=== PATIENT | female | born 1930 | race Caucasian/White ===

== ENCOUNTER → 2016-11-24 | Outpatient (CLI) | payer BC ==
[~2016-11-24] MED LIST: B-COCAP2 PO; CHOL1000 PO; FERR1TAB13 PO; GLC500 PO; GLUC1500 PO; LEVE500T13 PO; LISI-461 PO; LPR25 PO; LPT20 PO; PRT40 PO; RIVA6CAP4 PO
[2016-11-24 17:34] LABS: ALKALINE PHOSPHATASE 30 U/L (45-117); ALT/SGPT 33 U/L (12-78); AST/SGOT 23 U/L (15-37)
== END | disposition home or self-care (01) ==
LOC: C.LABPVFM 13:46
PROVIDERS: ATTEND Internal Medicine Cardiovascular Disease
DX: E78.5 Hyperlipidemia, unspecified (principal)

== ENCOUNTER → 2017-03-19 | Outpatient (CLI) | payer BC | END | disposition home or self-care (01) | LOC: C.LABPVFM 07:39 | PROVIDERS: ATTEND Nurse Practitioner | DX: R10.9 Unspecified abdominal pain (principal) ==

== ENCOUNTER → 2017-06-04 | Outpatient (CLI) | payer BC ==
[2017-06-04 17:47] LABS: BASO % 0.5 %; BASO ABS # 0.05 K/uL (0-0.2); COMPLETE YES; EOS % 0.9 %; IG% 0.3 %; LYMPH % 21.4 %; LYMPH ABS # 1.97 K/uL (1.2-3.4); MEAN CELL VOLUME 97.1 fL (80-100); MEAN CORPUSCULAR HEMOGLOBIN 30.9 pg (25-34); MEAN CORPUSCULAR HGB CONC 31.8 g/dl (32-36); MEAN PLATELET VOLUME 10.3 fL (7.4-10.4); MONO % 7.7 %; NEUT % 69.2 %; PLATELET COUNT 312 K/uL (130-400)
[2017-06-04 17:53] LABS: BLOOD UREA NITROGEN 18 mg/dl (7-18); BUN/CREATININE RATIO 20.5 (10-20); CALCIUM 9.2 mg/dl (8.5-10.1); CARBON DIOXIDE 26 mmol/L (21-32); CHLORIDE 106 mmol/L (98-107); CREATININE 0.87 mg/dl (0.60-1.20); GLUCOSE 78 mg/dl (70-99); POTASSIUM 4.8 mmol/L (3.5-5.1); SODIUM 137 mmol/L (136-145)
[2017-06-05 06:47] LABS: ESTIMATED AVERAGE GLUCOSE 126 mg/dl; HA1C FLAG Normal (Normal)
== END | disposition home or self-care (01) ==
LOC: C.LABPVFM 11:15
PROVIDERS: ATTEND Nurse Practitioner
DX: E11.9 Type 2 diabetes mellitus without complications (principal); D50.9 Iron deficiency anemia, unspecified; M81.0 Age-related osteoporosis without current pathological fracture

== ENCOUNTER → 2017-07-26 | Outpatient (CLI) | payer BC ==
[2017-07-26 18:23] LABS: BLOOD UREA NITROGEN 25 mg/dl (7-18); BUN/CREATININE RATIO 22.7 (10-20); CALCIUM 9.6 mg/dl (8.5-10.1); CARBON DIOXIDE 25 mmol/L (21-32); CHLORIDE 106 mmol/L (98-107); GLUCOSE 105 mg/dl (70-99); POTASSIUM 4.6 mmol/L (3.5-5.1); SODIUM 138 mmol/L (136-145)
[2017-07-26 18:32] LABS: BASO % 0.3 %; BASO ABS # 0.03 K/uL (0-0.2); COMPLETE YES; EOS % 1.5 %; HEMATOCRIT 33.4 % (37-47); IG% 0.3 %; LYMPH % 23.1 %; LYMPH ABS # 2.17 K/uL (1.2-3.4); MEAN CELL VOLUME 97.1 fL (80-100); MEAN CORPUSCULAR HEMOGLOBIN 30.8 pg (25-34); MEAN CORPUSCULAR HGB CONC 31.7 g/dl (32-36); MEAN PLATELET VOLUME 10.5 fL (7.4-10.4); MONO % 7.9 %; NEUT % 66.9 %; PLATELET COUNT 339 K/uL (130-400); RED BLOOD COUNT 3.44 M/uL (4.2-5.4); WHITE BLOOD COUNT 9.39 K/uL (4.8-10.8)
== END | disposition home or self-care (01) ==
LOC: C.LABPVFM 16:04
PROVIDERS: ATTEND Nurse Practitioner
DX: R73.09 Other abnormal glucose (principal); R53.83 Other fatigue; I47.1 Supraventricular tachycardia; R11.0 Nausea

== ENCOUNTER → 2017-07-29 | Outpatient (CLI) | payer BC | END | disposition home or self-care (01) | LOC: C.LABPVFM 12:50 | PROVIDERS: ATTEND Nurse Practitioner | DX: N39.0 Urinary tract infection, site not specified (principal); R11.0 Nausea ==

== ENCOUNTER 2017-10-11 07:30 | Inpatient (IN) | payer BC, OTHER ==
[2017-10-11] VITALS (8 sets, daily range): BP systolic 160–205; BP diastolic 65–74; PULSE 56–75; TEMP 36.3–36.7; O2SAT 94–97; Ht 157.5 cm; Wt 55.4 kg
[~2017-10-11] VITALS: Ht 157.5 cm; Wt 55.4 kg
[2017-10-11] MEDS ORDERED: TRAMADOL HCL 50 MG TAB PO STA (07:43)
--- NOTE | 2017-10-11 07:56 | EMERGENCY ROOM VISIT NOTE ---
History Report prepared by Mame: Lindy Walker Under the Supervision of: Dr. Huber Thakkar M.D. First contact with patient: 07:40 Chief Complaint: FALL Stated Complaint: FALL, RIGHT SIDE BACK AND SHOULDER HURTS History of Present Illness The patient is a 87 year old female who presents to the Emergency Room with complaints of an episode of a fall occurring about two hours ago. The patient states that she stood up to go to the bathroom when she lost her balance and fell to the ground. She reports right upper back pain and rates her pain as a 6/ 10. Her pain worsens with taking a deep breath. She is unsure if she hit her head or lost consciousness. The patient took Tylenol with minimal relief. She reports feeling normal over the past couple days and denies any urinary symptoms or headache. The patient is not on any blood thinners. She reports taking her daily medications this morning. Source of History: patient Onset: 2 hours ago Position: other (generalized) Quality: other (fall) Timing: other (episode) Associated Symptoms: + back pain, No headache, No urinary symptoms Review of Systems See HPI for pertinent positives & negatives. A total of 10 systems reviewed and were otherwise negative. Past Medical & Surgical Medical Problems: (1) Heart murmur Social History Smoking Status: Never Smoker Alcohol Use: none Drug Use: none Marital Status: Housing Status: lives alone Occupation Status: retired Current/Historical Medications Scheduled Atorvastatin (Lipitor), 20 MG PO DAILY Cholecalciferol (Vitamin D3), 1,000 UNITS PO DAILY Ferrous Sulfate (Ferrous Sulfate), 325 MG PO BID Gjymkzywome-Jdrydqdhqea-Imd C- (Glucosamine Chondroitin 1), 1 CAP PO BID Levetiracetam (Keppra), 500 MG PO BID Lisinopril (Zestril), 10 MG PO DAILY Metformin HCl (Metformin HCl), 500 MG PO DAILY Metoprolol Tartrate (Lopressor) (Lopressor), 25 MG PO BID Pantoprazole (Protonix), 40 MG PO DAILY Rivastigmine Tartrate (Rivastigmine Tartrate), 6 MG PO BID Sennosides (Senokot), 8.6 MG PO DAILY Vitamin B Cmplx/Vitc/Folic Ac (Nephrocaps), 1 CAP PO DAILY Allergies Coded Allergies: No Known Allergies (Unverified , 10/11/17) Physical Exam Vital Signs Date Time Temp Pulse Resp B/P (MAP) Pulse Ox O2 Delivery O2 Flow Rate FiO2 10/11/17 09:12 64 20 173/80 95 10/11/17 08:31 71 20 209/90 97 10/11/17 07:33 36.7 62 20 185/89 99 Room Air Physical Exam GENERAL: Patient is in no acute distress. HEENT: No acute trauma, normocephalic atraumatic, mucous membranes moist, no nasal congestion, no scleral icterus. NECK: No stridor, no adenopathy, no meningismus, trachea is midline. Posterior cervical spine mildly diffusely tender, no step off. CHEST: Tender to right lateral and posterior mid ribs, no contusion. LUNGS: Clear to auscultation bilaterally, no wheeze, no rhonchi, breath sounds equal. HEART: Without murmurs gallops or rubs, regular rate and rhythm. ABDOMEN: Soft, nontender, bowel sounds positive, no hernias, no peritonitis. EXTREMITIES: No cyanosis or edema, full range of motion of all the joints without pain or difficulty, no signs for acute trauma. NEUROLOGIC: Oriented x 3, no acute motor or sensory deficits, no focal weakness. SKIN: No rash, no jaundice, no diaphoresis. Medical Decision & Procedures ER Provider Diagnostic Interpretation: Radiology results as stated below per my review and radiologist interpretation: CERVICAL SPINE W/O FINDINGS: Division Order Technician topogram: Unremarkable. Straightening of normal cervical lordosis likely positional and secondary to degenerative change. Mild vertebral body height loss of C4-C6. Intervertebral disc height loss at C4-5 through C6-7, where there are disc osteophyte complexes. Mild osseous neural foraminal narrowing results at these levels to varying degrees. Posterior bone spur at C5-6 mildly effaces the right paramedian anterior spinal canal. Otherwise no significant spinal canal stenosis. No acute fracture or subluxation. Degenerative changes at the atlantodental interval. Paraspinal soft tissues remarkable for atherosclerosis. Lung apices clear. IMPRESSION: 1. No acute osseous injury of the cervical spine. 2. Multilevel degenerative changes. Electronically signed by: Eyad Macias M.D. HEAD WITHOUT CONTRAST (CT) FINDINGS: Division Order Technician topogram: Unremarkable. Proportional ventricular and sulcal prominence, likely age-related parenchymal volume loss. Periventricular and subcortical white matter hypoattenuation, nonspecific but likely indicative of chronic small vessel ischemic change. No mass effect or midline shift. No hemorrhage or acute territorial infarct. No extra-axial fluid collection. Paranasal sinuses and mastoid air cells clear. Calvarium intact. IMPRESSION: 1. Chronic small vessel ischemic change. No acute intracranial abnormality. Electronically signed by: Eyad Macias M.D. R RIBS UNILATERAL WITH PA CHEST FINDINGS: Atherosclerosis of aortic arch. Cardiac silhouette normal in size. Minimal opacity at the right lung base. Lungs otherwise clear. No large effusion or pneumothorax. Contour deformity of the cortex of one of the right lateral ribs, likely the sixth or seventh rib. No displaced right rib fracture. Degenerative changes of the right shoulder with complete effacement of the acromiohumeral interval likely indicating complete rotator cuff tear. Cholecystectomy clips noted. IMPRESSION: 1. Contour deformity of one of the right lateral ribs, likely the sixth or seventh rib, concerning for nondisplaced fracture. This is age indeterminate. Correlate with point tenderness for assessment of acuity. No displaced rib fracture. 2. No other evidence of acute cardiopulmonary disease. Electronically signed by: Eyad Macias M.D. Laboratory Results 10/11/17 07:55 10/11/17 07:55 Test 10/11/17 07:55 10/11/17 09:10 Red Blood Count 3.54 M/uL (4.2-5.4) Mean Corpuscular Volume 96.0 fL (80-100) Mean Corpuscular Hemoglobin 31.1 pg (25-34) Mean Corpuscular Hemoglobin Concent 32.4 g/dl (32-36) RDW Standard Deviation 46.9 fL (36.4-46.3) RDW Coefficient of Variation 13.5 % (11.5-14.5) Mean Platelet Volume 9.9 fL (7.4-10.4) Anion Gap 11.0 mmol/L (3-11) Est Creatinine Clear Calc Drug Dose 33.2 ml/min Estimated GFR () 64.8 Estimated GFR (Non- 55.9 BUN/Creatinine Ratio 24.4 (10-20) Calcium Level 9.5 mg/dl (8.5-10.1) Total Bilirubin 0.3 mg/dl (0.2-1) Aspartate Amino Transf (AST/SGOT) 17 U/L (15-37) Alanine Aminotransferase (ALT/SGPT) 17 U/L (12-78) Alkaline Phosphatase 33 U/L (45-117) Troponin I 0.016 ng/ml (0-0.045) Total Protein 7.5 gm/dl (6.4-8.2) Albumin 3.7 gm/dl (3.4-5.0) Globulin 3.8 gm/dl (2.5-4.0) Albumin/Globulin Ratio 1.0 (0.9-2) Urine Color YELLOW Urine Appearance CLEAR (CLEAR) Urine pH 5.0 (4.5-7.5) Urine Specific [place] 1.018 (1.000-1.030) Urine Protein 1+ (NEG) Urine Glucose (UA) NEG (NEG) Urine Ketones NEG (NEG) Urine Occult Blood TRACE (NEG) Urine Nitrite NEG (NEG) Urine Bilirubin NEG (NEG) Urine Urobilinogen NEG (NEG) Urine Leukocyte Esterase MODERATE (NEG) Urine WBC (Auto) >30 /hpf (0-5) Urine RBC (Auto) 0-4 /hpf (0-4) Urine Hyaline Casts (Auto) 1-5 /lpf (0-5) Urine Epithelial Cells (Auto) 0-5 /lpf (0-5) Urine Bacteria (Auto) 4+ (NEG) Laboratory results reviewed by me. Medications Administered Medications (Trade) Dose Ordered Sig/Giorgi Route Start Time Stop Time Status Last Admin Dose Admin Tramadol HCl (Ultram Tab) 100 mg NOW STAT PO 10/11/17 07:43 10/11/17 07:47 DC 10/11/17 07:55 100 MG Morphine Sulfate (MoRPHine SULFATE INJ) 2 mg NOW STAT IV 10/11/17 08:44 10/11/17 08:46 DC 10/11/17 08:55 2 MG Ketorolac Tromethamine (Toradol Inj) 15 mg NOW STAT IV 10/11/17 08:44 10/11/17 08:46 DC 10/11/17 08:56 15 MG Ondansetron HCl (Zofran Inj) 4 mg NOW STAT IV 10/11/17 09:32 10/11/17 09:33 DC 10/11/17 09:37 4 MG Ceftriaxone Sodium (Rocephin Inj) 1 gm NOW STAT IV 10/11/17 09:41 10/11/17 09:43 DC 10/11/17 10:02 1 GM Sodium Chloride 500 ml @ 999 mls/hr Q31M STAT IV 10/11/17 09:46 10/11/17 10:16 10/11/17 10:02 999 MLS/HR ECG Indication: other (fall) Rate (beats per minute): 67 Rhythm: sinus rhythm Findings: PVC, no acute ischemic change, other (poor R wave progression, LVH present) ED Course 0740: The patient was evaluated in room B2. A complete history and physical exam was performed. 0743: Ordered Tramadol HCl 100 mg PO. 0841: I updated the patient on her test results. She is still having pain. 0844: Ordered Toradol Inj 15 mg IV, Morphine Sulfate 2 mg IV. 0932: Ordered Zofran Inj 4 mg IV. 0946: Ordered Sodium Chloride 500 ml @ 999 mls/hr IV. 0958: Discussed the patient's case with Dr. Talley-[facility] [place]. The patient will be evaluated for further management. Medical Decision Differential Diagnoses include: rib fracture, pneumothorax, rib contusion, intracranial bleed, cervical spine fracture, anemia, dysrhythmia, electrolyte imbalance, UTI. There is no leukocytosis or concerning anemia. No significant electrolyte abnormality, kidney failure or hepatitis. EKG shows a sinus rhythm with PVCs, no acute ischemia. Cardiac testing 1 is not consistent with acute cardiac injury. Brain CT shows no acute bleed or mass effect. C-spine CT shows no acute fracture. Right rib series shows a deformity to one of the right ribs consistent with a nondisplaced fracture. There is no pneumothorax or pulmonary contusion. Urinalysis does show evidence for infection. The patient received oral tramadol with no relief of her pain. She then received IV morphine and IV Toradol. She received IV saline and eventually IV Zofran for nausea. She received IV ceftriaxone for the diagnosis of UTI. The patient presents with a fall. I had a difficult time controlling her pain. She became nauseated from the morphine although the morphine did help control her discomfort. She appears to have a UTI and this may have led to the fall. She has suffered a rib fracture from the fall. Given the circumstances, I do not think the patient is stable for discharge. She is not able to return to her current living situation. I spoke to the family, I talked to case management. The on-call hospitalist was consulted. Medication Reconcilliation Current Medication List: was personally reviewed by me Blood Pressure Screening Patient's blood pressure: Elevated blood pressure Blood pressure disposition: Referred to PCP (evaluated by hospitlist ) Consults Time Called: [phone] Consulting Physician: Dr. Talley-[facility] [place] Returned Call: [phone] Discussed the patient's case. The patient will be evaluated for further management. Impression Primary Impression: Right rib fracture Additional Impressions: Fall UTI (urinary tract infection) Scribe Attestation The scribe's documentation has been prepared under my direction and personally reviewed by me in its entirety. I confirm that the note above accurately reflects all work, treatment, procedures, and medical decision making performed by me. Departure Information Dispostion Being Evaluated By Hospitalist Referrals Brittanie Moran C.R.N.P (PCP) Patient Instructions My [facility] Problem Qualifiers Primary Impression: Right rib fracture Fracture type: closed
[2017-10-11 08:08] LABS: MEAN CORPUSCULAR HEMOGLOBIN 31.1 pg (25-34); MEAN CORPUSCULAR HGB CONC 32.4 g/dl (32-36); MEAN PLATELET VOLUME 9.9 fL (7.4-10.4); PLATELET COUNT 316 K/uL (130-400); RED BLOOD COUNT 3.54 M/uL (4.2-5.4); WHITE BLOOD COUNT 9.58 K/uL (4.8-10.8)
--- NOTE | 2017-10-11 08:19 | DIAGNOSTIC IMAGING REPORT ---
HEAD WITHOUT CONTRAST (CT) CLINICAL HISTORY: 87 years-old Female presenting with fall, hit head. TECHNIQUE: Multidetector CT imaging of the head was performed without the use of intravenous contrast. IV contrast: None. A dose lowering technique was used consistent with the principles of ALARA (as low as reasonably achievable). COMPARISON: 02/21/2008. CT DOSE (mGy.cm): The estimated cumulative dose is 1009.47 mGy.cm. FINDINGS: People Greeter topogram: Unremarkable. Proportional ventricular and sulcal prominence, likely age-related parenchymal volume loss. Periventricular and subcortical white matter hypoattenuation, nonspecific but likely indicative of chronic small vessel ischemic change. No mass effect or midline shift. No hemorrhage or acute territorial infarct. No extra-axial fluid collection. Paranasal sinuses and mastoid air cells clear. Calvarium intact. IMPRESSION: 1. Chronic small vessel ischemic change. No acute intracranial abnormality. Electronically signed by: Eyad Macias M.D. 10/11/2017 8:18 AM Dictated Date/Time: 10/11/2017 8:16 AM
[2017-10-11 08:24] LABS: BUN/CREATININE RATIO 24.4 (10-20); CALCIUM 9.5 mg/dl (8.5-10.1); CREATININE 0.91 mg/dl (0.60-1.20); POTASSIUM 4.5 mmol/L (3.5-5.1)
--- NOTE | 2017-10-11 08:24 | DIAGNOSTIC IMAGING REPORT ---
CERVICAL SPINE W/O CLINICAL HISTORY: 87 years-old Female presenting with fall, neck pain. TECHNIQUE: Multidetector CT of the cervical spine was performed without the use of intravenous contrast. IV contrast: None. A dose lowering technique was used consistent with the principles of ALARA (as low as reasonably achievable). COMPARISON: None. CT DOSE (mGy.cm): The estimated cumulative dose is 1009.47. FINDINGS: Superintendent Operating topogram: Unremarkable. Straightening of normal cervical lordosis likely positional and secondary to degenerative change. Mild vertebral body height loss of C4-C6. Intervertebral disc height loss at C4-5 through C6-7, where there are disc osteophyte complexes. Mild osseous neural foraminal narrowing results at these levels to varying degrees. Posterior bone spur at C5-6 mildly effaces the right paramedian anterior spinal canal. Otherwise no significant spinal canal stenosis. No acute fracture or subluxation. Degenerative changes at the atlantodental interval. Paraspinal soft tissues remarkable for atherosclerosis. Lung apices clear. IMPRESSION: 1. No acute osseous injury of the cervical spine. 2. Multilevel degenerative changes. Electronically signed by: Eyad Macias M.D. 10/11/2017 8:22 AM Dictated Date/Time: 10/11/2017 8:18 AM
--- NOTE | 2017-10-11 08:28 | DIAGNOSTIC IMAGING REPORT ---
R RIBS UNILATERAL WITH PA CHEST CLINICAL HISTORY: 87 years-old Female presenting with fall, pain, right. TECHNIQUE: Frontal and oblique views of the right ribs and PA view of the chest were obtained. COMPARISON: 02/21/2008. FINDINGS: Atherosclerosis of aortic arch. Cardiac silhouette normal in size. Minimal opacity at the right lung base. Lungs otherwise clear. No large effusion or pneumothorax. Contour deformity of the cortex of one of the right lateral ribs, likely the sixth or seventh rib. No displaced right rib fracture. Degenerative changes of the right shoulder with complete effacement of the acromiohumeral interval likely indicating complete rotator cuff tear. Cholecystectomy clips noted. IMPRESSION: 1. Contour deformity of one of the right lateral ribs, likely the sixth or seventh rib, concerning for nondisplaced fracture. This is age indeterminate. Correlate with point tenderness for assessment of acuity. No displaced rib fracture. 2. No other evidence of acute cardiopulmonary disease. Electronically signed by: Eyad Macias M.D. 10/11/2017 8:27 AM Dictated Date/Time: 10/11/2017 8:22 AM
[2017-10-11] MEDS ORDERED: FERR325T5 PO (08:42)
[2017-10-11] MEDS ORDERED: GLC500 PO (08:42)
[2017-10-11] MEDS ORDERED: B-CO1CAP17 PO (08:42)
[2017-10-11] MEDS ORDERED: ATOR-22 PO (08:42)
[2017-10-11] MEDS ORDERED: SENN1TAB77 PO (08:42)
[2017-10-11] MEDS ORDERED: PANT1TAB3 PO (08:42)
[2017-10-11] MEDS ORDERED: METO25TA56 PO (08:42)
[2017-10-11] MEDS ORDERED: MoRPHine SULFATE 4 MG/ML 1 ML CARP\\VIAL IV STA (08:44)
[2017-10-11] MEDS ORDERED: KETOROLAC TROMETHAMINE 30 MG/ML VIAL IV STA (08:44)
[2017-10-11 09:26] LABS: URINE APPEARANCE CLEAR (CLEAR); URINE BILIRUBIN NEG (NEG); URINE COLOR YELLOW; URINE EPITHELIAL CELL AUTO 0-5 /lpf (0-5); URINE NITRITE NEG (NEG); URINE SPECIFIC GRAVITY 1.018 (1.000-1.030); UROBILINOGEN NEG (NEG)
[2017-10-11] MEDS ORDERED: ONDANSETRON INJ 2 MG/ML 2 ML VIAL IV STA (09:32)
[2017-10-11 09:38] LABS: MANUAL MICROSCOPIC REQUIRED? NO; REVIEW REQ? NO
[2017-10-11] MEDS ORDERED: CEFTRIAXONE SOD INJ 1 GM ADDVIAL IV STA (09:41)
[2017-10-11] MEDS ORDERED: SODIUM CHLORIDE 0.9% 500ML 500 ML IV STA (09:46)
[2017-10-11] MEDS ORDERED: GLUCOSE 10 TABS/TUBE PO PRN (11:00)
[2017-10-11] MEDS ORDERED: GLUCAGON FOR INJ 1 MG VIAL SQ PRN (11:00)
[2017-10-11] MEDS ORDERED: GLUCOSE 40% GEL 15 GM TUBE PO PRN (11:00)
[2017-10-11] MEDS ORDERED: MAGNESIUM HYDROXIDE SUSP 30 ML UDC PO PRN (11:00)
[2017-10-11] MEDS ORDERED: ALUMINUM/MAGNESIUM/SIMETH (MAALOX MAX) 30 ML UDC PO PRN (11:00)
[2017-10-11] MEDS ORDERED: DEXTROSE 50% 50 ML SYR IV PRN (11:00)
[2017-10-11] MEDS ORDERED: ONDANSETRON INJ 2 MG/ML 2 ML VIAL IV PRN (11:00)
--- NOTE | 2017-10-11 11:23 | History and Physical ---
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 Patient was in her regular state of health until a few days ago when she started having more frequency of urination. Her daughter yesterday picked her up for a family gathering and noticed that she is much more weaker and wobbly. Today a she woke up feeling fatigue and tired more than usual She tried to go to the bathroom and as per patient she had a mechanical fall. She did not hit her head. She did not lose consciousness. She had pain in her back on the right side 6-7 out of 10. Pain gets worse when she takes deep breath. Tylenol did not help with the pain. Patient was brought to the hospital for further evaluation. Chest x-ray revealed 6 and 7 ribs fracture nondisplaced. She was giving pain medications and threw up and felt sleepy She will be admitted for treatment of her urinary tract infection and pain control Denies any smoking or drinking she lives by herself No family history of heart disease Past Medical/Surgical History Medical Problems: (1) Heart murmur Status: Chronic Social History Smoking Status: Never Smoker Drug Use: none Marital Status: Occupational Status: retired Multi-Drug Resistant Organisms History of MDRO: No Allergies Coded Allergies: No Known Allergies (Unverified , 10/11/17) Home Medications Scheduled Atorvastatin (Lipitor), 20 MG PO DAILY Cholecalciferol (Vitamin D3), 1,000 UNITS PO DAILY Ferrous Sulfate (Ferrous Sulfate), 325 MG PO BID Kfhuldfvwvu-Mtqjtjhnbvh-Nxq C- (Glucosamine Chondroitin 1), 1 CAP PO BID Levetiracetam (Keppra), 500 MG PO BID Lisinopril (Zestril), 10 MG PO DAILY Metformin HCl (Metformin HCl), 500 MG PO DAILY Metoprolol Tartrate (Lopressor) (Lopressor), 25 MG PO BID Pantoprazole (Protonix), 40 MG PO DAILY Rivastigmine Tartrate (Rivastigmine Tartrate), 6 MG PO BID Sennosides (Senokot), 8.6 MG PO DAILY Vitamin B Cmplx/Vitc/Folic Ac (Nephrocaps), 1 CAP PO DAILY Review of Systems Constitutional: + weakness, + fatigue, No fever, No chills, No sweats, No weight loss, No problem reported Eyes: No worsening of vision, No eye pain, No redness, No discharge, No diplopia, No problem reported ENT: No hearing loss, No unusual epistaxis, No nasal symptoms, No sore throat, No tinnitus, No dental problems, No trouble swallowing, No problem reported Respiratory: No cough, No sputum, No wheezing, No shortness of breath, No dyspnea on exertion, No dyspnea at rest, No hemoptysis, No problem reported Cardiovascular: No chest pain, No orthopnea, No PND, No edema, No claudication , No palpitations, No problem reported Abdomen: No pain, No nausea, No vomiting, No diarrhea, No constipation, No GI bleeding, No problem reported Musculoskeletal: No joint pain, No muscle pain, No swelling, No calf pain, No problem reported Genitourinary - Female: + urinary frequency, + urinary urgency, No dysuria, No urinary incontinence, No urinary retention, No hematuria, No dysmenorrhea, No menorrhagia, No metrorrhagia, No rash, No vaginal bleeding, No vaginal discharge , No vaginal itching, No vulvodynia, No , No problem reported Neurologic: + weakness (left side weakness seconday to polio), No memory loss, No paralysis, No numbness/tingling, No vertigo, No balance problems, No problem reported Psychiatric: No depression symptoms, No anhedonism, No anxiety, No insomnia, No substance abuse, No problem reported Endocrine: + fatigue, + excessive urination, No excessive thirst, No problem reported Hematologic / Lymphatic: No abnormal bleeding/bruising, No clotting problems, No swollen lymph nodes, No night sweats, No problem reported Integumentary: No rash, No itch, No new/changing skin lesions, No color change , No bleeding, No problem reported Physical Exam Vital Signs Date Time Temp Pulse Resp B/P (MAP) Pulse Ox O2 Delivery O2 Flow Rate FiO2 10/11/17 09:12 64 20 173/80 95 10/11/17 08:31 71 20 209/90 97 10/11/17 07:33 36.7 62 20 185/89 99 Room Air General Appearance: WD/WN, no apparent distress Head: normocephalic, atraumatic Eyes: normal inspection, EOMI ENT: normal ENT inspection, hearing grossly normal Neck: supple, thyroid normal Respiratory/Chest: chest non-tender, lungs clear, normal breath sounds, no respiratory distress, no accessory muscle use, + pertinent finding (chest wall tenderness) Cardiovascular: regular rate, rhythm, no edema, no gallop, no JVD, no murmur, normal peripheral pulses Abdomen/GI: normal bowel sounds, non tender, soft, no organomegaly, no pulsatile mass Back: normal inspection Extremities/Musculoskelatal: normal inspection, no calf tenderness, normal capillary refill, no pedal edema, normal range of motion, + pertinent finding ( slight muscle atrophy in left lower extremity) 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 as tested, no motor/sensory deficits, alert, normal mood/affect, normal reflexes, oriented x 3 Skin: normal color, warm/dry, no rash Diagnostics Laboratory Results Results Past 24 Hours Test 10/11/17 07:55 10/11/17 09:10 Range/Units White Blood Count 9.58 4.8-10.8 K/uL Red Blood Count 3.54 4.2-5.4 M/uL Hemoglobin 11.0 12.0-16.0 g/dL Hematocrit 34.0 37-47 % Mean Corpuscular Volume 96.0 80-100 fL Mean Corpuscular Hemoglobin 31.1 25-34 pg Mean Corpuscular Hemoglobin Concent 32.4 32-36 g/dl RDW Standard Deviation 46.9 36.4-46.3 fL RDW Coefficient of Variation 13.5 11.5-14.5 % Platelet Count 316 130-400 K/uL Mean Platelet Volume 9.9 7.4-10.4 fL Sodium Level 139 136-145 mmol/L Potassium Level 4.5 3.5-5.1 mmol/L Chloride Level 105 98-107 mmol/L Carbon Dioxide Level 23 21-32 mmol/L Anion Gap 11.0 3-11 mmol/L Blood Urea Nitrogen 22 7-18 mg/dl Creatinine 0.91 0.60-1.20 mg/dl Est Creatinine Clear Calc Drug Dose 33.2 ml/min Estimated GFR () 64.8 Estimated GFR (Non- 55.9 BUN/Creatinine Ratio 24.4 10-20 Random Glucose 126 70-99 mg/dl Calcium Level 9.5 8.5-10.1 mg/dl Total Bilirubin 0.3 0.2-1 mg/dl Aspartate Amino Transf (AST/SGOT) 17 15-37 U/L Alanine Aminotransferase (ALT/SGPT) 17 12-78 U/L Alkaline Phosphatase 33 45-117 U/L Troponin I 0.016 0-0.045 ng/ml Total Protein 7.5 6.4-8.2 gm/dl Albumin 3.7 3.4-5.0 gm/dl Globulin 3.8 2.5-4.0 gm/dl Albumin/Globulin Ratio 1.0 0.9-2 Urine Color YELLOW Urine Appearance CLEAR CLEAR Urine pH 5.0 4.5-7.5 Urine Specific [place] 1.018 1.000-1.030 Urine Protein 1+ NEG Urine Glucose (UA) NEG NEG Urine Ketones NEG NEG Urine Occult Blood TRACE NEG Urine Nitrite NEG NEG Urine Bilirubin NEG NEG Urine Urobilinogen NEG NEG Urine Leukocyte Esterase MODERATE NEG Urine WBC (Auto) >30 0-5 /hpf Urine RBC (Auto) 0-4 0-4 /hpf Urine Hyaline Casts (Auto) 1-5 0-5 /lpf Urine Epithelial Cells (Auto) 0-5 0-5 /lpf Urine Bacteria (Auto) 4+ NEG Microbiology Results 10/11/17 Urine Culture, Received Pending Impression Assessment and Plan 87 years old female with diabetes mellitus type 2, hypertension, dyslipidemia, history of seizure disorder, childhood polio with left-sided weakness and history of previous UTI. Presented to the hospital with increased frequency of urination, weakness, fatigue and fall with nondisplaced fracture of 6/7 ribs Urine analysis revealed UTI Assessment UTI present on admission Ordered urine culture and sensitivity, start patient on ceftriaxone Start patient on Lactinex for C. difficile prophylaxis Start the patient on vitamin C supplement, also can be started and cranberry tablets as an outpatient for UTI prophylaxis Status post mechanical fall, right 6/seventh rib fracture Lidoderm patch Ultram when necessary severe pain and Tylenol when necessary mild pain Incentive spirometer PT/OT Hypertension Slightly elevated may be from the pain Continue home blood pressure medication including metoprolol/lisinopril Diabetes mellitus type 2 Obtain hemoglobin A1c Continue metformin Obtain sliding scale insulin Seizure disorder Continue antiseizure medication Dyslipidemia Continue Lipitor, we'll not check lipids panel as it was checked before and was within normal limits DVT prophylaxis Heparin subcutaneous twice a day Fall precaution Patient would like to be no cardiac CPR but does not maintain midline to be intubated if intubation is required and will be temporary VTE Prophylaxis VTE Risk Assessment Done? Y/N: Yes Risk Level: Moderate
[2017-10-11 14:52] LABS: PARTIAL THROMBOPLASTIN RATIO 0.9; PROTHROMBIN TIME (PATIENT) 10.5 SECONDS (9.0-12.0)
[2017-10-11] MEDS: INSULIN ASPART 100 UNITS/ML 3 ML PEN SC SCH ×3 (15:17→20:22)
[2017-10-11] MEDS: LACTOBACILLUS ACIDOPHILUS 1 GM PACK PO SCH ×2 (15:17→17:33)
[2017-10-11] MEDS: SODIUM CHLORIDE 0.9% 1000ML 1,000 ML IV SCH ×2 (15:42→15:45)
[2017-10-11] MEDS: TRAMADOL HCL 50 MG TAB PO PRN ×2 (15:43→20:10)
[2017-10-11] MEDS: LIDODERM (LIDOCAINE) PATCH 5% TD SCH (15:44)
[2017-10-11] MEDS: FERROUS SULFATE 325 MG TAB PO SCH (20:11)
[2017-10-11] MEDS: METOPROLOL TARTRATE 25 MG TAB PO SCH (20:12)
[2017-10-11] MEDS: LEVETIRACETAM 500 MG TAB PO SCH (20:12)
[2017-10-11] MEDS: HEPARIN SOD 5000 UNIT/0.5 ML CARP SQ SCH (20:16)
[2017-10-11] MEDS: RIVASTIGMINE TARTRATE (EXELON) 1.5 MG CAP PO SCH (20:26)
[2017-10-11] MEDS ORDERED: GLUCOSAMINE CHONDROITIN VIT C PO SCH (21:00)
[2017-10-12] MEDS: TRAMADOL HCL 50 MG TAB PO PRN ×2 (03:27→23:59)
[2017-10-12 04:01] VITALS: BP 194/68; PULSE 68; TEMP 36.3; O2SAT 96
[2017-10-12 05:42] LABS: BASO % 0.1 %; BASO ABS # 0.01 K/uL (0-0.2); COMPLETE YES; EOS % 0.4 %; HEMATOCRIT 31.2 % (37-47); IG% 0.5 %; LYMPH % 13.8 %; LYMPH ABS # 1.12 K/uL (1.2-3.4); MEAN CELL VOLUME 97.5 fL (80-100); MEAN CORPUSCULAR HEMOGLOBIN 30.9 pg (25-34); MEAN CORPUSCULAR HGB CONC 31.7 g/dl (32-36); MEAN PLATELET VOLUME 9.7 fL (7.4-10.4); MONO % 6.4 %; NEUT % 78.8 %; PLATELET COUNT 254 K/uL (130-400); WHITE BLOOD COUNT 8.11 K/uL (4.8-10.8)
[2017-10-12] MEDS: SODIUM CHLORIDE 0.9% 1000ML 1,000 ML IV SCH (06:06)
[2017-10-12 06:13] LABS: BUN/CREATININE RATIO 20.9 (10-20); CALCIUM 8.6 mg/dl (8.5-10.1); CREATININE 0.75 mg/dl (0.60-1.20); POTASSIUM 4.5 mmol/L (3.5-5.1)
[2017-10-12 06:16] LABS: ALB/GLOB RATIO 0.9 (0.9-2)
[2017-10-12 07:13] VITALS: BP_SYST 180; BP_SYST 184; BP_DIAS 65; BP_DIAS 72; PULSE 59; TEMP 36.4; O2SAT 95
[2017-10-12 07:13] LABS: ESTIMATED AVERAGE GLUCOSE 114 mg/dl; HA1C FLAG Normal (Normal)
[2017-10-12] MEDS: ATORVASTATIN 20 MG TAB PO SCH (07:29)
[2017-10-12] MEDS: CHOLECALCIFEROL 1000 INTER.UNIT TAB PO SCH (07:30)
[2017-10-12] MEDS: PANTOprazole SOD 40 MG TAB PO SCH (07:30)
[2017-10-12] MEDS: RIVASTIGMINE TARTRATE (EXELON) 1.5 MG CAP PO SCH ×2 (07:31→21:18)
[2017-10-12] MEDS: LACTOBACILLUS ACIDOPHILUS 1 GM PACK PO SCH ×3 (07:32→16:03)
[2017-10-12] MEDS: ASCORBIC ACID 500 MG TAB PO SCH (07:32)
[2017-10-12] MEDS: METOPROLOL TARTRATE 25 MG TAB PO SCH ×2 (07:32→21:19)
[2017-10-12] MEDS: SENNA 8.6 MG TAB PO SCH (07:33)
[2017-10-12] MEDS: LEVETIRACETAM 500 MG TAB PO SCH ×2 (07:33→21:16)
[2017-10-12] MEDS: LISINOPRIL 10 MG TAB PO SCH (07:34)
[2017-10-12] MEDS: NEPHROCAPS PO SCH (07:34)
[2017-10-12] MEDS: METFORMIN HCL 500 MG TAB PO SCH (07:34)
[2017-10-12] MEDS: FERROUS SULFATE 325 MG TAB PO SCH ×2 (07:35→21:17)
[2017-10-12] MEDS: INSULIN ASPART 100 UNITS/ML 3 ML PEN SC SCH ×4 (08:37→20:52)
[2017-10-12] MEDS: HEPARIN SOD 5000 UNIT/0.5 ML CARP SQ SCH ×2 (08:43→21:23)
[2017-10-12] MEDS: LIDODERM (LIDOCAINE) PATCH 5% TD SCH (08:51)
[2017-10-12] MEDS: CEFTRIAXONE SOD INJ 1 GM in DEXTROSE 5% ADD-VANTAGE 50ML 50 ML IV SCH (10:06)
[2017-10-12 11:22] VITALS: BP 188/64; PULSE 51; TEMP 36.3; O2SAT 97
--- NOTE | 2017-10-12 12:24 | Progress Note ---
Subjective Date of Service: Oct 12, 2017. Subjective Pt evaluation today including: conversation w/ patient Pt is feeling improved, but still with increased urinary frequency. She is having pain in her back on the R that is in the same area as related to her fall and rib fractures. She has been nauseated this AM but no emesis. She was able to eat her breakfast. Still a bit unsteady on her feet and sitting up in the chair is helping her nausea. Pt denies fever, SOB, chest pain, abd pain, c/d, LE pain or swelling. Problem List Medical Problems: (1) Anemia Status: Acute (2) Fall Status: Acute (3) Gastrointestinal bleeding Status: Acute (4) Right rib fracture Status: Acute (5) Tachy-lilian syndrome Status: Acute (6) UTI (urinary tract infection) Status: Acute Review of Systems All Other Systems: Reviewed and Negative Objective Vital Signs Date Time Temp Pulse Resp B/P (MAP) Pulse Ox O2 Delivery O2 Flow Rate FiO2 10/12/17 11:22 36.3 51 22 188/64 (105) 97 Room Air 10/12/17 08:00 Room Air 10/12/17 07:13 36.4 59 20 184/72 (109) 95 Room Air 180/65 (103) 10/12/17 04:01 36.3 68 20 194/68 (110) 96 Room Air 10/12/17 04:01 Room Air 10/12/17 00:00 Room Air 10/11/17 23:47 63 190/74 (112) 10/11/17 23:43 36.4 75 18 205/73 (117) 96 Room Air 10/11/17 20:03 36.4 75 16 166/69 (101) 94 Room Air 10/11/17 20:00 96 Room Air 10/11/17 16:00 96 Room Air 10/11/17 15:56 36.7 64 18 165/65 (98) 96 Room Air 10/11/17 12:41 36.3 56 18 160/65 (96) 95 Room Air 10/11/17 12:22 52 20 145/61 95 Physical Exam General Appearance: WD/WN, no apparent distress Eyes: normal inspection, EOMI, sclerae normal Respiratory/Chest: normal breath sounds, no respiratory distress Cardiovascular: regular rate, rhythm, no edema Abdomen: non tender, soft Extremities: non-tender, no pedal edema Neurologic/Psychiatric: alert, normal mood/affect, oriented x 3 Skin: normal color, warm/dry Laboratory Results Last 24 Hours Test 10/11/17 12:54 10/11/17 14:31 10/11/17 16:34 10/11/17 20:21 Bedside Glucose 145 mg/dl 150 mg/dl 133 mg/dl Prothrombin Time 10.5 SECONDS Prothromb Time International Ratio 1.0 Activated Partial Thromboplast Time 23.8 SECONDS Partial Thromboplastin Ratio 0.9 Test 10/12/17 05:28 10/12/17 07:24 10/12/17 11:34 White Blood Count 8.11 K/uL Red Blood Count 3.20 M/uL Hemoglobin 9.9 g/dL Hematocrit 31.2 % Mean Corpuscular Volume 97.5 fL Mean Corpuscular Hemoglobin 30.9 pg Mean Corpuscular Hemoglobin Concent 31.7 g/dl Platelet Count 254 K/uL Mean Platelet Volume 9.7 fL Neutrophils (%) (Auto) 78.8 % Lymphocytes (%) (Auto) 13.8 % Monocytes (%) (Auto) 6.4 % Eosinophils (%) (Auto) 0.4 % Basophils (%) (Auto) 0.1 % Neutrophils # (Auto) 6.39 K/uL Lymphocytes # (Auto) 1.12 K/uL Monocytes # (Auto) 0.52 K/uL Eosinophils # (Auto) 0.03 K/uL Basophils # (Auto) 0.01 K/uL RDW Standard Deviation 48.4 fL RDW Coefficient of Variation 13.7 % Immature Granulocyte % (Auto) 0.5 % Immature Granulocyte # (Auto) 0.04 K/uL Sodium Level 136 mmol/L Potassium Level 4.5 mmol/L Chloride Level 106 mmol/L Carbon Dioxide Level 24 mmol/L Anion Gap 6.0 mmol/L Blood Urea Nitrogen 16 mg/dl Creatinine 0.75 mg/dl Est Creatinine Clear Calc Drug Dose 40.2 ml/min Estimated GFR () 81.9 Estimated GFR (Non- 70.7 BUN/Creatinine Ratio 20.9 Random Glucose 125 mg/dl Estimated Average Glucose 114 mg/dl Hemoglobin A1c 5.6 % Calcium Level 8.6 mg/dl Total Bilirubin 0.3 mg/dl Aspartate Amino Transf (AST/SGOT) 18 U/L Alanine Aminotransferase (ALT/SGPT) 17 U/L Alkaline Phosphatase 30 U/L Total Protein 6.6 gm/dl Albumin 3.2 gm/dl Globulin 3.4 gm/dl Albumin/Globulin Ratio 0.9 Bedside Glucose 148 mg/dl 128 mg/dl Assessment and Plan 87 y/o F with diabetes mellitus type 2, hypertension, dyslipidemia, history of seizure disorder, childhood polio with left-sided weakness and history of previous UTI. Presented to the hospital with increased frequency of urination, weakness, fatigue and fall with nondisplaced fracture of 6/7 ribs Urine analysis revealed UTI Assessment UTI present on admission Urine cx is + for gram neg bacilli with sensitivity pending Started on ceftriaxone on 10/11, will continue Lactinex for C. difficile prophylaxis Continue vitamin C supplement, cranberry tablets as an outpatient for UTI prophylaxis Status post mechanical fall, right 6/seventh rib fracture CT head and c-spine WNL Lidoderm patch Ultram PRN severe pain Incentive spirometer PT/OT pending Pt lives alone but has daughter nearby and cleaning help established HTN: labile, possibly related to pain continue home meds Add hydralazine PRN Reviewed outpt notes and pt is on correct home meds, BPs in the office her last few visits are consistently 160s-180s systolic and no changes noted to medications Follow with hydralazine and may need t/c changing home meds HR is low/low normal consistently, will not increase metoprolol given this but could increase lisinopril Pt is asx with this, follows with cardiology and may need to see them after d /c if ongoing concerns DM: A1c 5.6 Continue metformin SSI PRN Seizure disorder Continue antiseizure medication Dyslipidemia Continue Lipitor, we'll not check lipids panel as it was checked before and was within normal limits DVT prophylaxis Heparin subcutaneous twice a day Fall precaution Patient would like to be no cardiac CPR but does not maintain midline to be intubated if intubation is required and will be temporary
[2017-10-12 15:07] VITALS: BP 189/69; PULSE 70; TEMP 36.4; O2SAT 98
[2017-10-12 16:29] VITALS: BP 186/67
[2017-10-12] MEDS: HydrALAZINE HCL 20 MG/ML VIAL IV. PRN (16:29)
[2017-10-12 19:36] VITALS: BP 153/68; PULSE 82; TEMP 37; O2SAT 95
[2017-10-12] MEDS: ACETAMINOPHEN 325 MG TAB PO PRN (21:15)
[2017-10-13] VITALS (10 sets, daily range): BP systolic 154–188; BP diastolic 52–93; PULSE 61–107; TEMP 36.2–36.7; O2SAT 91–97
[2017-10-13] MEDS: SODIUM CHLORIDE 0.9% 1000ML 1,000 ML IV SCH (03:34)
[2017-10-13] MEDS: TRAMADOL HCL 50 MG TAB PO PRN (05:21)
[2017-10-13] MEDS: HydrALAZINE HCL 20 MG/ML VIAL IV. PRN ×2 (05:23→23:28)
[2017-10-13] MEDS: LIDODERM (LIDOCAINE) PATCH 5% TD SCH (07:39)
[2017-10-13] MEDS: LEVETIRACETAM 500 MG TAB PO SCH ×2 (07:40→22:09)
[2017-10-13] MEDS: RIVASTIGMINE TARTRATE (EXELON) 1.5 MG CAP PO SCH ×2 (07:40→22:10)
[2017-10-13] MEDS: FERROUS SULFATE 325 MG TAB PO SCH ×2 (07:40→22:09)
[2017-10-13] MEDS: PANTOprazole SOD 40 MG TAB PO SCH (07:41)
[2017-10-13] MEDS: NEPHROCAPS PO SCH (07:41)
[2017-10-13] MEDS: METOPROLOL TARTRATE 25 MG TAB PO SCH ×2 (07:41→22:08)
[2017-10-13] MEDS: CHOLECALCIFEROL 1000 INTER.UNIT TAB PO SCH (07:41)
[2017-10-13] MEDS: SENNA 8.6 MG TAB PO SCH (07:41)
[2017-10-13] MEDS: ATORVASTATIN 20 MG TAB PO SCH (07:41)
[2017-10-13] MEDS: LACTOBACILLUS ACIDOPHILUS 1 GM PACK PO SCH ×3 (07:42→17:48)
[2017-10-13] MEDS: LISINOPRIL 10 MG TAB PO SCH (07:42)
[2017-10-13] MEDS: ASCORBIC ACID 500 MG TAB PO SCH (07:43)
[2017-10-13] MEDS: METFORMIN HCL 500 MG TAB PO SCH (07:44)
[2017-10-13] MEDS: INSULIN ASPART 100 UNITS/ML 3 ML PEN SC SCH ×4 (07:47→21:00)
[2017-10-13] MEDS: CEFTRIAXONE SOD INJ 1 GM in DEXTROSE 5% ADD-VANTAGE 50ML 50 ML IV SCH (09:22)
[2017-10-13] MEDS: HEPARIN SOD 5000 UNIT/0.5 ML CARP SQ SCH ×2 (09:24→22:13)
[2017-10-13] MEDS: ACETAMINOPHEN 325 MG TAB PO PRN (14:07)
--- NOTE | 2017-10-13 16:10 | Progress Note ---
Subjective Date of Service: Oct 13, 2017. Subjective Pt evaluation today including: conversation w/ patient, conversation w/ family (daughter), physical exam, lab review, review of inpatient medication list Pain: right rib pain PO Intake: adequate Voiding: no voiding problems patient still with pain, trouble taking a deep breath and coughing able to get up to 1500 on incentive spirometer reviewed labs, stable urine culture with Klebsiella updated daughter, try for d/c home tomorrow Problem List Medical Problems: (1) Anemia Status: Acute (2) Fall Status: Acute (3) Gastrointestinal bleeding Status: Acute (4) Right rib fracture Status: Acute (5) Tachy-lilian syndrome Status: Acute (6) UTI (urinary tract infection) Status: Acute Review of Systems Constitutional: + weakness, + fatigue Respiratory: + cough, + dyspnea on exertion Cardiac: + chest pain Neurologic: + weakness All Other Systems: Reviewed and Negative Medications Current Inpatient Medications Medications (Trade) Dose Ordered Sig/Giorgi Route Start Time Stop Time Status Last Admin Dose Admin Atorvastatin Calcium (Lipitor Tab) 20 mg DAILY PO 10/12/17 09:00 11/11/17 08:59 10/13/17 07:41 20 MG Cholecalciferol (Vitamin D Tab) 1,000 inter.unit DAILY PO 10/12/17 09:00 11/11/17 08:59 10/13/17 07:41 1,000 INTER.UNIT Ferrous Sulfate (Feosol Tab) 325 mg BID PO 10/11/17 21:00 11/10/17 20:59 10/13/17 07:40 325 MG Levetiracetam (Keppra Tab) 500 mg BID PO 10/11/17 21:00 11/10/17 20:59 10/13/17 07:40 500 MG Lisinopril (Zestril Tab) 10 mg DAILY PO 10/12/17 09:00 11/11/17 08:59 10/13/17 07:42 10 MG Metoprolol Tartrate (Lopressor Tab) 25 mg BID PO 10/11/17 21:00 11/10/17 20:59 10/13/17 07:41 25 MG Pantoprazole Sodium (Protonix Tab) 40 mg DAILY PO 10/12/17 09:00 11/11/17 08:59 10/13/17 07:41 40 MG Senna (Senokot Tab) 8.6 mg DAILY PO 10/12/17 09:00 11/11/17 08:59 10/13/17 07:41 8.6 MG Vitamin B Complex/ Vit C/Folic Acid (Nephrocaps) 1 cap DAILY PO 10/12/17 09:00 11/11/17 08:59 10/13/17 07:41 1 CAP Rivastigmine Tartrate (Exelon Cap) 6 mg BID PO 10/11/17 21:00 11/10/17 20:59 10/13/17 07:40 6 MG Lactobacillus Acidophilus (Lactinex Granules Pack) 1 gm TIDM PO 10/11/17 12:00 11/10/17 11:59 10/13/17 11:57 1 GM Ascorbic Acid (Vitamin C Tab) 500 mg QAM PO 10/12/17 09:00 11/11/17 08:59 10/13/17 07:43 500 MG Lidocaine (Lidoderm Patch 5%) 1 patch QAM TD 10/12/17 09:00 11/11/17 08:59 10/13/17 07:39 1 PATCH Miscellaneous (Remove Lidoderm Patch) 1 ea DAILY@21 N/A 10/11/17 21:00 11/10/17 20:59 10/12/17 21:15 1 EA Heparin Sodium (Porcine) (Heparin Sq 5000 Unit/0.5ml) 5,000 unit Q12 SQ 10/11/17 21:00 11/10/17 20:59 10/13/17 09:24 5,000 UNIT Acetaminophen (Tylenol Tab) 650 mg Q4H PRN PO 10/11/17 11:00 11/10/17 10:59 10/13/17 14:07 650 MG Al Hydrox/Mg Hydrox/Simethicone (Maalox Max Susp) 15 ml Q4H PRN PO 10/11/17 11:00 11/10/17 10:59 Magnesium Hydroxide (Milk Of Magnesia Susp) 30 ml Q12H PRN PO 10/11/17 11:00 11/10/17 10:59 Ondansetron HCl (Zofran Inj) 4 mg Q6H PRN IV 10/11/17 11:00 11/10/17 10:59 10/12/17 10:05 4 MG Insulin Aspart (novoLOG ASPART) SLIDING SCALE If C... ACHS SC 10/11/17 11:00 11/10/17 10:59 10/12/17 17:53 2 UNITS Glucose (Glucose 40% Gel) 15-30 GRAMS 15 GRAMS... UD PRN PO 10/11/17 11:00 11/10/17 10:59 Glucose (Glucose Chew Tab) 4-8 Tablets 4 Tabl... UD PRN PO 10/11/17 11:00 11/10/17 10:59 Dextrose (Dextrose 50% 50ML Syringe) 25-50ML OF 50% DW IV FOR... UD PRN IV 10/11/17 11:00 11/10/17 10:59 Glucagon (Glucagon Inj) 1 mg UD PRN SQ 10/11/17 11:00 11/10/17 10:59 Miscellaneous Information (Order Awaiting Action) 1 ea QS N/A 10/11/17 16:00 11/10/17 15:59 Hydralazine HCl (HydrALAZINE INJ) 5 mg Q4H PRN IV. 10/12/17 16:00 11/11/17 15:59 10/13/17 05:23 5 MG Cephalexin Monohydrate (Keflex Cap) 500 mg BID PO 10/13/17 21:00 10/18/17 20:59 Oxycodone/ Acetaminophen (Percocet 5-325mg Tab) 1 tab Q4H PRN PO 10/13/17 11:30 10/27/17 11:29 Objective Vital Signs Date Time Temp Pulse Resp B/P (MAP) Pulse Ox O2 Delivery O2 Flow Rate FiO2 10/13/17 14:46 36.7 68 18 159/65 (96) 94 Room Air 10/13/17 12:02 36.5 107 18 95 10/13/17 11:33 36.5 107 18 154/93 (113) 95 Room Air 10/13/17 10:36 61 165/69 (101) 10/13/17 08:00 Room Air 10/13/17 07:52 36.4 71 18 174/72 (106) 96 Room Air 10/13/17 04:28 36.2 65 18 186/84 (118) 97 Room Air 10/13/17 04:00 Room Air 10/13/17 00:31 36.4 71 18 168/61 (96) 96 Room Air 10/13/17 00:00 Room Air 10/12/17 20:00 Room Air 10/12/17 19:36 37.0 82 16 153/68 (96) 95 Room Air 10/12/17 16:29 186/67 (106) Physical Exam General Appearance: WD/WN, no apparent distress Neck: supple, no adenopathy, no JVD, trachea midline Respiratory/Chest: lungs clear, normal breath sounds, no respiratory distress, no accessory muscle use, + pertinent finding (right chest tender) Cardiovascular: regular rate, rhythm, no edema, no gallop, no JVD, no murmur Abdomen: normal bowel sounds, non tender, soft, no organomegaly Extremities: normal range of motion, non-tender, normal inspection, no pedal edema, no calf tenderness, pelvis stable Neurologic/Psychiatric: 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 difficile prophylaxis Continue vitamin C supplement, cranberry tablets as an outpatient for UTI prophylaxis Status post mechanical fall, right seventh rib fracture CT head and c-spine WNL Lidoderm patch Ultram PRN severe pain, not working adequately enough, still splinting and not coughing due to pain will change to Percocet, she is going to start today for pain relief Incentive spirometer PT/OT pending Pt lives alone but has daughter nearby and cleaning help established can go home with home health according to evaluations HTN: labile, likely related to pain continue home meds of metoprolol and lisinopril Add hydralazine PRN DM: A1c 5.6 stop Metformin, stop all treatment, really should no longer check sugars at her age, this A1c is too low Seizure disorder Continue antiseizure medication Dyslipidemia Continue Lipitor, we'll not check lipids panel as it was checked before and was within normal limits DVT prophylaxis Heparin subcutaneous twice a day Fall precaution
[2017-10-13] MEDS: OXYCODONE/ACETAMINOPHEN 5-325 TAB PO PRN (17:36)
[2017-10-13] MEDS: CEPHALEXIN MONOHYDRATE 500 MG CAP PO SCH (22:08)
[2017-10-14 00:08] VITALS: BP 170/68; PULSE 64; TEMP 36.4; O2SAT 99
[2017-10-14 00:36] VITALS: BP 146/66
[2017-10-14] MEDS: OXYCODONE/ACETAMINOPHEN 5-325 TAB PO PRN ×2 (05:30→11:47)
[2017-10-14 05:44] LABS: BASO % 0.3 %; BASO ABS # 0.03 K/uL (0-0.2); COMPLETE YES; HEMATOCRIT 32.1 % (37-47); IG% 0.4 %; LYMPH % 16.4 %; LYMPH ABS # 1.51 K/uL (1.2-3.4); MEAN CELL VOLUME 95.5 fL (80-100); MEAN CORPUSCULAR HEMOGLOBIN 30.4 pg (25-34); MEAN CORPUSCULAR HGB CONC 31.8 g/dl (32-36); MEAN PLATELET VOLUME 10.3 fL (7.4-10.4); MONO % 6.7 %; NEUT % 75.2 %; PLATELET COUNT 280 K/uL (130-400); RED BLOOD COUNT 3.36 M/uL (4.2-5.4); WHITE BLOOD COUNT 9.23 K/uL (4.8-10.8)
[2017-10-14 06:20] LABS: BUN/CREATININE RATIO 20.8 (10-20); CALCIUM 9.2 mg/dl (8.5-10.1); CREATININE 0.82 mg/dl (0.60-1.20); POTASSIUM 3.9 mmol/L (3.5-5.1)
[2017-10-14 07:49] VITALS: BP 151/66; PULSE 70; TEMP 36.4; O2SAT 97
[2017-10-14] MEDS: LACTOBACILLUS ACIDOPHILUS 1 GM PACK PO SCH (08:42)
[2017-10-14] MEDS: LIDODERM (LIDOCAINE) PATCH 5% TD SCH (08:44)
[2017-10-14] MEDS: ASCORBIC ACID 500 MG TAB PO SCH (08:45)
[2017-10-14] MEDS: CHOLECALCIFEROL 1000 INTER.UNIT TAB PO SCH (08:46)
[2017-10-14] MEDS: PANTOprazole SOD 40 MG TAB PO SCH (08:47)
[2017-10-14] MEDS: SENNA 8.6 MG TAB PO SCH (08:47)
[2017-10-14] MEDS: ATORVASTATIN 20 MG TAB PO SCH (08:48)
[2017-10-14] MEDS: LISINOPRIL 10 MG TAB PO SCH (08:48)
[2017-10-14] MEDS: FERROUS SULFATE 325 MG TAB PO SCH (08:48)
[2017-10-14] MEDS: METOPROLOL TARTRATE 25 MG TAB PO SCH (08:49)
[2017-10-14] MEDS: CEPHALEXIN MONOHYDRATE 500 MG CAP PO SCH (08:49)
[2017-10-14] MEDS: NEPHROCAPS PO SCH (08:49)
[2017-10-14] MEDS: LEVETIRACETAM 500 MG TAB PO SCH (08:49)
[2017-10-14] MEDS: RIVASTIGMINE TARTRATE (EXELON) 1.5 MG CAP PO SCH (08:50)
[2017-10-14] MEDS: HEPARIN SOD 5000 UNIT/0.5 ML CARP SQ SCH (08:57)
[2017-10-14] MEDS: INSULIN ASPART 100 UNITS/ML 3 ML PEN SC SCH ×2 (08:58→11:00)
[2017-10-14] MEDS ORDERED: OXYC-57 PO (10:10)
[2017-10-14] MEDS ORDERED: KFL500 PO (10:10)
--- NOTE | 2017-10-14 10:18 | Discharge Instructions ---
Discharge Instructions Date of Service Oct 14, 2017. Admission Reason for Admission: UTI Discharge Discharge Diagnosis / Problem: UTI, Klebsiella. Right rib fracture Discharge Goals Goal(s): Decrease discomfort, Improve function, Increase independence Activity Recommendations Activity Limitations: resume your previous activity Driving or Machine Use: no driving while on Percocet . Instructions / Follow-Up Instructions / Follow-Up Medications: - Keflex: antibiotic for Klebsiella UTI, take twice a day for 14 more doses - Percocet: take every 4 hours as needed for rib pain - Metformin: this medication is stopped since your HbA1c is 5 UTI: culture grew out Klebsiella, graff sensitive, treated initially with Rocephin IV, will complete a 10 day course with Keflex (7 more days) Right rib fracture: as we discussed, important to control pain so that you can take deep breaths and cough stay upright in a chair as much as possible use the incentive spirometer to take deep breaths Diabetes: as we discussed, your HbA1c is excellent at 5.6 in your age group, this is actually too low, want to avoid hypoglycemia stop the Metformin, no need to check your blood sugar unless you have symptoms such as sweating, weakness follow a diabetic diet FOLLOW UP - call for appointment with Brittanie Moran in one week for hospital follow up Current Hospital Diet Patient's current hospital diet: Diabetes Type 2 Diet Discharge Diet Recommended Diet: Diabetes Type 2 Diet Pending Studies Studies pending at discharge: no Laboratory Results Hemoglobin A1c Test 10/12/17 05:28 Range/Units Estimated Average Glucose 114 mg/dl Hemoglobin A1c 5.6 4.5-5.6 % Medical Emergencies . Who to Call and When: Medical Emergencies: If at any time you feel your situation is an emergency, please call 911 immediately. . Non-Emergent Contact Non-Emergency issues call your: Primary Care Provider Call Non-Emergent contact if: your pain is not controlled, you have any medication questions . . "Provider Documentation" section prepared by Aram Wolff. . VTE Core Measure Inpt VTE Proph given/why not?: Unfractionated heparin SQ [place] Drug Monitoring Program Search Results: no issues identified
[2017-10-14 10:43] VITALS: BP 151/66; PULSE 70; TEMP 36.4; O2SAT 97
--- NOTE | 2017-10-14 14:53 | Discharge Summary ---
Discharge Summary Date of Service Oct 14, 2017. Discharge Summary Admission Date: Oct 11, 2017 at 11:10 Discharge Date: Oct 14, 2017 Discharge Disposition: Home with services Principal Diagnosis: UTI, Klebsiella Problems/Secondary Diagnoses: Right 6th rib fracture from fall Procedures: none Consultations: none Medication Reconciliation New Medications: Cephalexin Monohydrate (Cephalexin) 500 Mg Cap 500 MG PO BID, #14 CAP 0 Refills Oxycodone/Acetaminophen 5MG/325MG (Percocet 5MG/325MG) Tab 1 TAB PO Q4H PRN for Pain, #30 TAB 0 Refills PAIN Continued Medications: Atorvastatin (Lipitor) 20 Mg Tab 20 MG PO DAILY Cholecalciferol (Vitamin D3) 1,000 Unit Tab 1000 UNITS PO DAILY, TAB 3 Refills Ferrous Sulfate (Ferrous Sulfate) 325 Mg Tab 325 MG PO BID Renamkqcszj-Snpxzjfelmj-Pbq C- (Glucosamine Chondroitin 1) 1 Cap Cap 1 CAP PO BID Levetiracetam (Keppra) 500 Mg Tab 500 MG PO BID, TAB Lisinopril (Zestril) 10 Mg Tab 10 MG PO DAILY Metoprolol Tartrate (Lopressor) (Lopressor) 25 Mg Tab 25 MG PO BID Pantoprazole (Protonix) 40 Mg Tab 40 MG PO DAILY Rivastigmine Tartrate (Rivastigmine Tartrate) 6 Mg Cap 6 MG PO BID Sennosides (Senokot) 8.6 Mg Tab 8.6 MG PO DAILY Vitamin B Cmplx/Vitc/Folic Ac (Nephrocaps) Cap 1 CAP PO DAILY Discontinued Medications: Metformin HCl (Metformin HCl) 500 Mg Tab 500 MG PO DAILY Discharge Exam Patient feeling well, no new issues. Rib pain better controlled with Percocet. Able to take deeper breaths today. Tolerating Keflex Long talk with the patient and her daughter about discharge plans, all questions answered Review of Systems: Constitutional: No fever, No chills, No sweats, No weight loss, No weakness , No fatigue, No problem reported Eyes: No worsening of vision, No eye pain, No redness, No discharge, No diplopia, No problem reported ENT: No hearing loss, No unusual epistaxis, No nasal symptoms, No sore throat, No tinnitus, No dental problems, No trouble swallowing, No problem reported Respiratory: No cough, No sputum, No wheezing, No shortness of breath, No dyspnea on exertion, No dyspnea at rest, No hemoptysis, No problem reported Cardiovascular: + chest pain (right 6th rib, laterally), No orthopnea, No PND, No edema, No claudication, No palpitations, No problem reported Abdomen: No pain, No nausea, No vomiting, No diarrhea, No constipation, No GI bleeding, No problem reported Musculoskeletal: No joint pain, No muscle pain, No swelling, No calf pain, No problem reported Genitourinary - Female: No dysuria, No urinary frequency, No urinary urgency , No urinary incontinence, No urinary retention, No hematuria Neurologic: No memory loss, No paralysis, No weakness, No numbness/tingling , No vertigo, No balance problems, No problem reported Psychiatric: No depression symptoms, No anhedonism, No anxiety, No insomnia , No substance abuse, No problem reported Endocrine: No fatigue, No excessive thirst, No excessive urination, No problem reported Hematologic / Lymphatic: No abnormal bleeding/bruising, No clotting problems , No swollen lymph nodes, No night sweats, No problem reported Integumentary: No rash, No itch, No new/changing skin lesions, No color change, No bleeding, No problem reported Physical Exam: General Appearance: WD/WN, no apparent distress Eyes: normal inspection, EOMI, sclerae normal ENT: normal ENT inspection, hearing grossly normal, pharynx normal Neck: supple, no adenopathy, no JVD, trachea midline Respiratory/Chest: lungs clear, normal breath sounds, no respiratory distress, no accessory muscle use, + pertinent finding (right rib tender to palpation) Cardiovascular: regular rate, rhythm, no edema, no gallop, no JVD, no murmur , normal peripheral pulses Abdomen / GI: normal bowel sounds, non tender, soft, no organomegaly Extremities: normal inspection, no calf tenderness, normal capillary refill , no pedal edema, normal range of motion, pelvis stable Neurologic/Psychiatric: air operations manager II-XII nml as tested, no motor/sensory deficits , alert, normal mood/affect, normal reflexes, oriented x 3 Skin: normal color, warm/dry, no rash Hospital Course UTI present on admission growing Klebsiella, graff sensitive, change to Keflex 500mg BID on 10/13 complete a ten day course, 7 more days prescribed Lactinex for C. difficile prophylaxis while inpatient Continue vitamin C supplement, cranberry tablets as an outpatient for UTI prophylaxis Status post mechanical fall, right sixth rib fracture pain controlled better with Percocet discussed importance of staying upright, sitting up, taking deep breaths, using incentive spirometer CT head and c-spine WNL PT/OT cleared for d/c to home with home therapy and home health visits daughters live close by and visit often HTN: labile, likely related to pain continue home meds of metoprolol and lisinopril Add hydralazine PRN DM: A1c 5.6 stop Metformin, stop all treatment, really should no longer check sugars at her age, this A1c is too low told patient to continue to follow a diabetic diet and follow up with PCP Seizure disorder Continue Keppra Dyslipidemia Continue Lipitor DVT prophylaxis Heparin subcutaneous twice a day Total Time Spent: Greater than 30 minutes This includes examination of the patient, discharge planning, medication reconciliation, and communication with other providers. Discharge Instructions Please refer to the electronic Patient Visit Report (Discharge Instructions) for additional information. Follow-Up Brittanie Moran in one week Additional Copies To Brittanie Moran C.R.N.P
== END 2017-10-14 12:49 | disposition home health service (06) | DRG 206 ==
LOC: C.EDB 07:31 → C.MED 11:10 → ENRESERV 11:42 → C.MS2W 10-13 14:17
PROVIDERS: ADMIT Internal Medicine; ATTEND Internal Medicine
DX: S22.31XA Fracture of one rib, right side, initial encounter for closed fracture (principal); N39.0 Urinary tract infection, site not specified; G81.94 Hemiplegia, unspecified affecting left nondominant side; E11.9 Type 2 diabetes mellitus without complications; Z79.84 Long term (current) use of oral hypoglycemic drugs; I10 Essential (primary) hypertension; G40.909 Epilepsy, unspecified, not intractable, without status epilepticus; Z86.61 Personal history of infections of the central nervous system; B94.8 Sequelae of other specified infectious and parasitic diseases; B96.1 Klebsiella pneumoniae [K. pneumoniae] as the cause of diseases classified elsewhere; D64.9 Anemia, unspecified; Y92.012 Bathroom of single-family (private) house as the place of occurrence of the external cause; W18.39XA Other fall on same level, initial encounter

== ENCOUNTER → 2017-10-29 | Outpatient (CLI) | payer BC ==
[~2017-10-29] MED LIST changes: +ATOR-22 PO; +B-CO1CAP17 PO; -B-COCAP2 PO; -FERR1TAB13 PO; +FERR325T5 PO; -GLC500 PO; +KFL500 PO; -LPR25 PO; -LPT20 PO; +METO25TA56 PO; +OXYC-57 PO; +PANT1TAB3 PO; -PRT40 PO; +SENN1TAB77 PO
== END | disposition home or self-care (01) ==
LOC: C.LABPVFM 16:15
PROVIDERS: ATTEND Nurse Practitioner
DX: R53.83 Other fatigue (principal); L89.309 Pressure ulcer of unspecified buttock, unspecified stage; I50.21 Acute systolic (congestive) heart failure

== ENCOUNTER 2018-01-19 16:20 | Inpatient (IN) | payer BC, OTHER ==
[~2018-01-19] VITALS: Ht 157.5 cm; Wt 56.0 kg
[2018-01-19] MEDS ORDERED: SODIUM CHLORIDE 0.9% 1000ML 1,000 ML IV STA (16:52)
[2018-01-19] MEDS ORDERED: OPTIRAY 320 IV PRN (17:00)
[2018-01-19 17:14] LABS: BASO % 0.5 %; BASO ABS # 0.04 K/uL (0-0.2); EOS ABS # 0.08 K/uL (0-0.5); HEMATOCRIT 32.2 % (37-47); HEMOGLOBIN 10.3 g/dL (12.0-16.0); IG# 0.03 K/uL (0.00-0.02); LYMPH % 18.6 %; LYMPH ABS # 1.52 K/uL (1.2-3.4); MEAN CELL VOLUME 94.2 fL (80-100); MEAN CORPUSCULAR HEMOGLOBIN 30.1 pg (25-34); MEAN PLATELET VOLUME 9.9 fL (7.4-10.4); MONO % 8.8 %; MONO ABS # 0.72 K/uL (0.11-0.59); NEUT % 70.7 %; PLATELET COUNT 329 K/uL (130-400); RED CELL DISTRIBUTION WIDTH CV 13.8 % (11.5-14.5); RED CELL DISTRIBUTION WIDTH SD 47.1 fL (36.4-46.3); WHITE BLOOD COUNT 8.19 K/uL (4.8-10.8)
[2018-01-19] MEDS ORDERED: CHOL1TAB76 PO (17:32)
[2018-01-19 17:36] LABS: ALBUMIN 3.4 gm/dl (3.4-5.0); ALT/SGPT 22 U/L (12-78); BLOOD UREA NITROGEN 18 mg/dl (7-18); CALCIUM 9.2 mg/dl (8.5-10.1); CARBON DIOXIDE 25 mmol/L (21-32); CREATININE 1.03 mg/dl (0.60-1.20); GLUCOSE 119 mg/dl (70-99); LIPASE 354 U/L (73-393); POTASSIUM 3.9 mmol/L (3.5-5.1); SODIUM 139 mmol/L (136-145)
[2018-01-19] MEDS ORDERED: ACET-1693 PO (17:37)
[2018-01-19 17:39] LABS: ALKALINE PHOSPHATASE 36 U/L (45-117); AST/SGOT 21 U/L (15-37); TOTAL PROTEIN 7.1 gm/dl (6.4-8.2)
[2018-01-19] MEDS ORDERED: SILV1CRE73 TOP (17:39)
[2018-01-19] MEDS ORDERED: BCTCR/30 EXT (17:45)
[2018-01-19] MEDS ORDERED: METR-163 PO (17:47)
[2018-01-19] MEDS ORDERED: CIPR-255 PO (17:49)
--- NOTE | 2018-01-19 18:50 | DIAGNOSTIC IMAGING REPORT ---
CT SCAN OF THE ABDOMEN AND PELVIS WITH IV CONTRAST CLINICAL HISTORY: Left lower quadrant abdominal pain. COMPARISON STUDY: Abdominal CT dated 09/16/2016. TECHNIQUE: Following the IV administration of 94 cc of Optiray 320, CT scan of the abdomen and pelvis is performed from the lung bases to the proximal femora. Images are reviewed in the axial, sagittal, and coronal planes. IV contrast was administered without complication. A dose lowering technique was utilized adhering to the principles of ALARA. The examination is degraded by motion artifact. CT DOSE: 361.70 mGy.cm FINDINGS: Lung bases: The heart is enlarged and without pericardial effusion. The coronary arteries are densely calcified, as are the aortic valve leaflets and mitral annulus. There is dependent consolidative change seen at both lung bases. No pleural effusion is identified. Liver: The contrast-enhanced liver is normal in size, contour, and attenuation. There is minimal central intrahepatic biliary ductal dilatation. The hepatic veins and portal veins are patent. Gallbladder: Surgically absent noting clips in the gallbladder fossa. Spleen: Normal in size and attenuation. Pancreas: Unremarkable. Adrenal glands: Unremarkable. Kidneys: The contrast enhanced kidneys are atrophic. There is mild right hydronephrosis. The right ureter is normal in caliber, and no obstructing stone or lesion is identified. 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 No hydronephrosis is seen on the left. The kidneys enhance symmetrically. Foci of cortical scarring are noted in the right kidney. There are 2 nonobstructing right renal calculi identified measuring up to 10 mm. A 4 mm nonobstructing calculus is seen in the left upper pole. Scattered subcentimeter cortical hypodensities likely represent cysts but are too small for definitive characterization. Abdominal vasculature: The abdominal aorta is normal in course and caliber noting advanced atherosclerotic calcification. Bowel: There is moderate colonic diverticulosis without CT evidence of acute diverticulitis. No bowel obstruction is seen. The appendix is not identified and reported surgically absent. Peritoneum: There is no intraperitoneal free air or abdominal ascites. Lymphadenopathy: None. Pelvic viscera: The bladder, uterus, and adnexa are normal as visualized. Skeletal structures: The skeletal structures are osteopenic. There are mild chronic superior endplate compression deformities of T9, T10, and T11. Mild lumbosacral spondylosis is observed. No lytic or blastic lesions are seen. IMPRESSION: 1. Moderate colonic diverticulosis without CT evidence of acute diverticulitis. 2. There is mild right hydronephrosis of indeterminant etiology and significance, possibly representing a UPJ type obstruction or the sequelae of a recent passed kidney stone. 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 The right ureters are normal in caliber and the right kidney enhances homogeneously. Hydronephrosis is new from the August 2016 examination. Consider nonemergent follow-up with urology. 3. Bilateral nonobstructing renal calculi are identified as above. 4. Cardiomegaly. 5. Dependent consolidation is seen at both lung bases. This could represent atelectasis versus an infectious/inflammatory pneumonitis. Clinical correlation will be required. 6. Additional findings as above. Electronically signed by: Huber Kerr M.D. 01/19/2018 6:48 PM Dictated Date/Time: 01/19/2018 6:38 PM
--- NOTE | 2018-01-19 20:34 | EMERGENCY ROOM VISIT NOTE ---
History Report prepared by Mame: Leonardo Hennessy Under the Supervision of: Dr. Rinku Blackburn D.O. First contact with patient: 16:47 Chief Complaint: GI ASSESSMENT Stated Complaint: DIVERTICULITIS History of Present Illness The patient is a 87 year old female who presents to the Emergency Room with complaints of intermittent LLQ abdominal pain beginning a week ago. She was told by Dr. Gamino that she likely has diverticulitis. The patient also complains of diarrhea. She has a history of one prior episode of diverticulitis as well as C-Diff. She was started on Cipro/Flagyl a few days ago for her pain. The patient describes her pain as "dull". She denies modifying factors. She has a history of appendectomy and cholecystectomy. Pt denies headache, change in vision, fevers, chest pain, shortness of breath, nausea, vomiting, pain with urination, and melena. She notes that she has had night sweats recently. Source of History: patient Onset: One week ago Position: abdomen (LLQ) Quality: dull Timing: intermittent Modifying Factors (Worsening): other (none) Modifying Factors (Relieving): other (none) Associated Symptoms: + diarrhea, No fevers, No headache, No chest pain, No SOB, No nausea, No vomiting, No melena, No urinary symptoms Review of Systems See HPI for pertinent positives & negatives. A total of 10 systems reviewed and were otherwise negative. Past Medical & Surgical Medical Problems: (1) Heart murmur Family History No pertinent family history stated. Social History Smoking Status: Never Smoker Alcohol Use: none Drug Use: none Marital Status: Housing Status: lives alone Occupation Status: retired Current/Historical Medications Scheduled Atorvastatin (Lipitor), 20 MG PO DAILY Cholecalciferol (D 1999), 2,000 PO DAILY Ciprofloxacin Hcl (Cipro), 500 MG PO Q12 Ferrous Sulfate (Ferrous Sulfate), 325 MG PO QPM Iyfskdreses-Mwapnybmaiw-Eyb C- (Glucosamine Chondroitin 1), 1 CAP PO BID Levetiracetam (Keppra), 500 MG PO BID Lisinopril (Zestril), 10 MG PO DAILY Metoprolol Tartrate (Lopressor) (Lopressor), 25 MG PO BID Metronidazole (Flagyl), 500 MG PO TID Pantoprazole (Protonix), 40 MG PO DAILY Rivastigmine Tartrate (Rivastigmine Tartrate), 6 MG PO BID Silver Sulfadiazine (Silvadene), 1 APPLN TOP BID Vitamin B Cmplx/Vitc/Folic Ac (Nephrocaps), 1 CAP PO DAILY Scheduled PRN Acetaminophen Tab (Tylenol), 325 MG PO DAILY PRN for Pain or Fever Mupirocin 2% (Bactroban 2%), 1 APPLN EXT UD PRN for sores Sennosides (Senokot), 8.6 MG PO BID PRN for Constipation Allergies Coded Allergies: Acetaminophen (Unverified Allergy, Intermediate, possibly a rash, 01/19/18) Hydrocodone (Unverified Allergy, Intermediate, possibly a rash, 01/19/18) Physical Exam Vital Signs Date Time Temp Pulse Resp B/P (MAP) Pulse Ox O2 Delivery O2 Flow Rate FiO2 01/19/18 19:35 167 01/19/18 18:51 92 21 138/66 95 Room Air 01/19/18 17:40 68 21 151/57 97 Room Air 01/19/18 16:53 79 01/19/18 16:34 37.1 84 16 146/69 97 Room Air Physical Exam GENERAL: Sitting up in bed, chronically ill appearing, no acute distress, non- toxic. EYE EXAM: normal conjunctiva. OROPHARYNX: no exudate, no erythema, lips, buccal mucosa, and tongue normal and mucous membranes are moist NECK: supple, no nuchal rigidity, no adenopathy, non-tender LUNGS: Clear to auscultation. Normal chest wall mechanics HEART: Systolic ejection murmur noted. ABDOMEN: abdomen soft, normo-active bowel sounds, no masses, no rebound or guarding. Tender to palpation in LLQ. BACK: Back is symmetrical on inspection and there is no deformity, no midline tenderness, no CVA tenderness. SKIN: no rashes and no bruising UPPER EXTREMITIES: upper extremities are grossly normal. LOWER EXTREMITIES: No pitting edema. NEURO EXAM: Normal sensorium, cranial nerves II-XII grossly intact, normal speech, no gross weakness of arms, no gross weakness of legs. Medical Decision & Procedures ER Provider Diagnostic Interpretation: Radiology results as stated below per my review and the radiologist's interpretation: CT SCAN OF THE ABDOMEN AND PELVIS WITH IV CONTRAST FINDINGS: Lung bases: The heart is enlarged and without pericardial effusion. The coronary arteries are densely calcified, as are the aortic valve leaflets and mitral annulus. There is dependent consolidative change seen at both lung bases. No pleural effusion is identified. Liver: The contrast-enhanced liver is normal in size, contour, and attenuation. There is minimal central intrahepatic biliary ductal dilatation. The hepatic veins and portal veins are patent. Gallbladder: Surgically absent noting clips in the gallbladder fossa. Spleen: Normal in size and attenuation. Pancreas: Unremarkable. Adrenal glands: Unremarkable. Kidneys: The contrast enhanced kidneys are atrophic. There is mild right hydronephrosis. The right ureter is normal in caliber, and no obstructing stone or lesion is identified. 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 No hydronephrosis is seen on the left. The kidneys enhance symmetrically. Foci of cortical scarring are noted in the right kidney. There are 2 nonobstructing right renal calculi identified measuring up to 10 mm. A 4 mm nonobstructing calculus is seen in the left upper pole. Scattered subcentimeter cortical hypodensities likely represent cysts but are too small for definitive characterization. Abdominal vasculature: The abdominal aorta is normal in course and caliber noting advanced atherosclerotic calcification. Bowel: There is moderate colonic diverticulosis without CT evidence of acute diverticulitis. No bowel obstruction is seen. The appendix is not identified and reported surgically absent. Peritoneum: There is no intraperitoneal free air or abdominal ascites. Lymphadenopathy: None. Pelvic viscera: The bladder, uterus, and adnexa are normal as visualized. Skeletal structures: The skeletal structures are osteopenic. There are mild chronic superior endplate compression deformities of T9, T10, and T11. Mild lumbosacral spondylosis is observed. No lytic or blastic lesions are seen. IMPRESSION: 1. Moderate colonic diverticulosis without CT evidence of acute diverticulitis. 2. There is mild right hydronephrosis of indeterminant etiology and significance, possibly representing a UPJ type obstruction or the sequelae of a recent passed kidney stone. 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 The right ureters are normal in caliber and the right kidney enhances homogeneously. Hydronephrosis is new from the August 2016 examination. Consider nonemergent follow-up with urology. 3. Bilateral nonobstructing renal calculi are identified as above. 4. Cardiomegaly. 5. Dependent consolidation is seen at both lung bases. This could represent atelectasis versus an infectious/inflammatory pneumonitis. Clinical correlation will be required. 6. Additional findings as above. Electronically signed by: Huber Kerr M.D. 01/19/2018 6:48 PM Laboratory Results 01/19/18 16:55 Red Blood Count 3.42, Mean Corpuscular Volume 94.2, Mean Corpuscular Hemoglobin 30.1, Mean Corpuscular Hemoglobin Concent 32.0, Mean Platelet Volume 9.9, Neutrophils (%) (Auto) 70.7, Lymphocytes (%) (Auto) 18.6, Monocytes (%) (Auto) 8.8, Eosinophils (%) (Auto) 1.0, Basophils (%) (Auto) 0.5, Neutrophils # (Auto) 5.80, Lymphocytes # (Auto) 1.52, Monocytes # (Auto) 0.72, Eosinophils # (Auto) 0.08, Basophils # (Auto) 0.04 01/19/18 16:55 Test 01/19/18 16:55 01/19/18 18:50 01/19/18 19:46 White Blood Count 8.19 K/uL (4.8-10.8) Red Blood Count 3.42 M/uL (4.2-5.4) Hemoglobin 10.3 g/dL (12.0-16.0) Hematocrit 32.2 % (37-47) Mean Corpuscular Volume 94.2 fL (80-100) Mean Corpuscular Hemoglobin 30.1 pg (25-34) Mean Corpuscular Hemoglobin Concent 32.0 g/dl (32-36) Platelet Count 329 K/uL (130-400) Mean Platelet Volume 9.9 fL (7.4-10.4) Neutrophils (%) (Auto) 70.7 % Lymphocytes (%) (Auto) 18.6 % Monocytes (%) (Auto) 8.8 % Eosinophils (%) (Auto) 1.0 % Basophils (%) (Auto) 0.5 % Neutrophils # (Auto) 5.80 K/uL (1.4-6.5) Lymphocytes # (Auto) 1.52 K/uL (1.2-3.4) Monocytes # (Auto) 0.72 K/uL (0.11-0.59) Eosinophils # (Auto) 0.08 K/uL (0-0.5) Basophils # (Auto) 0.04 K/uL (0-0.2) RDW Standard Deviation 47.1 fL (36.4-46.3) RDW Coefficient of Variation 13.8 % (11.5-14.5) Immature Granulocyte % (Auto) 0.4 % Immature Granulocyte # (Auto) 0.03 K/uL (0.00-0.02) Anion Gap 6.0 mmol/L (3-11) Estimated GFR () 55.8 Estimated GFR (Non- 48.2 BUN/Creatinine Ratio 17.3 (10-20) Calcium Level 9.2 mg/dl (8.5-10.1) Total Bilirubin 0.2 mg/dl (0.2-1) Direct Bilirubin < 0.1 mg/dl (0-0.2) Aspartate Amino Transf (AST/SGOT) 21 U/L (15-37) Alanine Aminotransferase (ALT/SGPT) 22 U/L (12-78) Alkaline Phosphatase 36 U/L (45-117) Total Protein 7.1 gm/dl (6.4-8.2) Albumin 3.4 gm/dl (3.4-5.0) Lipase 354 U/L (73-393) Urine Color YELLOW Urine Appearance CLEAR (CLEAR) Urine pH 5.5 (4.5-7.5) Urine Specific [place] 1.020 (1.000-1.030) Urine Protein NEG (NEG) Urine Glucose (UA) NEG (NEG) Urine Ketones NEG (NEG) Urine Occult Blood NEG (NEG) Urine Nitrite NEG (NEG) Urine Bilirubin NEG (NEG) Urine Urobilinogen NEG (NEG) Urine Leukocyte Esterase NEG (NEG) Urine WBC (Auto) 0 /hpf (0-5) Urine RBC (Auto) 0-4 /hpf (0-4) Urine Hyaline Casts (Auto) 0 /lpf (0-5) Urine Epithelial Cells (Auto) 0-5 /lpf (0-5) Urine Bacteria (Auto) NEG (NEG) Bedside Troponin I < 0.030 ng/ml (0-0.045) Laboratory results per my review. Medications Administered Medications (Trade) Dose Ordered Sig/Giorgi Route Start Time Stop Time Status Last Admin Dose Admin Sodium Chloride 1,000 ml @ 999 mls/hr Q1H1M STAT IV 01/19/18 16:52 01/19/18 17:52 DC 01/19/18 17:40 999 MLS/HR ECG Per My Interpretation Indication: tachycardia Rate (beats per minute): 79 Rhythm: sinus rhythm Findings: PVC, left axis deviation, other (Non-specific ST wave changes lateral and inferior leads) Comparison ECG Date: Oct 11, 2017 Change: Lateral ST wave changes are new. ED Course ED COURSE: Vital signs were reviewed and showed hypertension The patients medical record was reviewed The above diagnostic studies were performed and reviewed. ED treatments and interventions as stated above. 1646: The patient was evaluated in room C6. A complete history and physical examination was performed. 1651: Ordered Sodium Chloride 1000 ml @ 999 mls/hr IV. 1934: The patient went into SVT on the monitor with a rate of 167 bpm. Her SVT broke independently. ECG was obtained. 2001: Upon reevaluation, the patient is resting comfortably. I discussed my findings with the patient and she understands and agrees with the treatment plan. Based on the patients age, coexisting illnesses, exam and lab findings the decision to treat as an inpatient was made. The patient remained stable while under my care. The patient will be evaluated for further management. Medical Decision Differential diagnoses includes but is not limited to gastritis, peptic ulcer disease, GERD, gallbladder disease, pancreatitis, small bowel obstruction, acute coronary syndrome, pericarditis, ischemic bowel, irritable bowel disease, irritable bowel syndrome, appendicitis, diverticulitis, malignancy, hernia, urinary tract infection, torsion, perforation, trauma, infectious. Patient is an 87-year-old female who presents the ER for lower abdominal pain mostly in the left lower quadrant. She does admit to diarrhea as well. She was seen by her PCP and placed on Cipro and Flagyl which she has been taking for the past several days. CBC shows a mild anemia. BMP along with LFTs, bilirubin and lipase was normal. CT shows dilated right ureter and collecting system. There is no stone. Question UPJ obstruction. She has no urinary complaints. Discussed with urology and they believe this can be followed up as an outpatient. History and presentation does appear to be consistent with diverticulitis. She is currently on antibiotics. Just shortly after this she went into a tachycardia with a heart rate in the 160s-170s. 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 It was called on the monitor but unable to obtain an EKG during the episode. She notes that she did not feel good and she gets this feeling intermittently. Repeat EKG did show ST wave changes in the lateral leads which were new from all. POC troponin was negative. 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 With the new EKG changes I did discuss with internal medicine and updated patient at bedside. She will likely benefit from being monitored overnight. Medicine is evaluating her for further disposition. Medication Reconcilliation Current Medication List: was personally reviewed by me Blood Pressure Screening Patient's blood pressure: Elevated blood pressure Blood pressure disposition: Elevated BP felt to be situational Consults Time Called: 1944 Consulting Physician: Dr. Bee - Urology Returned Call: 1950 I reviewed the patient's case with Dr. Bee. He feels that the patient is safe for outpatient follow up from a urologic standpoint. Additional Consults: Time Called: 1999 Consulted Physician: Dr. Pak - [facility] Returned Call: 2004 Additional Comments: I reviewed the patient's case with Dr. Pak. [facility]. Impression Primary Impression: Atrial tachycardia Additional Impressions: Acute electrocardiogram changes Abdominal pain Anemia Scribe Attestation The scribe's documentation has been prepared under my direction and personally reviewed by me in its entirety. I confirm that the note above accurately reflects all work, treatment, procedures, and medical decision making performed by me. Departure Information Dispostion Being Evaluated By Hospitalist Referrals Bee Bledsoe M.D. (PCP) Patient Instructions My [facility] Problem Qualifiers Additional Impressions: Abdominal pain Abdominal location: unspecified location Qualified Codes: R10.9 - Unspecified abdominal pain Anemia Anemia type: unspecified type Qualified Codes: D64.9 - Anemia, unspecified
[2018-01-19] MEDS ORDERED: ASPIRIN 81 MG ECTAB PO STA (21:19)
[2018-01-19] MEDS ORDERED: SENNA 8.6 MG TAB PO PRN (21:30)
[2018-01-19] MEDS ORDERED: ACETAMINOPHEN 325 MG TAB PO PRN (21:30)
[2018-01-19] MEDS ORDERED: NITROGLYCERIN 0.4 MG SL PER TAB CHARGE SL PRN (21:30)
[2018-01-19] MEDS ORDERED: ONDANSETRON INJ 2 MG/ML 2 ML VIAL IV PRN (21:30)
[2018-01-19] MEDS ORDERED: METRONIDAZOLE 250 MG TAB PO STA (22:03)
[2018-01-19] MEDS ORDERED: METOPROLOL TARTRATE 50 MG TAB PO STA (22:03)
[2018-01-19] MEDS ORDERED: CIPROFLOXACIN 500 MG TAB PO STA (22:03)
--- NOTE | 2018-01-19 22:08 | History and Physical ---
History & Physical Date & Time of Service: Jan 19, 2018 at 21:34 Chief Complaint: Diverticulitis Primary Care Physician: Brittanie Moran C.R.N.P History of Present Illness Source: patient, clinic records, hospital records 87 year old female who presents to the ER from her primary care physician for intermittent LLQ dull abdominal pain for 1 week. It is associated with diarrhea (not watery, black from iron tablet but no different from her usual color). She was seen by her PCP Dr Bledsoe 5 days prior and started on ciprofloxacin and metronidazole for presumed diverticulitis. Since then the pain and diarrhea have improved and she is tolerating food and liquids. However on returning to her PCP today it was felt she needed to by seen in the ER due to ongoing fatigue with diverticulitis symptoms given her co-morbidities of CAD, diastolic CHF, Hx c. diff, age and lives alone. She notes having one previous episode of c. diff for which she took antibiotics for 1 year. She denies any fevers, chills, chest pain, shortness of breath, nausea or vomiting. 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 These findings were discussed by the ER with Dr Bee and recommended outpatient follow up only. WBC 8.19. Apyrexial. In the ER she was noted to have some lateral EKG changes and a run of SVT therefore was referred to medicine for possible need for admission. Her daughters by the bedside denied she was having symptoms during the SVT episode however she does report having chest heaviness at some point radiating to her back lasting seconds while in the ER. This heaviness feeling is not unusual to her and she has it approximately once/week, comes on randomly , alleviated with belching or flatulence. They have not been occurring more frequently recently. It is not exertional. She denies exertional chest pain or shortness of breath. Her exercise tolerance is limited by weakness/fatigue/ balance with her legs. She has known aortic stenosis but denies any dizziness on exertion. 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 Past Medical/Surgical History Medical Problems: (1) Anemia (2) Diverticulitis (3) Fall (4) Gastrointestinal bleeding (5) Heart murmur (6) Right rib fracture (7) Tachy-lilian syndrome (8) UTI (urinary tract infection) Family History Noncontributory Social History Smoking Status: Never Smoker Smokeless Tobacco Use: No Alcohol Use: none Drug Use: none Marital Status: Occupational Status: retired Immunizations History of Influenza Vaccine: Unknown History of Tetanus Vaccine?: Unknown History of Pneumococcal: Unknown History of Hepatitis B Vaccine: Unknown Allergies Coded Allergies: Hydrocodone (Unverified Allergy, Intermediate, possibly a rash, 01/19/18) Home Medications Scheduled Atorvastatin (Lipitor), 20 MG PO DAILY Cholecalciferol (D 2000), 2,000 PO DAILY Ciprofloxacin Hcl (Cipro), 500 MG PO Q12 Ferrous Sulfate (Ferrous Sulfate), 325 MG PO QPM Hjeopdtpnmf-Ujatcxrhoqm-Cyg C- (Glucosamine Chondroitin 1), 1 CAP PO BID Levetiracetam (Keppra), 500 MG PO BID Lisinopril (Zestril), 10 MG PO DAILY Metoprolol Tartrate (Lopressor) (Lopressor), 25 MG PO BID Metronidazole (Flagyl), 500 MG PO TID Pantoprazole (Protonix), 40 MG PO DAILY Rivastigmine Tartrate (Rivastigmine Tartrate), 6 MG PO BID Silver Sulfadiazine (Silvadene), 1 APPLN TOP BID Vitamin B Cmplx/Vitc/Folic Ac (Nephrocaps), 1 CAP PO DAILY Scheduled PRN Acetaminophen Tab (Tylenol), 325 MG PO DAILY PRN for Pain or Fever Mupirocin 2% (Bactroban 2%), 1 APPLN EXT UD PRN for sores Sennosides (Senokot), 8.6 MG PO BID PRN for Constipation Review of Systems All systems reviewed and otherwise acutely negative Physical Exam Vital Signs Date Time Temp Pulse Resp B/P (MAP) Pulse Ox O2 Delivery O2 Flow Rate FiO2 01/19/18 21:12 79 22 155/73 96 Room Air 01/19/18 19:35 167 01/19/18 18:51 92 21 138/66 95 Room Air 01/19/18 17:40 68 21 151/57 97 Room Air 01/19/18 16:53 79 01/19/18 16:34 37.1 84 16 146/69 97 Room Air General Appearance: no apparent distress, + thin Head: normocephalic, atraumatic Eyes: normal inspection, PERRL, EOMI ENT: pharynx normal (dry mucus membranes) Neck: no JVD, trachea midline Respiratory/Chest: lungs clear, normal breath sounds, no respiratory distress, no accessory muscle use Cardiovascular: regular rate, rhythm, no murmur, normal peripheral pulses, + systolic murmur (RUSB 3/6 and apex 2/6 systeolic ) Abdomen/GI: normal bowel sounds, soft, + tenderness (LLQ, no guarding or rebound) Back: no CVA tenderness Extremities/Musculoskelatal: no calf tenderness, normal capillary refill, + pertinent finding (significant muscle atrophy on left lower extremity, patient reports chronic from polio as a child) Neurologic/Psych: poultry offal icer II-XII nml as tested (no facial droop), alert, oriented x 3 Skin: normal color, warm/dry, no rash Diagnostics Laboratory Results Results Past 24 Hours Test 01/19/18 16:55 01/19/18 18:50 01/19/18 19:46 01/19/18 21:21 Range/Units White Blood Count 8.19 4.8-10.8 K/uL Red Blood Count 3.42 4.2-5.4 M/uL Hemoglobin 10.3 12.0-16.0 g/dL Hematocrit 32.2 37-47 % Mean Corpuscular Volume 94.2 80-100 fL Mean Corpuscular Hemoglobin 30.1 25-34 pg Mean Corpuscular Hemoglobin Concent 32.0 32-36 g/dl Platelet Count 329 130-400 K/uL Mean Platelet Volume 9.9 7.4-10.4 fL Neutrophils (%) (Auto) 70.7 % Lymphocytes (%) (Auto) 18.6 % Monocytes (%) (Auto) 8.8 % Eosinophils (%) (Auto) 1.0 % Basophils (%) (Auto) 0.5 % Neutrophils # (Auto) 5.80 1.4-6.5 K/uL Lymphocytes # (Auto) 1.52 1.2-3.4 K/uL Monocytes # (Auto) 0.72 0.11-0.59 K/uL Eosinophils # (Auto) 0.08 0-0.5 K/uL Basophils # (Auto) 0.04 0-0.2 K/uL RDW Standard Deviation 47.1 36.4-46.3 fL RDW Coefficient of Variation 13.8 11.5-14.5 % Immature Granulocyte % (Auto) 0.4 % Immature Granulocyte # (Auto) 0.03 0.00-0.02 K/uL Sodium Level 139 136-145 mmol/L Potassium Level 3.9 3.5-5.1 mmol/L Chloride Level 108 98-107 mmol/L Carbon Dioxide Level 25 21-32 mmol/L Anion Gap 6.0 3-11 mmol/L Blood Urea Nitrogen 18 7-18 mg/dl Creatinine 1.03 0.60-1.20 mg/dl Estimated GFR () 55.8 Estimated GFR (Non- 48.2 BUN/Creatinine Ratio 17.3 10-20 Random Glucose 119 70-99 mg/dl Calcium Level 9.2 8.5-10.1 mg/dl Total Bilirubin 0.2 0.2-1 mg/dl Direct Bilirubin < 0.1 0-0.2 mg/dl Aspartate Amino Transf (AST/SGOT) 21 15-37 U/L Alanine Aminotransferase (ALT/SGPT) 22 12-78 U/L Alkaline Phosphatase 36 45-117 U/L Total Protein 7.1 6.4-8.2 gm/dl Albumin 3.4 3.4-5.0 gm/dl Lipase 354 73-393 U/L Urine Color YELLOW Urine Appearance CLEAR CLEAR Urine pH 5.5 4.5-7.5 Urine Specific [place] 1.020 1.000-1.030 Urine Protein NEG NEG Urine Glucose (UA) NEG NEG Urine Ketones NEG NEG Urine Occult Blood NEG NEG Urine Nitrite NEG NEG Urine Bilirubin NEG NEG Urine Urobilinogen NEG NEG Urine Leukocyte Esterase NEG NEG Urine WBC (Auto) 0 0-5 /hpf Urine RBC (Auto) 0-4 0-4 /hpf Urine Hyaline Casts (Auto) 0 0-5 /lpf Urine Epithelial Cells (Auto) 0-5 0-5 /lpf Urine Bacteria (Auto) NEG NEG Bedside Troponin I < 0.030 0-0.045 ng/ml Diagnostic Radiology CT SCAN OF THE ABDOMEN AND PELVIS WITH IV CONTRAST CLINICAL HISTORY: Left lower quadrant abdominal pain. COMPARISON STUDY: Abdominal CT dated 09/16/2016. TECHNIQUE: Following the IV administration of 94 cc of Optiray 320, CT scan of the abdomen and pelvis is performed from the lung bases to the proximal femora. Images are reviewed in the axial, sagittal, and coronal planes. IV contrast was administered without complication. A dose lowering technique was utilized adhering to the principles of ALARA. The examination is degraded by motion artifact. CT DOSE: 361.70 mGy.cm FINDINGS: Lung bases: The heart is enlarged and without pericardial effusion. The coronary arteries are densely calcified, as are the aortic valve leaflets and mitral annulus. There is dependent consolidative change seen at both lung bases. No pleural effusion is identified. Liver: The contrast-enhanced liver is normal in size, contour, and attenuation. There is minimal central intrahepatic biliary ductal dilatation. The hepatic veins and portal veins are patent. Gallbladder: Surgically absent noting clips in the gallbladder fossa. Spleen: Normal in size and attenuation. Pancreas: Unremarkable. Adrenal glands: Unremarkable. Kidneys: The contrast enhanced kidneys are atrophic. There is mild right hydronephrosis. The right ureter is normal in caliber, and no obstructing stone or lesion is identified. 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 No hydronephrosis is seen on the left. The kidneys enhance symmetrically. Foci of cortical scarring are noted in the right kidney. There are 2 nonobstructing right renal calculi identified measuring up to 10 mm. A 4 mm nonobstructing calculus is seen in the left upper pole. Scattered subcentimeter cortical hypodensities likely represent cysts but are too small for definitive characterization. Abdominal vasculature: The abdominal aorta is normal in course and caliber noting advanced atherosclerotic calcification. Bowel: There is moderate colonic diverticulosis without CT evidence of acute diverticulitis. No bowel obstruction is seen. The appendix is not identified and reported surgically absent. Peritoneum: There is no intraperitoneal free air or abdominal ascites. Lymphadenopathy: None. Pelvic viscera: The bladder, uterus, and adnexa are normal as visualized. Skeletal structures: The skeletal structures are osteopenic. There are mild chronic superior endplate compression deformities of T9, T10, and T11. Mild lumbosacral spondylosis is observed. No lytic or blastic lesions are seen. IMPRESSION: 1. Moderate colonic diverticulosis without CT evidence of acute diverticulitis. 2. There is mild right hydronephrosis of indeterminant etiology and significance , possibly representing a UPJ type obstruction or the sequelae of a recent passed kidney stone. 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 The right ureters are normal in caliber and the right kidney enhances homogeneously. Hydronephrosis is new from the August 2016 examination. Consider nonemergent follow-up with urology. 3. Bilateral nonobstructing renal calculi are identified as above. 4. Cardiomegaly. 5. Dependent consolidation is seen at both lung bases. This could represent atelectasis versus an infectious/inflammatory pneumonitis. Clinical correlation will be required. 6. Additional findings as above. Electronically signed by: Huber Kerr M.D. 01/19/2018 6:48 PM Dictated Date/Time: 01/19/2018 6:38 PM EKG 19:37 Rate 79bpm NSR with PVCs TWI more evident in lateral leads 21:10 Rate 74 bpm NSR TWI less evident in lateral leads Impression Assessment and Plan 87 year old female sent from her PCP office due to continuing diarrhea and abdominal pain Dynamic EKG changes - lateral ST depression and T wave flattening, appears dynamic between the two EKGs in ER. She had some chest heaviness relieved with belching/flatulence. Densely calcified coronary arteries on CT - POC troponin negative, repeat lab troponin now - start aspirin 81mg (previous minor GI bleed in 2016 noted) - continue metoprolol, lisinopril, atorvastatin - NPO after midnight - consult cardiology Suspected diverticulitis - not shown on CT scan but already treated (5days) and history and examination consistent with this - stool sample for c. diff due to history of this and ongoing diarrhea - continue outpatient oral ciprofloxacin and metronidazole - full liquid diet - Zofran PRN for nausea SVT self limiting episode - likely asymptomatic but patient history is unclear as had some chest heaviness but believe it was outside the SVT episode - episode in the ER. Known other episode in Sep [address]. Under Dr Vickers. No plans for ablation as per patient. 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 Assessment and Plan: Dynamic EKG changes/hypertension/SVT/aortic stenosis/mitral regurgitation-- The patient will be admitted to telemetry for serial cardiac enzymes, serial EKG's, cardiac rhythm monitoring and a 2-D echocardiogram with Dopplers. Start aspirin 81 mg daily. Continue metoprolol tartrate and lisinopril with hold parameters. Consult cardiology. SDAT/seizure disorder-- Continue Rivastigmine and Keppra. Diarrhea-- Continue empiric treatment for diverticulitis with Cipro and Flagyl as outpatient. Check stool for C. difficile. Mild right hydronephrosis-- Noted on CT No signs of obstruction or UTI. Follow-up with urology as noted. Advanced Directives Existing Advance Directive: No Existing Living Will: No Existing Power of Health Teacher: No Resuscitation Status Do Not Resuscitate - as discussed with the patient VTE Prophylaxis Will order VTE Prophylaxis: No Reason for no VTE drug order: Treatment not indicated Reason no Mechanical VTE Order: Treatment not indicated, Contraindicated Additional Copies To Bee Bledsoe M.D.; Brittanie Moran, C.R.N.P Resident Tracking Resident Involvement: Resident Care Provided Care Provided: Adult Hospital Medicine
[2018-01-19] MEDS ORDERED: IV FLUIDS COMPLETED PRN (23:15)
[2018-01-19 23:37] VITALS: BP 139/72; PULSE 76; TEMP 36.5; O2SAT 97; Ht 157.5 cm; Wt 56.0 kg
[2018-01-20] VITALS (12 sets, daily range): BP systolic 96–168; BP diastolic 50–66; PULSE 63–86; TEMP 36.4–36.9; O2SAT 95–98
[2018-01-20] MEDS: LACTATED RINGER'S 1000ML 1,000 ML IV SCH ×2 (00:02→10:14)
[2018-01-20 05:54] LABS: BASO % 0.6 %; BASO ABS # 0.04 K/uL (0-0.2); EOS % 1.1 %; EOS ABS # 0.07 K/uL (0-0.5); HEMATOCRIT 29.3 % (37-47); HEMOGLOBIN 9.2 g/dL (12.0-16.0); IG# 0.01 K/uL (0.00-0.02); LYMPH % 18.5 %; LYMPH ABS # 1.15 K/uL (1.2-3.4); MEAN CELL VOLUME 94.5 fL (80-100); MEAN CORPUSCULAR HEMOGLOBIN 29.7 pg (25-34); MEAN CORPUSCULAR HGB CONC 31.4 g/dl (32-36); MEAN PLATELET VOLUME 9.6 fL (7.4-10.4); MONO % 9.5 %; MONO ABS # 0.59 K/uL (0.11-0.59); NEUT % 70.1 %; NEUT ABS # 4.36 K/uL (1.4-6.5); PLATELET COUNT 269 K/uL (130-400); RED CELL DISTRIBUTION WIDTH CV 13.8 % (11.5-14.5); RED CELL DISTRIBUTION WIDTH SD 47.2 fL (36.4-46.3); WHITE BLOOD COUNT 6.22 K/uL (4.8-10.8)
[2018-01-20 06:29] LABS: CALCIUM 8.5 mg/dl (8.5-10.1); CREATININE 0.76 mg/dl (0.60-1.20); POTASSIUM 3.7 mmol/L (3.5-5.1)
[2018-01-20] MEDS: LEVETIRACETAM 500 MG TAB PO SCH ×2 (07:57→20:50)
[2018-01-20] MEDS: CIPROFLOXACIN 500 MG TAB PO SCH ×2 (07:57→20:50)
[2018-01-20] MEDS: METRONIDAZOLE 500 MG TAB PO SCH ×3 (07:57→20:49)
[2018-01-20] MEDS: ATORVASTATIN 20 MG TAB PO SCH (07:57)
[2018-01-20] MEDS: CHOLECALCIFEROL 1000 INTER.UNIT TAB PO SCH (07:58)
[2018-01-20] MEDS: METOPROLOL TARTRATE 25 MG TAB PO SCH ×2 (07:58→21:21)
[2018-01-20] MEDS: NEPHROCAPS PO SCH (07:59)
[2018-01-20] MEDS: RIVASTIGMINE TARTRATE (EXELON) 1.5 MG CAP PO SCH ×2 (07:59→20:49)
[2018-01-20] MEDS: SILVER SULFADIAZINE 1% CR 50 GM JAR EXT SCH ×2 (08:00→20:48)
[2018-01-20] MEDS: ASPIRIN 81 MG ECTAB PO SCH (08:00)
[2018-01-20] MEDS ORDERED: LISINOPRIL 10 MG TAB PO SCH (09:00)
[2018-01-20] MEDS: PANTOprazole SOD 40 MG TAB PO SCH (10:14)
[2018-01-20] MEDS ORDERED: DILTIAZEM BOLUS / DRIP IV STA (12:55)
[2018-01-20] MEDS ORDERED: DILTIAZEM HCL 5 MG/ML 5 ML VIAL BOLUS/OMNI IV ONE (13:15)
[2018-01-20] MEDS ORDERED: DILTIAZEM HCL INJ 125 MG in DEXTROSE 5% 100ML IV PRN (13:15)
[2018-01-20] MEDS: MAGNESIUM SULFATE 1GM / D5W 1 GM in PREMIXED IN D5W 100 ML IV SCH ×2 (14:31→15:33)
--- NOTE | 2018-01-20 14:36 | Cardiology Consultation ---
Cardiology Consultation Date of Consultation: Jan 20, 2018. Requesting Physician: Dr. Sprague Reason for Consultation: SVT, ECG changes Pt evaluation today including: conversation w/ patient, physical exam, lab review, review of studies, review of inpatient medication list, conversation w/ attending History of Present Illness This is a very pleasant 87-year-old woman who may have a history of coronary artery disease (as evidenced by a non-ST segment elevation myocardial infarction at the end of August 2016 in association with rapid heart rate) as well as valvular heart disease including moderate aortic stenosis and mild to moderate mitral regurgitation. 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 She was identified as having anemia at the time and had a small enzyme rise. She was treated medically for the arrhythmia. She recalls historically having occasional episodes of palpitations but is not very aware of the arrhythmia. She did present with chest discomfort which has not recurred. She is maintained on metoprolol tartrate for the arrhythmia. Echocardiography showed normal left ventricular function but she has moderate to severe aortic stenosis. Her presentation this admission was with diarrhea and abdominal discomfort, however she was observed to have periods of SVT at a rapid heart rate as well as some electrocardiographic abnormalities. Her symptoms are little bit vague, she does admit to having intermittent palpitations but is not very precise about it. She has had frequent episodes here in the hospital and I cannot tell if she actually has much in the way of symptoms related to them. She does not have chest discomfort, she does not have shortness of breath. She evidently does not have lightheadedness or dizziness and denies syncope or presyncope. Past Medical/Surgical History Coronary artery disease Aortic stenosis SVT Social History Smoking Status: Never Smoker History of Alcohol Use: No Review of Systems Constitutional: No fever, No weight loss, No weakness Respiratory: + cough, + dyspnea on exertion Cardiac: + palpitations, No chest pain Abdomen: + see HPI, + pain, + diarrhea, No nausea, No vomiting, No GI bleeding Female : No problem reported Neurologic: No paralysis, No weakness, No numbness/tingling, No balance problems Heme: No abnormal bleeding/bruising, No clotting problems Endo: No fatigue Skin: No problem reported All Other Systems: Reviewed and Negative Allergies Coded Allergies: Hydrocodone (Unverified Allergy, Intermediate, possibly a rash, 01/19/18) Medications Current Inpatient Medications Medications (Trade) Dose Ordered Sig/Giorgi Route Start Time Stop Time Status Last Admin Dose Admin Ioversol (Optiray 320) 125 ml UD PRN IV 01/19/18 17:00 01/23/18 16:59 Acetaminophen (Tylenol Tab) 650 mg Q4H PRN PO 01/19/18 21:30 02/18/18 21:29 Ondansetron HCl (Zofran Inj) 4 mg Q6H PRN IV 01/19/18 21:30 02/18/18 21:29 Nitroglycerin (Nitrostat Tab) 0.4 mg UD PRN SL 01/19/18 21:30 02/18/18 21:29 Aspirin (Ecotrin Tab) 81 mg QAM PO 01/20/18 09:00 02/19/18 08:59 01/20/18 08:00 81 MG Atorvastatin Calcium (Lipitor Tab) 20 mg DAILY PO 01/20/18 09:00 02/19/18 08:59 01/20/18 07:57 20 MG Ciprofloxacin (Cipro Tab) 500 mg Q12 PO 01/20/18 09:00 01/30/18 08:59 01/20/18 07:57 500 MG Ferrous Sulfate (Feosol Tab) 325 mg QPM PO 01/20/18 21:00 02/19/18 20:59 Levetiracetam (Keppra Tab) 500 mg BID PO 01/20/18 09:00 02/19/18 08:59 01/20/18 07:57 500 MG Lisinopril (Zestril Tab) 10 mg DAILY PO 01/20/18 09:00 02/19/18 08:59 01/20/18 07:59 10 MG Metoprolol Tartrate (Lopressor Tab) 25 mg BID PO 01/20/18 09:00 02/19/18 08:59 01/20/18 07:58 25 MG Metronidazole (Flagyl Tab) 500 mg TID PO 01/20/18 09:00 01/30/18 08:59 01/20/18 07:57 500 MG Pantoprazole Sodium (Protonix Tab) 40 mg DAILY PO 01/20/18 09:00 02/19/18 08:59 01/20/18 10:14 40 MG Senna (Senokot Tab) 8.6 mg BID PRN PO 01/19/18 21:30 02/18/18 21:29 Silver Sulfadiazine (Silvadene 1% Crm 50GM Jar) 1 appln BID EXT 01/20/18 09:00 02/19/18 08:59 01/20/18 08:00 1 APPLN Vitamin B Complex/ Vit C/Folic Acid (Nephrocaps) 1 cap DAILY PO 01/20/18 09:00 02/19/18 08:59 01/20/18 07:59 1 CAP Cholecalciferol (Vitamin D Tab) 2,000 inter.unit QAM PO 01/20/18 09:00 02/19/18 08:59 01/20/18 07:58 2,000 INTER.UNIT Lactated Ringer's 1,000 ml @ 100 mls/hr Q10H IV 01/19/18 23:59 02/18/18 23:58 01/20/18 10:14 100 MLS/HR Rivastigmine Tartrate (Exelon Cap) 6 mg BID PO 01/20/18 09:00 02/19/18 08:59 01/20/18 07:59 6 MG Miscellaneous (Iv Fluids Completed) 1 ea PRN PRN N/A 01/19/18 23:15 01/19/19 23:14 Physical Exam Vital Signs Past 12 Hours Date Time Temp Pulse Resp B/P (MAP) Pulse Ox O2 Delivery O2 Flow Rate FiO2 01/20/18 08:00 Room Air 01/20/18 07:26 36.8 86 18 157/66 (96) 95 Room Air 01/20/18 04:26 36.4 73 18 168/66 (100) 96 Room Air 01/20/18 04:00 Room Air 01/19/18 23:37 36.5 76 18 139/72 97 Room Air Constitutional: General Apperance: heathly-appearing Level of Distress: NAD Psychiatric: Mental Status: active & alert Head: normocephalic Eyes: EOM: EOMI ENMT: normal ENT inspection, hearing grossly normal Neck: supple, no masses Lungs: Respiratory effort: no dyspnea, good air movement Auscultation: breath sounds normal, no wheezing Cardiovascular: Heart Auscultation: RRR, no rubs, no gallops, II/ BARBARA Peripheral Pulses: Bruits: none appreciated Abdomen: Bowel Sounds: normal Inspection & Palpation: soft, no tenderness, guarding & rebound, no masses Extremities: no edema Neurologic: Cranial Nerves: grossly intact Sensation: grossly intact Data Laboratory Results: Last 24 Hours Test 01/19/18 16:55 01/19/18 18:50 01/19/18 19:46 01/19/18 21:21 White Blood Count 8.19 K/uL Red Blood Count 3.42 M/uL Hemoglobin 10.3 g/dL Hematocrit 32.2 % Mean Corpuscular Volume 94.2 fL Mean Corpuscular Hemoglobin 30.1 pg Mean Corpuscular Hemoglobin Concent 32.0 g/dl Platelet Count 329 K/uL Mean Platelet Volume 9.9 fL Neutrophils (%) (Auto) 70.7 % Lymphocytes (%) (Auto) 18.6 % Monocytes (%) (Auto) 8.8 % Eosinophils (%) (Auto) 1.0 % Basophils (%) (Auto) 0.5 % Neutrophils # (Auto) 5.80 K/uL Lymphocytes # (Auto) 1.52 K/uL Monocytes # (Auto) 0.72 K/uL Eosinophils # (Auto) 0.08 K/uL Basophils # (Auto) 0.04 K/uL RDW Standard Deviation 47.1 fL RDW Coefficient of Variation 13.8 % Immature Granulocyte % (Auto) 0.4 % Immature Granulocyte # (Auto) 0.03 K/uL Sodium Level 139 mmol/L Potassium Level 3.9 mmol/L Chloride Level 108 mmol/L Carbon Dioxide Level 25 mmol/L Anion Gap 6.0 mmol/L Blood Urea Nitrogen 18 mg/dl Creatinine 1.03 mg/dl Estimated GFR () 55.8 Estimated GFR (Non- 48.2 BUN/Creatinine Ratio 17.3 Random Glucose 119 mg/dl Calcium Level 9.2 mg/dl Total Bilirubin 0.2 mg/dl Direct Bilirubin < 0.1 mg/dl Aspartate Amino Transf (AST/SGOT) 21 U/L Alanine Aminotransferase (ALT/SGPT) 22 U/L Alkaline Phosphatase 36 U/L Total Protein 7.1 gm/dl Albumin 3.4 gm/dl Lipase 354 U/L Urine Color YELLOW Urine Appearance CLEAR Urine pH 5.5 Urine Specific [place] 1.020 Urine Protein NEG Urine Glucose (UA) NEG Urine Ketones NEG Urine Occult Blood NEG Urine Nitrite NEG Urine Bilirubin NEG Urine Urobilinogen NEG Urine Leukocyte Esterase NEG Urine WBC (Auto) 0 /hpf Urine RBC (Auto) 0-4 /hpf Urine Hyaline Casts (Auto) 0 /lpf Urine Epithelial Cells (Auto) 0-5 /lpf Urine Bacteria (Auto) NEG Bedside Troponin I < 0.030 ng/ml Troponin I 0.077 ng/ml Test 01/20/18 05:31 White Blood Count 6.22 K/uL Red Blood Count 3.10 M/uL Hemoglobin 9.2 g/dL Hematocrit 29.3 % Mean Corpuscular Volume 94.5 fL Mean Corpuscular Hemoglobin 29.7 pg Mean Corpuscular Hemoglobin Concent 31.4 g/dl Platelet Count 269 K/uL Mean Platelet Volume 9.6 fL Neutrophils (%) (Auto) 70.1 % Lymphocytes (%) (Auto) 18.5 % Monocytes (%) (Auto) 9.5 % Eosinophils (%) (Auto) 1.1 % Basophils (%) (Auto) 0.6 % Neutrophils # (Auto) 4.36 K/uL Lymphocytes # (Auto) 1.15 K/uL Monocytes # (Auto) 0.59 K/uL Eosinophils # (Auto) 0.07 K/uL Basophils # (Auto) 0.04 K/uL RDW Standard Deviation 47.2 fL RDW Coefficient of Variation 13.8 % Immature Granulocyte % (Auto) 0.2 % Immature Granulocyte # (Auto) 0.01 K/uL Sodium Level 140 mmol/L Potassium Level 3.7 mmol/L Chloride Level 109 mmol/L Carbon Dioxide Level 24 mmol/L Anion Gap 7.0 mmol/L Blood Urea Nitrogen 11 mg/dl Creatinine 0.76 mg/dl Est Creatinine Clear Calc Drug Dose 39.7 ml/min Estimated GFR () 80.6 Estimated GFR (Non- 69.5 BUN/Creatinine Ratio 14.8 Random Glucose 110 mg/dl Calcium Level 8.5 mg/dl Troponin I 0.232 ng/ml EK electrocardiograms are available, both from January 19, 2018. At 1937 she was in sinus rhythm with premature ventricular beats, she does have a somewhat wide QRS which may be left ventricular hypertrophy with ST-T abnormalities. The second electrocardiogram is from 2109, this is similar but without premature ventricular beats. Telemetry reviewed: Predominantly sinus rhythm, periods of supraventricular tachycardia. Some of the episodes of SVT appeared to be very irregular and suggests a reentrant rhythm, others are more irregular suggesting premature atrial beats, PAT or atrial fibrillation/flutter. The episodes however are brief and self-limiting. Assessment & Plan 1. SVT: She has a history of SVT which is never been invasively evaluated but was thought to likely be a reentrant rhythm, she now has episodes which appeared to be that as well but in addition she has other arrhythmias which may be atrial fibrillation or flutter or premature atrial beats or PAT. Of note however the 2 rhythms do not coexist, the regular rapid SVT seems to start and terminate for the most part and does not coexist with the variable heart rates. A reentrant SVT is initiated by premature beats therefore they may be independent rhythms and she may have both. I would like to control her rhythm with rate control to start, if this eliminates her arrhythmia then I think we can be confident that it is probably reentrant or due to premature beats, if it just slows the rate in the rhythms continue that it is probably atrial flutter or atrial fibrillation. I am therefore going to start intravenous diltiazem so that we can try to make the diagnosis and achieve rate control today. 2. Abnormal cardiac enzymes: She does have an abnormal troponin and the level is slightly rising. She does have suspected coronary artery disease and yet this does not seem to be behaving like an acute coronary event. The level is still quite low, I certainly would not consider invasive evaluation at this time and she does not have symptoms to suggest myocardial injury or ischemia. I would continue to watch. 3. Aortic stenosis: She has a history of aortic stenosis, in September 2016 she was felt to have moderate aortic stenosis. It may be worth repeating the echocardiogram now to see whether that has progressed. I will order that. 4. Abnormal electrocardiogram: Her electrocardiogram has a slightly wide QRS complex, it is possibly due to left ventricular hypertrophy or a borderline IVCD. She has ST-T abnormalities which are probably secondary to that. No acute changes. Thank you for allowing me to participate in her care.
--- NOTE | 2018-01-20 19:30 | ECHOCARDIOGRAM REPORT ---
*NOTICE TO RECEIVING REPUBLICAN AGENCY This information is strictly Confidential and protected under [place] law. [place] law prohibits you from making any further disclosure of this information unless further disclosure is expressly permitted by the written consent of the person to whom it pertains or is authorized by law. A general authorization for the release of medical or other information is not sufficient for this purpose. Hospital accepts no responsibility if the information is made available to any other person, INCLUDING THE PATIENT. Interpretation Summary * Name: SARAH CONCEPCION Study Date: 01/20/2018 03:21 PM BP: 108/58 mmHg * Patient Location: C.2T\S\S240\S\2 HR: 66 * : 1930 (M/d/yy) Gender: Female Height: 62 in * Age: 87 yrs Ethnicity: CA Weight: 123 lb * Ordering Physician: Aubrey Vickers * Referring Physician: Bee Bledsoe * Performed By: France Spears RCS * * Reason For Study: SVT / * BSA: 1.6 m2 * -- Conclusions -- * 1. Normal left ventricular size and systolic function. EF 60-65%. No definite regional wall motion abnormalities. Mild concentric left ventricular hypertrophy. Type 1 diastolic dysfunction. * 2. The left atrium is moderately dilated. * 3. Moderate aortic stenosis. * 4. There is mild mitral regurgitation. * 5. Technically difficult study. * 6. Compared to prior study on 09/17/2016, aortic transvalvular velocity and gradient have increased. Procedure Details * A complete two-dimensional transthoracic echocardiogram was performed (2D, M-mode, Doppler and color flow Doppler). Left Ventricle * Normal left ventricular size and systolic function. EF 60-65%. No definite regional wall motion abnormalities. Mild concentric left ventricular hypertrophy. Type 1 diastolic dysfunction. Right Ventricle * The right ventricle is normal size. * The right ventricular systolic function is normal as assessed by tricuspid annular plane systolic excursion (TAPSE) (normal >1.5 cm). Atria * The left atrium is moderately dilated. * Right atrial size is normal. * There is no visualized ASD but inter atrial septum was not well visualized. Mitral Valve * There is mild to moderate mitral annular calcification. * There is no mitral valve stenosis. * There is mild mitral regurgitation. Tricuspid Valve * The tricuspid valve is not well visualized, but is grossly normal. * There is no tricuspid stenosis. * There is trace tricuspid regurgitation. Aortic Valve * Moderate aortic stenosis. * There is no significant aortic regurgitation. * Dimensionless index 0.28. Pulmonic Valve * The pulmonary valve is inadequately visualized, but the Doppler data is adequate for interpretation. * There is no pulmonic valvular stenosis. * There is no significant pulmonary regurgitation. Great Vessels * The aortic root is normal size. * Aortic arch of normal dimension. Pericardium/Pleural * There is no pericardial effusion. Great Vessels * Normal inferior vena cava size and collapsability with sniff indicates a normal right atrial pressure of 3 mmHg MMode 2D Measurements and Calculations IVSd 1.3 cm IVSs 1.4 cm LVIDd 3.7 cm LVIDs 2.3 cm LVPWd 1.3 cm LVPWs 1.4 cm IVS/LVPW 0.96 FS 36.7 % EDV(Teich) 57.0 ml ESV(Teich) 18.6 ml EF(Teich) 67.4 % EDV(cubed) 49.4 ml ESV(cubed) 12.6 ml EF(cubed) 74.6 % % IVS thick 11.4 % % LVPW thick 6.2 % LV mass(C)d 168.2 grams LV mass(C)dI 108.2 grams/m\S\2 LV mass(C)s 106.6 grams LV mass(C)sI 68.6 grams/m\S\2 SV(Teich) 38.4 ml SI(Teich) 24.7 ml/m\S\2 SV(cubed) 36.8 ml SI(cubed) 23.7 ml/m\S\2 Ao root diam 2.6 cm Ao root area 5.5 cm\S\2 LA dimension 4.3 cm LA/Ao 1.6 LVOT diam 2.1 cm LVOT area 3.6 cm\S\2 Doppler Measurements and Calculations MV E max hamilton 111.6 cm/sec MV A max hamilton 125.1 cm/sec MV E/A 0.89 MV V2 max 128.6 cm/sec MV max PG 6.6 mmHg MV V2 mean 74.3 cm/sec MV mean PG 2.5 mmHg MV V2 VTI 43.3 cm MVA(VTI) 2.0 cm\S\2 MV P1/2t max hamilton 105.3 cm/sec MV P1/2t 108.0 msec MVA(P1/2t) 2.0 cm\S\2 MV dec slope 285.4 cm/sec\S\2 MV dec time 0.23 sec Ao V2 max 310.4 cm/sec Ao max PG 38.6 mmHg Ao max PG (full) 35.6 mmHg Ao V2 mean 222.6 cm/sec Ao mean PG 21.7 mmHg Ao mean PG (full) 20.1 mmHg Ao V2 VTI 77.8 cm KATIE(I,A) 1.1 cm\S\2 KATIE(I,D) 1.1 cm\S\2 KATIE(V,A) 0.99 cm\S\2 KATIE(V,D) 0.99 cm\S\2 LV V1 max PG 2.9 mmHg LV V1 mean PG 1.6 mmHg LV V1 max 85.8 cm/sec LV V1 mean 60.9 cm/sec LV V1 VTI 23.7 cm MR max hamilton 488.4 cm/sec MR max PG 95.4 mmHg SV(Ao) 424.1 ml SI(Ao) 272.8 ml/m\S\2 SV(LVOT) 85.1 ml SI(LVOT) 54.8 ml/m\S\2 PA V2 max 89.7 cm/sec PA max PG 3.2 mmHg RAP systole 3.0 mmHg
--- NOTE | 2018-01-20 19:44 | Progress Note ---
Subjective Date of Service: Jan 20, 2018. Subjective Pt evaluation today including: conversation w/ patient, conversation w/ family (daughter by phone), physical exam, chart review, lab review, review of studies (CT abd/pelvis), conversation w/ customer sales consultant (cardiology), review of inpatient medication list Pain: none; no chest pain PO Intake: ate lunch w/o difficulty Voiding: no voiding problems tele with multiple runs of SVT -- some of which were irregular she has NO symptoms from such denies any abdominal pain today although diarrhea has continued no chest pain or dyspnea Problem List Medical Problems: (1) Abdominal pain Status: Acute (2) Acute electrocardiogram changes Status: Acute (3) Anemia Status: Acute (4) Anemia Status: Acute (5) Atrial tachycardia Status: Acute (6) Fall Status: Acute (7) Gastrointestinal bleeding Status: Acute (8) Right rib fracture Status: Acute (9) Tachy-lilian syndrome Status: Acute (10) UTI (urinary tract infection) Status: Acute Review of Systems Constitutional: No fever Respiratory: No cough Cardiac: No chest pain, No orthopnea, No PND, No edema Abdomen: + diarrhea, No pain, No nausea, No vomiting, No GI bleeding Objective Vital Signs Date Time Temp Pulse Resp B/P (MAP) Pulse Ox O2 Delivery O2 Flow Rate FiO2 01/20/18 18:00 76 112/50 (70) 01/20/18 16:00 Room Air 01/20/18 16:00 36.9 64 16 116/56 (76) 96 Room Air 01/20/18 15:05 65 108/58 (75) 01/20/18 14:50 67 111/56 (74) 01/20/18 14:35 71 109/57 (74) 01/20/18 14:20 66 104/56 (72) 01/20/18 14:05 74 96/56 (69) 01/20/18 13:49 36.7 80 18 123/59 (80) 98 Room Air 01/20/18 12:00 Room Air 01/20/18 11:07 36.9 63 18 148/59 (88) 97 Room Air 01/20/18 08:00 Room Air 01/20/18 07:26 36.8 86 18 157/66 (96) 95 Room Air 01/20/18 04:26 36.4 73 18 168/66 (100) 96 Room Air 01/20/18 04:00 Room Air 01/19/18 23:37 36.5 76 18 139/72 97 Room Air 01/19/18 22:33 77 20 154/77 96 Room Air 01/19/18 21:12 79 22 155/73 96 Room Air 01/19/18 19:35 167 Physical Exam General Appearance: no apparent distress ENT: pharynx normal Neck: no JVD Respiratory/Chest: lungs clear, no respiratory distress, no accessory muscle use Cardiovascular: regular rate, rhythm, no gallop, + systolic murmur (2/6 holosystolic murmur RUSB) Abdomen: normal bowel sounds, non tender, soft, no organomegaly Extremities: no pedal edema Neurologic/Psychiatric: alert, oriented x 3 Laboratory Results Last 24 Hours Test 01/19/18 19:46 01/19/18 21:21 01/20/18 05:31 01/20/18 13:01 Bedside Troponin I < 0.030 ng/ml Troponin I 0.077 ng/ml 0.232 ng/ml 0.251 ng/ml White Blood Count 6.22 K/uL Red Blood Count 3.10 M/uL Hemoglobin 9.2 g/dL Hematocrit 29.3 % Mean Corpuscular Volume 94.5 fL Mean Corpuscular Hemoglobin 29.7 pg Mean Corpuscular Hemoglobin Concent 31.4 g/dl Platelet Count 269 K/uL Mean Platelet Volume 9.6 fL Neutrophils (%) (Auto) 70.1 % Lymphocytes (%) (Auto) 18.5 % Monocytes (%) (Auto) 9.5 % Eosinophils (%) (Auto) 1.1 % Basophils (%) (Auto) 0.6 % Neutrophils # (Auto) 4.36 K/uL Lymphocytes # (Auto) 1.15 K/uL Monocytes # (Auto) 0.59 K/uL Eosinophils # (Auto) 0.07 K/uL Basophils # (Auto) 0.04 K/uL RDW Standard Deviation 47.2 fL RDW Coefficient of Variation 13.8 % Immature Granulocyte % (Auto) 0.2 % Immature Granulocyte # (Auto) 0.01 K/uL Sodium Level 140 mmol/L Potassium Level 3.7 mmol/L Chloride Level 109 mmol/L Carbon Dioxide Level 24 mmol/L Anion Gap 7.0 mmol/L Blood Urea Nitrogen 11 mg/dl Creatinine 0.76 mg/dl Est Creatinine Clear Calc Drug Dose 39.7 ml/min Estimated GFR () 80.6 Estimated GFR (Non- 69.5 BUN/Creatinine Ratio 14.8 Random Glucose 110 mg/dl Calcium Level 8.5 mg/dl Magnesium Level 1.4 mg/dl Thyroid Stimulating Hormone (TSH) 2.110 uIu/ml Assessment and Plan 87yo female with: 1. recent concern of diverticulitis - ruled out with negative CT abd/pelvis. No LLQ abd pain on exam today. 2. diarrhea - c. diff negative; continues despite Rx with cipro/flagyl. viral etiology? Send stool cx. While awaiting cx will cont cipro/flagyl. 3. SVT - appreciate Dr. Vickers's consultation. To be started on diltiazem for rate control. Also remains on BB. 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 Continue telemetry. 4. aortic stenosis - moderate - avoid afterload reducers. 5. positive troponin with abnormal EKG - no ischemic symptoms by history; could have underlying CAD given her age, but no evidence of type 1 VT / NSTEMI. Likely myocardial demand ischemia in setting of #3, #2. 6. CKD stage 3 - creatinine stable. 7. hypomagnesemia - replace 2 grams mag sulfate; repeat level AM. 8. h/o prior c. diff colitis - ruled out w/ negative c. diff toxin. 9. anemia - check iron studies in AM. 10. DVT proph - heparin 5000 BID. updated daughter by phone PT consult to ensure she will be strong enough to return home Continued [facility] stay due to: other (SVT, diarrhea) Discharge planning: home
[2018-01-20] MEDS: FERROUS SULFATE 325 MG TAB PO SCH (20:50)
[2018-01-20] MEDS: HEPARIN SOD 5000 UNIT/0.5 ML CARP SQ SCH (21:24)
[2018-01-21] VITALS (7 sets, daily range): BP systolic 105–148; BP diastolic 55–67; PULSE 56–73; TEMP 36.3–37.1; O2SAT 95–98
[2018-01-21 07:54] LABS: CALCIUM 8.2 mg/dl (8.5-10.1); CREATININE 0.92 mg/dl (0.60-1.20); POTASSIUM 3.8 mmol/L (3.5-5.1)
[2018-01-21] MEDS: METRONIDAZOLE 500 MG TAB PO SCH ×3 (07:59→20:38)
[2018-01-21] MEDS: LEVETIRACETAM 500 MG TAB PO SCH ×2 (08:00→20:38)
[2018-01-21] MEDS: CIPROFLOXACIN 500 MG TAB PO SCH ×2 (08:00→20:38)
[2018-01-21] MEDS: ASPIRIN 81 MG ECTAB PO SCH (08:00)
[2018-01-21] MEDS: PANTOprazole SOD 40 MG TAB PO SCH (08:01)
[2018-01-21] MEDS: METOPROLOL TARTRATE 25 MG TAB PO SCH (08:01)
[2018-01-21] MEDS: RIVASTIGMINE TARTRATE (EXELON) 1.5 MG CAP PO SCH ×2 (08:01→20:38)
[2018-01-21] MEDS: CHOLECALCIFEROL 1000 INTER.UNIT TAB PO SCH (08:02)
[2018-01-21] MEDS: ATORVASTATIN 20 MG TAB PO SCH (08:02)
[2018-01-21] MEDS: NEPHROCAPS PO SCH (08:02)
[2018-01-21] MEDS: HEPARIN SOD 5000 UNIT/0.5 ML CARP SQ SCH ×2 (08:05→20:39)
[2018-01-21] MEDS: SILVER SULFADIAZINE 1% CR 50 GM JAR EXT SCH ×2 (08:06→20:35)
--- NOTE | 2018-01-21 08:54 | Cardiology Follow-Up ---
Subjective Date of Service: Jan 21, 2018. Pt evaluation today including: conversation w/ patient, physical exam, lab review, review of studies, review of inpatient medication list History of Present Illness This is a very pleasant 87-year-old woman who may have a history of coronary artery disease (as evidenced by a non-ST segment elevation myocardial infarction at the end of August 2016 in association with rapid heart rate) as well as valvular heart disease including moderate aortic stenosis and mild to moderate mitral regurgitation. 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 She was identified as having anemia at the time and had a small enzyme rise. She was treated medically for the arrhythmia. She recalls historically having occasional episodes of palpitations but is not very aware of the arrhythmia. She did present with chest discomfort which has not recurred. She is maintained on metoprolol tartrate for the arrhythmia. Echocardiography showed normal left ventricular function but she has moderate to severe aortic stenosis. Her presentation this admission was with diarrhea and abdominal discomfort, however she was observed to have periods of SVT at a rapid heart rate as well as some electrocardiographic abnormalities. Her symptoms are little bit vague, she does admit to having intermittent palpitations but is not very precise about it. She has had frequent episodes here in the hospital and I cannot tell if she actually has much in the way of symptoms related to them. She does not have chest discomfort, she does not have shortness of breath. She evidently does not have lightheadedness or dizziness and denies syncope or presyncope. To test our ability to control the arrhythmia medically I started her on diltiazem yesterday, she did not need titration above 5 mg/h. Today she feels well, she has no complaints, no palpitations. She is anxious to go home. Social History Smoking Status: Never Smoker History of Alcohol Use: No Review of Systems Respiratory: No cough Cardiac: No chest pain, No orthopnea, No PND, No edema Medications Cardiovascular: Item Value Date Time Diltiazem HCl 125 125 ml @ 0 mls/hr 01/20/18 1315 mg/Dextrose .Q0M PRN/IV 01/20/18 1402 Heparin Sodium 5,000 unit 01/20/18 2130 (Porcine) Q12/SQ 01/21/18 0805 (Heparin Sq 5000 Unit/0.5ml) Aspirin 81 mg 01/20/18 0900 (Ecotrin Tab) QAM/PO 01/21/18 0800 Atorvastatin 20 mg 01/20/18 0900 Calcium DAILY/PO 01/21/18 0802 (Lipitor Tab) Metoprolol 25 mg 01/20/18 0900 Tartrate BID/PO 01/21/18 0801 (Lopressor Tab) Objective Vital Signs Past 12 Hours Date Time Temp Pulse Resp B/P (MAP) Pulse Ox O2 Delivery O2 Flow Rate FiO2 01/21/18 08:00 Room Air 01/21/18 07:29 37.1 63 20 136/63 (87) 98 01/21/18 04:04 36.3 61 16 134/67 (89) 98 01/21/18 04:00 Room Air 01/21/18 00:06 37.1 58 16 114/55 (74) 97 01/20/18 23:59 Room Air Last Recorded Weight-Kilograms: 56.600 Physical Exam Constitutional: General Apperance: heathly-appearing Level of Distress: NAD Lungs: Respiratory effort: no dyspnea, good air movement Auscultation: breath sounds normal, no wheezing Cardiovascular: Heart Auscultation: RRR, no rubs, no gallops, II/ BARBARA Peripheral Pulses: Bruits: none appreciated Extremities: no edema Data Laboratory Results: Last 24 Hours Test 01/20/18 13:01 01/20/18 20:00 01/21/18 06:49 Troponin I 0.251 ng/ml 0.122 ng/ml Thyroid Stimulating Hormone (TSH) 2.110 uIu/ml Prothrombin Time 11.0 SECONDS Prothromb Time International Ratio 1.0 Sodium Level 139 mmol/L Potassium Level 3.8 mmol/L Chloride Level 110 mmol/L Carbon Dioxide Level 24 mmol/L Anion Gap 5.0 mmol/L Blood Urea Nitrogen 14 mg/dl Creatinine 0.92 mg/dl Est Creatinine Clear Calc Drug Dose 32.8 ml/min Estimated GFR () 64.0 Estimated GFR (Non- 55.2 BUN/Creatinine Ratio 15.1 Random Glucose 124 mg/dl Calcium Level 8.2 mg/dl Magnesium Level 1.7 mg/dl Iron Level 121 mcg/dl Total Iron Binding Capacity 259 mcg/dl Transferrin 216 mg/dl Transferrin % Saturation 40 % Ferritin 14.0 ng/ml Imaging: Echocardiography shows normal left ventricular function, moderate aortic stenosis Telemetry reviewed: Sinus rhythm, sinus tachycardia and premature beats. No significant atrial arrhythmia since starting diltiazem. Assessment and Plan 1. 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 Of note however the 2 rhythms do not coexist, the regular rapid SVT seems to start and terminate for the most part and does not coexist with the variable heart rates. A reentrant SVT is initiated by premature beats therefore they may be independent rhythms and she may have both. Her rhythm has been very well controlled now on low-dose intravenous diltiazem. This argues against atrial fibrillation or flutter. I would recommend switching to oral diltiazem and seeing how she does on that, I have done that and will discontinue the intravenous diltiazem and her metoprolol. 2. Abnormal cardiac enzymes: She does have an abnormal troponin and the level did peak yesterday but at a low level. She does have suspected coronary artery disease and yet this does not seem to be behaving like an acute coronary event. The level is quite low, I certainly would not consider invasive or noninvasive evaluation at this time and she does not have symptoms to suggest myocardial injury or ischemia. 3. Aortic stenosis: She has a history of aortic stenosis, in September 2016 she was felt to have moderate aortic stenosis. That does not seem to have changed. 4. Abnormal electrocardiogram: Her electrocardiograms yesterday had a slightly wide QRS complex, it is possibly due to left ventricular hypertrophy or a borderline IVCD. She has ST-T abnormalities which are probably secondary to that. No acute changes. Thank you for allowing me to participate in her care.
[2018-01-21] MEDS: DILTIAZEM HCL 180 MG CAPCR PO SCH (09:30)
[2018-01-21] MEDS ORDERED: MAGNESIUM SULFATE 1GM / D5W 1 GM in PREMIXED IN D5W 100 ML IV ONE (09:30)
[2018-01-21] MEDS: FERROUS SULFATE 325 MG TAB PO SCH (20:38)
--- NOTE | 2018-01-22 01:46 | Progress Note ---
Subjective Date of Service: late entry for visit Jan 21, 2018. Subjective Pt evaluation today including: conversation w/ patient, conversation w/ family (daughters at bedside), physical exam, chart review, lab review, review of inpatient medication list Pain: no abdominal pain PO Intake: eating fine w/o difficulty Voiding: no voiding problems tele stable overnight with less frequent runs of SVT she feels well and is anxious to go home cleared by PT/OT for home denies any dyspnea, cough, chest pain still with mild diarrhea Problem List Medical Problems: (1) Abdominal pain Status: Acute (2) Acute electrocardiogram changes Status: Acute (3) Anemia Status: Acute (4) Anemia Status: Acute (5) Atrial tachycardia Status: Acute (6) Fall Status: Acute (7) Gastrointestinal bleeding Status: Acute (8) Right rib fracture Status: Acute (9) Tachy-lilian syndrome Status: Acute (10) UTI (urinary tract infection) Status: Acute Review of Systems Constitutional: No fever Respiratory: No cough Cardiac: No chest pain, No orthopnea Abdomen: + diarrhea, No pain, No nausea, No vomiting, No GI bleeding Objective Vital Signs Date Time Temp Pulse Resp B/P (MAP) Pulse Ox O2 Delivery O2 Flow Rate FiO2 01/21/18 23:59 Room Air 01/21/18 23:18 36.6 73 18 120/61 (80) 95 Room Air 01/21/18 20:00 Room Air 01/21/18 19:27 36.8 65 18 148/66 (93) 95 Room Air 01/21/18 16:00 Room Air 01/21/18 15:12 36.6 63 16 114/55 (74) 96 Room Air 01/21/18 12:00 Room Air 01/21/18 11:33 36.4 56 18 105/57 (73) 97 01/21/18 08:00 Room Air 01/21/18 07:29 37.1 63 20 136/63 (87) 98 01/21/18 04:04 36.3 61 16 134/67 (89) 98 01/21/18 04:00 Room Air Physical Exam General Appearance: WD/WN, no apparent distress ENT: pharynx normal Neck: no JVD Respiratory/Chest: lungs clear, no respiratory distress, no accessory muscle use Cardiovascular: regular rate, rhythm, no gallop, + systolic murmur (1-2/6 RUSB) Abdomen: normal bowel sounds, non tender, soft, no organomegaly Extremities: no pedal edema Neurologic/Psychiatric: alert, oriented x 3 Laboratory Results Last 24 Hours Test 01/21/18 06:49 Sodium Level 139 mmol/L Potassium Level 3.8 mmol/L Chloride Level 110 mmol/L Carbon Dioxide Level 24 mmol/L Anion Gap 5.0 mmol/L Blood Urea Nitrogen 14 mg/dl Creatinine 0.92 mg/dl Est Creatinine Clear Calc Drug Dose 32.8 ml/min Estimated GFR () 64.0 Estimated GFR (Non- 55.2 BUN/Creatinine Ratio 15.1 Random Glucose 124 mg/dl Calcium Level 8.2 mg/dl Magnesium Level 1.7 mg/dl Iron Level 121 mcg/dl Total Iron Binding Capacity 259 mcg/dl Transferrin 216 mg/dl Transferrin % Saturation 40 % Ferritin 14.0 ng/ml Troponin I 0.122 ng/ml Assessment and Plan 87yo female with: 1. recent concern of diverticulitis - ruled out with negative CT abd/pelvis. I would recommend stopping antibiotics at time of discharge. 2. diarrhea - c. diff negative; stool cx negative. This is despite use of cipro/flagyl. If stool cx is negative this would argue for viral etiology. 3. SVT - appreciate Dr. Vickers's consultation. 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 fib/flutter. She was on diltiazem drip overnight with improvement. Transitioned to oral diltiazem today. Beta barak stopped. At discharge send home with diltiazem. Continue telemetry overnight. Of note - she is largely asymptomatic from the SVT. 4. aortic stenosis - moderate - avoid afterload reducers. 5. positive troponin with abnormal EKG - no ischemic symptoms by history; could have underlying CAD given her age, but no evidence of type 1 [place] / NSTEMI at this time. ECHO w/o wall motion abnormalities. Likely myocardial demand ischemia in setting of #3, #2. 6. CKD stage 3 - creatinine stable. 7. hypomagnesemia - improved but still low; give another 1 gm mag sulfate; mag level am. 8. h/o prior c. diff colitis - ruled out w/ negative c. diff toxin. 9. anemia - ferritin is <20. Would increase her ferrous sulfate to 325mg BID at d/c for 1-2 months. 10. DVT proph - heparin 5000 BID. updated daughters at bedside cleared by PT, OT for home hopefully d/c tomorrow AM Continued [facility] stay due to: other (SVT, diarrhea) Discharge planning: home
[2018-01-22 03:56] VITALS: BP 138/72; PULSE 89; TEMP 36.8; O2SAT 96
[2018-01-22 06:17] LABS: HEMATOCRIT 28.8 % (37-47); HEMOGLOBIN 9.3 g/dL (12.0-16.0); MEAN CELL VOLUME 93.8 fL (80-100); MEAN CORPUSCULAR HEMOGLOBIN 30.3 pg (25-34); MEAN CORPUSCULAR HGB CONC 32.3 g/dl (32-36); MEAN PLATELET VOLUME 9.2 fL (7.4-10.4); PLATELET COUNT 267 K/uL (130-400); RED CELL DISTRIBUTION WIDTH CV 14.1 % (11.5-14.5); WHITE BLOOD COUNT 7.72 K/uL (4.8-10.8)
[2018-01-22 06:50] LABS: CALCIUM 8.5 mg/dl (8.5-10.1); CREATININE 1.05 mg/dl (0.60-1.20); POTASSIUM 4.2 mmol/L (3.5-5.1)
[2018-01-22 07:15] VITALS: BP 145/67; PULSE 82; TEMP 37.1; O2SAT 95
[2018-01-22] MEDS ORDERED: MAGNESIUM SULFATE 1GM / D5W 1 GM in PREMIXED IN D5W 100 ML IV STA (08:08)
[2018-01-22] MEDS: RIVASTIGMINE TARTRATE (EXELON) 1.5 MG CAP PO SCH (08:17)
[2018-01-22] MEDS: ATORVASTATIN 20 MG TAB PO SCH (08:17)
[2018-01-22] MEDS: CIPROFLOXACIN 500 MG TAB PO SCH (08:17)
[2018-01-22] MEDS: CHOLECALCIFEROL 1000 INTER.UNIT TAB PO SCH (08:17)
[2018-01-22] MEDS: METRONIDAZOLE 500 MG TAB PO SCH ×2 (08:17→13:41)
[2018-01-22] MEDS: LEVETIRACETAM 500 MG TAB PO SCH (08:17)
[2018-01-22] MEDS: PANTOprazole SOD 40 MG TAB PO SCH (08:17)
[2018-01-22] MEDS: DILTIAZEM HCL 180 MG CAPCR PO SCH (08:17)
[2018-01-22] MEDS: ASPIRIN 81 MG ECTAB PO SCH (08:17)
[2018-01-22] MEDS: NEPHROCAPS PO SCH (08:18)
[2018-01-22] MEDS: HEPARIN SOD 5000 UNIT/0.5 ML CARP SQ SCH (08:19)
[2018-01-22] MEDS: SILVER SULFADIAZINE 1% CR 50 GM JAR EXT SCH (08:20)
[2018-01-22 11:43] VITALS: BP 104/59; PULSE 74; TEMP 36.6; O2SAT 96
[2018-01-22 12:34] LABS: HEMATOCRIT 28.3 % (37-47); MEAN CELL VOLUME 95.6 fL (80-100); MEAN CORPUSCULAR HEMOGLOBIN 30.4 pg (25-34); MEAN CORPUSCULAR HGB CONC 31.8 g/dl (32-36); MEAN PLATELET VOLUME 9.6 fL (7.4-10.4); PLATELET COUNT 288 K/uL (130-400); RED CELL DISTRIBUTION WIDTH CV 14.2 % (11.5-14.5); RED CELL DISTRIBUTION WIDTH SD 49.3 fL (36.4-46.3); WHITE BLOOD COUNT 6.85 K/uL (4.8-10.8)
[2018-01-22] MEDS ORDERED: ASPEC81 PO (15:41)
[2018-01-22] MEDS ORDERED: LISI-461 PO (15:41)
[2018-01-22] MEDS ORDERED: FERR325T5 PO (15:41)
[2018-01-22] MEDS ORDERED: CRDCD180 PO (15:41)
--- NOTE | 2018-01-22 15:48 | Discharge Instructions ---
Discharge Instructions Date of Service Jan 22, 2018. Admission Reason for Admission: Atrial Tachycardia Discharge Discharge Diagnosis / Problem: Supraventricular tachycardia, diarrhea, hypomagnesemia Discharge Goals Goal(s): Improve disease control, Diagnostic testing, Therapeutic intervention Activity Recommendations Activity Limitations: resume your previous activity Shower/Bathe: no limitations . Instructions / Follow-Up Instructions / Follow-Up You were admitted with diarrhea, low magnesium level, and had a rapid heartbeat called SVT. All of these improved with replacing your magnesium and adjusting you rmedications. You were started on a new medication called diltiazem to help with your rapid heartbeat. Please STOP your metoprolol. Because your blood pressure was a little on the low side of normal, your lisinopril dose was lowered to 5mg daily. Your diarrhea resolved. Your stool tested NEGATIVE for C. diff and for other bacterial infection. Due to your iron deficiency anemia, it is recommended you go up on your iron tablet to twice daily. You were also found to have something called HYDRONEPHROSIS of the right ureter/ kidney. Please have your PCP follow up on this with a repeat kidney ultrasound at your follow up visit to see if it has resolved. Please follow up sooner if you develop sudden onset of back pain or blood in your urine. Please keep your scheduled follow up appointments with your PCP and with Cardiology. Current Hospital Diet Patient's current hospital diet: AHA Diet (Heart Healthy), Low Sodium Diet (2gm Na) Discharge Diet Recommended Diet: AHA Diet (Heart Healthy), Low Sodium Diet (2gm Na) Pending Studies Studies pending at discharge: no Laboratory Results Last 24 Hours Test 01/22/18 06:07 01/22/18 09:00 01/22/18 12:19 White Blood Count 7.72 K/uL 6.85 K/uL Red Blood Count 3.07 M/uL 2.96 M/uL Hemoglobin 9.3 g/dL 9.0 g/dL Hematocrit 28.8 % 28.3 % Mean Corpuscular Volume 93.8 fL 95.6 fL Mean Corpuscular Hemoglobin 30.3 pg 30.4 pg Mean Corpuscular Hemoglobin Concent 32.3 g/dl 31.8 g/dl RDW Standard Deviation 48.0 fL 49.3 fL RDW Coefficient of Variation 14.1 % 14.2 % Platelet Count 267 K/uL 288 K/uL Mean Platelet Volume 9.2 fL 9.6 fL Sodium Level 141 mmol/L Potassium Level 4.2 mmol/L Chloride Level 110 mmol/L Carbon Dioxide Level 22 mmol/L Anion Gap 9.0 mmol/L Blood Urea Nitrogen 13 mg/dl Creatinine 1.05 mg/dl Est Creatinine Clear Calc Drug Dose 28.7 ml/min Estimated GFR () 54.5 Estimated GFR (Non- 47.0 BUN/Creatinine Ratio 12.3 Random Glucose 118 mg/dl Calcium Level 8.5 mg/dl Magnesium Level 1.8 mg/dl Stool Occult Blood POSITIVE Medical Emergencies . Who to Call and When: Medical Emergencies: If at any time you feel your situation is an emergency, please call 911 immediately. . Non-Emergent Contact Non-Emergency issues call your: Primary Care Provider, [employer] Call Non-Emergent contact if: you have a fever, temperature is above 100.5, you have any medication questions you develop blood in your urine, back pain, abdominal pain, or return of your diarrhea. . . "Provider Documentation" section prepared by Terri Max. .
--- NOTE | 2018-01-22 15:49 | Discharge Summary ---
Discharge Summary Date of Service Jan 22, 2018. Discharge Summary Admission Date: Jan 20, 2018 at 14:06 Discharge Date: Jan 22, 2018 Discharge Disposition: Home with services Immunizations: Have You Had Influenza Vaccine: Unknown History of Tetanus Vaccine?: Unknown History of Pneumococcal: Unknown History of Hepatitis B Vaccine: Unknown Medication Reconciliation New Medications: Aspirin (Aspirin EC Low Dose) 81 Mg Ectab 81 MG PO QAM for 30 Days Diltiazem HCl (Diltiazem HCl ER) 180 Mg Capcr 180 MG PO QAM for 30 Days, #30 CAP Changed Medications: Ferrous Sulfate (Ferrous Sulfate) 325 Mg Tab 325 MG PO BID for 30 Days (Changed from: QPM) Lisinopril (Zestril) 10 Mg Tab 5 MG PO DAILY for 30 Days (Changed from: 10 MG) NOTE THE LOWER DOSE OF 5 mg Continued Medications: Acetaminophen Tab (Tylenol) 325 Mg Tab 325 MG PO DAILY PRN for Pain or Fever, TAB Atorvastatin (Lipitor) 20 Mg Tab 20 MG PO DAILY Cholecalciferol (D 2000) 2,000 Unit Tab 2000 PO DAILY Sqapwubdkur-Vjbsvgafeir-Nfd C- (Glucosamine Chondroitin 1) 1 Cap Cap 1 CAP PO BID Levetiracetam (Keppra) 500 Mg Tab 500 MG PO BID, TAB Mupirocin 2% (Bactroban 2%) 30 Gm Cr 1 APPLN EXT UD PRN for sores, TUBE apply generous amoun of ointment 2-3 times per day as directed Pantoprazole (Protonix) 40 Mg Tab 40 MG PO DAILY Rivastigmine Tartrate (Rivastigmine Tartrate) 6 Mg Cap 6 MG PO BID Sennosides (Senokot) 8.6 Mg Tab 8.6 MG PO BID PRN for Constipation Silver Sulfadiazine (Silvadene) 1 % Cre 1 APPLN TOP BID for 7 Days, #50 GM Vitamin B Cmplx/Vitc/Folic Ac (Nephrocaps) Cap 1 CAP PO DAILY Discontinued Medications: Ciprofloxacin Hcl (Cipro) 500 Mg Tab 500 MG PO Q12, TAB Metoprolol Tartrate (Lopressor) (Lopressor) 25 Mg Tab 25 MG PO BID Metronidazole (Flagyl) 500 Mg Tab 500 MG PO TID, TAB take 500mg three times daily until gone Hospital Course Total Time Spent: Greater than 30 minutes This includes examination of the patient, discharge planning, medication reconciliation, and communication with other providers. Discharge Instructions Please refer to the electronic Patient Visit Report (Discharge Instructions) for additional information.
[2018-01-22 16:17] VITALS: BP 104/59; PULSE 74; TEMP 36.6; O2SAT 96
[2018-01-22 16:42] VITALS: BP 118/62; PULSE 75; TEMP 36.7; O2SAT 95
== END 2018-01-22 17:10 | disposition home health service (06) | DRG 309 ==
LOC: C.EDB 16:21 → C.MED 21:33 → ENRESERV 23:07 → C.2T 01-20 13:44 → OBSVTOIN 01-20 14:06
PROVIDERS: ADMIT Hospitalist; ATTEND Internal Medicine
DX: I47.1 Supraventricular tachycardia (principal); I24.8 Other forms of acute ischemic heart disease; D50.9 Iron deficiency anemia, unspecified; Q63.0 Accessory kidney; G40.909 Epilepsy, unspecified, not intractable, without status epilepticus; I08.0 Rheumatic disorders of both mitral and aortic valves; Z88.5 Allergy status to narcotic agent; F02.80 Dementia in other diseases classified elsewhere, unspecified severity, without behavioral disturbance, psychotic disturbance, mood disturbance, and anxiety; Z88.6 Allergy status to analgesic agent; E83.42 Hypomagnesemia; I25.2 Old myocardial infarction; I25.10 Atherosclerotic heart disease of native coronary artery without angina pectoris; R79.89 Other specified abnormal findings of blood chemistry; R19.7 Diarrhea, unspecified; N18.3 Chronic kidney disease, stage 3 (moderate)

== ENCOUNTER 2018-01-26 09:57 | Inpatient (IN) | payer BC, OTHER ==
[~2018-01-26] VITALS: Ht 160 cm; Wt 56.9 kg
[~2018-01-26 09:57] MED LIST changes: +ACET-1693 PO; +ASPI-320 PO; +BCTCR/30 EXT; -CHOL1000 PO; +CHOL1TAB76 PO; +CRDCD180 PO; -KFL500 PO; -METO25TA56 PO; -OXYC-57 PO; +SILV1CRE73 TOP
[2018-01-26 10:45] LABS: HEMATOCRIT 29.5 % (37-47); HEMOGLOBIN 9.4 g/dL (12.0-16.0); MEAN CELL VOLUME 96.7 fL (80-100); MEAN CORPUSCULAR HEMOGLOBIN 30.8 pg (25-34); MEAN CORPUSCULAR HGB CONC 31.9 g/dl (32-36); MEAN PLATELET VOLUME 10.3 fL (7.4-10.4); PLATELET COUNT 349 K/uL (130-400); RED CELL DISTRIBUTION WIDTH SD 51.6 fL (36.4-46.3); WHITE BLOOD COUNT 9.89 K/uL (4.8-10.8)
[2018-01-26] MEDS ORDERED: ASPI81TA28 PO (10:47)
[2018-01-26] MEDS ORDERED: LISI-729 PO (10:47)
[2018-01-26] MEDS ORDERED: FERR1TAB62 PO (10:47)
[2018-01-26] MEDS ORDERED: DILT-113 PO (10:47)
[2018-01-26 10:53] LABS: CALCIUM 9.1 mg/dl (8.5-10.1); CREATININE 0.94 mg/dl (0.60-1.20); POTASSIUM 4.2 mmol/L (3.5-5.1)
[2018-01-26 10:58] LABS: TOTAL PROTEIN 6.7 gm/dl (6.4-8.2)
[2018-01-26] MEDS ORDERED: SODIUM CHLORIDE 0.9% 1000ML 1,000 ML IV STA (10:59)
--- NOTE | 2018-01-26 10:59 | DIAGNOSTIC IMAGING REPORT ---
CHEST ONE VIEW PORTABLE HISTORY: Atypical Chest pain COMPARISON: Chest 09/16/2016. FINDINGS: Possible 11 mm nodule within the left midlung zone. No focal lung consolidations to suggest pneumonia. No evidence for pulmonary edema. The heart is normal in size. No pleural effusions. No pneumothorax. Stable blunting of the right lateral costophrenic sulcus. IMPRESSION: 1. Possible 11 mm nodule within the left midlung zone. Follow-up nonemergent chest CT is recommended for further evaluation. 2. Otherwise, no acute process within the chest. Electronically signed by: Salvador Mcfarlane M.D. 01/26/2018 10:57 AM Dictated Date/Time: 01/26/2018 10:56 AM
[2018-01-26 11:05] LABS: PTT PATIENT 23.3 SECONDS (21.0-31.0)
[2018-01-26 12:01] VITALS: O2SAT 98; Ht 160 cm; Wt 56.9 kg
[2018-01-26] MEDS ORDERED: SODIUM CHLORIDE 0.9% 1000ML 1,000 ML IV SCH (12:24)
[2018-01-26] MEDS ORDERED: ACETAMINOPHEN 325 MG TAB PO PRN (12:30)
[2018-01-26] MEDS ORDERED: IV FLUIDS COMPLETED PRN (13:00)
[2018-01-26] MEDS ORDERED: HEPARIN 25000 UNIT/500 ML D5W ONE (13:07)
[2018-01-26] MEDS ORDERED: HEPARIN SOD 5000 UNIT/0.5 ML CARP ONE (13:08)
[2018-01-26] MEDS: HEPARIN 25,000 UNIT/500ML D5W 500 ML IV SCH (14:00)
[2018-01-26 15:58] VITALS: BP 113/65; PULSE 79; TEMP 36.7
--- NOTE | 2018-01-26 16:57 | Cardiology Follow-Up ---
Subjective Date of Service: Jan 26, 2018. Pt evaluation today including: conversation w/ patient, physical exam, lab review History of Present Illness This is a very pleasant 87-year-old woman who may have a history of coronary artery disease (as evidenced by a non-ST segment elevation myocardial infarction at the end of August 2016 in association with rapid heart rate) as well as valvular heart disease including moderate aortic stenosis and mild to moderate mitral regurgitation. 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 She was identified as having anemia at the time and had a small enzyme rise. She was treated medically for the arrhythmia. She recalls historically having occasional episodes of palpitations but is not very aware of the arrhythmia. She did present with chest discomfort which has not recurred. She is maintained on metoprolol tartrate for the arrhythmia. Echocardiography showed normal left ventricular function but she has moderate to severe aortic stenosis. Her presentation last admission was with diarrhea and abdominal discomfort, however she was observed to have periods of SVT at a rapid heart rate as well as some electrocardiographic abnormalities. Her symptoms are little bit vague, she did admit to having intermittent palpitations but was not very precise about it. She had frequent episodes during that hospital stay and I cannot tell if she actually has much in the way of symptoms related to them. She did not have chest discomfort or shortness of breath. She evidently does not have lightheadedness or dizziness and denies syncope or presyncope. Her rhythm appeared to be very well controlled on intravenous diltiazem therefore she was discharged January 22, 2018 on diltiazem CD 180 mg daily. She returns now having continued diarrhea as well as some chest discomfort and was noted to be in atrial fibrillation at her primary care physician's office. She was therefore sent to the emergency room where she was also identified as having atrial fibrillation, but that converted to sinus rhythm shortly thereafter. She seems unaware of the rhythm specifically but has had intermittent chest discomfort lasting several minutes. She is now resting comfortably in bed, in sinus rhythm and has no cardiovascular complaints. Social History Smoking Status: Never Smoker History of Alcohol Use: No Review of Systems Respiratory: No shortness of breath Cardiac: + see HPI, + chest pain, No palpitations Medications Cardiovascular: Item Value Date Time Aspirin 81 mg 01/27/18 0900 (Ecotrin Tab) DAILY/PO Atorvastatin 20 mg 01/27/18 0900 Calcium DAILY/PO (Lipitor Tab) Diltiazem HCl 180 mg 01/27/18 0900 (TIAzac CAP) QAM/PO Lisinopril 5 mg 01/27/18 0900 (Zestril Tab) DAILY/PO Objective Vital Signs Past 12 Hours Date Time Temp Pulse Resp B/P (MAP) Pulse Ox O2 Delivery O2 Flow Rate FiO2 01/26/18 15:58 36.7 79 18 113/65 01/26/18 15:15 84 22 117/62 98 01/26/18 13:00 83 24 120/56 99 Room Air 01/26/18 12:40 104 01/26/18 12:01 98 Room Air 01/26/18 10:52 85 16 120/57 98 Room Air 01/26/18 10:07 89 01/26/18 10:06 36.9 82 18 119/65 97 Room Air 01/26/18 10:06 97 Room Air 01/26/18 10:06 97 Room Air Last Recorded Weight-Kilograms: 57.200 Physical Exam Constitutional: Level of Distress: NAD Lungs: Auscultation: breath sounds normal Cardiovascular: Heart Auscultation: RRR, II/ BARBARA Extremities: no edema Data Laboratory Results: Last 24 Hours Test 01/26/18 10:02 01/26/18 10:33 White Blood Count 9.89 K/uL Red Blood Count 3.05 M/uL Hemoglobin 9.4 g/dL Hematocrit 29.5 % Mean Corpuscular Volume 96.7 fL Mean Corpuscular Hemoglobin 30.8 pg Mean Corpuscular Hemoglobin Concent 31.9 g/dl RDW Standard Deviation 51.6 fL RDW Coefficient of Variation 15.0 % Platelet Count 349 K/uL Mean Platelet Volume 10.3 fL Prothrombin Time 10.4 SECONDS Prothromb Time International Ratio 1.0 Activated Partial Thromboplast Time 23.3 SECONDS Partial Thromboplastin Ratio 0.9 Sodium Level 139 mmol/L Potassium Level 4.2 mmol/L Chloride Level 107 mmol/L Carbon Dioxide Level 23 mmol/L Anion Gap 9.0 mmol/L Blood Urea Nitrogen 17 mg/dl Creatinine 0.94 mg/dl Est Creatinine Clear Calc Drug Dose 33.6 ml/min Estimated GFR () 62.3 Estimated GFR (Non- 53.8 BUN/Creatinine Ratio 18.1 Random Glucose 120 mg/dl Calcium Level 9.1 mg/dl Phosphorus Level 3.0 mg/dl Magnesium Level 1.5 mg/dl Total Bilirubin 0.2 mg/dl Aspartate Amino Transf (AST/SGOT) 19 U/L Alanine Aminotransferase (ALT/SGPT) 26 U/L Alkaline Phosphatase 31 U/L Total Creatine Kinase 44 U/L Creatine Kinase MB 2.0 ng/ml Creatine Kinase MB Ratio 4.5 Troponin I 0.070 ng/ml Total Protein 6.7 gm/dl Albumin 3.0 gm/dl Globulin 3.7 gm/dl Albumin/Globulin Ratio 0.8 Thyroid Stimulating Hormone (TSH) 2.400 uIu/ml Thyroxine (T4) 8.8 mcg/dl Bedside Troponin I 0.040 ng/ml Imaging: Chest x-ray today shows no significant abnormality and no congestive heart failure EKG: In the emergency room she was in atrial fibrillation with a rate of 86 bpm , with frequent premature ventricular beats. Telemetry reviewed: Her telemetry record in the emergency room was deleted, by 3 :30 PM when she was reestablished on telemetry she was in sinus rhythm and has remained there. Assessment and Plan 1. 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 Of note however the 2 rhythms do not coexist, the regular rapid SVT seems to start and terminate for the most part and does not coexist with the variable heart rates. A reentrant SVT is initiated by premature beats therefore they may be independent rhythms and she may have both. Clearly she had atrial fibrillation on presentation here, whether was initiated by SVT or not I cannot tell. Her SVT had been very well controlled on low-dose diltiazem. Her atrial fibrillation appears to have been well rate controlled on the same medical regimen. 2. Atrial fibrillation: I am not sure how much atrial fibrillation she has her whether she should be on chronic anticoagulation. Currently she is on heparin but her episode was evidently somewhat brief, or at least terminated quickly after arrival in the emergency room. I would recommend keeping her on the monitor, on heparin, for the time being and we can see what the pattern is. 3. Chest discomfort: She describes chest discomfort which could be anginal, perhaps it is related to the arrhythmia. At her last visit she did have low- grade cardiac enzymes. We have been reluctant to perform invasive evaluation but we may be forced to. I would trend her enzymes and see whether symptoms continue. 4. Aortic stenosis: She has a history of aortic stenosis, in September 2016 she was felt to have moderate aortic stenosis. That does not seem to have changed as of her recent visit. Thank you for allowing me to participate in her care.
--- NOTE | 2018-01-26 17:10 | EMERGENCY ROOM VISIT NOTE ---
History Report prepared by Mame: Adalid Castillo Under the Supervision of: Dr. Stephane Figueroa M.D. First contact with patient: 10:53 Chief Complaint: CARDIAC ASSESSMENT Stated Complaint: AFIB Nursing Triage Summary: Patient arrives via ems from [facility]. Patient was seeing her PCP for weakness, dizzy, diarrhea, and chest pressure this am (resolved). Patient denies chest pain at this time. Staff at completed an EKG and pt was in A-fib, family is unsure if she has known history of A-fib. Was recently here this past Wednesday. EMS admin 324mg Aspirin. History of Present Illness The patient is an 87 year old female who presents to the Emergency Room after referral from her PCP with complaints of an irregular heart beat. The patient's daughter at bedside notes that she was visiting with Dr. Bustamante this morning when an EKG showed atrial fibrillation. The daughter does not believe the patient has ever been diagnosed with a-fib. The patient herself notes that she did have a "heavy feeling" on her chest this morning moderate in nature in the morning, has now resolved. The patient is followed by Dr. Busch of Cardiology. She adds that she does feel weak currently. The patient was recently discharged from an inpatient stay on the , 4 days ago. She felt well after this discharge. Source of History: patient Onset: Earlier today Position: chest Quality: other (Heavy feeling, A-fib ) Review of Systems See HPI for pertinent positives and negatives. A total of ten systems were reviewed and were otherwise negative. Past Medical & Surgical Medical Problems: (1) Atrial fibrillation (2) Diverticulitis (3) Heart murmur Family History Omitted Secondary to age. Social History Smoking Status: Never Smoker Alcohol Use: none Drug Use: none Marital Status: Housing Status: lives alone Occupation Status: retired Current/Historical Medications Scheduled Aspirin (Aspirin Ec), 81 MG PO DAILY Atorvastatin (Lipitor), 20 MG PO DAILY Cholecalciferol (D 1999), 2,000 PO DAILY Diltiazem Hcl Ext Rel (Tiazac), 180 MG PO QAM Ferrous Sulfate (Ferrous Sulfate), 325 MG PO BID Zlermuegofl-Hxrldpalcgy-Bbl C- (Glucosamine Chondroitin 1), 1 CAP PO BID Levetiracetam (Keppra), 500 MG PO BID Lisinopril (Zestril), 5 MG PO DAILY Pantoprazole (Protonix), 40 MG PO DAILY Rivastigmine Tartrate (Rivastigmine Tartrate), 6 MG PO BID Silver Sulfadiazine (Silvadene), 1 APPLN TOP BID Vitamin B Cmplx/Vitc/Folic Ac (Nephrocaps), 1 CAP PO DAILY Scheduled PRN Acetaminophen Tab (Tylenol), 325 MG PO DAILY PRN for Pain or Fever Mupirocin 2% (Bactroban 2%), 1 APPLN EXT UD PRN for sores Sennosides (Senokot), 8.6 MG PO BID PRN for Constipation Allergies Coded Allergies: Hydrocodone (Unverified Allergy, Intermediate, possibly a rash, 01/19/18) Physical Exam Vital Signs Date Time Temp Pulse Resp B/P (MAP) Pulse Ox O2 Delivery O2 Flow Rate FiO2 01/26/18 12:01 98 Room Air 01/26/18 10:52 85 16 120/57 98 Room Air 01/26/18 10:07 89 01/26/18 10:06 36.9 82 18 119/65 97 Room Air 01/26/18 10:06 97 Room Air 01/26/18 10:06 97 Room Air Physical Exam Physical Exam GENERAL: She is oriented to person, place, and time. She appears well- developed and well-nourished. She does not appear distressed. ____ HENT: Exam performed. Head: Normocephalic and atraumatic. Right Ear: External ear normal. No mastoid tenderness. Left Ear: External ear normal. No mastoid tenderness. Mouth/Throat: The oropharynx is clear and moist. No trismus in the jaw. No dental abscesses or uvula swelling. No oropharyngeal exudate or tonsillar abscesses. ____ EYES: Conjunctivae and EOM are normal. Pupils are equal, round, and reactive to light. Right eye exhibits no discharge. Left eye exhibits no discharge. No scleral icterus. ____ NECK: Normal range of motion. Neck supple. No JVD present. No spinous process tenderness present. No carotid bruit present. No rigidity. No tracheal deviation and normal range of motion present. No Brudzinski's sign and no Kernig 's sign noted. ____ CV: Normal rate, irregular rhythm, intact distal pulses. There is a systolic murmur. There is no peripheral edema. Palpable radial pulses bue. ____ PULM/CHEST: Effort normal and breath sounds normal. No respiratory distress. No stridor. She has no wheezes. She has no rales. Chest Wall: She exhibits no tenderness. ____ ABD: The abdomen is soft. Bowel sounds are normal. She has no distension. No mass is present. There is no tenderness. There is no rebound, no guarding, no Mccall's sign and no tenderness at McBurney's point. Rovsig negative MUSC/SKEL: Normal range of motion. There is no peripheral edema, tenderness or deformity. LYMPH: No cervical adenopathy. ____ NEURO: She is alert and oriented to person, place, and time. She has normal strength. No cranial nerve deficit or sensory deficit. Coordination and gait normal. GCS eye subscore is 4. GCS verbal subscore is 5. GCS motor subscore is 6. Cerebellar tests wnl. ____ SKIN: Skin is warm and dry. Shw is not diaphoretic. ____ PSYCH: She has a normal mood and affect. Her behavior is normal. Judgment and thought content normal. ____ Medical Decision & Procedures ER Provider Diagnostic Interpretation: Radiology results as stated below per my review and radiologist interpretation: CHEST ONE VIEW PORTABLE HISTORY: Atypical Chest pain COMPARISON: Chest 09/16/2016. FINDINGS: Possible 11 mm nodule within the left midlung zone. No focal lung consolidations to suggest pneumonia. No evidence for pulmonary edema. The heart is normal in size. No pleural effusions. No pneumothorax. Stable blunting of the right lateral costophrenic sulcus. IMPRESSION: 1. Possible 11 mm nodule within the left midlung zone. Follow-up nonemergent chest CT is recommended for further evaluation. 2. Otherwise, no acute process within the chest. Electronically signed by: Salvador Mcfarlane M.D. 01/26/2018 10:57 AM Dictated Date/Time: 01/26/2018 10:56 AM Laboratory Results 01/26/18 10:02 01/26/18 10:02 Test 01/26/18 10:02 01/26/18 10:33 Red Blood Count 3.05 M/uL (4.2-5.4) Mean Corpuscular Volume 96.7 fL (80-100) Mean Corpuscular Hemoglobin 30.8 pg (25-34) Mean Corpuscular Hemoglobin Concent 31.9 g/dl (32-36) RDW Standard Deviation 51.6 fL (36.4-46.3) RDW Coefficient of Variation 15.0 % (11.5-14.5) Mean Platelet Volume 10.3 fL (7.4-10.4) Prothrombin Time 10.4 SECONDS (9.0-12.0) Prothromb Time International Ratio 1.0 (0.9-1.1) Activated Partial Thromboplast Time 23.3 SECONDS (21.0-31.0) Partial Thromboplastin Ratio 0.9 Anion Gap 9.0 mmol/L (3-11) Est Creatinine Clear Calc Drug Dose 33.6 ml/min Estimated GFR () 62.3 Estimated GFR (Non- 53.8 BUN/Creatinine Ratio 18.1 (10-20) Calcium Level 9.1 mg/dl (8.5-10.1) Phosphorus Level 3.0 mg/dl (2.5-4.9) Magnesium Level 1.5 mg/dl (1.8-2.4) Total Bilirubin 0.2 mg/dl (0.2-1) Aspartate Amino Transf (AST/SGOT) 19 U/L (15-37) Alanine Aminotransferase (ALT/SGPT) 26 U/L (12-78) Alkaline Phosphatase 31 U/L (45-117) Total Creatine Kinase 44 U/L (26-192) Creatine Kinase MB 2.0 ng/ml (0.5-3.6) Creatine Kinase MB Ratio 4.5 (0-3.0) Troponin I 0.070 ng/ml (0-0.045) Total Protein 6.7 gm/dl (6.4-8.2) Albumin 3.0 gm/dl (3.4-5.0) Globulin 3.7 gm/dl (2.5-4.0) Albumin/Globulin Ratio 0.8 (0.9-2) Thyroid Stimulating Hormone (TSH) 2.400 uIu/ml (0.300-4.500) Thyroxine (T4) 8.8 mcg/dl (4.5-10.9) Bedside Troponin I 0.040 ng/ml (0-0.045) Laboratory results reviewed by me Medications Administered Medications (Trade) Dose Ordered Sig/Giorgi Route Start Time Stop Time Status Last Admin Dose Admin Sodium Chloride 1,000 ml @ 125 mls/hr Q8H STAT IV 01/26/18 10:59 01/26/18 15:42 DC 01/26/18 11:06 125 MLS/HR ECG Per My Interpretation Indication: abdominal pain Rate (beats per minute): 89 Rhythm: atrial fibrillation Findings: PVC, other (QRS and QTC WNL. No JAYMIE/STD. ) Change: COMPARED TO EKG AT 0851 @ PCP OFFICE: Only change is the new PVCs are present. A -fib is unchanged. ED Course 1054: The patient was evaluated in room C3. A complete history and physical exam was performed. 1059: Ordered Sodium Chloride 1000 mL @ 125 mL/hr IV. 1123: I reviewed the patient's EMR which shows that the patient has a history of SVT with a reentrant rhythm. She has a chronic elevated troponin. Her last troponin was on January 21, which was 0.122. There was a troponin of .251 on January 20. 1149: Labs show hemoglobin 9.4, at baseline. Troponin elevated at 0.07, improved from previous troponins on January 21 and January 20. I discussed the case with Dr. Narayan Goldsmith Cardiology. He states that given her new atrial fibrillation and her troponin being elevated, as well as the history of coronary artery disease the patient should be admitted and started on Heparin. I discussed the case with Juliana Goldsmith [facility] Hospitalist. She will evaluate the patient for further treatment. 1208: Ordered Heparin Sodium Medical Decision I reviewed the patient's EMR which shows that the patient has a history of SVT with a reentrant rhythm. She has a chronic elevated troponin. Her last troponin was on January 21, which was 0.122. There was a troponin of .251 on January 20. Labs show hemoglobin 9.4, at baseline. Troponin elevated at 0.07, improved from previous troponins on January 21 and January 20. I discussed the case with Dr. Narayan Goldsmith Cardiology. He states that given her new atrial fibrillation and her troponin being elevated, as well as the history of coronary artery disease the patient should be admitted and started on Heparin. I discussed the case with Juliana GONZALEZ Hospitalist. She will evaluate the patient for further treatment. Medication Reconcilliation Current Medication List: was personally reviewed by me Blood Pressure Screening Patient's blood pressure: Normal blood pressure Consults Time Called: 1143 Consulting Physician: Dr. Narayan Goldsmith Cardiology Returned Call: 1145 I discussed the case with Dr. Narayan Gardiner. He states that given her new atrial fibrillation and her troponin being elevated, as well as the history of coronary artery disease the patient should be admitted and started on Heparin. Additional Consults: Time Called: 1150 Consulted Physician: Juliana GONZALEZ Hospitalist Returned Call: 1159 Additional Comments: I discussed the case with Juliana GONZALEZ Hospitalist. She will evaluate the patient for further treatment. Impression Primary Impression: New onset a-fib Additional Impression: Elevated troponin Critical Care I have personally spent greater than 50 minutes of critical care time in the direct management of this patient. This includes bedside care, interpretation of diagnostic studies, and testing, discussion with consultants, patient, and family members, and other required patient management activities. This 50 minutes is in excess of all separately billable procedures. Scribe Attestation The scribe's documentation has been prepared under my direction and personally reviewed by me in its entirety. I confirm that the note above accurately reflects all work, treatment, procedures, and medical decision making performed by me. The chart was completed utilizing [email or web address] Speech voice recognition software. Grammatical errors, random word insertions, pronoun errors, and incomplete sentences are an occasional consequence of this system due to software limitations, ambient noise, and hardware issues. Any formal questions or concerns about the content, text, or information contained within the body of this dictation should be directly addressed to the physician for clarification. Departure Information Dispostion Being Evaluated By Hospitalist Referrals Brittanie Moran, Beatriz.R.N.P (PCP) Patient Instructions My [facility] Problem Qualifiers
[2018-01-26 17:58] VITALS: BP 121/60; PULSE 76; O2SAT 96
--- NOTE | 2018-01-26 18:40 | History and Physical ---
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 She reports being in her usual state of health yesterday. Today she felt diffusely weak with heaviness in her chest. The heaviness occurs intermittently and is located substernal with radiation to the right arm. It is associated with diaphoresis and mild nausea. She denies SOB, syncope, orthopnea. Patient also reports a 2 week history of diarrhea. In the ER the patient was found to be in atrial fibrillation. She was started on a heparin gtt. She was given 324mg of ASA in EMS. ER course: heparin gtt Past Medical/Surgical History Medical Problems: 1. Atrial fibrillation 2. CAD 3. NSTEMI August 2016 4. Moderate per echo 01/20/2018 5. Diabetes - diet controlled 6. Anemia 7. DIverticulitis 8. Type I diastolic dysfunction per echo 01/20/2018 Past Surgical History: 1. Cholecystectomy Family History Heart disease and diabetes in mother Social History Smoking Status: Never Smoker Smokeless Tobacco Use: No Alcohol Use: none Drug Use: none Marital Status: Housing status: lives alone (ambulates with walker and a cane. ) Occupational Status: retired Immunizations History of Influenza Vaccine: Unknown History of Tetanus Vaccine?: Unknown History of Pneumococcal: Unknown History of Hepatitis B Vaccine: Unknown Allergies Coded Allergies: Hydrocodone (Unverified Allergy, Intermediate, possibly a rash, 01/19/18) Home Medications Scheduled Aspirin (Aspirin Ec), 81 MG PO DAILY Atorvastatin (Lipitor), 20 MG PO DAILY Cholecalciferol (D 1999), 2,000 PO DAILY Diltiazem Hcl Ext Rel (Tiazac), 180 MG PO QAM Ferrous Sulfate (Ferrous Sulfate), 325 MG PO BID Eeftdueqhhl-Pjzkdobkbbd-Kgx C- (Glucosamine Chondroitin 1), 1 CAP PO BID Levetiracetam (Keppra), 500 MG PO BID Lisinopril (Zestril), 5 MG PO DAILY Pantoprazole (Protonix), 40 MG PO DAILY Rivastigmine Tartrate (Rivastigmine Tartrate), 6 MG PO BID Silver Sulfadiazine (Silvadene), 1 APPLN TOP BID Vitamin B Cmplx/Vitc/Folic Ac (Nephrocaps), 1 CAP PO DAILY Scheduled PRN Acetaminophen Tab (Tylenol), 325 MG PO DAILY PRN for Pain or Fever Mupirocin 2% (Bactroban 2%), 1 APPLN EXT UD PRN for sores Sennosides (Senokot), 8.6 MG PO BID PRN for Constipation Review of Systems Constitutional: + weakness, + fatigue, No fever, No chills, No weight loss Eyes: No worsening of vision, No diplopia ENT: No hearing loss, No sore throat, No trouble swallowing Respiratory: + shortness of breath, + dyspnea on exertion, No cough, No sputum , No wheezing Cardiovascular: + chest pain, No orthopnea, No edema, No palpitations Abdomen: No pain, No nausea, No vomiting, No diarrhea, No constipation Musculoskeletal: No joint pain Genitourinary - Female: No dysuria, No urinary frequency, No urinary urgency Physical Exam Vital Signs Date Time Temp Pulse Resp B/P (MAP) Pulse Ox O2 Delivery O2 Flow Rate FiO2 01/26/18 17:58 76 18 121/60 (80) 96 Room Air 01/26/18 15:58 36.7 79 18 113/65 01/26/18 15:15 84 22 117/62 98 01/26/18 13:00 83 24 120/56 99 Room Air 01/26/18 12:40 104 01/26/18 12:01 98 Room Air 01/26/18 10:52 85 16 120/57 98 Room Air 01/26/18 10:07 89 01/26/18 10:06 36.9 82 18 119/65 97 Room Air 01/26/18 10:06 97 Room Air 01/26/18 10:06 97 Room Air General Appearance: WD/WN, no apparent distress Head: normocephalic, atraumatic Eyes: normal inspection, PERRL, sclerae normal ENT: normal ENT inspection, pharynx normal Neck: supple, thyroid normal, no JVD Respiratory/Chest: chest non-tender, lungs clear, normal breath sounds, no respiratory distress, no accessory muscle use Cardiovascular: regular rate, rhythm (+S1/S2, regular, 2/6 BARBARA at 2nd right ICS with radiation across the precordium and to bilateral carotids), no edema, no gallop, no JVD Abdomen/GI: normal bowel sounds, non tender (abdomen diffusely tender with deep palpation, voluntary guarding, no rebound) Extremities/Musculoskelatal: normal inspection, no calf tenderness, no pedal edema Neurologic/Psych: normal mood/affect, oriented x 3 Skin: normal color, warm/dry, no rash Diagnostics Laboratory Results Results Past 24 Hours Test 01/26/18 10:02 01/26/18 10:33 01/26/18 18:07 Range/Units White Blood Count 9.89 4.8-10.8 K/uL Red Blood Count 3.05 4.2-5.4 M/uL Hemoglobin 9.4 12.0-16.0 g/dL Hematocrit 29.5 37-47 % Mean Corpuscular Volume 96.7 80-100 fL Mean Corpuscular Hemoglobin 30.8 25-34 pg Mean Corpuscular Hemoglobin Concent 31.9 32-36 g/dl RDW Standard Deviation 51.6 36.4-46.3 fL RDW Coefficient of Variation 15.0 11.5-14.5 % Platelet Count 349 130-400 K/uL Mean Platelet Volume 10.3 7.4-10.4 fL Prothrombin Time 10.4 9.0-12.0 SECONDS Prothromb Time International Ratio 1.0 0.9-1.1 Activated Partial Thromboplast Time 23.3 21.0-31.0 SECONDS Partial Thromboplastin Ratio 0.9 Sodium Level 139 136-145 mmol/L Potassium Level 4.2 3.5-5.1 mmol/L Chloride Level 107 98-107 mmol/L Carbon Dioxide Level 23 21-32 mmol/L Anion Gap 9.0 3-11 mmol/L Blood Urea Nitrogen 17 7-18 mg/dl Creatinine 0.94 0.60-1.20 mg/dl Est Creatinine Clear Calc Drug Dose 33.6 ml/min Estimated GFR () 62.3 Estimated GFR (Non- 53.8 BUN/Creatinine Ratio 18.1 10-20 Random Glucose 120 70-99 mg/dl Calcium Level 9.1 8.5-10.1 mg/dl Phosphorus Level 3.0 2.5-4.9 mg/dl Magnesium Level 1.5 1.8-2.4 mg/dl Total Bilirubin 0.2 0.2-1 mg/dl Aspartate Amino Transf (AST/SGOT) 19 15-37 U/L Alanine Aminotransferase (ALT/SGPT) 26 12-78 U/L Alkaline Phosphatase 31 45-117 U/L Total Creatine Kinase 44 26-192 U/L Creatine Kinase MB 2.0 0.5-3.6 ng/ml Creatine Kinase MB Ratio 4.5 0-3.0 Troponin I 0.070 0-0.045 ng/ml Total Protein 6.7 6.4-8.2 gm/dl Albumin 3.0 3.4-5.0 gm/dl Globulin 3.7 2.5-4.0 gm/dl Albumin/Globulin Ratio 0.8 0.9-2 Thyroid Stimulating Hormone (TSH) 2.400 0.300-4.500 uIu/ml Thyroxine (T4) 8.8 4.5-10.9 mcg/dl Bedside Troponin I 0.040 0-0.045 ng/ml Patient has had elevated troponin in the past in January 2018 - 0.122, 0.251, 0.232 and 0.077 Diagnostic Radiology CHEST ONE VIEW PORTABLE HISTORY: Atypical Chest pain COMPARISON: Chest 09/16/2016. FINDINGS: Possible 11 mm nodule within the left midlung zone. No focal lung consolidations to suggest pneumonia. No evidence for pulmonary edema. The heart is normal in size. No pleural effusions. No pneumothorax. Stable blunting of the right lateral costophrenic sulcus. IMPRESSION: 1. Possible 11 mm nodule within the left midlung zone. Follow-up nonemergent chest CT is recommended for further evaluation. 2. Otherwise, no acute process within the chest. Electronically signed by: Salvador Mcfarlane M.D. 01/26/2018 10:57 AM EKG The study demonstrates atrial fibrillation with PVC, no ischemia Impression Assessment and Plan 87yo female presenting with weakness, vague chest discomfort, found to be in atrial fibrillation 1. Atrial fibrillation - presently rate controlled, anticoagulated with heparin gtt -Continue Diltiazem 180mg po daily -Continue heparin gtt -Uncertain if patient will require lifelong anticoagulation 3. Elevated troponin - patient with history of the same. I suspect possible demand ischemia in setting of elevated heart rate -Continue ASA and Atorvastatin -Nitropaste PRN -Trend cardiac markers 4. Diarrhea - difficult to quantify amount per history -Check c. diff -Repletion of electrolytes and fluid as needed 5. CAD - patient with history of the same, NSTEMI in August 2016 in setting of tachyarrhythmia and anemia -Continue ASA -Continue Statin -Continue to monitor -Appreciate Cardiology recommendations 6. Diabetes - diet controlled -Continue to monitor blood sugars with daily labs -Will start insulin if patient has elevated levels 7. History of Seizures -Continue Keppra 500mg po BID 8. Hypertension - patient presently normotensive -Continue Lisinopril 5mg po daily 9. GERD - stable -Continue Protonix daily 10. F/E/N - NSS at 50mL/hr, monitor electrolytes and replete as needed, AHA diet as tolerated. Continue Vitamin D, FeSO4 and Nephrocap supplements 11. Ppx - patient is on a heparin drip and Protonix 12. Code - DNR per discussion with patient 13. Dispo - Observation to telemetry. Anticipate discharge tomorrow Advanced Directives Existing Living Will: Yes Existing Power of Rn Intake: Yes Resuscitation Status DNR VTE Prophylaxis Will order VTE Prophylaxis: Yes
[2018-01-26 19:03] LABS: PTT PATIENT 51.4 SECONDS (21.0-31.0)
[2018-01-26] MEDS: NITROGLYCERIN 2% OINTMENT 30GM TUBE EXT SCH ×2 (19:16→21:58)
[2018-01-26] MEDS: ACETAMINOPHEN 325 MG TAB PO PRN ×2 (19:16→23:23)
[2018-01-26] MEDS: SILVER SULFADIAZINE 1% CR 50 GM JAR EXT SCH (19:18)
[2018-01-26 19:40] VITALS: BP 118/57; PULSE 76; TEMP 36.8; O2SAT 96
[2018-01-26] MEDS: RIVASTIGMINE TARTRATE (EXELON) 1.5 MG CAP PO SCH (21:48)
[2018-01-26] MEDS: LEVETIRACETAM 500 MG TAB PO SCH (21:49)
[2018-01-26] MEDS: FERROUS SULFATE 325 MG TAB PO SCH (21:49)
[2018-01-27] VITALS (17 sets, daily range): BP systolic 112–134; BP diastolic 46–73; PULSE 61–94; TEMP 36.3–36.9; O2SAT 94–99
[2018-01-27] MEDS: NITROGLYCERIN 2% OINTMENT 30GM TUBE EXT SCH ×4 (04:35→20:27)
[2018-01-27 06:53] LABS: BASO % 0.6 %; BASO ABS # 0.04 K/uL (0-0.2); EOS % 1.9 %; EOS ABS # 0.12 K/uL (0-0.5); HEMATOCRIT 24.3 % (37-47); HEMOGLOBIN 7.7 g/dL (12.0-16.0); IG# 0.01 K/uL (0.00-0.02); LYMPH % 23.6 %; LYMPH ABS # 1.46 K/uL (1.2-3.4); MEAN CORPUSCULAR HEMOGLOBIN 30.4 pg (25-34); MEAN CORPUSCULAR HGB CONC 31.7 g/dl (32-36); MEAN PLATELET VOLUME 10.4 fL (7.4-10.4); MONO % 10.2 %; MONO ABS # 0.63 K/uL (0.11-0.59); NEUT % 63.5 %; NEUT ABS # 3.92 K/uL (1.4-6.5); PLATELET COUNT 280 K/uL (130-400); WHITE BLOOD COUNT 6.18 K/uL (4.8-10.8)
[2018-01-27 07:22] LABS: CALCIUM 8.5 mg/dl (8.5-10.1); CREATININE 0.78 mg/dl (0.60-1.20); POTASSIUM 4.3 mmol/L (3.5-5.1)
[2018-01-27] MEDS: ATORVASTATIN 40 MG TAB PO SCH (08:51)
[2018-01-27] MEDS: CHOLECALCIFEROL 1000 INTER.UNIT TAB PO SCH (08:51)
[2018-01-27] MEDS: PANTOprazole SOD 40 MG TAB PO SCH (08:51)
[2018-01-27] MEDS: NEPHROCAPS PO SCH (08:51)
[2018-01-27] MEDS: FERROUS SULFATE 325 MG TAB PO SCH ×2 (08:52→20:27)
[2018-01-27] MEDS: DILTIAZEM HCL (TIAzac) 180 MG CAPCR PO SCH (08:52)
[2018-01-27] MEDS: ASPIRIN 81 MG ECTAB PO SCH (08:52)
[2018-01-27] MEDS: RIVASTIGMINE TARTRATE (EXELON) 1.5 MG CAP PO SCH ×2 (08:52→20:27)
[2018-01-27] MEDS: LEVETIRACETAM 500 MG TAB PO SCH ×2 (08:52→20:27)
[2018-01-27] MEDS: SILVER SULFADIAZINE 1% CR 50 GM JAR EXT SCH ×2 (08:53→19:17)
[2018-01-27] MEDS: LISINOPRIL 5 MG TAB PO SCH (08:55)
[2018-01-27] MEDS ORDERED: ATORVASTATIN 20 MG TAB PO SCH (09:00)
[2018-01-27] MEDS: MAGNESIUM SULFATE 1GM / D5W 1 GM in PREMIXED IN D5W 100 ML IV SCH ×2 (09:27→10:28)
[2018-01-27 10:09] LABS: HEMATOCRIT 24.3 % (37-47); HEMOGLOBIN 7.7 g/dL (12.0-16.0)
[2018-01-27] MEDS: MAGNESIUM OXIDE 400 MG TAB PO SCH (10:27)
--- NOTE | 2018-01-27 11:28 | Hospitalist Progress Note ---
Hospitalist Progress Note Date of Service Jan 27, 2018. (Darcie Johns PA-C) Subjective Pt evaluation today including: conversation w/ patient, physical exam, chart review, lab review, review of studies, review of inpatient medication list Pain: None PO Intake: Adequate Voiding: no voiding problems Patient seen and evaluated. No acute events overnight. Has remained in NSR since converted from A Fib upon admission. Patient feels a lot better saying she is not as weak. Reports diarrhea has already lessened but did have a loose BM today already. Hemoglobin did drop to 7.7 with repeat the same. However completely asymptomatic from an anemic standpoint. Stool was dark in color and did come back c. diff positive even though testing just on 01/20 was negative. Generalized weakness but this is improving, no SOB, no CP, no pallor, BP adequate, not orthostatic and will continue to monitor. Troponins are elevated but trending down and will monitor but again no chest pain. Discussed with Dr. Baird at bedside and discussed with daughter. Reviewed previous notes as daughter states Ms. Alcala was treated for C. diff a while back requiring year long treatment but could not find records in our system and must have been before 2011. Also review of admission in 2016 she presented similarly with CP and weakness and was thought to be anemia related but does not appear to have confirmatory scopes and was also with NSTEMI Constitutional: No fever, No chills, No fatigue ENT: No unusual epistaxis, No nasal symptoms Respiratory: No cough, No shortness of breath Cardiovascular: No chest pain Abdomen: + diarrhea, No pain, No vomiting, No constipation Musculoskeletal: No swelling, No calf pain Female : No dysuria Heme: No abnormal bleeding/bruising Skin: No rash (Darcie Johns PA-C) Medications Current Inpatient Medications Medications (Trade) Dose Ordered Sig/Giorgi Route Start Time Stop Time Status Last Admin Dose Admin Acetaminophen (Tylenol Tab) 650 mg Q4H PRN PO 01/26/18 12:30 02/25/18 12:29 01/26/18 23:23 650 MG Nitroglycerin (Nitroglycerin 2% Oint) 1 inch Q6H EXT 01/26/18 16:00 02/25/18 15:59 01/27/18 10:29 1 INCH Aspirin (Ecotrin Tab) 81 mg DAILY PO 01/27/18 09:00 02/26/18 08:59 01/27/18 08:52 81 MG Diltiazem HCl (TIAzac CAP) 180 mg QAM PO 01/27/18 09:00 02/26/18 08:59 01/27/18 08:52 180 MG Levetiracetam (Keppra Tab) 500 mg BID PO 01/26/18 21:00 02/25/18 20:59 01/27/18 08:52 500 MG Lisinopril (Zestril Tab) 5 mg DAILY PO 01/27/18 09:00 02/26/18 08:59 01/27/18 08:55 5 MG Pantoprazole Sodium (Protonix Tab) 40 mg DAILY PO 01/27/18 09:00 02/26/18 08:59 01/27/18 08:51 40 MG Silver Sulfadiazine (Silvadene 1% Crm 50GM Jar) 1 appln BID EXT 01/26/18 21:00 02/25/18 20:59 Vitamin B Complex/ Vit C/Folic Acid (Nephrocaps) 1 cap DAILY PO 01/27/18 09:00 02/26/18 08:59 01/27/18 08:51 1 CAP Cholecalciferol (Vitamin D Tab) 2,000 inter.unit DAILY PO 01/27/18 09:00 02/26/18 08:59 01/27/18 08:51 2,000 INTER.UNIT Ferrous Sulfate (Feosol Tab) 325 mg BID PO 01/26/18 21:00 02/25/18 20:59 01/27/18 08:52 325 MG Rivastigmine Tartrate (Exelon Cap) 6 mg BID PO 01/26/18 21:00 02/25/18 20:59 01/27/18 08:52 6 MG Miscellaneous (Iv Fluids Completed) 1 ea PRN PRN N/A 01/26/18 13:00 01/26/19 12:59 Heparin Sodium/ Dextrose 500 ml @ 19 mls/hr Q24H IV 01/26/18 14:00 02/25/18 13:59 Atorvastatin Calcium (Lipitor Tab) 80 mg DAILY PO 01/27/18 09:00 02/26/18 08:59 4/12/18 08:51 80 MG Magnesium Oxide (Mag-Ox Tab) 400 mg QAM PO 01/27/18 09:00 02/26/18 08:59 01/27/18 10:27 400 MG (Darcie Johns PA-C) Objective Vital Signs Date Time Temp Pulse Resp B/P (MAP) Pulse Ox O2 Delivery O2 Flow Rate FiO2 01/27/18 08:28 97 Room Air 01/27/18 08:16 94 131/71 (91) 01/27/18 08:16 86 117/73 (88) 01/27/18 08:15 79 115/63 (80) 01/27/18 07:41 36.8 70 18 134/65 (88) 98 2.0 01/27/18 04:17 36.3 69 20 127/59 (81) 98 Nasal Cannula 2.0 01/27/18 04:00 Nasal Cannula 2.0 01/27/18 00:16 36.5 73 20 131/60 (83) 99 Nasal Cannula 2.0 01/26/18 23:59 Nasal Cannula 2.0 01/26/18 20:52 Nasal Cannula 2.0 01/26/18 19:40 36.8 76 18 118/57 (77) 96 Room Air 01/26/18 17:58 76 18 121/60 (80) 96 Room Air 01/26/18 16:00 Room Air 01/26/18 15:58 36.7 79 18 113/65 01/26/18 15:15 84 22 117/62 98 01/26/18 13:00 83 24 120/56 99 Room Air 01/26/18 12:40 104 01/26/18 12:01 98 Room Air (Darcie Johns PA-C) Physical Exam General Appearance: WD/WN, no apparent distress Eyes: sclerae normal ENT: hearing grossly normal Neck: supple, no JVD, trachea midline Respiratory/Chest: lungs clear, normal breath sounds, no respiratory distress, no accessory muscle use Cardiovascular: regular rate, rhythm, + systolic murmur Abdomen: normal bowel sounds, non tender, soft Extremities: no pedal edema, + pertinent finding (LLE with 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) Neurologic/Psychiatric: alert, oriented x 3 Skin: normal color, warm/dry (Darcie Johns PA-C) Laboratory Results Last 24 Hours Test 01/26/18 18:07 01/27/18 00:26 01/27/18 05:58 01/27/18 09:10 Activated Partial Thromboplast Time 51.4 SECONDS 64.0 SECONDS Partial Thromboplastin Ratio 2.0 2.5 Troponin I 0.280 ng/ml 0.236 ng/ml 0.217 ng/ml White Blood Count 6.18 K/uL Red Blood Count 2.53 M/uL Hemoglobin 7.7 g/dL Hematocrit 24.3 % Mean Corpuscular Volume 96.0 fL Mean Corpuscular Hemoglobin 30.4 pg Mean Corpuscular Hemoglobin Concent 31.7 g/dl Platelet Count 280 K/uL Mean Platelet Volume 10.4 fL Neutrophils (%) (Auto) 63.5 % Lymphocytes (%) (Auto) 23.6 % Monocytes (%) (Auto) 10.2 % Eosinophils (%) (Auto) 1.9 % Basophils (%) (Auto) 0.6 % Neutrophils # (Auto) 3.92 K/uL Lymphocytes # (Auto) 1.46 K/uL Monocytes # (Auto) 0.63 K/uL Eosinophils # (Auto) 0.12 K/uL Basophils # (Auto) 0.04 K/uL RDW Standard Deviation 50.0 fL RDW Coefficient of Variation 15.0 % Immature Granulocyte % (Auto) 0.2 % Immature Granulocyte # (Auto) 0.01 K/uL Large Platelets 1+ Sodium Level 140 mmol/L Potassium Level 4.3 mmol/L Chloride Level 110 mmol/L Carbon Dioxide Level 24 mmol/L Anion Gap 6.0 mmol/L Blood Urea Nitrogen 15 mg/dl Creatinine 0.78 mg/dl Est Creatinine Clear Calc Drug Dose 40.4 ml/min Estimated GFR () 78.1 Estimated GFR (Non- 67.4 BUN/Creatinine Ratio 19.5 Random Glucose 98 mg/dl Calcium Level 8.5 mg/dl Magnesium Level 1.5 mg/dl Test 01/27/18 09:59 Hemoglobin 7.7 g/dL Hematocrit 24.3 % (Darcie Johns PA-C) Assessment and Plan 87yo female presenting with weakness, vague chest discomfort, found to be in atrial fibrillation Paroxysmal Atrial Fibrillation - Possibly New Onset: - Patient has long history of SVT and AVNRT but there has been question of intermittent A Fib; also given H/O arrhythmia she would be more predisposed to this - Diltiazem 180 mg daily and initiated heparin gtt Elevated Troponin - Demand Ischemia vs ACS: - This was also associated with chest pain that is resolved at this point; review of 2016 admission with similar complaints but did question symptoms related to anemia and suspected GI bleed but does not appear this was confirmed with any scopes - NTG ointment is applied and this may explain improvement in CP? Hypomagnesemia: - Mag 1 g IV x 2 bags; Mag Ox 400 mg daily and recheck in AM CAD with NSTEMI (2016) - Related to Anemia and Tachyarrhythmias and HTN: - Will continue ASA 81 mg daily at this point as there is a possibility of a cardiac event - Atorvastatin 80 mg daily - Lisinopril 5 mg daily - Cardiology following - discussed with Dr. Baird - possible heart catheterization Acute on Chronic Anemia: - Hemoglobin dropped to 7.7 and will transfuse 1 unit PRBC on 01/27 and reassess - Ferrous sulfate 325 mg BID - per daughter this was recently increased to BID dosing - Will continue heparin gtt and ASA at this time given risk for coronary event as there has not been overt bleeding however given C. 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 Beatty; searched outpatient records and could not find notes of this and this may have occurred before 2011 and patient cannot recall when this was - Ironically C. diff was just checked on 01/20 and was negative; all negative checks up to 2011 in system - Vancomycin 125 mg QID T2DM: Diet Controlled: A1c 5.6 - Continue to monitor sugars with daily labs; states she was previously treated with oral anti-diabetics Seizure Disorder: - Keppra 500 mg BID GERD: STABLE - Protonix 40 mg daily Code Status: DO NOT RESUSCITATE Disposition: - Maintain on telemetry at this point pending possible catheterization Continued [facility] stay due to: multiple IV medications needed Discharge planning: home (Darcie Johns, [facility]) Attending Attestation - Pt seen/examined, chart reviewed, care plan d/w LUCAS Johns. I agree w/ the davidson components of her documentation. Pt w/ 2 episodes of loose stool today but no abd pain. No chest "heaviness" or pain. No dyspnea. Tele stable overnight. VSS no fever gen - nad neck - no JVD heart - RRR, s1, s2, 2/6 systolic murmur RUSB lungs - CTA b/l abd - soft, NT ext - no edema A/P: 1. chest heaviness w/ positive troponin - to slab tripper tomorrow by Dr. Lopez , r /o CAD 2. acute/chronic anemia - ferritin earlier this month was <20. Stool was heme + during prior stay. Acute drop concerning for occult GI bleeding. Heparin may need to be d/c. Tx 1 unit pRBCs in light of #1. CBC am. Cont Fe supplementation. 3. a. fib - resolved, back in NSR; appreciate Dr Vickers's expertise; cont AV cristobal agents 4. c. diff colitis - odd that c. diff toxin earlier this month was negative, and now it is positive. did she acquire this during prior hospital stay? regardless - vanco 125mg po qid x 14 days bile acid sequestrant daily-BID daughters updated repeat labs ngozi BENSON MD (Ruben Benson MD)
[2018-01-27] MEDS: HEPARIN 25,000 UNIT/500ML D5W 500 ML IV SCH (13:41)
--- NOTE | 2018-01-27 15:07 | Cardiology Follow-Up ---
Subjective Date of Service: Jan 27, 2018. Pt evaluation today including: conversation w/ patient, physical exam, lab review, review of inpatient medication list, conversation w/ attending History of Present Illness This is a very pleasant 87-year-old woman who may have a history of coronary artery disease (as evidenced by a non-ST segment elevation myocardial infarction at the end of August 2016 in association with rapid heart rate) as well as valvular heart disease including moderate aortic stenosis and mild to moderate mitral regurgitation. 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 She was identified as having anemia at the time and had a small enzyme rise. She was treated medically for the arrhythmia. She recalls historically having occasional episodes of palpitations but is not very aware of the arrhythmia. She did present with chest discomfort which has not recurred. She is maintained on metoprolol tartrate for the arrhythmia. Echocardiography showed normal left ventricular function but she has moderate to severe aortic stenosis. Her presentation last admission was with diarrhea and abdominal discomfort, however she was observed to have periods of SVT at a rapid heart rate as well as some electrocardiographic abnormalities. Her symptoms are little bit vague, she did admit to having intermittent palpitations but was not very precise about it. She had frequent episodes during that hospital stay and I cannot tell if she actually has much in the way of symptoms related to them. She did not have chest discomfort or shortness of breath. She evidently does not have lightheadedness or dizziness and denies syncope or presyncope. Her rhythm appeared to be very well controlled on intravenous diltiazem therefore she was discharged January 22, 2018 on diltiazem CD 180 mg daily. She returns now having continued diarrhea as well as some chest discomfort and was noted to be in atrial fibrillation at her primary care physician's office. She was therefore sent to the emergency room where she was also identified as having atrial fibrillation, but that converted to sinus rhythm shortly thereafter. She seems unaware of the rhythm specifically but has had intermittent chest discomfort lasting several minutes. She was pain-free and remained in sinus rhythm following conversion in the emergency room, however with ambulation yesterday evening she had anginal type chest discomfort with no rhythm disturbance and also some electrocardiographic changes which appear to be a little bit different than before. The episode was relieved with rest and nitroglycerin. She has had anemia for some time with no clear source of bleeding. Her GI complaints have also improved. She is now resting comfortably in bed, in sinus rhythm and has no cardiovascular complaints. Her GI discomfort appears to be substantially improved today and her diarrhea has improved. Her hemoglobin is significant lower today than it was yesterday. Social History Smoking Status: Never Smoker History of Alcohol Use: No Review of Systems Respiratory: No cough, No shortness of breath Cardiac: No chest pain Medications Cardiovascular: Item Value Date Time Aspirin 81 mg 01/27/18 0900 (Ecotrin Tab) DAILY/PO 01/27/18 0852 Diltiazem HCl 180 mg 01/27/18 09 (TIAzac CAP) QAM/PO 01/27/18 0852 Lisinopril 5 mg 01/27/18 0900 (Zestril Tab) DAILY/PO 01/27/18 0855 Atorvastatin 80 mg 01/27/18 0900 Calcium DAILY/PO 01/27/18 0851 (Lipitor Tab) Heparin Sodium/ 500 ml @ 19 mls/hr 01/26/18 1400 Dextrose .Q24H/IV 01/27/18 1341 Nitroglycerin 1 inch 01/26/18 1600 (Nitroglycerin Q6H/EXT 01/27/18 1029 2% Oint) Objective Vital Signs Past 12 Hours Date Time Temp Pulse Resp B/P (MAP) Pulse Ox O2 Delivery O2 Flow Rate FiO2 01/27/18 12:00 Room Air 01/27/18 11:36 36.5 78 18 112/57 (75) 97 Room Air 01/27/18 08:28 97 Room Air 01/27/18 08:16 94 131/71 (91) 01/27/18 08:16 86 117/73 (88) 01/27/18 08:15 79 115/63 (80) 01/27/18 08:00 Room Air 01/27/18 07:41 36.8 70 18 134/65 (88) 98 2.0 01/27/18 04:17 36.3 69 20 127/59 (81) 98 Nasal Cannula 2.0 01/27/18 04:00 Nasal Cannula 2.0 Last Recorded Weight-Kilograms: 57.200 Intake & Output 8-Hour Column 01/27/18 01/28/18 01/28/18 16:00 00:00 08:00 Intake Total 1306 ml Output Total 550 ml Balance 756 ml 24-Hour Column 01/28/18 08:00 Intake Total 1306 ml Output Total 550 ml Balance 756 ml Physical Exam Constitutional: Level of Distress: NAD Lungs: Auscultation: breath sounds normal Cardiovascular: Heart Auscultation: RRR, II/ BARBARA Extremities: no edema Data Laboratory Results: Last 24 Hours Test 01/26/18 18:07 01/27/18 00:26 01/27/18 05:58 01/27/18 09:10 Activated Partial Thromboplast Time 51.4 SECONDS 64.0 SECONDS Partial Thromboplastin Ratio 2.0 2.5 Troponin I 0.280 ng/ml 0.236 ng/ml 0.217 ng/ml White Blood Count 6.18 K/uL Red Blood Count 2.53 M/uL Hemoglobin 7.7 g/dL Hematocrit 24.3 % Mean Corpuscular Volume 96.0 fL Mean Corpuscular Hemoglobin 30.4 pg Mean Corpuscular Hemoglobin Concent 31.7 g/dl Platelet Count 280 K/uL Mean Platelet Volume 10.4 fL Neutrophils (%) (Auto) 63.5 % Lymphocytes (%) (Auto) 23.6 % Monocytes (%) (Auto) 10.2 % Eosinophils (%) (Auto) 1.9 % Basophils (%) (Auto) 0.6 % Neutrophils # (Auto) 3.92 K/uL Lymphocytes # (Auto) 1.46 K/uL Monocytes # (Auto) 0.63 K/uL Eosinophils # (Auto) 0.12 K/uL Basophils # (Auto) 0.04 K/uL RDW Standard Deviation 50.0 fL RDW Coefficient of Variation 15.0 % Immature Granulocyte % (Auto) 0.2 % Immature Granulocyte # (Auto) 0.01 K/uL Large Platelets 1+ Sodium Level 140 mmol/L Potassium Level 4.3 mmol/L Chloride Level 110 mmol/L Carbon Dioxide Level 24 mmol/L Anion Gap 6.0 mmol/L Blood Urea Nitrogen 15 mg/dl Creatinine 0.78 mg/dl Est Creatinine Clear Calc Drug Dose 40.4 ml/min Estimated GFR () 78.1 Estimated GFR (Non- 67.4 BUN/Creatinine Ratio 19.5 Random Glucose 98 mg/dl Calcium Level 8.5 mg/dl Magnesium Level 1.5 mg/dl Test 01/27/18 09:59 Hemoglobin 7.7 g/dL Hematocrit 24.3 % EKG: Yesterday after having chest discomfort she is in sinus rhythm with inferolateral ST-T abnormalities which appear more pronounced than prior electrocardiograms. Telemetry reviewed: Sinus rhythm, no atrial fibrillation or SVT identified Assessment and Plan 1. Chest discomfort: She describes chest discomfort which could be anginal, her description has been a little bit vague in the past and we have not been sure but last evening she seemed to have exertional angina. We were also not sure whether the chest discomfort was prompted by her arrhythmia but last evening she definitely did not have an arrhythmia. She did however have a somewhat low hemoglobin which certainly could have exacerbated. At her last visit she did have low-grade cardiac enzymes, which have occurred again here after being normal on admission. At this point it seems to be looking more like she has significant coronary artery disease. her symptoms may be exacerbated by the arrhythmia and anemia, but nevertheless I suspect she has significant disease. We have been reluctant to perform invasive evaluation but at this point I think we need to consider it. I discussed it with her and she is agreeable. I have also reviewed it with Dr. Lopez. We have her tentatively scheduled for tomorrow afternoon. 2. 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 Of note however the 2 rhythms do not coexist, the regular rapid SVT seems to start and terminate for the most part and does not coexist with the variable heart rates. A reentrant SVT is initiated by premature beats therefore they may be independent rhythms and she likely has both both. Clearly she had atrial fibrillation on presentation here, whether it was initiated by SVT or not I cannot tell. Her SVT had been very well controlled on low-dose diltiazem. Her atrial fibrillation appears to have been well rate controlled on the same medical regimen. 3. Atrial fibrillation: I am not sure how much atrial fibrillation she has or whether she should be on chronic anticoagulation. Currently she is on heparin but her episode was evidently somewhat brief, or at least terminated quickly after arrival in the emergency room. I would recommend keeping her on the monitor, on heparin, for the time being and we can see what the pattern is. 4. Aortic stenosis: She has a history of aortic stenosis, in September 2016 she was felt to have moderate aortic stenosis. That does not seem to have changed as of her recent visit. Thank you for allowing me to participate in her care.
[2018-01-27] MEDS: RASPBERRY SYRUP 5 ML UDP PO SCH ×2 (16:12→20:28)
[2018-01-27] MEDS: VANCOMYCIN HCL 125 MG/2.5ML SOLN PO SCH ×2 (16:12→20:28)
[2018-01-27] MEDS: CHOLESTYRAMINE LIGHT 4 GM PKT PO SCH (20:18)
[2018-01-27] MEDS: ACETAMINOPHEN 325 MG TAB PO PRN (20:27)
[2018-01-28] VITALS (15 sets, daily range): BP systolic 118–165; BP diastolic 52–68; PULSE 63–85; TEMP 36.3–36.8; O2SAT 92–99
[2018-01-28] MEDS: NITROGLYCERIN 2% OINTMENT 30GM TUBE EXT SCH ×4 (04:37→20:30)
[2018-01-28] MEDS: RASPBERRY SYRUP 5 ML UDP PO SCH ×4 (04:37→20:24)
[2018-01-28] MEDS: VANCOMYCIN HCL 125 MG/2.5ML SOLN PO SCH ×4 (04:37→20:25)
[2018-01-28 04:43] LABS: BASO % 0.5 %; BASO ABS # 0.03 K/uL (0-0.2); EOS % 2.7 %; EOS ABS # 0.17 K/uL (0-0.5); HEMATOCRIT 28.9 % (37-47); HEMOGLOBIN 9.4 g/dL (12.0-16.0); IG# 0.01 K/uL (0.00-0.02); LYMPH % 22.8 %; LYMPH ABS # 1.45 K/uL (1.2-3.4); MEAN CELL VOLUME 92.6 fL (80-100); MEAN CORPUSCULAR HEMOGLOBIN 30.1 pg (25-34); MEAN CORPUSCULAR HGB CONC 32.5 g/dl (32-36); MEAN PLATELET VOLUME 10.1 fL (7.4-10.4); NEUT % 62.8 %; PLATELET COUNT 283 K/uL (130-400); RED CELL DISTRIBUTION WIDTH SD 55.2 fL (36.4-46.3); WHITE BLOOD COUNT 6.36 K/uL (4.8-10.8)
[2018-01-28 05:00] LABS: CALCIUM 8.5 mg/dl (8.5-10.1); CREATININE 0.84 mg/dl (0.60-1.20); POTASSIUM 4.3 mmol/L (3.5-5.1)
[2018-01-28 05:09] LABS: PTT PATIENT 67.2 SECONDS (21.0-31.0)
[2018-01-28] MEDS: FERROUS SULFATE 325 MG TAB PO SCH ×2 (08:38→20:24)
[2018-01-28] MEDS: NEPHROCAPS PO SCH (08:38)
[2018-01-28] MEDS: ASPIRIN 81 MG ECTAB PO SCH (08:38)
[2018-01-28] MEDS: ATORVASTATIN 40 MG TAB PO SCH (08:38)
[2018-01-28] MEDS: PANTOprazole SOD 40 MG TAB PO SCH ×2 (08:38→20:26)
[2018-01-28] MEDS: CHOLECALCIFEROL 1000 INTER.UNIT TAB PO SCH (08:39)
[2018-01-28] MEDS: RIVASTIGMINE TARTRATE (EXELON) 1.5 MG CAP PO SCH ×2 (08:39→20:24)
[2018-01-28] MEDS: MAGNESIUM OXIDE 400 MG TAB PO SCH (08:39)
[2018-01-28] MEDS: LISINOPRIL 5 MG TAB PO SCH (08:39)
[2018-01-28] MEDS: CHOLESTYRAMINE LIGHT 4 GM PKT PO SCH (08:39)
[2018-01-28] MEDS: DILTIAZEM HCL (TIAzac) 180 MG CAPCR PO SCH (08:39)
[2018-01-28] MEDS: LEVETIRACETAM 500 MG TAB PO SCH ×2 (08:39→20:24)
[2018-01-28] MEDS: SILVER SULFADIAZINE 1% CR 50 GM JAR EXT SCH ×2 (08:40→20:24)
--- NOTE | 2018-01-28 10:30 | Cardiology Follow-Up ---
Subjective Date of Service: Jan 28, 2018. Pt evaluation today including: conversation w/ patient, physical exam, lab review, review of studies, review of inpatient medication list, conversation w/ attending History of Present Illness This is a very pleasant 87-year-old woman who may have a history of coronary artery disease (as evidenced by a non-ST segment elevation myocardial infarction at the end of August 2016 in association with rapid heart rate) as well as valvular heart disease including moderate aortic stenosis and mild to moderate mitral regurgitation. 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 She was identified as having anemia at the time and had a small enzyme rise. She was treated medically for the arrhythmia. She recalls historically having occasional episodes of palpitations but is not very aware of the arrhythmia. She did present with chest discomfort which has not recurred. She is maintained on metoprolol tartrate for the arrhythmia. Echocardiography showed normal left ventricular function but she has moderate to severe aortic stenosis. Her presentation last admission was with diarrhea and abdominal discomfort, however she was observed to have periods of SVT at a rapid heart rate as well as some electrocardiographic abnormalities. Her symptoms are little bit vague, she did admit to having intermittent palpitations but was not very precise about it. She had frequent episodes during that hospital stay and I cannot tell if she actually has much in the way of symptoms related to them. She did not have chest discomfort or shortness of breath. She evidently does not have lightheadedness or dizziness and denies syncope or presyncope. Her rhythm appeared to be very well controlled on intravenous diltiazem therefore she was discharged January 22, 2018 on diltiazem CD 180 mg daily. She returns now having continued diarrhea as well as some chest discomfort and was noted to be in atrial fibrillation at her primary care physician's office. She was therefore sent to the emergency room where she was also identified as having atrial fibrillation, but that converted to sinus rhythm shortly thereafter. She seems unaware of the rhythm specifically but has had intermittent chest discomfort lasting several minutes. She was pain-free and remained in sinus rhythm following conversion in the emergency room, however with ambulation that evening she had anginal type chest discomfort with no rhythm disturbance and also some electrocardiographic changes which appear to be a little bit different than before. The episode was relieved with rest and nitroglycerin. She has had anemia for some time with no clear source of bleedin , although overnight she did have heme positive stools. Her GI complaints have improved. She is now resting comfortably in bed, in sinus rhythm and has no cardiovascular complaints. Her hemoglobin has increased appropriately with transfusion. She has had no further chest discomfort but has not been very active. She has had no palpitations. Social History Smoking Status: Never Smoker History of Alcohol Use: No Review of Systems Respiratory: No cough, No shortness of breath Cardiac: No chest pain Medications Cardiovascular: Item Value Date Time Diltiazem HCl 180 mg 01/27/18 0900 (TIAzac CAP) QAM/PO 01/28/18 0839 Lisinopril 5 mg 01/27/18 0900 (Zestril Tab) DAILY/PO 01/28/18 0839 Atorvastatin 80 mg 01/27/18 0900 Calcium DAILY/PO 01/28/18 0838 (Lipitor Tab) Objective Vital Signs Past 12 Hours Date Time Temp Pulse Resp B/P (MAP) Pulse Ox O2 Delivery O2 Flow Rate FiO2 01/28/18 07:46 36.8 80 18 165/52 (89) 95 Room Air 01/28/18 04:13 36.3 79 19 151/68 (95) 97 Room Air 01/28/18 04:00 Room Air 01/28/18 00:00 94 Room Air 01/27/18 23:21 36.5 61 18 132/58 (82) 94 Room Air Last Recorded Weight-Kilograms: 56.700 Physical Exam Constitutional: Level of Distress: NAD Lungs: Auscultation: breath sounds normal Cardiovascular: Heart Auscultation: RRR, II/ BARBARA Extremities: no edema Data Laboratory Results: Last 24 Hours Test 01/28/18 04:20 01/28/18 04:50 White Blood Count 6.36 K/uL Red Blood Count 3.12 M/uL Hemoglobin 9.4 g/dL Hematocrit 28.9 % Mean Corpuscular Volume 92.6 fL Mean Corpuscular Hemoglobin 30.1 pg Mean Corpuscular Hemoglobin Concent 32.5 g/dl Platelet Count 283 K/uL Mean Platelet Volume 10.1 fL Neutrophils (%) (Auto) 62.8 % Lymphocytes (%) (Auto) 22.8 % Monocytes (%) (Auto) 11.0 % Eosinophils (%) (Auto) 2.7 % Basophils (%) (Auto) 0.5 % Neutrophils # (Auto) 4.00 K/uL Lymphocytes # (Auto) 1.45 K/uL Monocytes # (Auto) 0.70 K/uL Eosinophils # (Auto) 0.17 K/uL Basophils # (Auto) 0.03 K/uL RDW Standard Deviation 55.2 fL RDW Coefficient of Variation 17.0 % Immature Granulocyte % (Auto) 0.2 % Immature Granulocyte # (Auto) 0.01 K/uL Activated Partial Thromboplast Time 67.2 SECONDS Partial Thromboplastin Ratio 2.6 Sodium Level 140 mmol/L Potassium Level 4.3 mmol/L Chloride Level 111 mmol/L Carbon Dioxide Level 24 mmol/L Anion Gap 5.0 mmol/L Blood Urea Nitrogen 14 mg/dl Creatinine 0.84 mg/dl Est Creatinine Clear Calc Drug Dose 37.5 ml/min Estimated GFR () 71.4 Estimated GFR (Non- 61.6 BUN/Creatinine Ratio 16.4 Random Glucose 109 mg/dl Calcium Level 8.5 mg/dl Magnesium Level 1.8 mg/dl Stool Occult Blood POSITIVE Telemetry reviewed: Sinus rhythm, no atrial fibrillation overnight Assessment and Plan 1. Chest discomfort: She describes chest discomfort which could be anginal, her description has been a little bit vague in the past and we have not been sure but this admission she seemed to have exertional angina. We were also not sure whether the chest discomfort was prompted by her arrhythmia in the past but following admission this time she had chest discomfort but she definitely did not have an arrhythmia at the time. She did however have a somewhat low hemoglobin which certainly could have exacerbated ischemia. At her last visit she did have low-grade cardiac enzymes, which have occurred again here after being normal on admission. At this point it seems to be looking more like she has significant coronary artery disease. her symptoms may be exacerbated by the arrhythmia and anemia, but nevertheless I suspect she has significant disease. We have been reluctant to perform invasive evaluation but at this point I think we need to consider it. I discussed it with her and she is agreeable. I have also reviewed it with Dr. Lopez but we will need to review again in light of possible GI bleeding. We have her tentatively scheduled for this afternoon. 2. 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 Of note however the 2 rhythms do not coexist, the regular rapid SVT seems to start and terminate for the most part and does not coexist with the variable heart rates. A reentrant SVT is initiated by premature beats therefore they may be independent rhythms and she likely has both both. Clearly she had atrial fibrillation on presentation here, whether it was initiated by SVT or not I cannot tell. Her SVT had been very well controlled on low-dose diltiazem. Her atrial fibrillation appears to have been well rate controlled on the same medical regimen. 3. Atrial fibrillation: I am not sure how much atrial fibrillation she has or whether she should be on chronic anticoagulation. Currently her episode was evidently somewhat brief, or at least terminated quickly after arrival in the emergency room. I would recommend keeping her on the monitor for the time being and we can see what the pattern is. So far she is not having much of it. 4. Aortic stenosis: She has a history of aortic stenosis, in September 2016 she was felt to have moderate aortic stenosis. That does not seem to have changed as of her recent visit. Thank you for allowing me to participate in her care.
--- NOTE | 2018-01-28 11:25 | Hospitalist Progress Note ---
Hospitalist Progress Note Date of Service Jan 28, 2018. (Darcie Johns PA-C) Subjective Pt evaluation today including: conversation w/ patient, physical exam, chart review, lab review, conversation w/ provider contracting consultant (Dr. Baird), review of inpatient medication list Pain: None PO Intake: NPO Voiding: garza catheter in place Patient seen and evaluated. Transfused 1 unit PRBC on 01/27 with improvement in Hgb to 9.4 Diarrhea seems to have subsided but had soft melanotic stool this AM and Heme+. Is on iron supplementation and yesterday C. diff + however testing from just a week ago was negative even though diarrhea was present then? She does report at home she fluctuates between brown and black stool and related this to her iron supplementation. She also reports intermittent BRBPR with wiping as she does occ. have more constipating stool. She is not sure when she last had a colonoscopy or if she has had an EGD. Patient reports feeling a little weak today due to being NPO for possible catheterization today to further evaluate elevated troponins and presenting CP Heparin gtt and ASA held. Protonix increased to BID Remains in NSR on monitor. Constitutional: + weakness (generalized), + fatigue, No fever, No chills Respiratory: No cough, No shortness of breath Cardiovascular: No chest pain Abdomen: + GI bleeding, No pain, No nausea, No vomiting, No diarrhea Musculoskeletal: No swelling, No calf pain Female : + urinary frequency Neurologic: No numbness/tingling Skin: No rash, No bleeding (Darcie Johns PA-C) Medications Current Inpatient Medications Medications (Trade) Dose Ordered Sig/Giorgi Route Start Time Stop Time Status Last Admin Dose Admin Acetaminophen (Tylenol Tab) 650 mg Q4H PRN PO 01/26/18 12:30 02/25/18 12:29 01/27/18 20:27 650 MG Nitroglycerin (Nitroglycerin 2% Oint) 1 inch Q6H EXT 01/26/18 16:00 02/25/18 15:59 01/28/18 10:24 1 INCH Diltiazem HCl (TIAzac CAP) 180 mg QAM PO 01/27/18 09:00 02/26/18 08:59 01/28/18 08:39 180 MG Levetiracetam (Keppra Tab) 500 mg BID PO 01/26/18 21:00 02/25/18 20:59 01/28/18 08:39 500 MG Lisinopril (Zestril Tab) 5 mg DAILY PO 01/27/18 09:00 02/26/18 08:59 01/28/18 08:39 5 MG Silver Sulfadiazine (Silvadene 1% Crm 50GM Jar) 1 appln BID EXT 01/26/18 21:00 02/25/18 20:59 Vitamin B Complex/ Vit C/Folic Acid (Nephrocaps) 1 cap DAILY PO 01/27/18 09:00 02/26/18 08:59 01/28/18 08:38 1 CAP Cholecalciferol (Vitamin D Tab) 2,000 inter.unit DAILY PO 01/27/18 09:00 02/26/18 08:59 01/28/18 08:39 2,000 INTER.UNIT Ferrous Sulfate (Feosol Tab) 325 mg BID PO 01/26/18 21:00 02/25/18 20:59 01/28/18 08:38 325 MG Rivastigmine Tartrate (Exelon Cap) 6 mg BID PO 01/26/18 21:00 02/25/18 20:59 01/28/18 08:39 6 MG Miscellaneous (Iv Fluids Completed) 1 ea PRN PRN N/A 01/26/18 13:00 01/26/19 12:59 Atorvastatin Calcium (Lipitor Tab) 80 mg DAILY PO 01/27/18 09:00 02/26/18 08:59 01/28/18 08:38 80 MG Magnesium Oxide (Mag-Ox Tab) 400 mg QAM PO 01/27/18 09:00 02/26/18 08:59 01/28/18 08:39 400 MG Vancomycin HCl (Vancomycin Oral Soln) 125 mg Q6H PO 01/27/18 16:00 02/10/18 15:59 01/28/18 09:55 125 MG Raspberry (Raspberry Syrup 5ml Cup) 5 ml Q6H PO 01/27/18 16:00 02/10/18 15:59 01/28/18 09:55 5 ML Cholestyramine Resin (Questran Powder Light) 4 gm BID@ PO 4/12/18 22:00 02/26/18 21:59 Pantoprazole Sodium (Protonix Tab) 40 mg BID PO 01/28/18 21:00 02/26/18 08:59 (Darcie Johns PA-C) Objective Vital Signs Date Time Temp Pulse Resp B/P (MAP) Pulse Ox O2 Delivery O2 Flow Rate FiO2 01/28/18 08:00 Room Air 01/28/18 07:46 36.8 80 18 165/52 (89) 95 Room Air 01/28/18 04:13 36.3 79 19 151/68 (95) 97 Room Air 01/28/18 04:00 Room Air 01/28/18 00:00 94 Room Air 01/27/18 23:21 36.5 61 18 132/58 (82) 94 Room Air 01/27/18 20:15 36.9 69 18 131/69 96 01/27/18 20:00 Room Air 01/27/18 19:26 36.7 66 20 130/62 (84) 95 Room Air 01/27/18 19:15 36.5 70 20 121/60 97 01/27/18 18:45 36.7 65 20 132/62 95 01/27/18 18:15 36.9 68 20 131/56 96 01/27/18 17:45 36.8 75 20 119/46 96 01/27/18 17:24 36.8 65 20 121/56 96 01/27/18 17:05 36.8 63 20 125/64 96 01/27/18 16:00 Room Air 01/27/18 15:43 36.3 64 19 121/56 (77) 95 Room Air 01/27/18 12:00 Room Air 01/27/18 11:36 36.5 78 18 112/57 (75) 97 Room Air (Darcie Johns PA-C) Physical Exam General Appearance: WD/WN, no apparent distress Eyes: sclerae normal ENT: hearing grossly normal Neck: supple, no JVD, trachea midline Respiratory/Chest: lungs clear, normal breath sounds, no respiratory distress, no accessory muscle use Cardiovascular: regular rate, rhythm, + systolic murmur Abdomen: normal bowel sounds, non tender, soft Extremities: no pedal edema Neurologic/Psychiatric: alert Skin: normal color, warm/dry (Darcie Johns PA-C) Laboratory Results Last 24 Hours Test 01/28/18 04:20 01/28/18 04:50 White Blood Count 6.36 K/uL Red Blood Count 3.12 M/uL Hemoglobin 9.4 g/dL Hematocrit 28.9 % Mean Corpuscular Volume 92.6 fL Mean Corpuscular Hemoglobin 30.1 pg Mean Corpuscular Hemoglobin Concent 32.5 g/dl Platelet Count 283 K/uL Mean Platelet Volume 10.1 fL Neutrophils (%) (Auto) 62.8 % Lymphocytes (%) (Auto) 22.8 % Monocytes (%) (Auto) 11.0 % Eosinophils (%) (Auto) 2.7 % Basophils (%) (Auto) 0.5 % Neutrophils # (Auto) 4.00 K/uL Lymphocytes # (Auto) 1.45 K/uL Monocytes # (Auto) 0.70 K/uL Eosinophils # (Auto) 0.17 K/uL Basophils # (Auto) 0.03 K/uL RDW Standard Deviation 55.2 fL RDW Coefficient of Variation 17.0 % Immature Granulocyte % (Auto) 0.2 % Immature Granulocyte # (Auto) 0.01 K/uL Activated Partial Thromboplast Time 67.2 SECONDS Partial Thromboplastin Ratio 2.6 Sodium Level 140 mmol/L Potassium Level 4.3 mmol/L Chloride Level 111 mmol/L Carbon Dioxide Level 24 mmol/L Anion Gap 5.0 mmol/L Blood Urea Nitrogen 14 mg/dl Creatinine 0.84 mg/dl Est Creatinine Clear Calc Drug Dose 37.5 ml/min Estimated GFR () 71.4 Estimated GFR (Non- 61.6 BUN/Creatinine Ratio 16.4 Random Glucose 109 mg/dl Calcium Level 8.5 mg/dl Magnesium Level 1.8 mg/dl Stool Occult Blood POSITIVE (Darcie Johsn PA-C) Assessment and Plan 87yo female presenting with weakness, vague chest discomfort, found to be in atrial fibrillation Paroxysmal Atrial Fibrillation - Possibly New Onset: REMAINS NSR - Patient has long history of SVT and AVNRT but there has been question of intermittent A Fib; also given H/O arrhythmia she would be more predisposed to this - Diltiazem 180 mg daily - Will hold heparin gtt given anemia, heme + stool, melena Elevated Troponin - Demand Ischemia vs ACS: - This was also associated with chest pain that is resolved at this point; review of 2016 admission with similar complaints but did question symptoms related to anemia and suspected GI bleed but does not appear this was confirmed with any scopes - NTG ointment is applied and this may explain improvement in CP? - Possible heart catheterization today - discussed with Dr. Baird as only concern is if intervention is warranted would not be able to place ASA/Plavix given possible GI bleed Hypomagnesemia: RESOLVED - Continue Mag Ox 400 mg daily and continue to monitor CAD with NSTEMI (2016) - Related to Anemia and Tachyarrhythmias and HTN: - Holding ASA - Atorvastatin 80 mg daily - Lisinopril 5 mg daily - Cardiology following - possible heart catheterization this afternoon Acute on Chronic Anemia with Melena: - Hemoglobin dropped to 7.7 on 01/27 and transfused 1 unit PRBC on 01/27 with improvement to 9.4 and will recheck later this afternoon - Ferrous sulfate 325 mg BID - per daughter this was recently increased to BID dosing - Had similar issues in the past but could not find any identified etiology - possible slow losses which was exacerbated by diarrhea/C. 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 Beatty; searched outpatient records and could not find notes of this and this may have occurred before 2011 and patient cannot recall when this was - Ironically C. diff was just checked on 01/20 and was negative; all negative checks up to 2011 in system - Vancomycin 125 mg QID at this time; not currently having diarrhea - Can continue Questran PRN for diarrhea T2DM: Diet Controlled: A1c 5.6 - Continue to monitor sugars with daily labs; states she was previously treated with oral anti-diabetics Seizure Disorder: - Keppra 500 mg BID GERD: STABLE - Protonix 40 mg daily Code Status: DO NOT RESUSCITATE Disposition: - Maintain on telemetry at this point pending possible catheterization - PT/OT - patient would like to return home with services but does live alone Continued [facility] stay due to: multiple IV medications needed Discharge planning: home with home health (Darcie Johns, PA-C) Attending Attestation - Pt seen/examined, chart reviewed, care plan d/w LUCAS Johns. I agree w/ the davidson components of her documentation. Saw the patient post heart cath and was resting well with 2 daughters at bedside. No cp, no dyspnea. Tele w/o a. fib or SVT overnight. VSS no fever gen - nad neck - no JVD heart - RRR, s1, s2, 2/6 systolic murmur RUSB lungs - CTA b/l abd - soft, NT ext - no edema vascular - right radial artery without hematoma Hb >9 today mag wnl A/P: 1. CAD with mild NSTEMI - s/p cath today with severe multi-vessel disease; poor surgical candidate and thus medical management recommended I explained this to her & her daughters. Cont asa, statin. She previously was taking BB; changed to CCB during previous stay due to SVT/a. fib. 2. acute/chronic anemia - ferritin earlier this month was <20. Stool was heme + during prior stay and remains so this stay. Acute drop concerning for occult GI bleeding but H/H have stabilized s/p 1 unit PRBCs. Cont Fe supplementation. GI has seen - no testing at this time. 3. a. fib - resolved, back in NSR; appreciate Dr Vickers's expertise; cont AV cristobal agent. Poor candidate for systemic anticoagulation due to anemia and heme + stools. 4. c. diff colitis - vanco 125mg po qid x 14 days bile acid sequestrant daily-BID daughters updated PT, OT evals to help with disposition Dinorah BENSON MD (Ruben Benson MD)
[2018-01-28] MEDS ORDERED: CHOLESTYRAMINE LIGHT 4 GM PKT PO PRN (11:30)
[2018-01-28] MEDS ORDERED: LIDOCAINE HCL 1% 20 ML VIAL ONE (13:14)
[2018-01-28] MEDS ORDERED: HEPARIN SOD (PORCINE) 1000 UNIT/ML 10 ML VIAL ONE (13:14)
[2018-01-28] MEDS ORDERED: NiCARDipine HCL INJ 2.5 MG/ML 10 ML AMP ONE (13:14)
[2018-01-28] MEDS ORDERED: FENTANYL CITRATE INJ 50 MCG/1 ML 2 ML VIAL ONE (13:14)
[2018-01-28] MEDS ORDERED: MIDAZOLAM HCL 1 MG/ML 2ML VIAL ONE (13:14)
[2018-01-28] MEDS ORDERED: NITROGLYCERIN/D5W 100MCG/ML 20ML SYR ONE (13:15)
--- NOTE | 2018-01-28 13:23 | Pre Sedation Assessment ---
Pre Sedation Assessment General Date of Sedation: Jan 28, 2018. Vital Signs Past 12 Hours Date Time Temp Pulse Resp B/P (MAP) Pulse Ox O2 Delivery O2 Flow Rate FiO2 01/28/18 12:00 Room Air 01/28/18 11:30 36.6 85 18 125/66 (85) 99 Room Air 01/28/18 08:00 Room Air 01/28/18 07:46 36.8 80 18 165/52 (89) 95 Room Air 01/28/18 04:13 36.3 79 19 151/68 (95) 97 Room Air 01/28/18 04:00 Room Air Review Cardiovascular: regular rate, rhythm, no edema Lungs: chest non-tender, lungs clear Pre-Sedation Airway Assessment Smoking Status: Never Smoker Hx of Sleep Apnea: No Hx of difficult intubation: No Short Thick Neck: No Thyro-mental Distance: > 3 Finger Breadths Oral Cavity: WNL Mallampati Classification: Class II ASA Classification: Class III NPO Status Date of Last Intake of Fluids: Jan 28, 2018 Time of Last Intake of Fluids: 0845 Date of Last Intake of Solids: Jan 27, 2018 Time of Last Intake of Solids: 2200 Procedure Planning Contraindications for Sedation: None Current Medications Reviewed: Yes Notes The planned sedation has been discussed with the patient. Informed Consent was obtained. I have identified the patient, determined the appropriateness of sedation and have assessed the patient immediately prior to the procedure. All medicine(s) and interventions are by my order.
--- NOTE | 2018-01-28 14:06 | [facility] Post Operative Brief Note ---
Preliminary Procedure Note Procedure Date Jan 28, 2018. 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
[2018-01-28] MEDS ORDERED: SODIUM CHLORIDE 0.9% 1000ML 1,000 ML IV SCH (14:07)
--- NOTE | 2018-01-28 14:08 | Post Sedation Assessment ---
Post Sedation Assessment General Date of Sedation Jan 28, 2018. Vital Signs: Vital Signs Past 12 Hours Date Time Temp Pulse Resp B/P (MAP) Pulse Ox O2 Delivery O2 Flow Rate FiO2 01/28/18 12:00 Room Air 01/28/18 11:30 36.6 85 18 125/66 (85) 99 Room Air 01/28/18 08:00 Room Air 01/28/18 07:46 36.8 80 18 165/52 (89) 95 Room Air 01/28/18 04:13 36.3 79 19 151/68 (95) 97 Room Air 01/28/18 04:00 Room Air Post Procedure Recovery Score Activity: (2) Moves 4 extremities * Respiration: (2) Deep breath/cough Circulation: (2) +/-20% PreAnes Value Consciousness: (2) Fully Awake Oxygen Saturation: (1) O2 needed for >90% Discharge Sedation Level of Care: Fast Track Phase II Post Sedation Plan On clinical assessment, the patient appears to have tolerated the sedation without complications. Patient is recovering as anticipated. Patient will continue to be monitored by nursing and may be discharged when sedation discharge criteria are met per below protocol. Upon Completions of procedure and additional 15 minutes continue every 5 minute vital signs and the P.A.R. score; then discharge to a Phase I or Fast Track to Phase II per the following guidelines: * Discharge Patient to appropriate Phase II area if PAR is 8 or greater or return to pre- procedure baseline. The post - procedure orders will be as directed. * If PAR score is less than 8 or not return to pre-procedure baseline then patient will follow Phase I monitoring till PAR is reached for Phase II. The Phase I may be done in procedure room or may call to secure a Phase I area. * If naloxone or flumazenil are used for reversal, hold in Phase I for an additional 60 -120 minutes before discharge to Phase II. Please call the Sedation Physician to re-evaluate and complete post-note for discharge to Phase II area. Do NOT discharge from procedure sedation or Phase 1 until post- sedation evaluation note is complete by procedure /sedation MD Sedation Discharge Instructions to be given to the patient at discharge to home.
--- NOTE | 2018-01-28 14:16 | Cardiac Catheterization ---
Procedure Note Procedure Date Jan 28, 2018. Pre-Procedure Diagnosis Non STEMI AUC Score 7 Post-Procedure Diagnosis Severe CAD Procedure(s) Performed Coronary Angiography [employer] Attendant(s) Jodie Estimated Blood Loss 15 Medication(s) Fentanyl, Heparin, Nitroglycerin, Versed, Lidocaine 1% Summary of Findings Indication: NSTEMI Access: 6 [place] right radial artery Catheters: Richardson Findings: LM - severely calcified, ostial to mid 60-70% disease LAD - severely calcified, diffuse mild to moderate proximal to mid disease, 95 % hazy mid disease after takeoff of 2nd diagonal; distal luminal regularities as wraps around apex - occluded proximal 1st diagonal Circumflex - chronic total occlusion at the ostium RCA - dominant, calcified, 50-60% ostial stenosis, 60-70% late proximal to mid diffuse disease. Large right PLB provides [id number] collaterals to circumflex Arterial Closure: TR band Summary: 1. Severe multivessel coronary artery disease - 50-60% ostial left main - 95% mid LAD - chronic total occlusion of ostial circumflex with right to left distal collaterals - 50-60% ostial RCA, 60-70% mid RCA Recommendations: Severe multivessel disease in patient unlikely to be surgical candidate. Percutaneous intervention would be high risk in the setting of ostial lesions, severe calcification. Recommend medical management including rate/rhythm control, transfusion for recurrent anemia. Maximize antianginal therapy. Continued ASCVD risk factor modification Dr. Vickers. Hemodynamics Rest Ao: 113/43/73 Final Ao: 131/44/78 LV: -- Recommendations Medical therapy and/or Counseling ([facility]) Specimens None Radiation Exposure (mGy) 8681 Contrast (mls) 70 Fluids (cc crystalloids) 40 Drains none Anesthesia moderate Procedural Complication(s) None Disposition PCU ACC Data Cardiac Status Clinical evaluation leading to the procedure CAD Presntation: Non STEMI Anginal Classification: CCS III Heart Failure: No, NYHA Class: CCS I Cardiogenic Shock w/in 24Hrs: No Cardiac Arrest w/in 24Hrs: No Imaging studies past 6 months: Yes Stress studies past 6 months: No Closure Device Percutaneous Entry Location: Radial Closure Device: Radial Band Recommendations: Medical therapy and/or Counseling Intraprocedure Events Significant Dissection: No Perforation: No
[2018-01-28] MEDS: ACETAMINOPHEN 325 MG TAB PO PRN (16:32)
--- NOTE | 2018-01-28 21:43 | GASTROINTESTINAL CONSULTATION ---
DATE OF CONSULTATION: 01/28/2018 RACE: . ATTENDING PHYSICIAN: Ruben Benson MD CONSULTING PHYSICIAN: James Hinds DO REASON FOR CONSULTATION: Anemia. HISTORY OF PRESENT ILLNESS: Margie Alcala is an 87-year-old female who presented to the Emergency Department on 01/26/2018 with complaints of weakness, dizziness, diarrhea, and chest pressure. She was noted at an outpatient clinic to have new-onset atrial fibrillation. She was subsequently seen by cardiology and underwent a cardiac catheterization and was noted to have severe multivessel coronary artery disease, though she was felt to be an unlikely surgical candidate and it was felt that percutaneous intervention would be high risk in current setting and medical management was recommended. During the course of her workup, she did have a stool study that was sent and found to be positive for occult blood. Findings also came back positive for C. diff. At the time that I saw the patient today, she stated that she had had 3 bowel movements today, one of which was liquid in nature, nonbloody. She denied any abdominal pain. She further denied any fevers, chills, nausea, vomiting, hematemesis, or melena and stated that she had not had any hematochezia. Her daughters who are at her bedside state that she did have C. diff in the past in approximately 2010 or 2011. She also previously had a GI bleed per the daughters and was last seen by our service in September of 2016. At that time, she was treated conservatively and did well without need for any invasive GI workup. She has no further complaints. PAST MEDICAL HISTORY: Significant for severe coronary artery disease, atrial fibrillation, NSTEMI in August 2016, moderate aortic stenosis, diet-controlled diabetes, anemia, diverticulitis, type 1 diastolic dysfunction, history of GI bleed, history of C. diff. PAST SURGICAL HISTORY: Cholecystectomy. ALLERGIES: HYDROCODONE. MEDICATIONS: At the present time include Protonix 40 mg p.o. b.i.d., Questran 4 grams p.o. b.i.d., vancomycin 125 mg p.o. q. 6 hours, Tiazac 180 mg p.o. q.a.m., Zestril 5 mg p.o. daily, Nephrocaps 1 tab p.o. daily, vitamin D 2000 International Units p.o. daily, Lipitor 80 mg p.o. daily, Mag-Ox 400 mg p.o. q.a.m., Keppra 500 mg p.o. b.i.d., Feosol 325 mg p.o. b.i.d., Exelon 6 mg p.o. b.i.d., nitroglycerin ointment 1 inch external application every 6 hours, Tylenol 650 mg p.o. q.4h. p.r.n. fever. SOCIAL HISTORY: She is , lives alone. No tobacco, alcohol, or illicit drug use. FAMILY HISTORY: Negative for GI malignancy or inflammatory bowel disease. REVIEW OF SYSTEMS: Negative x10 system review other than pertinent positives listed in the HPI. PHYSICAL EXAMINATION: VITAL SIGNS: Temp 36.5, pulse 65, respirations 20, blood pressure 128/57, pulse ox 96% on room air. GENERAL: Awake, cooperative, chronic ill appearing, no acute distress. HEAD: Normocephalic, atraumatic. EYES: Pupils equal and round. Extraocular muscles are intact. ENT: External evaluation of ears and nose are normal. Oropharynx is clear. NECK: Soft, supple. CHEST: Clear to auscultation bilaterally. CARDIOVASCULAR SYSTEM: Irregularly irregular. ABDOMEN: Soft, nontender, nondistended. Positive bowel sounds. EXTREMITIES: No clubbing, cyanosis, or edema. LABORATORY STUDIES AND RADIOGRAPHIC STUDIES: Were reviewed in the HPI. IMPRESSION: An 87-year-old female with severe coronary artery disease, new-onset atrial fibrillation with cardiac catheterization, findings as listed above, and heme positive stool with C. diff. PLAN: The patient has a known cause of heme positivity with C. diff infection that can cause this. Therefore, I would recommend that she complete a 10-day course of vancomycin 125 mg p.o. q. 6 hours. I would not recommend any invasive testing as the patient has severe coronary artery disease, aortic stenosis, and new-onset atrial fibrillation. I would treat her conservatively and continue Protonix 40 mg p.o. b.i.d. I would also recommend continuing Questran 4 grams p.o. b.i.d. I would recommend no invasive testing unless she would have overt GI blood loss. Once again, thanks for allowing me to participate in the care of this patient. If you have any further questions, please do not hesitate in contacting me.
[2018-01-29 04:07] VITALS: BP 155/71; PULSE 88; TEMP 36.4; O2SAT 97
[2018-01-29] MEDS: VANCOMYCIN HCL 125 MG/2.5ML SOLN PO SCH ×4 (04:14→20:54)
[2018-01-29] MEDS: RASPBERRY SYRUP 5 ML UDP PO SCH ×4 (04:14→20:54)
[2018-01-29] MEDS: NITROGLYCERIN 2% OINTMENT 30GM TUBE EXT SCH (04:14)
[2018-01-29 06:11] LABS: BASO % 0.3 %; BASO ABS # 0.02 K/uL (0-0.2); EOS % 1.2 %; EOS ABS # 0.09 K/uL (0-0.5); HEMOGLOBIN 9.8 g/dL (12.0-16.0); IG# 0.02 K/uL (0.00-0.02); LYMPH % 13.8 %; LYMPH ABS # 1.03 K/uL (1.2-3.4); MEAN CORPUSCULAR HEMOGLOBIN 30.7 pg (25-34); MEAN CORPUSCULAR HGB CONC 32.7 g/dl (32-36); MEAN PLATELET VOLUME 10.1 fL (7.4-10.4); MONO % 7.2 %; MONO ABS # 0.54 K/uL (0.11-0.59); NEUT % 77.2 %; NEUT ABS # 5.79 K/uL (1.4-6.5); PLATELET COUNT 288 K/uL (130-400); RED CELL DISTRIBUTION WIDTH SD 56.9 fL (36.4-46.3); WHITE BLOOD COUNT 7.49 K/uL (4.8-10.8)
[2018-01-29 06:44] LABS: CALCIUM 8.4 mg/dl (8.5-10.1); CREATININE 0.79 mg/dl (0.60-1.20); POTASSIUM 4.2 mmol/L (3.5-5.1)
[2018-01-29 08:02] VITALS: BP 144/76; PULSE 82; TEMP 36.7; O2SAT 94
[2018-01-29] MEDS ORDERED: MAGNESIUM SULFATE 1GM / D5W 1 GM in PREMIXED IN D5W 100 ML IV ONE (08:30)
[2018-01-29] MEDS: SILVER SULFADIAZINE 1% CR 50 GM JAR EXT SCH ×2 (08:35→20:54)
[2018-01-29] MEDS: FERROUS SULFATE 325 MG TAB PO SCH ×2 (08:47→20:55)
[2018-01-29] MEDS: RIVASTIGMINE TARTRATE (EXELON) 1.5 MG CAP PO SCH ×2 (08:47→20:56)
[2018-01-29] MEDS: DILTIAZEM HCL (TIAzac) 180 MG CAPCR PO SCH (08:48)
[2018-01-29] MEDS: ATORVASTATIN 40 MG TAB PO SCH (08:48)
[2018-01-29] MEDS: LEVETIRACETAM 500 MG TAB PO SCH ×2 (08:48→20:56)
[2018-01-29] MEDS: NEPHROCAPS PO SCH (08:49)
[2018-01-29] MEDS: MAGNESIUM OXIDE 400 MG TAB PO SCH (08:49)
[2018-01-29] MEDS: CHOLECALCIFEROL 1000 INTER.UNIT TAB PO SCH (08:50)
[2018-01-29] MEDS: LISINOPRIL 5 MG TAB PO SCH (08:50)
[2018-01-29] MEDS: PANTOprazole SOD 40 MG TAB PO SCH ×2 (10:00→20:57)
--- NOTE | 2018-01-29 11:18 | Cardiology Follow-Up ---
Subjective Date of Service: Jan 29, 2018. Pt evaluation today including: conversation w/ patient, physical exam, lab review, review of studies, review of inpatient medication list History of Present Illness This is a very pleasant 87-year-old woman who may have a history of coronary artery disease (as evidenced by a non-ST segment elevation myocardial infarction at the end of August 2016 in association with rapid heart rate) as well as valvular heart disease including moderate aortic stenosis and mild to moderate mitral regurgitation. 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 She was identified as having anemia at the time and had a small enzyme rise. She was treated medically for the arrhythmia. She recalls historically having occasional episodes of palpitations but is not very aware of the arrhythmia. She did present with chest discomfort which has not recurred. She is maintained on metoprolol tartrate for the arrhythmia. Echocardiography showed normal left ventricular function but she has moderate to severe aortic stenosis. Her presentation last admission was with diarrhea and abdominal discomfort, however she was observed to have periods of SVT at a rapid heart rate as well as some electrocardiographic abnormalities. Her symptoms are little bit vague, she did admit to having intermittent palpitations but was not very precise about it. She had frequent episodes during that hospital stay and I cannot tell if she actually has much in the way of symptoms related to them. She did not have chest discomfort or shortness of breath. She evidently does not have lightheadedness or dizziness and denies syncope or presyncope. Her rhythm appeared to be very well controlled on intravenous diltiazem therefore she was discharged January 22, 2018 on diltiazem CD 180 mg daily. She returns now having continued diarrhea as well as some chest discomfort and was noted to be in atrial fibrillation at her primary care physician's office. She was therefore sent to the emergency room where she was also identified as having atrial fibrillation, but that converted to sinus rhythm shortly thereafter. She seems unaware of the rhythm specifically but has had intermittent chest discomfort lasting several minutes. She was pain-free and remained in sinus rhythm following conversion in the emergency room, however with ambulation that evening she had anginal type chest discomfort with no rhythm disturbance and also some electrocardiographic changes which appear to be a little bit different than before. The episode was relieved with rest and nitroglycerin. She has had anemia for some time with no clear source of bleedin , although overnight she did have heme positive stools. Her GI complaints have improved. She is in bed and has not been very active but has not had any further chest discomfort (since receiving a blood transfusion). No discomfort at her right wrist catheterization site. Social History Smoking Status: Never Smoker History of Alcohol Use: No Review of Systems Respiratory: No cough, No shortness of breath Cardiac: No chest pain Medications Cardiovascular: Item Value Date Time Diltiazem HCl 180 mg 01/27/18 0900 (TIAzac CAP) QAM/PO 01/29/18 0848 Lisinopril 5 mg 01/27/18 0900 (Zestril Tab) DAILY/PO 01/29/18 0850 Atorvastatin 80 mg 01/27/18 0900 Calcium DAILY/PO 01/29/18 0848 (Lipitor Tab) Objective Vital Signs Past 12 Hours Date Time Temp Pulse Resp B/P (MAP) Pulse Ox O2 Delivery O2 Flow Rate FiO2 01/29/18 08:02 36.7 82 20 144/76 (98) 94 Room Air 01/29/18 04:17 Room Air 01/29/18 04:07 36.4 88 20 155/71 (99) 97 Room Air 01/29/18 00:00 Room Air 01/28/18 23:41 36.8 85 18 136/68 (90) 92 Room Air Last Recorded Weight-Kilograms: 56.400 Physical Exam Constitutional: Level of Distress: NAD Lungs: Auscultation: breath sounds normal Cardiovascular: Heart Auscultation: RRR, II/ BARBARA Extremities: no edema Data Laboratory Results: Last 24 Hours Test 01/29/18 05:25 White Blood Count 7.49 K/uL Red Blood Count 3.19 M/uL Hemoglobin 9.8 g/dL Hematocrit 30.0 % Mean Corpuscular Volume 94.0 fL Mean Corpuscular Hemoglobin 30.7 pg Mean Corpuscular Hemoglobin Concent 32.7 g/dl Platelet Count 288 K/uL Mean Platelet Volume 10.1 fL Neutrophils (%) (Auto) 77.2 % Lymphocytes (%) (Auto) 13.8 % Monocytes (%) (Auto) 7.2 % Eosinophils (%) (Auto) 1.2 % Basophils (%) (Auto) 0.3 % Neutrophils # (Auto) 5.79 K/uL Lymphocytes # (Auto) 1.03 K/uL Monocytes # (Auto) 0.54 K/uL Eosinophils # (Auto) 0.09 K/uL Basophils # (Auto) 0.02 K/uL RDW Standard Deviation 56.9 fL RDW Coefficient of Variation 17.0 % Immature Granulocyte % (Auto) 0.3 % Immature Granulocyte # (Auto) 0.02 K/uL Sodium Level 141 mmol/L Potassium Level 4.2 mmol/L Chloride Level 111 mmol/L Carbon Dioxide Level 24 mmol/L Anion Gap 6.0 mmol/L Blood Urea Nitrogen 10 mg/dl Creatinine 0.79 mg/dl Est Creatinine Clear Calc Drug Dose 39.9 ml/min Estimated GFR () 76.9 Estimated GFR (Non- 66.4 BUN/Creatinine Ratio 12.1 Random Glucose 102 mg/dl Calcium Level 8.4 mg/dl Magnesium Level 1.7 mg/dl Telemetry reviewed: Sinus rhythm, no atrial fibrillation. There was one period of slowing, but it was not significant. Assessment and Plan 1. Chest discomfort: She has been having chest discomfort which sounds anginal , and based on results of the catheterization probably was. Her low-grade enzymes are probably due to demand ischemia in the setting of severe coronary artery disease. 2. Coronary disease: She has severe coronary disease, high risk intervention could possibly be performed but under the circumstances I would like to try medical therapy. That would include keeping her hemoglobin reasonable, close to 10 if we can, as well as increasing antianginals. She is on diltiazem for her SVT which will help, I am going to add a nitrate to her regimen. Her blood pressure looks like it will tolerate it. 3. 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 Of note however the 2 rhythms do not coexist, the regular rapid SVT seems to start and terminate for the most part and does not coexist with the variable heart rates. A reentrant SVT is initiated by premature beats therefore they may be independent rhythms and she likely has both both. Clearly she had atrial fibrillation on presentation here, whether it was initiated by SVT or not I cannot tell. Her SVT had been very well controlled on low-dose diltiazem. Her atrial fibrillation appears to have been well rate controlled on the same medical regimen. 4. Atrial fibrillation: I am not sure how much atrial fibrillation she has or whether she should be on chronic anticoagulation. Currently her episode was evidently somewhat brief, or at least terminated quickly after arrival in the emergency room. I would recommend keeping her on the monitor for the time being and we can see what the pattern is. So far she is not having much of it. 5. Aortic stenosis: She has a history of aortic stenosis, in September 2016 she was felt to have moderate aortic stenosis. That does not seem to have changed as of her recent visit. Thank you for allowing me to participate in her care.
[2018-01-29] MEDS ORDERED: ISOSORBIDE MONONITRATE 30 MG TABCR PO ONE (11:30)
[2018-01-29 12:00] VITALS: BP 138/71; PULSE 82; TEMP 36.8; O2SAT 94
[2018-01-29] MEDS ORDERED: FLUCONAZOLE 50 MG TAB PO ONE (12:30)
[2018-01-29 16:33] VITALS: BP 121/68; PULSE 77; TEMP 36.7; O2SAT 97
[2018-01-29] MEDS: NYSTATIN POWDER 15GM BTL EXT SCH ×2 (17:22→20:53)
[2018-01-29 20:30] VITALS: BP 119/57; PULSE 69; TEMP 36.7; O2SAT 96
[2018-01-30 00:37] VITALS: BP 120/54; PULSE 85; TEMP 36.7; O2SAT 96
[2018-01-30 03:59] VITALS: BP 128/57; PULSE 86; TEMP 36.7; O2SAT 97
[2018-01-30] MEDS: VANCOMYCIN HCL 125 MG/2.5ML SOLN PO SCH ×4 (04:18→21:01)
[2018-01-30] MEDS: RASPBERRY SYRUP 5 ML UDP PO SCH ×4 (04:18→21:01)
[2018-01-30] MEDS ORDERED: ONDANSETRON 4MG OD TAB PO PRN (05:30)
[2018-01-30 06:17] LABS: HEMATOCRIT 30.5 % (37-47); HEMOGLOBIN 9.9 g/dL (12.0-16.0); MEAN CELL VOLUME 94.1 fL (80-100); MEAN CORPUSCULAR HEMOGLOBIN 30.6 pg (25-34); MEAN CORPUSCULAR HGB CONC 32.5 g/dl (32-36); MEAN PLATELET VOLUME 10.1 fL (7.4-10.4); PLATELET COUNT 295 K/uL (130-400); RED CELL DISTRIBUTION WIDTH CV 16.8 % (11.5-14.5); RED CELL DISTRIBUTION WIDTH SD 56.3 fL (36.4-46.3); WHITE BLOOD COUNT 9.13 K/uL (4.8-10.8)
[2018-01-30 06:47] LABS: CALCIUM 8.8 mg/dl (8.5-10.1); CREATININE 0.76 mg/dl (0.60-1.20); POTASSIUM 4.1 mmol/L (3.5-5.1)
[2018-01-30] MEDS: ACETAMINOPHEN 325 MG TAB PO PRN (08:03)
[2018-01-30] MEDS: NYSTATIN POWDER 15GM BTL EXT SCH ×3 (08:03→20:52)
[2018-01-30] MEDS: SILVER SULFADIAZINE 1% CR 50 GM JAR EXT SCH ×2 (08:03→20:52)
[2018-01-30] MEDS: CHOLECALCIFEROL 1000 INTER.UNIT TAB PO SCH (08:04)
[2018-01-30] MEDS: PANTOprazole SOD 40 MG TAB PO SCH ×2 (08:04→21:03)
[2018-01-30] MEDS: DILTIAZEM HCL (TIAzac) 180 MG CAPCR PO SCH (08:04)
[2018-01-30] MEDS: ATORVASTATIN 40 MG TAB PO SCH (08:04)
[2018-01-30] MEDS: LISINOPRIL 5 MG TAB PO SCH (08:05)
[2018-01-30] MEDS: MAGNESIUM OXIDE 400 MG TAB PO SCH ×2 (08:05→21:03)
[2018-01-30] MEDS: LEVETIRACETAM 500 MG TAB PO SCH ×2 (08:05→21:03)
[2018-01-30] MEDS: FERROUS SULFATE 325 MG TAB PO SCH ×2 (08:05→21:00)
[2018-01-30] MEDS: NEPHROCAPS PO SCH (08:05)
[2018-01-30] MEDS: RIVASTIGMINE TARTRATE (EXELON) 1.5 MG CAP PO SCH ×2 (08:06→21:03)
[2018-01-30] MEDS: ISOSORBIDE MONONITRATE 30 MG TABCR PO SCH (08:06)
[2018-01-30 08:20] VITALS: BP 168/69; PULSE 94; TEMP 36.8; O2SAT 95
--- NOTE | 2018-01-30 08:23 | Progress Note ---
Subjective Date of Service: late entry for visit Jan 29, 2018. Subjective Pt evaluation today including: conversation w/ patient, conversation w/ family (daughter, son at bedside), physical exam, chart review, lab review, review of inpatient medication list Pain: mild discomfort vaginal region/vulvar region PO Intake: eating well Voiding: garza catheter in place tele stable overnight only complaint is that of irritative rash in vulvar region no chest pain or dyspnea stools starting to form Problem List Medical Problems: (1) Anemia Status: Acute (2) Anemia Status: Acute (3) Elevated troponin Status: Acute (4) Fall Status: Acute (5) Gastrointestinal bleeding Status: Acute (6) New onset a-fib Status: Acute (7) Right rib fracture Status: Acute (8) Tachy-lilian syndrome Status: Acute (9) UTI (urinary tract infection) Status: Acute Review of Systems Respiratory: No cough, No sputum, No wheezing, No shortness of breath, No dyspnea on exertion Cardiac: No chest pain, No orthopnea, No PND, No edema Abdomen: + diarrhea, No pain, No nausea, No vomiting Objective Vital Signs Date Time Temp Pulse Resp B/P (MAP) Pulse Ox O2 Delivery O2 Flow Rate FiO2 01/30/18 04:00 Room Air 01/30/18 03:59 36.7 86 18 128/57 (80) 97 01/30/18 00:37 36.7 85 16 120/54 (76) 96 01/30/18 00:00 Room Air 01/29/18 20:30 36.7 69 16 119/57 (77) 96 Room Air 01/29/18 20:00 Room Air 01/29/18 16:33 36.7 77 18 121/68 (85) 97 Room Air 01/29/18 16:00 Room Air 01/29/18 12:00 36.8 82 14 138/71 (93) 94 Room Air 01/29/18 12:00 Room Air Physical Exam General Appearance: no apparent distress, + pertinent finding (looks good) ENT: pharynx normal Neck: no JVD Respiratory/Chest: lungs clear, no respiratory distress, no accessory muscle use Cardiovascular: regular rate, rhythm, no gallop, + systolic murmur (2/6 RUSB) Abdomen: normal bowel sounds, non tender, soft, no organomegaly Extremities: no pedal edema Neurologic/Psychiatric: alert, normal mood/affect, oriented x 3 Skin: + pertinent finding (candidiasis groin and vulvar region) Laboratory Results Last 24 Hours Test 01/30/18 05:50 White Blood Count 9.13 K/uL Red Blood Count 3.24 M/uL Hemoglobin 9.9 g/dL Hematocrit 30.5 % Mean Corpuscular Volume 94.1 fL Mean Corpuscular Hemoglobin 30.6 pg Mean Corpuscular Hemoglobin Concent 32.5 g/dl RDW Standard Deviation 56.3 fL RDW Coefficient of Variation 16.8 % Platelet Count 295 K/uL Mean Platelet Volume 10.1 fL Sodium Level 138 mmol/L Potassium Level 4.1 mmol/L Chloride Level 109 mmol/L Carbon Dioxide Level 25 mmol/L Anion Gap 4.0 mmol/L Blood Urea Nitrogen 11 mg/dl Creatinine 0.76 mg/dl Est Creatinine Clear Calc Drug Dose 41.5 ml/min Estimated GFR () 80.6 Estimated GFR (Non- 69.5 BUN/Creatinine Ratio 14.8 Random Glucose 125 mg/dl Calcium Level 8.8 mg/dl Chemistry Specimen Hemolysis Assessment and Plan 87yo female with: 1. CAD with mild NSTEMI - s/p cath with severe multi-vessel disease; poor surgical candidate and thus medical management recommended I explained this to her & her daughters. Cont asa, statin. She previously was taking BB; changed to CCB during previous stay due to SVT/a. fib. Should we add back BB? Agree with nitrates by mouth to control symptoms. At high risk of recurrent symptoms and recurrent ACS events. 2. acute/chronic anemia - ferritin earlier this month was <20. Stool was heme + during prior stay and remains so this stay. Acute drop concerning for occult GI bleeding but H/H have stabilized s/p 1 unit PRBCs. Cont Fe supplementation. GI has seen - no testing at this time. 3. a. fib - resolved, back in NSR; appreciate Dr Vickers's expertise; cont AV cristobal agent. Poor candidate for systemic anticoagulation due to anemia and heme + stools. 4. c. diff colitis - vanco 125mg po qid x 14 days bile acid sequestrant daily-BID improving 5. aortic stenosis - stable 6. vulvar candidiasis - diflucan x 1 + nystatin powder TID 7. CKD stage 3 - creatinine stable; bmp in am 8. hypomagnesemia - replace IV, repeat mag level am 9. deconditioning - PT, OT evals pending; suspect she will need personal care or higher level of care post-discharge; she is agreeable to placement if needed daughters updated 1 more day on tele; if normal overnight then send to med/surg Continued [facility] stay due to: multiple IV medications needed Discharge planning: home with home health (vs other)
[2018-01-30] MEDS: MAGNESIUM SULFATE 1GM / D5W 1 GM in PREMIXED IN D5W 100 ML IV SCH (10:41)
[2018-01-30 12:00] VITALS: BP 111/51; PULSE 78; TEMP 36.6; O2SAT 96
--- NOTE | 2018-01-30 12:34 | Cardiology Follow-Up ---
Subjective Date of Service: Jan 30, 2018. Pt evaluation today including: conversation w/ patient, conversation w/ family , physical exam, lab review, review of studies, review of inpatient medication list History of Present Illness This is a very pleasant 87-year-old woman who may have a history of coronary artery disease (as evidenced by a non-ST segment elevation myocardial infarction at the end of August 2016 in association with rapid heart rate) as well as valvular heart disease including moderate aortic stenosis and mild to moderate mitral regurgitation. 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 She was identified as having anemia at the time and had a small enzyme rise. She was treated medically for the arrhythmia. She recalls historically having occasional episodes of palpitations but is not very aware of the arrhythmia. She did present with chest discomfort which has not recurred. She is maintained on metoprolol tartrate for the arrhythmia. Echocardiography showed normal left ventricular function but she has moderate to severe aortic stenosis. Her presentation last admission was with diarrhea and abdominal discomfort, however she was observed to have periods of SVT at a rapid heart rate as well as some electrocardiographic abnormalities. Her symptoms are little bit vague, she did admit to having intermittent palpitations but was not very precise about it. She had frequent episodes during that hospital stay and I cannot tell if she actually has much in the way of symptoms related to them. She did not have chest discomfort or shortness of breath. She evidently does not have lightheadedness or dizziness and denies syncope or presyncope. Her rhythm appeared to be very well controlled on intravenous diltiazem therefore she was discharged January 22, 2018 on diltiazem CD 180 mg daily. She returns now having continued diarrhea as well as some chest discomfort and was noted to be in atrial fibrillation at her primary care physician's office. She was therefore sent to the emergency room where she was also identified as having atrial fibrillation, but that converted to sinus rhythm shortly thereafter. She seems unaware of the rhythm specifically but has had intermittent chest discomfort lasting several minutes. She was pain-free and remained in sinus rhythm following conversion in the emergency room, however with ambulation that evening she had anginal type chest discomfort with no rhythm disturbance and also some electrocardiographic changes which appear to be a little bit different than before. The episode was relieved with rest and nitroglycerin. She has had anemia for some time with no clear source of bleedin , although overnight she did have heme positive stools. She does not have any cardiovascular complaints, she has no chest discomfort or shortness of breath or palpitations. She does have other complaints including diarrhea, right foot discomfort. Social History Smoking Status: Never Smoker History of Alcohol Use: No Review of Systems Respiratory: No cough, No sputum, No wheezing, No shortness of breath, No dyspnea on exertion Cardiac: No chest pain, No orthopnea, No PND, No edema Medications Cardiovascular: Item Value Date Time Isosorbide 30 mg 01/30/18 0900 Mononitrate QAM/PO 01/30/18 0806 (Imdur Ext Rel Tab) Diltiazem HCl 180 mg 01/27/18 09 (TIAzac CAP) QAM/PO 01/30/18 08 Lisinopril 5 mg 01/27/18 09 (Zestril Tab) DAILY/PO 01/30/18 0805 Atorvastatin 80 mg 01/27/18 09 Calcium DAILY/PO 01/30/18 08 (Lipitor Tab) Objective Vital Signs Past 12 Hours Date Time Temp Pulse Resp B/P (MAP) Pulse Ox O2 Delivery O2 Flow Rate FiO2 01/30/18 08:20 36.8 94 20 168/69 (102) 95 Room Air 01/30/18 08:00 Room Air 01/30/18 04:00 Room Air 01/30/18 03:59 36.7 86 18 128/57 (80) 97 01/30/18 00:37 36.7 85 16 120/54 (76) 96 Last Recorded Weight-Kilograms: 54.200 Physical Exam Constitutional: Level of Distress: NAD Lungs: Auscultation: breath sounds normal Cardiovascular: Heart Auscultation: RRR, II/ BARBARA Extremities: no edema Data Laboratory Results: Last 24 Hours Test 01/30/18 05:50 White Blood Count 9.13 K/uL Red Blood Count 3.24 M/uL Hemoglobin 9.9 g/dL Hematocrit 30.5 % Mean Corpuscular Volume 94.1 fL Mean Corpuscular Hemoglobin 30.6 pg Mean Corpuscular Hemoglobin Concent 32.5 g/dl RDW Standard Deviation 56.3 fL RDW Coefficient of Variation 16.8 % Platelet Count 295 K/uL Mean Platelet Volume 10.1 fL Sodium Level 138 mmol/L Potassium Level 4.1 mmol/L Chloride Level 109 mmol/L Carbon Dioxide Level 25 mmol/L Anion Gap 4.0 mmol/L Blood Urea Nitrogen 11 mg/dl Creatinine 0.76 mg/dl Est Creatinine Clear Calc Drug Dose 41.5 ml/min Estimated GFR () 80.6 Estimated GFR (Non- 69.5 BUN/Creatinine Ratio 14.8 Random Glucose 125 mg/dl Calcium Level 8.8 mg/dl Magnesium Level 1.6 mg/dl Chemistry Specimen Hemolysis Telemetry reviewed: Sinus rhythm, premature beats Assessment and Plan 1. Chest discomfort: Her chest discomfort, which I believe is anginal, appears to be improved with transfusions and now with addition of Imdur. She has not had any since yesterday, we will see if it recurs if she becomes more active. 2. Coronary disease: She has severe coronary disease, high risk intervention could possibly be performed but under the circumstances I would like to try medical therapy. That would include keeping her hemoglobin reasonable, close to 10 if we can, as well as increasing antianginals. She is on diltiazem for her SVT which will help, I added Imdur and she is tolerating it well. I have not altered her medications today. 3. 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 Of note however the 2 rhythms do not coexist, the regular rapid SVT seems to start and terminate for the most part and does not coexist with the variable heart rates. A reentrant SVT is initiated by premature beats therefore they may be independent rhythms and she likely has both both. Clearly she had atrial fibrillation on presentation here, whether it was initiated by SVT or not I cannot tell. Her SVT had been very well controlled on low-dose diltiazem. Her atrial fibrillation appears to have been well rate controlled on the same medical regimen. 4. Atrial fibrillation: I am not sure how much atrial fibrillation she has or whether she should be on chronic anticoagulation. Currently her episode was evidently somewhat brief, or at least terminated quickly after arrival in the emergency room. I would recommend keeping her on the monitor for the time being and we can see what the pattern is. So far she is not having much of it and with her possible GI bleed it might be safer to leave her off of anticoagulation. 5. Aortic stenosis: She has a history of aortic stenosis, in September 2016 she was felt to have moderate aortic stenosis. That does not seem to have changed as of her recent visit. Thank you for allowing me to participate in her care.
[2018-01-30] MEDS ORDERED: COLESTIPOL HCL 1 GM TAB PO ONE (13:24)
[2018-01-30] MEDS ORDERED: COLCHICINE 0.6 MG TAB PO ONE ×2 (13:30→14:30)
[2018-01-30] MEDS: DICLOFENAC SOD 1% GEL 100 GM TUBE EXT SCH ×3 (15:00→20:53)
[2018-01-30 15:26] VITALS: BP 108/53; PULSE 66; TEMP 37; O2SAT 98
[2018-01-30 19:45] VITALS: BP 123/55; PULSE 81; TEMP 36.8; O2SAT 94
[2018-01-30] MEDS: COLESTIPOL HCL 1 GM TAB PO SCH (21:01)
--- NOTE | 2018-01-30 23:44 | Progress Note ---
Subjective Date of Service: Jan 30, 2018. Subjective Pt evaluation today including: conversation w/ patient, conversation w/ family (daughter at bedside), physical exam, chart review, lab review, conversation w/ loss prevention consultant (cardiology), review of inpatient medication list Pain: right foot - see below for details PO Intake: eating well Voiding: garza catheter in place patient reports severe pain in right foot (mid-foot) started in the middle of the night last pm has been present since cannot bear weight on that foot w/o considerable pain denies injury no prior h/o gout to her knowledge denies any pulmonary complaints continues with loose stools - had 3 such episodes overnight willing to go to SNF Problem List Medical Problems: (1) Anemia Status: Acute (2) Anemia Status: Acute (3) Elevated troponin Status: Acute (4) Fall Status: Acute (5) Gastrointestinal bleeding Status: Acute (6) New onset a-fib Status: Acute (7) Right rib fracture Status: Acute (8) Tachy-lilian syndrome Status: Acute (9) UTI (urinary tract infection) Status: Acute Review of Systems Constitutional: No fever, No chills Respiratory: No cough, No sputum, No wheezing, No shortness of breath, No dyspnea at rest Cardiac: No chest pain, No orthopnea, No PND Abdomen: No pain Musculoskeletal: + see HPI, + joint pain Objective Vital Signs Date Time Temp Pulse Resp B/P (MAP) Pulse Ox O2 Delivery O2 Flow Rate FiO2 01/30/18 19:45 36.8 81 18 123/55 (77) 94 Room Air 01/30/18 16:00 Room Air 01/30/18 15:26 37.0 66 18 108/53 (71) 98 Room Air 01/30/18 12:00 Room Air 01/30/18 12:00 36.6 78 18 111/51 (71) 96 Room Air 01/30/18 08:20 36.8 94 20 168/69 (102) 95 Room Air 01/30/18 08:00 Room Air 01/30/18 04:00 Room Air 01/30/18 03:59 36.7 86 18 128/57 (80) 97 01/30/18 00:37 36.7 85 16 120/54 (76) 96 01/30/18 00:00 Room Air Physical Exam General Appearance: no apparent distress ENT: pharynx normal Neck: no JVD Respiratory/Chest: lungs clear, no respiratory distress, no accessory muscle use Cardiovascular: regular rate, rhythm, no gallop, + systolic murmur (2/6 RUSB) Abdomen: normal bowel sounds, non tender, soft, no organomegaly Extremities: + pertinent finding (right leg is larger than left leg - chronic, left leg 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 ) Neurologic/Psychiatric: alert, oriented x 3 Comments: musculo - right foot - midfoot region is swollen, warm to touch, and tender to touch (even with light pressure); all toes wnl; ankle wnl with no synovitis or pain Laboratory Results Last 24 Hours Test 01/30/18 05:50 White Blood Count 9.13 K/uL Red Blood Count 3.24 M/uL Hemoglobin 9.9 g/dL Hematocrit 30.5 % Mean Corpuscular Volume 94.1 fL Mean Corpuscular Hemoglobin 30.6 pg Mean Corpuscular Hemoglobin Concent 32.5 g/dl RDW Standard Deviation 56.3 fL RDW Coefficient of Variation 16.8 % Platelet Count 295 K/uL Mean Platelet Volume 10.1 fL Sodium Level 138 mmol/L Potassium Level 4.1 mmol/L Chloride Level 109 mmol/L Carbon Dioxide Level 25 mmol/L Anion Gap 4.0 mmol/L Blood Urea Nitrogen 11 mg/dl Creatinine 0.76 mg/dl Est Creatinine Clear Calc Drug Dose 41.5 ml/min Estimated GFR () 80.6 Estimated GFR (Non- 69.5 BUN/Creatinine Ratio 14.8 Random Glucose 125 mg/dl Calcium Level 8.8 mg/dl Magnesium Level 1.6 mg/dl Chemistry Specimen Hemolysis Assessment and Plan 87yo female with: 1. CAD with mild NSTEMI - s/p cath with severe multi-vessel disease; poor surgical candidate and thus medical management recommended Cont asa, statin. She previously was taking BB; changed to CCB during previous stay due to SVT/a. fib. Should we add back BB? Cont imdur. At high risk of recurrent symptoms and recurrent ACS events. 2. acute/chronic anemia - ferritin earlier this month was <20. Stool was heme + during prior stay and remains so this stay. Acute drop concerning for occult GI bleeding but H/H have stabilized s/p 1 unit PRBCs. Cont Fe supplementation. GI has seen - no testing at this time. 3. a. fib - resolved, back in NSR; appreciate Dr Vickers's expertise; cont AV cristobal agent. Poor candidate for systemic anticoagulation due to anemia and heme + stools. 4. c. diff colitis - vanco 125mg po qid x 14 days change cholestyramine to colestipol and give BID 5. aortic stenosis - stable 6. vulvar candidiasis - nystatin powder TID 7. CKD stage 3 - creatinine stable; bmp in am 8. hypomagnesemia - replace IV once again; repeat mag level am; also increase oral dose to BID dosing 9. 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 Colchicine 0.6mg x 2 doses; voltaren gel qid; then colchicine 0.6mg daily starting tomorrow. Poor candidate for steroids and/or NSAIDs. 10. deconditioning - PT, OT evals appreciated; probably needs SNF placement I visited with Ms. Alcala twice today during 2nd visit I spent about 30 minutes discussing palliative care/hospice with the patient and her daughter patient has severe multi-vessel CAD and could have a very large cardiac event at any time she is not a candidate for intervention of the CAD I discussed that palliative care may be one of her best options given the high likelihood she will have ongoing symptoms from her CAD and/or recurrent cardiac events daughter interested in learning more about hospice/palliative care patient seemed to understand the nuts & bolts of this conversation she made the comment "when it's my time I'm ok with it" will place palliative care consult for the morning total time today between 2 separate visits - about 50 minutes Continued [facility] stay due to: voiding difficulties, ambulation difficulties, home environment unsafe for pt Discharge planning: assisted facility
[2018-01-31] VITALS (7 sets, daily range): BP systolic 93–143; BP diastolic 51–67; PULSE 67–87; TEMP 36.3–36.9; O2SAT 16–97
[2018-01-31] MEDS: VANCOMYCIN HCL 125 MG/2.5ML SOLN PO SCH ×4 (04:22→21:32)
[2018-01-31] MEDS: RASPBERRY SYRUP 5 ML UDP PO SCH ×4 (04:22→21:29)
[2018-01-31] MEDS: DICLOFENAC SOD 1% GEL 100 GM TUBE EXT SCH ×4 (04:22→21:24)
[2018-01-31 07:27] LABS: CALCIUM 8.6 mg/dl (8.5-10.1); CREATININE 0.89 mg/dl (0.60-1.20); POTASSIUM 4.3 mmol/L (3.5-5.1)
[2018-01-31] MEDS: CHOLECALCIFEROL 1000 INTER.UNIT TAB PO SCH (07:40)
[2018-01-31] MEDS: FERROUS SULFATE 325 MG TAB PO SCH ×2 (07:40→21:23)
[2018-01-31] MEDS: LEVETIRACETAM 500 MG TAB PO SCH ×2 (07:41→21:23)
[2018-01-31] MEDS: LISINOPRIL 5 MG TAB PO SCH (07:41)
[2018-01-31] MEDS: PANTOprazole SOD 40 MG TAB PO SCH ×2 (07:41→21:23)
[2018-01-31] MEDS: ATORVASTATIN 40 MG TAB PO SCH (07:41)
[2018-01-31] MEDS: RIVASTIGMINE TARTRATE (EXELON) 1.5 MG CAP PO SCH ×2 (07:41→21:25)
[2018-01-31] MEDS: MAGNESIUM OXIDE 400 MG TAB PO SCH ×2 (07:41→21:26)
[2018-01-31] MEDS: ISOSORBIDE MONONITRATE 30 MG TABCR PO SCH (07:42)
[2018-01-31] MEDS: DILTIAZEM HCL (TIAzac) 180 MG CAPCR PO SCH (07:43)
[2018-01-31] MEDS: NYSTATIN POWDER 15GM BTL EXT SCH ×3 (07:44→21:24)
[2018-01-31] MEDS: NEPHROCAPS PO SCH (07:48)
[2018-01-31] MEDS: SILVER SULFADIAZINE 1% CR 50 GM JAR EXT SCH (09:00)
--- NOTE | 2018-01-31 09:37 | Cardiology Follow-Up ---
Subjective Date of Service: Jan 31, 2018. Pt evaluation today including: conversation w/ patient, physical exam, lab review, review of studies, review of inpatient medication list History of Present Illness This is a very pleasant 87-year-old woman who may have a history of coronary artery disease (as evidenced by a non-ST segment elevation myocardial infarction at the end of August 2016 in association with rapid heart rate) as well as valvular heart disease including moderate aortic stenosis and mild to moderate mitral regurgitation. 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 She was identified as having anemia at the time and had a small enzyme rise. She was treated medically for the arrhythmia. She recalls historically having occasional episodes of palpitations but is not very aware of the arrhythmia. She did present with chest discomfort which has not recurred. She is maintained on metoprolol tartrate for the arrhythmia. Echocardiography showed normal left ventricular function but she has moderate to severe aortic stenosis. Her presentation last admission was with diarrhea and abdominal discomfort, however she was observed to have periods of SVT at a rapid heart rate as well as some electrocardiographic abnormalities. Her symptoms are little bit vague, she did admit to having intermittent palpitations but was not very precise about it. She had frequent episodes during that hospital stay and I cannot tell if she actually has much in the way of symptoms related to them. She did not have chest discomfort or shortness of breath. She evidently does not have lightheadedness or dizziness and denies syncope or presyncope. Her rhythm appeared to be very well controlled on intravenous diltiazem therefore she was discharged January 22, 2018 on diltiazem CD 180 mg daily. She returns now having continued diarrhea as well as some chest discomfort and was noted to be in atrial fibrillation at her primary care physician's office. She was therefore sent to the emergency room where she was also identified as having atrial fibrillation, but that converted to sinus rhythm shortly thereafter. She seems unaware of the rhythm specifically but has had intermittent chest discomfort lasting several minutes. She was pain-free and remained in sinus rhythm following conversion in the emergency room, however with ambulation that evening she had anginal type chest discomfort with no rhythm disturbance and also some electrocardiographic changes which appear to be a little bit different than before. The episode was relieved with rest and nitroglycerin. She has had anemia for some time with no clear source of bleeding , although overnight she did have heme positive stools. She is still complaining of GI issues but is having no chest discomfort and no palpitations. She is tolerating her cardiovascular medications well. Social History Smoking Status: Never Smoker History of Alcohol Use: No Review of Systems Respiratory: No cough, No sputum, No wheezing, No shortness of breath, No dyspnea at rest Cardiac: No chest pain, No orthopnea, No PND Medications Cardiovascular: Item Value Date Time Isosorbide 30 mg 01/30/18 0900 Mononitrate QAM/PO 01/31/18 0742 (Imdur Ext Rel Tab) Diltiazem HCl 180 mg 01/27/18 0900 (TIAzac CAP) QAM/PO 01/31/18 0743 Lisinopril 5 mg 01/27/18 0900 (Zestril Tab) DAILY/PO 01/31/18 0741 Atorvastatin 80 mg 01/27/18 0900 Calcium DAILY/PO 01/31/18 0741 (Lipitor Tab) Objective Vital Signs Past 12 Hours Date Time Temp Pulse Resp B/P (MAP) Pulse Ox O2 Delivery O2 Flow Rate FiO2 01/31/18 08:00 Room Air 01/31/18 07:40 36.8 70 20 143/63 (89) 97 Room Air 01/31/18 04:02 36.7 67 18 143/67 (92) 96 01/31/18 04:00 Room Air 01/31/18 00:42 36.9 87 16 119/63 (81) 97 01/31/18 00:00 Room Air Last Recorded Weight-Kilograms: 56.100 Physical Exam Constitutional: Level of Distress: NAD Lungs: Auscultation: breath sounds normal Cardiovascular: Heart Auscultation: RRR, II/ BARBARA Extremities: no edema Data Laboratory Results: Last 24 Hours Test 01/31/18 05:54 Hemoglobin 9.2 g/dL Sodium Level 137 mmol/L Potassium Level 4.3 mmol/L Chloride Level 107 mmol/L Carbon Dioxide Level 23 mmol/L Anion Gap 7.0 mmol/L Blood Urea Nitrogen 15 mg/dl Creatinine 0.89 mg/dl Est Creatinine Clear Calc Drug Dose 35.4 ml/min Estimated GFR () 66.6 Estimated GFR (Non- 57.5 BUN/Creatinine Ratio 16.3 Random Glucose 107 mg/dl Calcium Level 8.6 mg/dl Magnesium Level 2.0 mg/dl Telemetry reviewed: Sinus rhythm with PACs, no SVT or significant AF Assessment and Plan 1. Chest discomfort: Her chest discomfort, which I believe is anginal, appears to be improved with transfusions and now with addition of Imdur she has not had any. We will see if it recurs if she becomes more active. 2. Coronary disease: She has severe coronary disease, high risk intervention could possibly be performed but under the circumstances I would like to try medical therapy. That would include keeping her hemoglobin reasonable, close to 10 if we can, as well as increasing antianginals if needed. She is on diltiazem for her SVT which will help. I have not altered her medications today. 3. 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 Of note however the 2 rhythms do not coexist, the regular rapid SVT seems to start and terminate for the most part and does not coexist with the variable heart rates. A reentrant SVT is initiated by premature beats therefore they may be independent rhythms and she likely has both both. Clearly she had atrial fibrillation on presentation here, whether it was initiated by SVT or not I cannot tell. Her SVT had been very well controlled on low-dose diltiazem. Her atrial fibrillation appears to have been well rate controlled on the same medical regimen. 4. Atrial fibrillation: I am not sure how much atrial fibrillation she has or whether she should be on chronic anticoagulation. Currently her episode was evidently somewhat brief, or at least terminated quickly after arrival in the emergency room. So far she is not having much atrial fibrillation and with her possible GI bleed it might be safer to leave her off of anticoagulation. 5. Aortic stenosis: She has a history of aortic stenosis, in September 2016 she was felt to have moderate aortic stenosis. That does not seem to have changed as of her recent visit. Thank you for allowing me to participate in her care.
[2018-01-31] MEDS: COLESTIPOL HCL 1 GM TAB PO SCH ×2 (09:50→22:51)
--- NOTE | 2018-01-31 12:51 | Palliative Care Consultation ---
Consultation Date of Consultation: Jan 31, 2018. Requesting Physician: Dr. Gaston Attending Physician: Dr. Gaston Reason for Consultation: Goals of Care History of Present Illness Pt is a pleasant 87 year old female with a history of CAD with a mild NSTEMI - s /p cath, patient with significant multi-vessel disease and is a poor surgical candidate. Pt a high risk of having an additional event and is being managed conservatively with medications. Palliative Care consulted to discuss goals of care. Pt reports that she lives at home in a 2-story home - she stated that she does not go upstairs and has home health come to her home. She does not have a bathroom on the first floor of her home. Pt states that she does not have any chest pain currently, she denies SOB, CP, Palpitations, abdominal pain, appetite changes. Pt currently being treated for C-diff with Vancomycin. In discussion with patient - she is willing and receptive to proceeding with transitioning to a jail facility. She realizes that she requires more care than she has previously. We talked about what is important to her - she likes reading and crocheting - we talked about how the recreational department can help fullfill her goals and improve her quality of life. She does not have a preference on which SNF to proceed with, but would like her daughters to decide. I phoned and spoke with Grace, and they do not have a preference. I mentioned that Case Management would be reaching out to her to discuss some options of facilities and she was agreeable to such. Social History Smoking Status: Never Smoker History of Alcohol Use: No Drug Use: none Marital Status: Housing Status: lives alone (ambulates with walker and a cane. ) Occupation Status: retired Review of Systems ENT: + problem reported (Pt denies dysphagia, ) Respiratory: + problem reported (Pt denies SOB or difficulty with breathing during exercise) Cardiac: + problem reported (pt denies chest pain or palpitations) Abdomen: + problem reported (Pt denies abdominal pain. Pt reports frequent BMs ) Allergies Coded Allergies: Hydrocodone (Unverified Allergy, Intermediate, possibly a rash, 01/19/18) Medications Current Inpatient Medications Medications (Trade) Dose Ordered Sig/Giorgi Route Start Time Stop Time Status Last Admin Dose Admin Acetaminophen (Tylenol Tab) 650 mg Q4H PRN PO 01/26/18 12:30 02/25/18 12:29 01/30/18 08:03 650 MG Diltiazem HCl (TIAzac CAP) 180 mg QAM PO 01/27/18 09:00 02/26/18 08:59 01/31/18 07:43 180 MG Levetiracetam (Keppra Tab) 500 mg BID PO 01/26/18 21:00 02/25/18 20:59 01/31/18 07:41 500 MG Lisinopril (Zestril Tab) 5 mg DAILY PO 01/27/18 09:00 02/26/18 08:59 01/31/18 07:41 5 MG Silver Sulfadiazine (Silvadene 1% Crm 50GM Jar) 1 appln BID EXT 01/26/18 21:00 02/25/18 20:59 01/30/18 20:52 1 APPLN Vitamin B Complex/ Vit C/Folic Acid (Nephrocaps) 1 cap DAILY PO 01/27/18 09:00 02/26/18 08:59 01/31/18 07:48 1 CAP Cholecalciferol (Vitamin D Tab) 2,000 inter.unit DAILY PO 01/27/18 09:00 02/26/18 08:59 01/31/18 07:40 2,000 INTER.UNIT Ferrous Sulfate (Feosol Tab) 325 mg BID PO 01/26/18 21:00 02/25/18 20:59 01/31/18 07:40 325 MG Rivastigmine Tartrate (Exelon Cap) 6 mg BID PO 01/26/18 21:00 02/25/18 20:59 01/31/18 07:41 6 MG Miscellaneous (Iv Fluids Completed) 1 ea PRN PRN N/A 01/26/18 13:00 01/26/19 12:59 Atorvastatin Calcium (Lipitor Tab) 80 mg DAILY PO 01/27/18 09:00 02/26/18 08:59 01/31/18 07:41 80 MG Vancomycin HCl (Vancomycin Oral Soln) 125 mg Q6H PO 01/27/18 16:00 02/10/18 15:59 01/31/18 09:50 125 MG Raspberry (Raspberry Syrup 5ml Cup) 5 ml Q6H PO 01/27/18 16:00 02/10/18 15:59 4/16/18 09:50 5 ML Pantoprazole Sodium (Protonix Tab) 40 mg BID PO 01/28/18 21:00 02/26/18 08:59 01/31/18 07:41 40 MG Isosorbide Mononitrate (Imdur Ext Rel Tab) 30 mg QAM PO 01/30/18 09:00 03/01/18 08:59 01/31/18 07:42 30 MG Nystatin (Mycostatin Powder) 1 appln TID EXT 01/29/18 16:00 02/28/18 15:59 01/31/18 07:44 1 APPLN Ondansetron HCl (Zofran Odt) 4 mg Q6H PRN PO 01/30/18 05:30 03/01/18 05:29 Magnesium Oxide (Mag-Ox Tab) 400 mg BID PO 01/30/18 21:00 02/26/18 08:59 01/31/18 07:41 400 MG Colestipol HCl (Colestid Tab) 1 gm BID@1000,2200 PO 01/30/18 22:00 03/01/18 21:59 01/31/18 09:50 1 GM Diclofenac Sodium (Voltaren 1% Top Gel) 1 appln QID EXT 01/30/18 13:30 03/01/18 13:29 01/31/18 04:22 1 APPLN Physical Exam Date Time Temp Pulse Resp B/P (MAP) Pulse Ox O2 Delivery O2 Flow Rate FiO2 01/31/18 08:00 Room Air 01/31/18 07:40 36.8 70 20 143/63 (89) 97 Room Air 01/31/18 04:02 36.7 67 18 143/67 (92) 96 01/31/18 04:00 Room Air 01/31/18 00:42 36.9 87 16 119/63 (81) 97 01/31/18 00:00 Room Air 01/30/18 20:00 Room Air 01/30/18 19:45 36.8 81 18 123/55 (77) 94 Room Air 01/30/18 16:00 Room Air 01/30/18 15:26 37.0 66 18 108/53 (71) 98 Room Air 01/30/18 12:00 Room Air 4/15/18 12:00 36.6 78 18 111/51 (71) 96 Room Air General Appearance: no apparent distress (Pt in NAD - sitting in her ) Cardiovascular: regular rate, rhythm (infrequent PVC's), no edema, no JVD, + pertinent finding (Grade III murmur auscultated at LSB) Abdomen: normal bowel sounds, non tender, soft Musculoskeletal: pertinent finding (4/5 UE B/L, 4+/5 UE B/L) Skin: no rash Laboratory Results Last 24 Hours Test 01/31/18 05:54 Hemoglobin 9.2 g/dL Sodium Level 137 mmol/L Potassium Level 4.3 mmol/L Chloride Level 107 mmol/L Carbon Dioxide Level 23 mmol/L Anion Gap 7.0 mmol/L Blood Urea Nitrogen 15 mg/dl Creatinine 0.89 mg/dl Est Creatinine Clear Calc Drug Dose 35.4 ml/min Estimated GFR () 66.6 Estimated GFR (Non- 57.5 BUN/Creatinine Ratio 16.3 Random Glucose 107 mg/dl Calcium Level 8.6 mg/dl Magnesium Level 2.0 mg/dl Assessment & Plan Palliative Performance Scale: 50 % Palliative Care encounter Goals of Care CAD with NSTEMI - poor surgical candidate C-Diff Palliative Care Recommendations: -continue with medicinal management and when stable enough, proceed with SNF placement. -Case Management to contact patient family, Grace, to discuss SNF placement options - Will fill out a POLST form when patient daughter present Thank you kindly for this consult - we will continue to see this patient and offer support throughout her hospitalization Counseling and Coordination Total time spent >50 minutes with >50% of that time reviewing the chart, discussing with her attending provider, assessing the patient and discussing goals of care with the patient at the bedside and daughter over the phone
[2018-01-31] MEDS ORDERED: NURSING VERBAL MED ORDER ONE (17:45)
[2018-02-01] VITALS (7 sets, daily range): BP systolic 115–144; BP diastolic 50–65; PULSE 72–79; TEMP 36.4–37; O2SAT 95–98
[2018-02-01] MEDS: VANCOMYCIN HCL 125 MG/2.5ML SOLN PO SCH ×4 (04:23→22:09)
[2018-02-01] MEDS: RASPBERRY SYRUP 5 ML UDP PO SCH ×4 (04:23→22:09)
[2018-02-01 06:11] LABS: BASO % 0.3 %; BASO ABS # 0.02 K/uL (0-0.2); EOS % 3.5 %; EOS ABS # 0.25 K/uL (0-0.5); HEMATOCRIT 29.2 % (37-47); HEMOGLOBIN 9.2 g/dL (12.0-16.0); IG# 0.02 K/uL (0.00-0.02); LYMPH % 16.5 %; LYMPH ABS # 1.17 K/uL (1.2-3.4); MEAN CELL VOLUME 94.8 fL (80-100); MEAN CORPUSCULAR HEMOGLOBIN 29.9 pg (25-34); MEAN CORPUSCULAR HGB CONC 31.5 g/dl (32-36); MEAN PLATELET VOLUME 9.7 fL (7.4-10.4); MONO % 11.1 %; MONO ABS # 0.79 K/uL (0.11-0.59); NEUT % 68.3 %; NEUT ABS # 4.85 K/uL (1.4-6.5); PLATELET COUNT 293 K/uL (130-400); RED CELL DISTRIBUTION WIDTH CV 16.7 % (11.5-14.5); RED CELL DISTRIBUTION WIDTH SD 57.4 fL (36.4-46.3)
--- NOTE | 2018-02-01 06:24 | Progress Note ---
Subjective Date of Service: Jan 31, 2018. Subjective Pt evaluation today including: conversation w/ patient, conversation w/ family (2 daughters at bedside), physical exam, chart review, lab review, conversation w/ senior billing consultant (palliative ), review of inpatient medication list Pain: no cp or abd pain PO Intake: fair Voiding: garza catheter in place tele stable overnight patient ongoing with copious liquid stool some of which has been melena her right foot feels better she & family have decided on [facility] for SNF met w/ palliative care and they are still thinking about whether to pursue hospice Problem List Medical Problems: (1) Anemia Status: Acute (2) Anemia Status: Acute (3) Elevated troponin Status: Acute (4) Fall Status: Acute (5) Gastrointestinal bleeding Status: Acute (6) New onset a-fib Status: Acute (7) Right rib fracture Status: Acute (8) Tachy-lilian syndrome Status: Acute (9) UTI (urinary tract infection) Status: Acute Review of Systems Constitutional: No fever Respiratory: No cough, No shortness of breath Cardiac: No chest pain, No orthopnea Abdomen: + diarrhea, No pain, No nausea, No vomiting Objective Vital Signs Date Time Temp Pulse Resp B/P (MAP) Pulse Ox O2 Delivery O2 Flow Rate FiO2 01/31/18 19:31 36.3 75 18 100/51 (67) 96 Room Air 01/31/18 16:00 Room Air 01/31/18 15:48 36.8 75 16 112/56 (74) 96 Room Air 01/31/18 12:42 36.8 82 22 93/55 (68) 16 Room Air 01/31/18 12:00 Room Air 01/31/18 10:22 86 96 01/31/18 08:00 Room Air 01/31/18 07:40 36.8 70 20 143/63 (89) 97 Room Air 01/31/18 04:02 36.7 67 18 143/67 (92) 96 01/31/18 04:00 Room Air 01/31/18 00:42 36.9 87 16 119/63 (81) 97 01/31/18 00:00 Room Air Physical Exam General Appearance: no apparent distress ENT: pharynx normal Neck: no JVD Respiratory/Chest: lungs clear, no respiratory distress, no accessory muscle use Cardiovascular: regular rate, rhythm, no gallop, + systolic murmur (2/6, RUSB) Abdomen: normal bowel sounds, non tender, soft, no organomegaly Extremities: + pedal edema (right foot; none on left) Neurologic/Psychiatric: alert, oriented x 3 Comments: musculo - right foot midfoot swelling/warmth/tenderness all improved Laboratory Results Last 24 Hours Test 01/31/18 05:54 Hemoglobin 9.2 g/dL Sodium Level 137 mmol/L Potassium Level 4.3 mmol/L Chloride Level 107 mmol/L Carbon Dioxide Level 23 mmol/L Anion Gap 7.0 mmol/L Blood Urea Nitrogen 15 mg/dl Creatinine 0.89 mg/dl Est Creatinine Clear Calc Drug Dose 35.4 ml/min Estimated GFR () 66.6 Estimated GFR (Non- 57.5 BUN/Creatinine Ratio 16.3 Random Glucose 107 mg/dl Calcium Level 8.6 mg/dl Magnesium Level 2.0 mg/dl Assessment and Plan 87yo female with: 1. CAD with mild NSTEMI - s/p cath with severe multi-vessel disease; poor surgical candidate and thus medical management recommended Cont asa, statin. She previously was taking BB; changed to CCB during previous stay due to SVT/a. fib. Should we add back BB? Cont imdur. At high risk of recurrent symptoms and recurrent ACS events given the 95% LAD lesion, left main disease, and other lesions. 2. acute/chronic anemia - ferritin earlier this month was <20. Stool was heme + during prior stay and remains so this stay. She had grossly melenotic stool today. Suspect upper GI source. Cont PPI twice a day. Cont Fe supplementation. GI has seen - no testing at this time. If melena continues or H/H continue to fall - hold aspirin unfortunately. CBC am. 3. a. fib - resolved, back in NSR; appreciate Dr Vickers's expertise; cont AV cristobal agent. Poor candidate for systemic anticoagulation due to anemia and heme + stools. 4. c. diff colitis - vanco 125mg po qid x 14 days; today is day #5. continue colestipol BID 5. aortic stenosis - stable 6. vulvar candidiasis - nystatin powder TID 7. CKD stage 3 - creatinine stable; bmp in am 8. hypomagnesemia - replaced and wnl today. cont mag oxide bid. 9. acute mid-foot synovitis/arthritis, right - suspect acute gouty arthritis. Slowly improving. Poor candidate for steroids and/or NSAIDs due to CAD and suspected upper GI bleeding. cont voltaren gel qid and colchicine 0.6mg daily. 10. deconditioning - PT, OT evals appreciated; needs SNF placement in light of declining status, severe/critical CAD (and she is not a stent or surgical candidate), etc we spent much of the weekend discussing palliative care palliative care team met with patient/family today they will cont to follow POLST form was to be completed social work assisting with SNF placement Continued [facility] stay due to: voiding difficulties, ambulation difficulties, home environment unsafe for pt, other (c diff diarrhea ) Discharge planning: assisted facility
[2018-02-01 06:51] LABS: CALCIUM 8.8 mg/dl (8.5-10.1); CREATININE 0.98 mg/dl (0.60-1.20); POTASSIUM 4.4 mmol/L (3.5-5.1)
[2018-02-01] MEDS: RIVASTIGMINE TARTRATE (EXELON) 1.5 MG CAP PO SCH ×2 (07:40→20:23)
[2018-02-01] MEDS: ISOSORBIDE MONONITRATE 30 MG TABCR PO SCH (07:41)
[2018-02-01] MEDS: LEVETIRACETAM 500 MG TAB PO SCH ×2 (07:41→20:24)
[2018-02-01] MEDS: CHOLECALCIFEROL 1000 INTER.UNIT TAB PO SCH (07:41)
[2018-02-01] MEDS: NEPHROCAPS PO SCH (07:41)
[2018-02-01] MEDS: PANTOprazole SOD 40 MG TAB PO SCH (07:41)
[2018-02-01] MEDS: DILTIAZEM HCL (TIAzac) 180 MG CAPCR PO SCH (07:41)
[2018-02-01] MEDS: FERROUS SULFATE 325 MG TAB PO SCH ×2 (07:41→20:22)
[2018-02-01] MEDS: ATORVASTATIN 40 MG TAB PO SCH (07:41)
[2018-02-01] MEDS: MAGNESIUM OXIDE 400 MG TAB PO SCH (07:42)
[2018-02-01] MEDS: DICLOFENAC SOD 1% GEL 100 GM TUBE EXT SCH ×4 (07:44→20:22)
[2018-02-01] MEDS: NYSTATIN POWDER 15GM BTL EXT SCH ×3 (07:45→20:22)
[2018-02-01] MEDS: COLCHICINE 0.6 MG TAB PO SCH (08:28)
[2018-02-01] MEDS: LISINOPRIL 5 MG TAB PO SCH (08:28)
--- NOTE | 2018-02-01 09:14 | Cardiology Follow-Up ---
Subjective Date of Service: Feb 01, 2018. Pt evaluation today including: conversation w/ patient, physical exam, lab review, review of studies, review of inpatient medication list History of Present Illness This is a very pleasant 87-year-old woman who may have a history of coronary artery disease (as evidenced by a non-ST segment elevation myocardial infarction at the end of August 2016 in association with rapid heart rate) as well as valvular heart disease including moderate aortic stenosis and mild to moderate mitral regurgitation. 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 She was identified as having anemia at the time and had a small enzyme rise. She was treated medically for the arrhythmia. She recalls historically having occasional episodes of palpitations but is not very aware of the arrhythmia. She did present with chest discomfort which has not recurred. She is maintained on metoprolol tartrate for the arrhythmia. Echocardiography showed normal left ventricular function but she has moderate to severe aortic stenosis. Her presentation last admission was with diarrhea and abdominal discomfort, however she was observed to have periods of SVT at a rapid heart rate as well as some electrocardiographic abnormalities. Her symptoms are little bit vague, she did admit to having intermittent palpitations but was not very precise about it. She had frequent episodes during that hospital stay and I cannot tell if she actually has much in the way of symptoms related to them. She did not have chest discomfort or shortness of breath. She evidently does not have lightheadedness or dizziness and denies syncope or presyncope. Her rhythm appeared to be very well controlled on intravenous diltiazem therefore she was discharged January 22, 2018 on diltiazem CD 180 mg daily. She returns now having continued diarrhea as well as some chest discomfort and was noted to be in atrial fibrillation at her primary care physician's office. She was therefore sent to the emergency room where she was also identified as having atrial fibrillation, but that converted to sinus rhythm shortly thereafter. She seems unaware of the rhythm specifically but has had intermittent chest discomfort lasting several minutes. She was pain-free and remained in sinus rhythm following conversion in the emergency room, however with ambulation that evening she had anginal type chest discomfort with no rhythm disturbance and also some electrocardiographic changes which appear to be a little bit different than before. The episode was relieved with rest and nitroglycerin. She has had anemia for some time with no clear source of bleeding , although overnight she did have heme positive stools. Today she has no cardiovascular complaints. She has not had any angina since starting indoor. She does not have shortness of breath. She is sitting at the bedside in her chair. Social History Smoking Status: Never Smoker History of Alcohol Use: No Review of Systems Respiratory: No cough, No shortness of breath Cardiac: No chest pain, No orthopnea Medications Cardiovascular: Item Value Date Time Isosorbide 30 mg 01/30/18 0900 Mononitrate QAM/PO 02/01/18 0741 (Imdur Ext Rel Tab) Diltiazem HCl 180 mg 01/27/18 0900 (TIAzac CAP) QAM/PO 02/01/18 0741 Lisinopril 5 mg 01/27/18 0900 (Zestril Tab) DAILY/PO 02/01/18 0828 Atorvastatin 80 mg 01/27/18 0900 Calcium DAILY/PO 02/01/18 0741 (Lipitor Tab) Objective Vital Signs Past 12 Hours Date Time Temp Pulse Resp B/P (MAP) Pulse Ox O2 Delivery O2 Flow Rate FiO2 02/01/18 08:00 Room Air 02/01/18 07:30 36.6 72 18 144/65 (91) 95 Room Air 02/01/18 04:00 Room Air 02/01/18 03:48 36.7 75 18 116/64 (81) 95 Room Air 02/01/18 00:05 36.4 72 18 119/63 (81) 98 02/01/18 00:00 Room Air Last Recorded Weight-Kilograms: 56.900 Physical Exam Constitutional: Level of Distress: NAD Lungs: Auscultation: breath sounds normal Cardiovascular: Heart Auscultation: RRR, II/ BARBARA Extremities: no edema Data Laboratory Results: Last 24 Hours Test 02/01/18 05:40 White Blood Count 7.10 K/uL Red Blood Count 3.08 M/uL Hemoglobin 9.2 g/dL Hematocrit 29.2 % Mean Corpuscular Volume 94.8 fL Mean Corpuscular Hemoglobin 29.9 pg Mean Corpuscular Hemoglobin Concent 31.5 g/dl Platelet Count 293 K/uL Mean Platelet Volume 9.7 fL Neutrophils (%) (Auto) 68.3 % Lymphocytes (%) (Auto) 16.5 % Monocytes (%) (Auto) 11.1 % Eosinophils (%) (Auto) 3.5 % Basophils (%) (Auto) 0.3 % Neutrophils # (Auto) 4.85 K/uL Lymphocytes # (Auto) 1.17 K/uL Monocytes # (Auto) 0.79 K/uL Eosinophils # (Auto) 0.25 K/uL Basophils # (Auto) 0.02 K/uL RDW Standard Deviation 57.4 fL RDW Coefficient of Variation 16.7 % Immature Granulocyte % (Auto) 0.3 % Immature Granulocyte # (Auto) 0.02 K/uL Sodium Level 137 mmol/L Potassium Level 4.4 mmol/L Chloride Level 109 mmol/L Carbon Dioxide Level 24 mmol/L Anion Gap 4.0 mmol/L Blood Urea Nitrogen 22 mg/dl Creatinine 0.98 mg/dl Est Creatinine Clear Calc Drug Dose 32.2 ml/min Estimated GFR () 59.3 Estimated GFR (Non- 51.1 BUN/Creatinine Ratio 23.0 Random Glucose 99 mg/dl Calcium Level 8.8 mg/dl Telemetry reviewed: Sinus rhythm and sinus bradycardia Assessment and Plan 1. Chest discomfort: Her chest discomfort, which I believe is anginal, appears to be improved with transfusions and now with addition of Imdur she has not had any. We will see if it recurs if she becomes more active. 2. Coronary disease: She has severe coronary disease, high risk intervention could possibly be performed but under the circumstances I would like to try medical therapy. That would include keeping her hemoglobin reasonable, close to 10 if we can, as well as increasing antianginals if needed. She is on diltiazem for her SVT which will help, in addition to the indoor. I have not altered her medications today. 3. 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 Of note however the 2 rhythms do not coexist, the regular rapid SVT seems to start and terminate for the most part and does not coexist with the variable heart rates. A reentrant SVT is initiated by premature beats therefore they may be independent rhythms and she likely has both both. Clearly she had atrial fibrillation on presentation here, whether it was initiated by SVT or not I cannot tell. Her SVT had been very well controlled on low-dose diltiazem and she has not had any this visit. 4. Atrial fibrillation: I am not sure how much atrial fibrillation she has or whether she should be on chronic anticoagulation. On presentation her episode was evidently brief, it terminated quickly after arrival in the emergency room. So far she is not having much atrial fibrillation and with her possible GI bleed it is probably safer to leave her off of anticoagulation. Her atrial fibrillation appears to have been well rate controlled on the same medical regimen. 5. Aortic stenosis: She has aortic stenosis, in September 2016 she was felt to have moderate aortic stenosis. That does not seem to have changed as of her recent visit. Thank you for allowing me to participate in her care.
[2018-02-01] MEDS: COLESTIPOL HCL 1 GM TAB PO SCH ×2 (10:19→22:08)
--- NOTE | 2018-02-01 10:41 | Hospitalist Progress Note ---
Hospitalist Progress Note Date of Service Feb 01, 2018. Subjective Pt evaluation today including: conversation w/ patient Voiding: garza catheter in place Still feels very tired, but did get OOB to chair to eat breakfast this AM and said she ate all of it which is an improvement. RN said still a lot of stools, at least 5 in the last 24 hrs, but starting to become a little more formed. Afebrile, pt has some occasional abd pains. Denies CP or SOB. Tele with NSR, PACs, PVCs, 1st deg block, IVCD, rates 60s-70s. All Other Systems: Reviewed and Negative Objective Vital Signs Date Time Temp Pulse Resp B/P (MAP) Pulse Ox O2 Delivery O2 Flow Rate FiO2 02/01/18 08:00 Room Air 02/01/18 07:30 36.6 72 18 144/65 (91) 95 Room Air 02/01/18 04:00 Room Air 02/01/18 03:48 36.7 75 18 116/64 (81) 95 Room Air 02/01/18 00:05 36.4 72 18 119/63 (81) 98 02/01/18 00:00 Room Air 01/31/18 20:00 Room Air 01/31/18 19:31 36.3 75 18 100/51 (67) 96 Room Air 01/31/18 16:00 Room Air 01/31/18 15:48 36.8 75 16 112/56 (74) 96 Room Air 01/31/18 12:42 36.8 82 22 93/55 (68) 16 Room Air 01/31/18 12:00 Room Air Physical Exam General Appearance: no apparent distress, + thin Eyes: normal inspection, sclerae normal ENT: hearing grossly normal Neck: trachea midline Respiratory/Chest: lungs clear, normal breath sounds, no respiratory distress, no accessory muscle use Cardiovascular: regular rate, rhythm, no edema, + systolic murmur (2/6 RUSB) Abdomen: normal bowel sounds, soft, no organomegaly, no pulsatile mass, + tenderness (mild in RLQ without guarding or rebound; +anal skin tags and mild perianal erythema, no ext hemorrhoids noted) Extremities: normal inspection, no pedal edema, no calf tenderness Neurologic/Psychiatric: alert, normal mood/affect, oriented x 3 Skin: normal color, warm/dry, no rash Laboratory Results Last 24 Hours Test 4/17/18 05:40 White Blood Count 7.10 K/uL Red Blood Count 3.08 M/uL Hemoglobin 9.2 g/dL Hematocrit 29.2 % Mean Corpuscular Volume 94.8 fL Mean Corpuscular Hemoglobin 29.9 pg Mean Corpuscular Hemoglobin Concent 31.5 g/dl Platelet Count 293 K/uL Mean Platelet Volume 9.7 fL Neutrophils (%) (Auto) 68.3 % Lymphocytes (%) (Auto) 16.5 % Monocytes (%) (Auto) 11.1 % Eosinophils (%) (Auto) 3.5 % Basophils (%) (Auto) 0.3 % Neutrophils # (Auto) 4.85 K/uL Lymphocytes # (Auto) 1.17 K/uL Monocytes # (Auto) 0.79 K/uL Eosinophils # (Auto) 0.25 K/uL Basophils # (Auto) 0.02 K/uL RDW Standard Deviation 57.4 fL RDW Coefficient of Variation 16.7 % Immature Granulocyte % (Auto) 0.3 % Immature Granulocyte # (Auto) 0.02 K/uL Sodium Level 137 mmol/L Potassium Level 4.4 mmol/L Chloride Level 109 mmol/L Carbon Dioxide Level 24 mmol/L Anion Gap 4.0 mmol/L Blood Urea Nitrogen 22 mg/dl Creatinine 0.98 mg/dl Est Creatinine Clear Calc Drug Dose 32.2 ml/min Estimated GFR () 59.3 Estimated GFR (Non- 51.1 BUN/Creatinine Ratio 23.0 Random Glucose 99 mg/dl Calcium Level 8.8 mg/dl Assessment and Plan 87yo female with: 1. CAD with mild NSTEMI - s/p cath with severe multi-vessel disease; poor surgical candidate and thus medical management recommended Cont asa, statin, Imdur. She previously was taking BB; changed to CCB during previous stay due to SVT/a. fib. Cardiology consulted and does not recommend any further med changes at this time. Cont imdur. At high risk of recurrent symptoms and recurrent ACS events given the 95% LAD lesion, left main disease, and other lesions 2. acute/chronic anemia - ferritin earlier this month was <20. Stool was heme + during prior stay and remains so this stay. Is on po ferrous sulfate and always has dark stools. Has had black stools this admission, but no drop in hgb except on admission when was given IVF hydration and went from 9-->7.7. Now stable at 9 for several days since 1 unit PRBC given. Doubt having acute upper GI bleeding. Will decrease PPI back to once daily especially given correlation with C. diff colitis. Cont Fe supplementation 325 mg bid. GI has seen - no testing at this time due too comorbidities. If H/H falls again - will hold aspirin Follow CBC 3. Atrial fib/PSVT - resolved, back in NSR and remains; appreciate Dr Vcikers' s expertise; cont AV cristobal agent with diltiazem. Poor candidate for systemic anticoagulation due to anemia and heme+ stools. -ok to transfer to medical floor 4. Clostridium diff colitis - vanco 125mg po qid x 14 days; today is day #6. Improving but remais with frequent stools, just starting to get her appetite back continue colestipol BID -stop po magnesium as can worsen diarrhea 5. aortic stenosis-moderate - stable 6. vulvar candidiasis -contiue nystatin powder TID 7. CKD stage 3 - creatinine stable -avoid nephrotoxins -renally dose meds -follow BMP 8. hypomagnesemia - replaced and now normal -dc po Mag as above -IV mag only as needed but should improve as diarrhea improves 9. acute mid-foot synovitis/arthritis, right - suspect acute gouty arthritis. Slowly improving. Poor candidate for steroids and/or NSAIDs due to CAD and suspected upper GI bleeding. cont voltaren gel qid and colchicine 0.6mg daily, however this can oalso worsen diarrhea so will stop as soon as possible 10. deconditioning - PT, OT evals appreciated; needs SNF placement in 1 day most likely Dispo-in light of declining status, severe/critical CAD (and she is not a stent or surgical candidate), etc., Palliative care consulted palliative care team met with patient/family and filled out POLST form, discussed end of life issues they will cont to follow -transfer to medical social work assisting with SNF placement lkely in 1-2 days DNR/DNI
[2018-02-02] MEDS: RASPBERRY SYRUP 5 ML UDP PO SCH ×4 (04:08→20:49)
[2018-02-02] MEDS: VANCOMYCIN HCL 125 MG/2.5ML SOLN PO SCH ×4 (04:08→20:51)
[2018-02-02 06:08] LABS: BASO % 0.5 %; BASO ABS # 0.03 K/uL (0-0.2); EOS % 4.1 %; EOS ABS # 0.24 K/uL (0-0.5); HEMATOCRIT 31.4 % (37-47); IG# 0.01 K/uL (0.00-0.02); LYMPH % 19.1 %; LYMPH ABS # 1.11 K/uL (1.2-3.4); MEAN CELL VOLUME 94.9 fL (80-100); MEAN CORPUSCULAR HEMOGLOBIN 30.2 pg (25-34); MEAN CORPUSCULAR HGB CONC 31.8 g/dl (32-36); MEAN PLATELET VOLUME 9.8 fL (7.4-10.4); MONO ABS # 0.64 K/uL (0.11-0.59); NEUT % 65.1 %; NEUT ABS # 3.79 K/uL (1.4-6.5); PLATELET COUNT 318 K/uL (130-400); RED CELL DISTRIBUTION WIDTH CV 16.1 % (11.5-14.5); WHITE BLOOD COUNT 5.82 K/uL (4.8-10.8)
[2018-02-02 06:33] LABS: CALCIUM 9.1 mg/dl (8.5-10.1); CREATININE 1.02 mg/dl (0.60-1.20); POTASSIUM 4.3 mmol/L (3.5-5.1)
[2018-02-02 07:16] VITALS: BP 155/71; PULSE 79; TEMP 36.8; O2SAT 96
[2018-02-02] MEDS: RIVASTIGMINE TARTRATE (EXELON) 1.5 MG CAP PO SCH ×2 (07:55→20:51)
[2018-02-02] MEDS: COLCHICINE 0.6 MG TAB PO SCH (07:55)
[2018-02-02] MEDS: FERROUS SULFATE 325 MG TAB PO SCH ×2 (07:55→20:50)
[2018-02-02] MEDS: DICLOFENAC SOD 1% GEL 100 GM TUBE EXT SCH ×4 (07:55→20:49)
[2018-02-02] MEDS: NYSTATIN POWDER 15GM BTL EXT SCH ×3 (07:55→20:49)
[2018-02-02] MEDS: PANTOprazole SOD 40 MG TAB PO SCH (07:56)
[2018-02-02] MEDS: ISOSORBIDE MONONITRATE 30 MG TABCR PO SCH (07:56)
[2018-02-02] MEDS: NEPHROCAPS PO SCH (07:56)
[2018-02-02] MEDS: LEVETIRACETAM 500 MG TAB PO SCH ×2 (07:56→20:50)
[2018-02-02] MEDS: ATORVASTATIN 40 MG TAB PO SCH (07:56)
[2018-02-02] MEDS: CHOLECALCIFEROL 1000 INTER.UNIT TAB PO SCH (07:57)
[2018-02-02] MEDS: LISINOPRIL 5 MG TAB PO SCH (07:57)
[2018-02-02] MEDS: DILTIAZEM HCL (TIAzac) 180 MG CAPCR PO SCH (07:57)
[2018-02-02] MEDS: COLESTIPOL HCL 1 GM TAB PO SCH ×2 (10:17→21:50)
[2018-02-02] MEDS ORDERED: SACCHAROMYCES BOUL (FLORASTOR) 250 MG CAP PO ONE (10:20)
--- NOTE | 2018-02-02 10:22 | Hospitalist Progress Note ---
Hospitalist Progress Note Date of Service Feb 02, 2018. Subjective Pt evaluation today including: conversation w/ patient Voiding: garza catheter in place Patient states she still feeling tired and weak, but a little bit better. Had 6 loose bowel movements in the last day. Her perianal area is still very sore from the multiple bowel movements. Denies chest pain or pressure, denies shortness of breath, denies headache or lightheadedness. She reports her appetite is still low, but she is trying to make herself eat. Her right foot pain is completely resolved Constitutional: No fever All Other Systems: Reviewed and Negative Objective Vital Signs Date Time Temp Pulse Resp B/P (MAP) Pulse Ox O2 Delivery O2 Flow Rate FiO2 02/02/18 09:50 Room Air 02/02/18 07:16 36.8 79 20 155/71 (99) 96 Room Air 02/02/18 00:00 Room Air 02/01/18 22:37 36.6 72 18 126/50 (75) 95 Room Air 02/01/18 20:20 79 115/58 (77) 02/01/18 16:00 Room Air 02/01/18 15:39 36.4 76 20 126/59 (81) 95 Room Air 02/01/18 11:15 Room Air 02/01/18 11:15 37.0 77 18 119/63 (81) 95 Room Air Physical Exam General Appearance: no apparent distress, + thin (Sitting in bedside chair) Eyes: normal inspection, sclerae normal ENT: hearing grossly normal Neck: trachea midline Respiratory/Chest: lungs clear, normal breath sounds, no respiratory distress, no accessory muscle use Cardiovascular: regular rate, rhythm, no edema, no gallop, + systolic murmur Abdomen: normal bowel sounds, non tender, soft, no organomegaly Extremities: non-tender, normal inspection, no pedal edema, no calf tenderness Neurologic/Psychiatric: alert, normal mood/affect, oriented x 3 Skin: normal color, warm/dry, no rash Laboratory Results Last 24 Hours Test 02/02/18 05:37 White Blood Count 5.82 K/uL Red Blood Count 3.31 M/uL Hemoglobin 10.0 g/dL Hematocrit 31.4 % Mean Corpuscular Volume 94.9 fL Mean Corpuscular Hemoglobin 30.2 pg Mean Corpuscular Hemoglobin Concent 31.8 g/dl Platelet Count 318 K/uL Mean Platelet Volume 9.8 fL Neutrophils (%) (Auto) 65.1 % Lymphocytes (%) (Auto) 19.1 % Monocytes (%) (Auto) 11.0 % Eosinophils (%) (Auto) 4.1 % Basophils (%) (Auto) 0.5 % Neutrophils # (Auto) 3.79 K/uL Lymphocytes # (Auto) 1.11 K/uL Monocytes # (Auto) 0.64 K/uL Eosinophils # (Auto) 0.24 K/uL Basophils # (Auto) 0.03 K/uL RDW Standard Deviation 56.0 fL RDW Coefficient of Variation 16.1 % Immature Granulocyte % (Auto) 0.2 % Immature Granulocyte # (Auto) 0.01 K/uL Sodium Level 136 mmol/L Potassium Level 4.3 mmol/L Chloride Level 107 mmol/L Carbon Dioxide Level 24 mmol/L Anion Gap 5.0 mmol/L Blood Urea Nitrogen 23 mg/dl Creatinine 1.02 mg/dl Est Creatinine Clear Calc Drug Dose 30.9 ml/min Estimated GFR () 56.5 Estimated GFR (Non- 48.7 BUN/Creatinine Ratio 23.0 Random Glucose 99 mg/dl Calcium Level 9.1 mg/dl Magnesium Level 1.8 mg/dl Assessment and Plan This patient is an 87yo female with a history of CAD, chronic iron deficiency anemia, paroxysmal SVT, moderate aortic stenosis, CKD stage III, who presents with chest pressure/NSTEMI, atrial fibrillation, and persistent diarrhea; was found to have C. difficile colitis. 1. CAD with mild NSTEMI - s/p cath with severe multi-vessel disease; poor surgical candidate and thus medical management recommended Cont asa, statin, Imdur. She previously was taking BB; changed to CCB during previous stay due to SVT/a. fib. Cardiology consulted and does not recommend any further med changes at this time. At high risk of recurrent symptoms and recurrent ACS events given the 95% LAD lesion, left main disease, and other lesions 2. acute/chronic anemia - ferritin earlier this month was <20. Stool was heme + during prior stay and remains so this stay. Is on po ferrous sulfate and always has dark stools. Has had black stools this admission, but no drop in hgb except on admission when was given IVF hydration and went from 9-->7.7. Now stable at 9-10 for several days since 1 unit PRBC given. Doubt having acute upper GI bleeding. Decreased PPI back to once daily especially given correlation with C. diff colitis. -Cont Fe supplementation 325 mg bid. GI has seen - no testing at this time due to comorbidities. If H/H falls again - will hold aspirin Follow CBC 3. Atrial fib/PSVT - resolved, back in NSR and remains; appreciate Dr Vickers' s expertise. Poor candidate for systemic anticoagulation due to anemia and heme + stools. -cont diltiazem 4. Clostridium diff colitis/diarrhea-had negative C. difficile stool antigen last week when she was here with diarrhea, but now is positive. Loose stools continue, however she was also placed on colchicine and had been on p.o. magnesium which was stopped yesterday. Stool ova and parasites still pending, stool culture negative. -Continue Vanco 125mg po qid x 14 days; today is day #7. -Continue colestipol BID -stopped po magnesium as can worsen diarrhea -Discontinue colchicine -Will start probiotic today 5. aortic stenosis-moderate - stable 6. vulvar candidiasis -contiue nystatin powder TID 7. CKD stage 3 - creatinine stable -avoid nephrotoxins -renally dose meds -follow BMP 8. hypomagnesemia - replaced and now normal -dcd po Mag as above -IV mag only as needed but should improve as diarrhea improves 9. acute mid-foot synovitis/arthritis, right - suspect acute gouty arthritis. Now resolved Poor candidate for steroids and/or NSAIDs due to CAD and previously suspected upper GI bleeding. -cont voltaren gel qid -Discontinue colchicine 0.6mg daily as may be worsening diarrhea as above 10. deconditioning - PT, OT evals appreciated; needs SNF placement in 1 day most likely Dispo-in light of declining status, severe/critical CAD (and she is not a stent or surgical candidate), etc., Palliative care consulted palliative care team met with patient/family and filled out POLST form, discussed end of life issues they will cont to follow Plan for discharge to SNF hopefully tomorrow if diarrhea improves. She may end up transitioning to hospice once she is at SNF if she declines further. DNR/DNI
--- NOTE | 2018-02-02 11:47 | Palliative Care Progress Note ---
Palliative Care Progress Note Date of Service Feb 02, 2018. Subjective Pt evaluation today including: conversation w/ patient, physical exam Pain: 0/10 PO Intake: moderate appetite Pt seen for follow up. She was sitting upright in the bedside chair in no acute distress during the exam. Pt with a history of CAD with a mild NSTEMI - s/p cath , patient with significant multi-vessel disease and is a poor surgical candidate.Pt states that she does not have any chest pain currently, she denies SOB, CP, Palpitations, abdominal pain, appetite changes. Pt currently being treated for C-diff with Vancomycin. Pt was evaluated by PT today and was able to ambulate with a walker to the bathroom without becoming SOB or feeling dizzy. As previously discussed, POLST form has been filled out and placed on the chart. plan is for patient to be discharged to [facility] tomorrow . We discussed her getting involved with recreation when she arrives to continue with the goal of improving quality of life. Pt with no further questions or concerns. Review of Systems All Other Systems: Reviewed and Negative Objective Vital Signs Date Time Temp Pulse Resp B/P (MAP) Pulse Ox O2 Delivery O2 Flow Rate FiO2 02/02/18 09:50 Room Air 02/02/18 07:16 36.8 79 20 155/71 (99) 96 Room Air 02/02/18 00:00 Room Air 02/01/18 22:37 36.6 72 18 126/50 (75) 95 Room Air 02/01/18 20:20 79 115/58 (77) 02/01/18 16:00 Room Air 02/01/18 15:39 36.4 76 20 126/59 (81) 95 Room Air Physical Exam General Appearance: no apparent distress Neck: no JVD Respiratory/Chest: chest non-tender, lungs clear, normal breath sounds, no accessory muscle use Cardiovascular: regular rate, rhythm, no edema, + systolic murmur (heard at the left sternal border) Abdomen: normal bowel sounds, non tender, soft Extremities: non-tender Neurologic/Psychiatric: oriented x 3 (states her daughters help with her decision) Skin: warm/dry Laboratory Results Last 24 Hours Test 02/02/18 05:37 White Blood Count 5.82 K/uL Red Blood Count 3.31 M/uL Hemoglobin 10.0 g/dL Hematocrit 31.4 % Mean Corpuscular Volume 94.9 fL Mean Corpuscular Hemoglobin 30.2 pg Mean Corpuscular Hemoglobin Concent 31.8 g/dl Platelet Count 318 K/uL Mean Platelet Volume 9.8 fL Neutrophils (%) (Auto) 65.1 % Lymphocytes (%) (Auto) 19.1 % Monocytes (%) (Auto) 11.0 % Eosinophils (%) (Auto) 4.1 % Basophils (%) (Auto) 0.5 % Neutrophils # (Auto) 3.79 K/uL Lymphocytes # (Auto) 1.11 K/uL Monocytes # (Auto) 0.64 K/uL Eosinophils # (Auto) 0.24 K/uL Basophils # (Auto) 0.03 K/uL RDW Standard Deviation 56.0 fL RDW Coefficient of Variation 16.1 % Immature Granulocyte % (Auto) 0.2 % Immature Granulocyte # (Auto) 0.01 K/uL Sodium Level 136 mmol/L Potassium Level 4.3 mmol/L Chloride Level 107 mmol/L Carbon Dioxide Level 24 mmol/L Anion Gap 5.0 mmol/L Blood Urea Nitrogen 23 mg/dl Creatinine 1.02 mg/dl Est Creatinine Clear Calc Drug Dose 30.9 ml/min Estimated GFR () 56.5 Estimated GFR (Non- 48.7 BUN/Creatinine Ratio 23.0 Random Glucose 99 mg/dl Calcium Level 9.1 mg/dl Magnesium Level 1.8 mg/dl Assessment and Plan Palliative Care encounter CAD with NSTEMI - poor surgical candidate C-Diff Palliative Care Recommendations: -continue with medicinal management and proceed with discharge to [facility] tomorrow 02/03. - Continue with supportive management until discharge - no further questions from patient Palliative Performance Scale: 50 % Continued [facility] stay due to: voiding difficulties, ambulation difficulties (PT and OT following her ), home environment unsafe for pt, other (c diff diarrhea ) Discharge planning: [facility] facility (Plan is [facility] be discharged to [facility] - 02/03 ) Counseling and Coordination Total time spent 15 minutes with > 50% of that time discussing discharge planning and quality of life
[2018-02-02 14:49] VITALS: BP 108/58; PULSE 70; TEMP 36.9; O2SAT 95
[2018-02-02 16:09] VITALS: O2SAT 95
[2018-02-03 00:07] VITALS: BP 133/66; PULSE 78; TEMP 36.4; O2SAT 96
[2018-02-03] MEDS: RASPBERRY SYRUP 5 ML UDP PO SCH ×4 (04:44→21:49)
[2018-02-03] MEDS: VANCOMYCIN HCL 125 MG/2.5ML SOLN PO SCH ×4 (04:44→21:49)
[2018-02-03 07:30] VITALS: BP 148/67; PULSE 75; TEMP 36.6; O2SAT 98
[2018-02-03 07:43] LABS: CALCIUM 9.1 mg/dl (8.5-10.1); CREATININE 0.96 mg/dl (0.60-1.20); POTASSIUM 4.7 mmol/L (3.5-5.1)
[2018-02-03 07:46] LABS: BASO % 0.5 %; BASO ABS # 0.03 K/uL (0-0.2); EOS % 3.2 %; EOS ABS # 0.21 K/uL (0-0.5); HEMATOCRIT 32.1 % (37-47); HEMOGLOBIN 10.2 g/dL (12.0-16.0); IG# 0.01 K/uL (0.00-0.02); LYMPH % 21.2 %; LYMPH ABS # 1.38 K/uL (1.2-3.4); MEAN CELL VOLUME 94.4 fL (80-100); MEAN CORPUSCULAR HGB CONC 31.8 g/dl (32-36); MEAN PLATELET VOLUME 10.1 fL (7.4-10.4); MONO % 9.8 %; MONO ABS # 0.64 K/uL (0.11-0.59); NEUT % 65.1 %; NEUT ABS # 4.23 K/uL (1.4-6.5); PLATELET COUNT 345 K/uL (130-400); RED CELL DISTRIBUTION WIDTH CV 15.9 % (11.5-14.5); RED CELL DISTRIBUTION WIDTH SD 54.5 fL (36.4-46.3)
[2018-02-03] MEDS: DICLOFENAC SOD 1% GEL 100 GM TUBE EXT SCH ×4 (08:06→20:23)
[2018-02-03] MEDS: NYSTATIN POWDER 15GM BTL EXT SCH ×3 (08:06→20:27)
[2018-02-03] MEDS: FERROUS SULFATE 325 MG TAB PO SCH ×2 (08:08→20:24)
[2018-02-03] MEDS: SACCHAROMYCES BOUL (FLORASTOR) 250 MG CAP PO SCH (08:08)
[2018-02-03] MEDS: RIVASTIGMINE TARTRATE (EXELON) 1.5 MG CAP PO SCH ×2 (08:08→20:23)
[2018-02-03] MEDS: PANTOprazole SOD 40 MG TAB PO SCH (08:09)
[2018-02-03] MEDS: LEVETIRACETAM 500 MG TAB PO SCH ×2 (08:09→20:24)
[2018-02-03] MEDS: ISOSORBIDE MONONITRATE 30 MG TABCR PO SCH (08:09)
[2018-02-03] MEDS: NEPHROCAPS PO SCH (08:09)
[2018-02-03] MEDS: DILTIAZEM HCL (TIAzac) 180 MG CAPCR PO SCH (08:09)
[2018-02-03] MEDS: CHOLECALCIFEROL 1000 INTER.UNIT TAB PO SCH (08:09)
[2018-02-03] MEDS: LISINOPRIL 5 MG TAB PO SCH (08:10)
[2018-02-03] MEDS: ATORVASTATIN 40 MG TAB PO SCH (08:11)
[2018-02-03] MEDS ORDERED: MAGNESIUM OXIDE 400 MG TAB PO STA (09:34)
[2018-02-03] MEDS ORDERED: LPT40 PO (09:42)
[2018-02-03] MEDS ORDERED: ACET-1693 PO (09:42)
[2018-02-03] MEDS ORDERED: IMDSR30 PO (09:42)
[2018-02-03] MEDS ORDERED: NYSP EXT (09:42)
[2018-02-03] MEDS ORDERED: CLS1 PO (09:42)
[2018-02-03] MEDS ORDERED: VLTG EXT (09:42)
[2018-02-03] MEDS ORDERED: VANC1SUS PO (09:42)
[2018-02-03] MEDS ORDERED: SACC250C3 PO (09:42)
[2018-02-03] MEDS ORDERED: MAGNESIUM SULFATE 1GM / D5W 100 ML IV SCH (09:45)
[2018-02-03] MEDS ORDERED: ASPIRIN 81 MG ECTAB PO STA (09:47)
--- NOTE | 2018-02-03 09:56 | Discharge Instructions ---
Discharge Instructions Date of Service Feb 03, 2018. Admission Reason for Admission: Rapid Atrial Fibrillation Discharge Discharge Diagnosis / Problem: Rapid atrial fibrillation, NSTEMI/Severe CAD, Clostridium difficile colitis Discharge Goals Goal(s): Improve disease control, Diagnostic testing, Therapeutic intervention Activity Recommendations Activity Level: Assistance Required Therapies: Physical Therapy, Occupational Therapy Shower/Bathe: no limitations . Additional Information Patient informed of condition: Yes Advance Directives: Yes DNR: Yes Level of Care: Skilled Communicable Disease: Yes (C. diff) Prognosis: Stable Oxygen at (LPM): NA [place] Catheter: No Instructions / Follow-Up Instructions / Follow-Up This patient is an 87yo female with a history of CAD, chronic iron deficiency anemia, paroxysmal SVT, moderate aortic stenosis, CKD stage III, who presents with chest pressure/NSTEMI, atrial fibrillation, and persistent diarrhea; was found to have C. difficile colitis. 1. CAD with mild NSTEMI/chronic diastolic CHF s/p cath with severe multi- vessel disease; poor surgical candidate and thus medical management recommended. Is euvolemic and not requiring diuretics. Cont aspirin, high intensity statin, started on Imdur. She previously was taking a beta-barak; was recently changed to CCB during previous stay due to SVT/a. fib. Cardiology consulted and does not recommend any further med changes at this time. At high risk of recurrent symptoms and recurrent ACS events given the 95% LAD lesion, left main disease, and other lesions Follow-up with cardiology within 2 weeks after discharge 2. acute/chronic anemia - ferritin earlier this month was <20. Stool was heme + during prior stay and remains so this stay. Is on po ferrous sulfate and always has dark stools. Has had black stools this admission, but no drop in hgb except on admission when was given IVF hydration and went from 9-->7.7. Now stable at 10 for several days since 1 unit PRBC given. Doubt having acute upper GI bleeding, but likely chronic GI blood loss. Decreased PPI back to once daily especially given correlation with C. diff colitis. -Cont Fe supplementation 325 mg bid. GI has seen - no testing at this time due to comorbidities. Okay to restart aspirin Follow CBC in 1 week after discharge 3. Rapid Atrial fib/PSVT - resolved, was back in NSR and now today is irregularly irregular on examination, but at a normal rate; appreciate Dr Vickers's expertise. Poor candidate for systemic anticoagulation due to anemia and heme+ stools, but could reconsider in the future. -cont diltiazem 180 mg once daily -Follow-up with cardiology within 2 weeks after discharge 4. Clostridium diff colitis/diarrhea-had negative C. difficile stool antigen last week when she was here with diarrhea, but now is positive. May have had a false negative test at that time. Her loose stools continue but are becoming more formed, however she had also been placed on colchicine and had been on p.o. magnesium twice daily which has since been stopped. Stool ova and parasites still pending, stool culture negative. -Continue Vanco 125mg po qid x 14 days; today is day #8. -Continue colestipol BID -stopped po magnesium as can worsen diarrhea, however will give 1 dose today for hypomagnesemia as below -Discontinued colchicine -started probiotic with Florastor 250 mg p.o. once daily and should continue indefinitely 5. aortic stenosis-moderate - stable -Should be followed routinely with cardiology 6. vulvar and intertrigo candidiasis -continue nystatin powder TID 2 more weeks 7. CKD stage 3 - creatinine stable -avoid nephrotoxins -renally dose meds -follow BMP 8. hypomagnesemia - replaced and had normalized, however with diarrhea and stopping p.o. magnesium due to diarrhea-now magnesium slightly low at 1.6 Her IV was removed 2 days ago due to being extremely painful, so we will give 1 dose of magnesium oxide 400 mg p.o. 1 now -Check magnesium level in 1 week at the SNF 9. Acute mid-foot synovitis/arthritis, right - suspect acute gouty arthritis. Now resolved Poor candidate for steroids and/or NSAIDs due to CAD and previously suspected upper GI bleeding. -cont voltaren gel qid -Discontinued colchicine 0.6mg daily after 3 days as was likely contributing to her diarrhea as above 10. deconditioning - PT, OT evals appreciated; for SNF placement for rehab today Dispo-in light of declining status, severe/critical CAD (and she is not a stent or surgical candidate), etc., Palliative care consulted palliative care team met with patient/family and filled out POLST form, discussed end of life issues Plan for discharge to SNF. She may end up transitioning to hospice once she is at SNF if she declines further. DNR/DNI Activation of Emergency Medical System: Call 911, immediately, if you experience any of the following: Warning Signs and Symptoms of a Heart Attack: * Chest pain that is not relieved by medication * Shortness of breath Otherwise, call your doctor immediately if you have: * Lightheadedness, dizziness, or fainting * Feeling of irregular heartbeat or fast pulse Home Care: * Take your medications exactly as directed. Don't skip doses. * Remember that recovery after a heart attack takes time. Plan to rest for at lease 4-8 weeks while you recover. Then return to normal activity when your doctor says it's okay. * Ask your doctor about joining a heart rehabilitation program. * Tell your doctor if you are feeling depressed. Feelings of sadness are common after a heart attack, but it is important that you speak to someone if you are feeling overwhelmed by these feelings. * If you are having chest pain, call 911 for an ambulance. Do NOT drive yourself to the hospital. * Ask your family members to learn CPR. * Learn to take your own blood pressure and pulse. Keep a record of your results. Ask your doctor when you should seek emergency medical attention. He or she will tell you which blood pressure reading is dangerous. Lifestyle Changes: * Maintain a healthy weight. Get help to lose any extra pounds. * Cut back on salt. 1. Limit canned, dried, packaged, and fast foods. 2. Don't add salt to your food. 3. Season foods with herbs instead of salt when you cook. * Break the smoking habit. Enroll in a stop-smoking program to improve your chances of success. * Limit fatty foods. * Check your lipid levels regularly. (Your doctor can show you how to do this. ) * Build up your activity according to your doctor's recommendation. * Ask your doctor when it's okay to resume sexual activity. * Tell your doctor about any erectile dysfunction (ED) medication you are taking. Some ED medications are not safe if you take certain heart medications. * Try to manage stress. Follow Up: It is important for you to keep your follow up appointments with your medical provider. Current Hospital Diet Patient's current hospital diet: AHA Diet (Heart Healthy) Discharge Diet Recommended Diet: AHA Diet (Heart Healthy) Procedures Procedures Performed: Cardiac catheterization Chest x-ray Pending Studies Studies pending at discharge: no Physician Orders On Transfer IV Therapy: NA Vital Signs: Daily Weigh: Routine Additional Orders: Check BMP, magnesium, and CBC in 1 week Follow-up with cardiology within 2 weeks POLST Discussion: with POLST completion Laboratory Results Last 24 Hours Test 02/03/18 06:38 White Blood Count 6.50 K/uL Red Blood Count 3.40 M/uL Hemoglobin 10.2 g/dL Hematocrit 32.1 % Mean Corpuscular Volume 94.4 fL Mean Corpuscular Hemoglobin 30.0 pg Mean Corpuscular Hemoglobin Concent 31.8 g/dl Platelet Count 345 K/uL Mean Platelet Volume 10.1 fL Neutrophils (%) (Auto) 65.1 % Lymphocytes (%) (Auto) 21.2 % Monocytes (%) (Auto) 9.8 % Eosinophils (%) (Auto) 3.2 % Basophils (%) (Auto) 0.5 % Neutrophils # (Auto) 4.23 K/uL Lymphocytes # (Auto) 1.38 K/uL Monocytes # (Auto) 0.64 K/uL Eosinophils # (Auto) 0.21 K/uL Basophils # (Auto) 0.03 K/uL RDW Standard Deviation 54.5 fL RDW Coefficient of Variation 15.9 % Immature Granulocyte % (Auto) 0.2 % Immature Granulocyte # (Auto) 0.01 K/uL Sodium Level 137 mmol/L Potassium Level 4.7 mmol/L Chloride Level 108 mmol/L Carbon Dioxide Level 21 mmol/L Anion Gap 8.0 mmol/L Blood Urea Nitrogen 23 mg/dl Creatinine 0.96 mg/dl Est Creatinine Clear Calc Drug Dose 32.9 ml/min Estimated GFR () 60.8 Estimated GFR (Non- 52.4 BUN/Creatinine Ratio 23.9 Random Glucose 101 mg/dl Calcium Level 9.1 mg/dl Magnesium Level 1.6 mg/dl Medical Emergencies . Who to Call and When: Medical Emergencies: If at any time you feel your situation is an emergency, please call 911 immediately. . Non-Emergent Contact Non-Emergency issues call your: Primary Care Provider, Jtac Call Non-Emergent contact if: you have a fever, your pain is not controlled, your pain is worsening, your pain is unusual for you, your pain is concerning you, you have any medication questions . . "Provider Documentation" section prepared by Terri Max. . Core Measure Problem Core Measures: AMI AMI Core Measures Reason no ASA as I/P: Treatment provided - N/A Reason no ASA at D/C: Treatment provided - N/A Reason no statin as I/P: Treatment provided - N/A Reason no statin at D/C: Treatment provided - N/A
--- NOTE | 2018-02-03 10:06 | Discharge Summary ---
Discharge Summary Date of Service Feb 03, 2018. Discharge Summary Admission Date: Jan 27, 2018 at 15:56 Discharge Date: Feb 04, 2018 Discharge Disposition: halfway facility ([facility]) Principal Diagnosis: Rapid atrial fibrillation, NSTEMI, Clostridium difficile colitis Problems/Secondary Diagnoses: Severe CAD Acute on chronic iron deficiency anemia Paroxysmal SVT Moderate aortic stenosis Mild mitral regurgitation CKD stage III Chronic diastolic CHF Vulvar and intertrigo candidiasis Hypomagnesemia Acute mid-foot synovitis/arthritis, right - suspect acute gouty arthritis Deconditioning Immunizations: Have You Had Influenza Vaccine: Unknown History of Tetanus Vaccine?: Unknown History of Pneumococcal: Unknown History of Hepatitis B Vaccine: Unknown Procedures: Chest x-ray Cardiac catheterization Consultations: Cardiology Palliative care Medication Reconciliation New Medications: Atorvastatin (Lipitor) 40 Mg Tab 80 MG PO DAILY for 30 Days, TAB Colestipol HCl (Colestid) 1 Gm Tab 1 GM PO BID@1000,2200 for 30 Days, TAB Diclofenac Sod (Voltaren) 100 Appln/100 Gm Gel 1 APPLN EXT QID PRN for joint pain for 30 Days Isosorbide Mononitrate (Isosorbide Mononitrate ER) 30 Mg Tabcr 30 MG PO QAM for 30 Days Nystatin (Nystop) 45 Appln/15 Gm Powd 1 APPLN EXT TID for 14 Days apply to lower abdominal and groin skin folds, vulvar region Saccharomyces Boulardii (Florastor) 250 Mg Cap 250 MG PO DAILY for 30 Days, CAP Vancomycin HCl (Vancomycin HCl + Syrspend) 50 Mg/Ml Iris 125 MG PO Q6H for 7 Days Changed Medications: Acetaminophen Tab (Tylenol) 325 Mg Tab 325 MG PO Q6H PRN for Pain or Fever for 30 Days, #120 TAB (Changed from: DAILY) Continued Medications: Aspirin (Aspirin Ec) 81 Mg Tab 81 MG PO DAILY Cholecalciferol (D 2000) 2,000 Unit Tab 2000 PO DAILY Diltiazem Hcl Ext Rel (Tiazac) 180 Mg Capcr 180 MG PO QAM Ferrous Sulfate (Ferrous Sulfate) 325 Mg Tab 325 MG PO BID Radilfmskdg-Khmoifwahei-Szq C- (Glucosamine Chondroitin 1) 1 Cap Cap 1 CAP PO BID Levetiracetam (Keppra) 500 Mg Tab 500 MG PO BID, TAB Lisinopril (Zestril) 5 Mg Tab 5 MG PO DAILY Pantoprazole (Protonix) 40 Mg Tab 40 MG PO DAILY Rivastigmine Tartrate (Rivastigmine Tartrate) 6 Mg Cap 6 MG PO BID Vitamin B Cmplx/Vitc/Folic Ac (Nephrocaps) Cap 1 CAP PO DAILY Discontinued Medications: Atorvastatin (Lipitor) 20 Mg Tab 20 MG PO DAILY Mupirocin 2% (Bactroban 2%) 30 Gm Cr 1 APPLN EXT UD PRN for sores, TUBE apply generous amoun of ointment 2-3 times per day as directed Sennosides (Senokot) 8.6 Mg Tab 8.6 MG PO BID PRN for Constipation Silver Sulfadiazine (Silvadene) 1 % Cre 1 APPLN TOP BID for 7 Days, #50 GM Referrals At Discharge Follow up Referrals: Customer Strategy Manager Referral - Within 1-2 Weeks with Aubrey Vickers M.D. Discharge Exam Feeling well, stools are more formed, only had 2 so far today. Pain in the feet is much improved. No abdominal pain. Denies chest pain or shortness of breath. Physical Exam General Appearance: no apparent distress, + thin (Sitting in bedside chair) Eyes: normal inspection, sclerae normal ENT: hearing grossly normal Neck: trachea midline Respiratory/Chest: lungs clear, normal breath sounds, no respiratory distress, no accessory muscle use Cardiovascular: Irregularly irregular with normal rate, no edema, no gallop, + systolic murmur Abdomen: normal bowel sounds, non tender, soft, no organomegaly Extremities: non-tender, normal inspection, no pedal edema, no calf tenderness Neurologic/Psychiatric: alert, normal mood/affect, oriented x 3 Skin: normal color, warm/dry, no rash Review of Systems: Constitutional: No fever, No chills Eyes: No problem reported ENT: No problem reported Respiratory: No problem reported Cardiovascular: No chest pain Abdomen: + diarrhea, No pain, No nausea, No vomiting Musculoskeletal: No problem reported Genitourinary - Female: No problem reported Neurologic: No problem reported Psychiatric: No problem reported Endocrine: No problem reported Hematologic / Lymphatic: No problem reported Integumentary: No problem reported Hospital Course This patient is an 87yo female with a history of CAD, chronic iron deficiency anemia, paroxysmal SVT, moderate aortic stenosis, CKD stage III, who presents with chest pressure/NSTEMI, atrial fibrillation, and persistent diarrhea; was found to have C. difficile colitis. 1. CAD with mild NSTEMI/chronic diastolic CHF s/p cath with severe multi- vessel disease; poor surgical candidate and thus medical management recommended. Is euvolemic and not requiring diuretics. Cont aspirin, high intensity statin, started on Imdur. She previously was taking a beta-barak; was recently changed to CCB during previous stay due to SVT/a. fib. Cardiology consulted and does not recommend any further med changes at this time. At high risk of recurrent symptoms and recurrent ACS events given the 95% LAD lesion, left main disease, and other lesions Follow-up with cardiology within 2 weeks after discharge 2. acute/chronic anemia - ferritin earlier this month was <20. Stool was heme + during prior stay and remains so this stay. Is on po ferrous sulfate and always has dark stools. Has had black stools this admission, but no drop in hgb except on admission when was given IVF hydration and went from 9-->7.7. Now stable at 10 for several days since 1 unit PRBC given. Doubt having acute upper GI bleeding, but likely chronic GI blood loss. Decreased PPI back to once daily especially given correlation with C. diff colitis. -Cont Fe supplementation 325 mg bid. GI has seen - no testing at this time due to comorbidities. Okay to restart aspirin Follow CBC in 1 week after discharge 3. Rapid Atrial fib/PSVT - resolved, was back in NSR and now today is irregularly irregular on examination, but at a normal rate; appreciate Dr Vickers's expertise. Poor candidate for systemic anticoagulation due to anemia and heme+ stools, but could reconsider in the future. -cont diltiazem 180 mg once daily -Follow-up with cardiology within 2 weeks after discharge 4. Clostridium diff colitis/diarrhea-had negative C. difficile stool antigen last week when she was here with diarrhea, but now is positive. May have had a false negative test at that time. Her loose stools continue but are becoming more formed, however she had also been placed on colchicine and had been on p.o. magnesium twice daily which has since been stopped. Stool ova and parasites still pending, stool culture negative. -Continue Vanco 125mg po qid x 14 days; today is day #9. -Continue colestipol BID -stopped po magnesium as can worsen diarrhea -Discontinued colchicine -started probiotic with Florastor 250 mg p.o. once daily and should continue indefinitely 5. aortic stenosis-moderate - stable -Should be followed routinely with cardiology 6. vulvar and intertrigo candidiasis -continue nystatin powder TID 2 more weeks 7. CKD stage 3 - creatinine stable -avoid nephrotoxins -renally dose meds -follow BMP 8. hypomagnesemia - replaced and had normalized, however with diarrhea and stopping p.o. magnesium due to diarrhea-now magnesium slightly low-replaced again -Check magnesium level in 1 week at the SNF 9. Acute mid-foot synovitis/arthritis, right - suspect acute gouty arthritis. Now resolved Poor candidate for steroids and/or NSAIDs due to CAD and previously suspected upper GI bleeding. -cont voltaren gel qid -Discontinued colchicine 0.6mg daily after 3 days as was likely contributing to her diarrhea as above 10. deconditioning - PT, OT evals appreciated; for SNF placement for rehab today Dispo-in light of declining status, severe/critical CAD (and she is not a stent or surgical candidate), etc., Palliative care consulted palliative care team met with patient/family and filled out POLST form, discussed end of life issues Plan for discharge to SNF. She may end up transitioning to hospice once she is at SNF if she declines further. DNR/DNI Total Time Spent: Greater than 30 minutes This includes examination of the patient, discharge planning, medication reconciliation, and communication with other providers. Discharge Instructions Please refer to the electronic Patient Visit Report (Discharge Instructions) for additional information. Follow-Up With cardiology within 2 weeks With PCP within 2 weeks after discharge from SNF Additional Copies To Owen Horner; Brittanie Moran C.R.N.P
[2018-02-03] MEDS: COLESTIPOL HCL 1 GM TAB PO SCH ×2 (10:17→21:50)
[2018-02-03 15:36] VITALS: BP 118/63; PULSE 76; TEMP 37; O2SAT 97
[2018-02-03 16:00] VITALS: O2SAT 97
--- NOTE | 2018-02-03 17:47 | Hospitalist Progress Note ---
Hospitalist Progress Note Date of Service Feb 03, 2018. Subjective Pt evaluation today including: conversation w/ patient, conversation w/ family Feeling well, stools are more formed. Pain in the feet is much improved. No abdominal pain. Denies chest pain or shortness of breath. Physical Exam General Appearance: no apparent distress, + thin (Sitting in bedside chair) Eyes: normal inspection, sclerae normal ENT: hearing grossly normal Neck: trachea midline Respiratory/Chest: lungs clear, normal breath sounds, no respiratory distress, no accessory muscle use Cardiovascular: Irregularly irregular with normal rate, no edema, no gallop, + systolic murmur Abdomen: normal bowel sounds, non tender, soft, no organomegaly Extremities: non-tender, normal inspection, no pedal edema, no calf tenderness Neurologic/Psychiatric: alert, normal mood/affect, oriented x 3 Skin: normal color, warm/dry, no rash Review of Systems: Constitutional: No fever, No chills Eyes: No problem reported ENT: No problem reported Respiratory: No problem reported Cardiovascular: No chest pain Abdomen: + diarrhea, No pain, No nausea, No vomiting Musculoskeletal: No problem reported Genitourinary - Female: No problem reported Neurologic: No problem reported Psychiatric: No problem reported Endocrine: No problem reported Hematologic / Lymphatic: No problem reported Integumentary: No problem reported Objective Vital Signs Date Time Temp Pulse Resp B/P (MAP) Pulse Ox O2 Delivery O2 Flow Rate FiO2 02/03/18 15:36 37.0 76 18 118/63 (81) 97 Room Air 02/03/18 10:53 Room Air 02/03/18 07:30 36.6 75 16 148/67 (94) 98 Room Air 02/03/18 00:07 36.4 78 20 133/66 (88) 96 Room Air 02/03/18 00:00 Room Air Laboratory Results Last 24 Hours Test 02/03/18 06:38 White Blood Count 6.50 K/uL Red Blood Count 3.40 M/uL Hemoglobin 10.2 g/dL Hematocrit 32.1 % Mean Corpuscular Volume 94.4 fL Mean Corpuscular Hemoglobin 30.0 pg Mean Corpuscular Hemoglobin Concent 31.8 g/dl Platelet Count 345 K/uL Mean Platelet Volume 10.1 fL Neutrophils (%) (Auto) 65.1 % Lymphocytes (%) (Auto) 21.2 % Monocytes (%) (Auto) 9.8 % Eosinophils (%) (Auto) 3.2 % Basophils (%) (Auto) 0.5 % Neutrophils # (Auto) 4.23 K/uL Lymphocytes # (Auto) 1.38 K/uL Monocytes # (Auto) 0.64 K/uL Eosinophils # (Auto) 0.21 K/uL Basophils # (Auto) 0.03 K/uL RDW Standard Deviation 54.5 fL RDW Coefficient of Variation 15.9 % Immature Granulocyte % (Auto) 0.2 % Immature Granulocyte # (Auto) 0.01 K/uL Sodium Level 137 mmol/L Potassium Level 4.7 mmol/L Chloride Level 108 mmol/L Carbon Dioxide Level 21 mmol/L Anion Gap 8.0 mmol/L Blood Urea Nitrogen 23 mg/dl Creatinine 0.96 mg/dl Est Creatinine Clear Calc Drug Dose 32.9 ml/min Estimated GFR () 60.8 Estimated GFR (Non- 52.4 BUN/Creatinine Ratio 23.9 Random Glucose 101 mg/dl Calcium Level 9.1 mg/dl Magnesium Level 1.6 mg/dl Assessment and Plan This patient is an 87yo female with a history of CAD, chronic iron deficiency anemia, paroxysmal SVT, moderate aortic stenosis, CKD stage III, who presents with chest pressure/NSTEMI, atrial fibrillation, and persistent diarrhea; was found to have C. difficile colitis. 1. CAD with mild NSTEMI/chronic diastolic CHF s/p cath with severe multi- vessel disease; poor surgical candidate and thus medical management recommended. Is euvolemic and not requiring diuretics. Cont aspirin, high intensity statin, started on Imdur. She previously was taking a beta-barak; was recently changed to CCB during previous stay due to SVT/a. fib. Cardiology consulted and does not recommend any further med changes at this time. At high risk of recurrent symptoms and recurrent ACS events given the 95% LAD lesion, left main disease, and other lesions Follow-up with cardiology within 2 weeks after discharge 2. acute/chronic anemia - ferritin earlier this month was <20. Stool was heme + during prior stay and remains so this stay. Is on po ferrous sulfate and always has dark stools. Has had black stools this admission, but no drop in hgb except on admission when was given IVF hydration and went from 9-->7.7. Now stable at 10 for several days since 1 unit PRBC given. Doubt having acute upper GI bleeding, but likely chronic GI blood loss. Decreased PPI back to once daily especially given correlation with C. diff colitis. -Cont Fe supplementation 325 mg bid. GI has seen - no testing at this time due to comorbidities. Okay to restart aspirin Follow CBC in 1 week after discharge 3. Rapid Atrial fib/PSVT - resolved, was back in NSR and now today is irregularly irregular on examination, but at a normal rate; appreciate Dr Vickers's expertise. Poor candidate for systemic anticoagulation due to anemia and heme+ stools, but could reconsider in the future. -cont diltiazem 180 mg once daily -Follow-up with cardiology within 2 weeks after discharge 4. Clostridium diff colitis/diarrhea-had negative C. difficile stool antigen last week when she was here with diarrhea, but now is positive. May have had a false negative test at that time. Her loose stools continue but are becoming more formed, however she had also been placed on colchicine and had been on p.o. magnesium twice daily which has since been stopped. Stool ova and parasites still pending, stool culture negative. -Continue Vanco 125mg po qid x 14 days; today is day #8. -Continue colestipol BID -stopped po magnesium as can worsen diarrhea, however will give 1 dose today for hypomagnesemia as below -Discontinued colchicine -started probiotic with Florastor 250 mg p.o. once daily and should continue indefinitely 5. aortic stenosis-moderate - stable -Should be followed routinely with cardiology 6. vulvar and intertrigo candidiasis -continue nystatin powder TID 2 more weeks 7. CKD stage 3 - creatinine stable -avoid nephrotoxins -renally dose meds -follow BMP 8. hypomagnesemia - replaced and had normalized, however with diarrhea and stopping p.o. magnesium due to diarrhea-now magnesium slightly low at 1.6 Her IV was removed 2 days ago due to being extremely painful, so we will give 1 dose of magnesium oxide 400 mg p.o. 1 now -Check magnesium level in 1 week at the [facility] 9. Acute mid-foot synovitis/arthritis, right - suspect acute gouty arthritis. Now resolved Poor candidate for steroids and/or NSAIDs due to CAD and previously suspected upper GI bleeding. -cont voltaren gel qid -Discontinued colchicine 0.6mg daily after 3 days as was likely contributing to her diarrhea as above 10. deconditioning - PT, OT evals appreciated; for SNF placement for rehab today, however no bed is available Dispo-in light of declining status, severe/critical CAD (and she is not a stent or surgical candidate), etc., Palliative care consulted palliative care team met with patient/family and filled out POLST form, discussed end of life issues Plan for discharge to SNF today, however no bed is available. She may end up transitioning to hospice once she is at SNF if she declines further. Hopeful for discharge to SNF tomorrow if bed available DNR/DNI
[2018-02-04 00:32] VITALS: BP 123/66; PULSE 77; TEMP 36.4; O2SAT 97
[2018-02-04] MEDS: VANCOMYCIN HCL 125 MG/2.5ML SOLN PO SCH ×3 (03:41→16:07)
[2018-02-04] MEDS: RASPBERRY SYRUP 5 ML UDP PO SCH ×3 (03:41→16:07)
[2018-02-04] MEDS: ACETAMINOPHEN 325 MG TAB PO PRN (06:01)
[2018-02-04 07:20] VITALS: BP 129/69; PULSE 70; TEMP 36.4; O2SAT 98
[2018-02-04] MEDS: DICLOFENAC SOD 1% GEL 100 GM TUBE EXT SCH ×2 (07:57→13:45)
[2018-02-04] MEDS: RIVASTIGMINE TARTRATE (EXELON) 1.5 MG CAP PO SCH (07:57)
[2018-02-04] MEDS: SACCHAROMYCES BOUL (FLORASTOR) 250 MG CAP PO SCH (07:58)
[2018-02-04] MEDS: DILTIAZEM HCL (TIAzac) 180 MG CAPCR PO SCH (07:58)
[2018-02-04] MEDS: PANTOprazole SOD 40 MG TAB PO SCH (07:58)
[2018-02-04] MEDS: ISOSORBIDE MONONITRATE 30 MG TABCR PO SCH (07:58)
[2018-02-04] MEDS: FERROUS SULFATE 325 MG TAB PO SCH (07:58)
[2018-02-04] MEDS: LEVETIRACETAM 500 MG TAB PO SCH (07:58)
[2018-02-04] MEDS: NEPHROCAPS PO SCH (07:58)
[2018-02-04] MEDS: ATORVASTATIN 40 MG TAB PO SCH (07:58)
[2018-02-04] MEDS: CHOLECALCIFEROL 1000 INTER.UNIT TAB PO SCH (07:59)
[2018-02-04] MEDS: LISINOPRIL 5 MG TAB PO SCH (07:59)
[2018-02-04] MEDS ORDERED: ASPIRIN 81 MG ECTAB PO SCH (08:00)
[2018-02-04] MEDS: NYSTATIN POWDER 15GM BTL EXT SCH ×2 (08:02→13:45)
[2018-02-04] MEDS: COLESTIPOL HCL 1 GM TAB PO SCH (10:42)
[2018-02-04 15:15] VITALS: BP 115/61; PULSE 84; TEMP 36.4; O2SAT 95
[2018-02-04 16:21] VITALS: BP 115/61; PULSE 84; TEMP 36.4; O2SAT 95
[2018-02-04 17:18] VITALS: BP 161/66; TEMP 36; O2SAT 97
== END 2018-02-04 17:10 | DRG 281 ==
LOC: EDBD 09:57 → C.EDC 09:58 → C.2T 12:32 → ENRESERV 14:38 → C.2T 16:00 → OBSVTOIN 01-27 15:56 → ENRESERV 02-01 10:49 → C.4E 02-01 11:20
PROVIDERS: ADMIT Internal Medicine; ATTEND Family Medicine
PROC: B211YZZ Fluoroscopy of Multiple Coronary Arteries using Other Contrast (ICD-10-PCS; principal; 2018-01-28 12:58)
DX: I21.4 Non-ST elevation (NSTEMI) myocardial infarction (principal); I47.1 Supraventricular tachycardia; A04.72 Enterocolitis due to Clostridium difficile, not specified as recurrent; K92.2 Gastrointestinal hemorrhage, unspecified; I50.32 Chronic diastolic (congestive) heart failure; Z51.5 Encounter for palliative care; I48.91 Unspecified atrial fibrillation; R01.1 Cardiac murmur, unspecified; I25.10 Atherosclerotic heart disease of native coronary artery without angina pectoris; R19.7 Diarrhea, unspecified; R79.89 Other specified abnormal findings of blood chemistry; Z66 Do not resuscitate; I35.0 Nonrheumatic aortic (valve) stenosis; E83.42 Hypomagnesemia; G40.909 Epilepsy, unspecified, not intractable, without status epilepticus; I24.8 Other forms of acute ischemic heart disease; B37.3 Candidiasis of vulva and vagina; N18.3 Chronic kidney disease, stage 3 (moderate); E11.22 Type 2 diabetes mellitus with diabetic chronic kidney disease; M65.871 Other synovitis and tenosynovitis, right ankle and foot; B37.2 Candidiasis of skin and nail; Z88.5 Allergy status to narcotic agent; I25.2 Old myocardial infarction; Z90.49 Acquired absence of other specified parts of digestive tract; Z79.82 Long term (current) use of aspirin; Z83.3 Family history of diabetes mellitus; Z82.49 Family history of ischemic heart disease and other diseases of the circulatory system

== ENCOUNTER 2018-04-26 15:00 | Inpatient (IN) | payer BC, OTHER ==
[~2018-04-26] VITALS: Ht 160 cm; Wt 57.2 kg
[2018-04-26] VITALS (13 sets, daily range): BP systolic 104–148; BP diastolic 57–89; PULSE 71–98; TEMP 36.3–36.8; O2SAT 91–97; Ht 160 cm; Wt 57.2 kg
[~2018-04-26 15:00] MED LIST changes: -ASPI-320 PO; +ASPI81TA28 PO; -ATOR-22 PO; -BCTCR/30 EXT; +CLS1 PO; -CRDCD180 PO; +DILT-113 PO; +FERR1TAB62 PO; -FERR325T5 PO; +IMDSR30 PO; -LISI-461 PO; +LISI-729 PO; +LPT40 PO; +NYSP EXT; +SACC250C3 PO; -SENN1TAB77 PO; -SILV1CRE73 TOP; +VANC1SUS PO; +VLTG EXT
[2018-04-26] MEDS ORDERED: ASPIRIN 81 MG CHEW PO STA (15:28)
[2018-04-26] MEDS ORDERED: NITROGLYCERIN 0.4 MG SL PER TAB CHARGE SL PRN ×2 (15:30→18:00)
[2018-04-26] MEDS ORDERED: SODIUM CHLORIDE 0.9% 500ML 500 ML IV STA (15:43)
[2018-04-26 15:48] LABS: BASO % 0.2 %; BASO ABS # 0.03 K/uL (0-0.2); EOS % 0.1 %; EOS ABS # 0.02 K/uL (0-0.5); HEMATOCRIT 26.9 % (37-47); HEMOGLOBIN 8.5 g/dL (12.0-16.0); IG# 0.05 K/uL (0.00-0.02); LYMPH % 8.8 %; LYMPH ABS # 1.19 K/uL (1.2-3.4); MEAN CELL VOLUME 99.3 fL (80-100); MEAN CORPUSCULAR HEMOGLOBIN 31.4 pg (25-34); MEAN CORPUSCULAR HGB CONC 31.6 g/dl (32-36); MEAN PLATELET VOLUME 9.6 fL (7.4-10.4); MONO % 8.9 %; NEUT % 81.6 %; PLATELET COUNT 362 K/uL (130-400); RED CELL DISTRIBUTION WIDTH SD 52.8 fL (36.4-46.3); WHITE BLOOD COUNT 13.49 K/uL (4.8-10.8)
--- NOTE | 2018-04-26 16:12 | DIAGNOSTIC IMAGING REPORT ---
CHEST ONE VIEW PORTABLE HISTORY: 87 years-old Female cp acute atypical chest pain COMPARISON: Chest radiograph 01/26/2018 TECHNIQUE: Portable AP view of the chest FINDINGS: Cardiac silhouette is upper limits of normal in size. Atherosclerosis of the aorta. Questioned nodular opacity about the left midlung is better seen on comparison study. Pulmonary vascular congestion with bilateral interstitial coarsening is new from prior. Trace bilateral pleural effusions with subsegmental bibasilar densities. No pneumothorax. Degenerative changes of the shoulders and spine. IMPRESSION: 1. Pulmonary vascular congestion with interstitial coarsening suggests mild pulmonary edema . 2. Trace pleural effusions with subsegmental bibasilar densities favor atelectasis. The above report was generated using voice recognition software. It may contain grammatical, syntax or spelling errors. Electronically signed by: Sina Simmons M.D. 04/26/2018 4:10 PM Dictated Date/Time: 04/26/2018 4:09 PM
[2018-04-26 16:21] LABS: ALBUMIN 2.7 gm/dl (3.4-5.0); ALKALINE PHOSPHATASE 47 U/L (45-117); ALT/SGPT 23 U/L (12-78); AST/SGOT 59 U/L (15-37); BLOOD UREA NITROGEN 22 mg/dl (7-18); CALCIUM 8.6 mg/dl (8.5-10.1); CARBON DIOXIDE 22 mmol/L (21-32); CREATININE 1.01 mg/dl (0.60-1.20); GLUCOSE 150 mg/dl (70-99); LIPASE 163 U/L (73-393); POTASSIUM 4.4 mmol/L (3.5-5.1); SODIUM 134 mmol/L (136-145); TOTAL PROTEIN 6.4 gm/dl (6.4-8.2)
[2018-04-26] MEDS ORDERED: FENTANYL CITRATE INJ 50 MCG/1 ML 2 ML VIAL IV ONE (17:15)
[2018-04-26] MEDS ORDERED: NTRGSL/4 UT (17:34)
[2018-04-26] MEDS ORDERED: RANI150T85 PO (17:34)
[2018-04-26] MEDS ORDERED: DICL1GEL12 TOP (17:34)
[2018-04-26] MEDS ORDERED: CHOL100027 PO (17:34)
[2018-04-26] MEDS ORDERED: DOCU-94 PO (17:34)
[2018-04-26] MEDS ORDERED: B-COCAP21 PO (17:34)
[2018-04-26] MEDS ORDERED: CALMOSEPTINE TOP (17:34)
[2018-04-26] MEDS ORDERED: ALUMCHW6 PO (17:34)
[2018-04-26] MEDS ORDERED: PROB1TAB16 PO (17:34)
[2018-04-26] MEDS ORDERED: PRAMCRE2 TOP (17:34)
[2018-04-26] MEDS ORDERED: POLYETHYLENE (MIRALAX) 17 GM PACK PO PRN (18:00)
[2018-04-26] MEDS ORDERED: NITROGLYCERIN 2% OINTMENT 30GM TUBE EXT ONE (18:00)
[2018-04-26] MEDS ORDERED: MAGNESIUM HYDROXIDE SUSP 30 ML UDC PO PRN (18:00)
[2018-04-26] MEDS ORDERED: ONDANSETRON INJ 2 MG/ML 2 ML VIAL IV PRN (18:00)
--- NOTE | 2018-04-26 18:21 | History and Physical ---
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 She has not had a productive cough, fevers or palpitations. The pt had a NSTEMI 02/02. She has diffuse disease and is not a candidate for surgery or further intervention. She suffers form chronic GI blood loss and had recently required transfusions. Initial labs are notable for a troponin of 5.2 and a hemoglobin of 8.5. There are no acute EKG changes. Past Medical/Surgical History 1) Atrial fibrillation 2) Type I diastolic dysfunction - echo 01/20/2018 3) NSTEMI August 2016 4) Moderate per echo 01/20/2018 5) Diabetes - diet controlled 6) Anemia - due to chronic GI blood loss - no source of bleeding identified - she requires transfusions occasionally. Baseline Hb 9-10 7) Diverticulitis 8) CAD - cath 01/31 - medical management only is recommended Severe multivessel coronary artery disease 50-60% ostial left main 95% mid LAD Chronic total occlusion of ostial circumflex with right to left distal collaterals 50-60% ostial RCA, 60-70% mid RCA Social History Smoking Status: Never Smoker Drug Use: none Marital Status: Housing status: lives alone Occupational Status: retired Immunizations History of Influenza Vaccine: Unknown History of Tetanus Vaccine?: Unknown History of Pneumococcal: Unknown History of Hepatitis B Vaccine: Unknown Allergies Coded Allergies: Hydrocodone (Unverified Allergy, Intermediate, possibly a rash, 01/19/18) Home Medications Scheduled Aspirin (Aspirin Ec), 81 MG PO DAILY Atorvastatin (Lipitor), 80 MG PO DAILY B-Complex W/ C & Folic Acid ([place] Caps), 1 CAP PO QAM Cholecalciferol (Vitamin D 1000 Unit), 2,000 INTER.UNIT PO DAILY Diclofenac Sodium (Topical) (Voltaren 1% Top Gel), 1 APPLN TOP QAM &HS Diltiazem Hcl Ext Rel (Tiazac), 180 MG PO QAM Docusate Sodium (Colace), 1 CAP PO Q2D Ferrous Sulfate (Ferrous Sulfate), 325 MG PO BID Egghhlwylgk-Zbcngpulwti-Xnw C- (Glucosamine Chondroitin 1), 1 CAP PO BID Isosorbide Mononitrate (Isosorbide Mononitrate ER), 30 MG PO QAM Levetiracetam (Keppra), 500 MG PO BID Nitroglycerin (Nitrostat), 0.4 MG UT PRN Nystatin (Nystop), 1 APPLN EXT TID Pantoprazole (Protonix), 40 MG PO DAILY Budyundmk-Eaccfokjhtkrc-Mhafsp (Preparation H), 1 APPLN TOP PRN UD Probiotic Product (Probiotic), 2 TABS PO QAM Ranitidine (Zantac), 150 MG PO BID Rivastigmine Tartrate (Rivastigmine Tartrate), 6 MG PO BID Saccharomyces Boulardii (Florastor), 250 MG PO DAILY Vitamin B Cmplx/Vitc/Folic Ac (Nephrocaps), 1 CAP PO DAILY Scheduled PRN Acetaminophen Tab (Tylenol), 325 MG PO Q6H PRN for Pain or Fever Aluminum Hydroxide-Mag Carb (Gaviscon Extra Strength), 1 TAB PO TID PRN for Dyspepsia [Calmoseptine], 1 APPLN TOP QID PRN for SKIN BREAKDOWN Review of Systems Constitutional: + weakness, No fever, No chills, No sweats Eyes: No worsening of vision ENT: No hearing loss, No unusual epistaxis, No nasal symptoms Respiratory: + shortness of breath, + dyspnea on exertion, + dyspnea at rest, No cough, No sputum, No wheezing Cardiovascular: + chest pain, No orthopnea, No PND Abdomen: No pain, No nausea, No vomiting Musculoskeletal: No joint pain Genitourinary - Female: No dysuria, No urinary frequency Neurologic: + weakness, No memory loss, No paralysis Psychiatric: + depression symptoms Endocrine: + fatigue Hematologic / Lymphatic: No abnormal bleeding/bruising Integumentary: No rash Allergic / Immunologic: No environmental allergies Physical Exam Vital Signs Date Time Temp Pulse Resp B/P (MAP) Pulse Ox O2 Delivery O2 Flow Rate FiO2 04/26/18 17:02 77 21 114/56 95 Nasal Cannula 2.0 04/26/18 16:23 77 20 95/59 92 Room Air 04/26/18 15:50 77 22 84/52 90 Room Air 04/26/18 15:47 79 24 101/59 94 Room Air 04/26/18 15:37 79 04/26/18 15:27 77 22 98/56 95 Room Air 04/26/18 15:27 95 Room Air 04/26/18 15:27 95 Room Air 04/26/18 15:10 36.7 74 20 106/57 96 General Appearance: WD/WN, no apparent distress, + pertinent finding (Pale- appearing, elderly female in no distress) Eyes: normal inspection ENT: normal ENT inspection, pharynx normal Neck: supple, + JVD Respiratory/Chest: chest non-tender, lungs clear Cardiovascular: regular rate, rhythm, no edema, no gallop, + JVD, + systolic murmur Abdomen/GI: normal bowel sounds, non tender, soft Back: normal inspection, no CVA tenderness Extremities/Musculoskelatal: no calf tenderness, normal capillary refill, + pedal edema Neurologic/Psych: foam caster II-XII nml as tested, no motor/sensory deficits, alert, oriented x 3 Skin: warm/dry, no rash, + pallor Diagnostics Laboratory Results Results Past 24 Hours Test 04/26/18 15:40 04/26/18 16:13 Range/Units White Blood Count 13.49 4.8-10.8 K/uL Red Blood Count 2.71 4.2-5.4 M/uL Hemoglobin 8.5 12.0-16.0 g/dL Hematocrit 26.9 37-47 % Mean Corpuscular Volume 99.3 80-100 fL Mean Corpuscular Hemoglobin 31.4 25-34 pg Mean Corpuscular Hemoglobin Concent 31.6 32-36 g/dl Platelet Count 362 130-400 K/uL Mean Platelet Volume 9.6 7.4-10.4 fL Neutrophils (%) (Auto) 81.6 % Lymphocytes (%) (Auto) 8.8 % Monocytes (%) (Auto) 8.9 % Eosinophils (%) (Auto) 0.1 % Basophils (%) (Auto) 0.2 % Neutrophils # (Auto) 11.00 1.4-6.5 K/uL Lymphocytes # (Auto) 1.19 1.2-3.4 K/uL Monocytes # (Auto) 1.20 0.11-0.59 K/uL Eosinophils # (Auto) 0.02 0-0.5 K/uL Basophils # (Auto) 0.03 0-0.2 K/uL RDW Standard Deviation 52.8 36.4-46.3 fL RDW Coefficient of Variation 15.0 11.5-14.5 % Immature Granulocyte % (Auto) 0.4 % Immature Granulocyte # (Auto) 0.05 0.00-0.02 K/uL Anisocytosis PRESENT Sodium Level 134 136-145 mmol/L Potassium Level 4.4 3.5-5.1 mmol/L Chloride Level 103 98-107 mmol/L Carbon Dioxide Level 22 21-32 mmol/L Anion Gap 9.0 3-11 mmol/L Blood Urea Nitrogen 22 7-18 mg/dl Creatinine 1.01 0.60-1.20 mg/dl Est Creatinine Clear Calc Drug Dose 31.2 ml/min Estimated GFR () 57.2 Estimated GFR (Non- 49.3 BUN/Creatinine Ratio 21.9 10-20 Random Glucose 150 70-99 mg/dl Calcium Level 8.6 8.5-10.1 mg/dl Total Bilirubin 0.3 0.2-1 mg/dl Direct Bilirubin < 0.1 0-0.2 mg/dl Aspartate Amino Transf (AST/SGOT) 59 15-37 U/L Alanine Aminotransferase (ALT/SGPT) 23 12-78 U/L Alkaline Phosphatase 47 45-117 U/L Troponin I 5.250 0-0.045 ng/ml Total Protein 6.4 6.4-8.2 gm/dl Albumin 2.7 3.4-5.0 gm/dl Lipase 163 73-393 U/L Prothrombin Time 10.3 9.0-12.0 SECONDS Prothromb Time International Ratio 1.0 0.9-1.1 Diagnostic Radiology CXR: 1. Pulmonary vascular congestion with interstitial coarsening suggests mild pulmonary edema . 2. Trace pleural effusions with subsegmental bibasilar densities favor atelectasis. 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 She has not had a productive cough, fevers or palpitations. The pt had a NSTEMI 02/02. She has diffuse disease and is not a candidate for surgery or further intervention. She suffers form chronic GI blood loss and had recently required transfusions. Initial labs are notable for a troponin of 5.2 and a hemoglobin of 8.5. There are no acute EKG changes. 1) CP - NSTEMI - not a candidate for intervention. We cannot anticoagulate this pt due to her chronic GI blood loss. She will be transfused rather in the hope that her symptoms improve. NTG/morphine provided. Cont Imdur, ASA, statin therapy. 2) Anemia - as mentioned she is being transfused. This is due to an RI rather than anemia as her Hb is not significantly below baseline. 3) CHF - c/o of SOB - XR and exam are consistent with volume overload. She will receive IV Lasix before and during transfusion. We will obtain a limited echo AM to evaluate for a change in her EF in addition to wall motion abnormalities. 4) AF - paroxysmal - currently sinus - cont Diltiazem, ASA - not a candidate for anticoagulation. DNR - SCDs Total time for this admit including review of labs, meds, imaging, records - discussion with pt and ER attending - 40 min Resuscitation Status VTE Prophylaxis Will order VTE Prophylaxis: Yes
[2018-04-26] MEDS ORDERED: FUROSEMIDE INJ 20 MG in SYRINGE 0 ML IV ONE (19:45)
[2018-04-26] MEDS ORDERED: FUROSEMIDE INJ 20 MG in SYRINGE 0 ML IV SCH (20:00)
--- NOTE | 2018-04-26 20:16 | EMERGENCY ROOM VISIT NOTE ---
History Report prepared by Mame: Leonardo Hennessy Under the Supervision of: Dr. Rinku Blackburn D.O. First contact with patient: 15:15 Chief Complaint: CARDIAC ASSESSMENT Stated Complaint: PAIN ACROSS SHOULDERS History of Present Illness The patient is a 87 year old female who presents to the Emergency Room with complaints of intermittent left chest "heaviness" beginning a few days ago. She also complains of pain across her upper back and generalized weakness. The patient states "I just don't feel good". She is unable to describe how she does not feel good. She feels that her symptoms have been "on and off" for some time. The patient adds that she has had a lot of gas recently as well. She does not believe her heaviness radiates into her arms, but she notes that both of her arms hurt. She also reports intermittent abdominal pain for several years. Pt denies headache, change in vision, fevers, shortness of breath, nausea, vomiting, diarrhea, pain with urination, and bloody stool. She is on supplemental iron. Source of History: patient Onset: A few days ago Position: chest (left) Quality: other ("heaviness") Timing: intermittent Associated Symptoms: + abdominal pain (intermittent for a long time), No fevers, No headache, No SOB, No nausea, No vomiting, No hematochezia, No diarrhea, No urinary symptoms Review of Systems See HPI for pertinent positives & negatives. A total of 10 systems reviewed and were otherwise negative. Past Medical & Surgical Medical Problems: (1) Anemia (2) Atrial fibrillation (3) Chest pain (4) Clostridium difficile infection (5) Diverticulitis (6) Heart murmur (7) NSTEMI (non-ST elevated myocardial infarction) Family History No pertinent family history stated. Social History Smoking Status: Never Smoker Alcohol Use: none Drug Use: none Marital Status: Housing Status: lives alone Occupation Status: retired Current/Historical Medications Scheduled Aspirin (Aspirin Ec), 81 MG PO DAILY Atorvastatin (Lipitor), 80 MG PO DAILY B-Complex W/ C & Folic Acid (Steven Caps), 1 CAP PO QAM Cholecalciferol (Vitamin D 1000 Unit), 2,000 INTER.UNIT PO DAILY Diclofenac Sodium (Topical) (Voltaren 1% Top Gel), 1 APPLN TOP QAM &HS Diltiazem Hcl Ext Rel (Tiazac), 180 MG PO QAM Docusate Sodium (Colace), 1 CAP PO Q2D Ferrous Sulfate (Ferrous Sulfate), 325 MG PO BID Diqdqwkhbqs-Rgyllmuimet-Dhk C- (Glucosamine Chondroitin 1), 1 CAP PO BID Isosorbide Mononitrate (Isosorbide Mononitrate ER), 30 MG PO QAM Levetiracetam (Keppra), 500 MG PO BID Nitroglycerin (Nitrostat), 0.4 MG UT PRN Nystatin (Nystop), 1 APPLN EXT TID Pantoprazole (Protonix), 40 MG PO DAILY Qmqrmadmg-Qfopceaghrwbe-Swkcba (Preparation H), 1 APPLN TOP PRN UD Probiotic Product (Probiotic), 2 TABS PO QAM Ranitidine (Zantac), 150 MG PO BID Rivastigmine Tartrate (Rivastigmine Tartrate), 6 MG PO BID Saccharomyces Boulardii (Florastor), 250 MG PO DAILY Vitamin B Cmplx/Vitc/Folic Ac (Nephrocaps), 1 CAP PO DAILY Scheduled PRN Acetaminophen Tab (Tylenol), 325 MG PO Q6H PRN for Pain or Fever Aluminum Hydroxide-Mag Carb (Gaviscon Extra Strength), 1 TAB PO TID PRN for Dyspepsia [Calmoseptine], 1 APPLN TOP QID PRN for SKIN BREAKDOWN Allergies Coded Allergies: Hydrocodone (Unverified Allergy, Intermediate, possibly a rash, 01/19/18) Physical Exam Vital Signs Date Time Temp Pulse Resp B/P (MAP) Pulse Ox O2 Delivery O2 Flow Rate FiO2 04/26/18 17:02 77 21 114/56 95 Nasal Cannula 2.0 04/26/18 16:23 77 20 95/59 92 Room Air 04/26/18 15:50 77 22 84/52 90 Room Air 04/26/18 15:47 79 24 101/59 94 Room Air 04/26/18 15:37 79 04/26/18 15:27 77 22 98/56 95 Room Air 04/26/18 15:27 95 Room Air 04/26/18 15:27 95 Room Air 04/26/18 15:10 36.7 74 20 106/57 96 Physical Exam GENERAL: Sitting up in bed, chronically ill-appearing, minimal distress, non- toxic EYE EXAM: normal conjunctiva. OROPHARYNX: no exudate, no erythema, lips, buccal mucosa, and tongue normal and mucous membranes are moist NECK: supple, no nuchal rigidity, no adenopathy, non-tender LUNGS: Clear to auscultation. Normal chest wall mechanics HEART: no murmurs, S1 normal and S2 normal CHEST: Reproducible pain, different from stated complaint. ABDOMEN: abdomen soft, non-tender, normo-active bowel sounds, no masses, no rebound or guarding. BACK: Back is symmetrical on inspection and there is no deformity, no midline tenderness, no CVA tenderness. RECTAL: Heme positive stool. SKIN: no rashes and no bruising UPPER EXTREMITIES: upper extremities are grossly normal. LOWER EXTREMITIES: Calves equal bilaterally. NEURO EXAM: Normal sensorium, cranial nerves II-XII grossly intact, normal speech, no gross weakness of arms, no gross weakness of legs. Medical Decision & Procedures ER Provider Diagnostic Interpretation: Radiology results as stated below per my review and the radiologist's interpretation: CHEST ONE VIEW PORTABLE FINDINGS: Cardiac silhouette is upper limits of normal in size. Atherosclerosis of the aorta. Questioned nodular opacity about the left midlung is better seen on comparison study. Pulmonary vascular congestion with bilateral interstitial coarsening is new from prior. Trace bilateral pleural effusions with subsegmental bibasilar densities. No pneumothorax. Degenerative changes of the shoulders and spine. IMPRESSION: 1. Pulmonary vascular congestion with interstitial coarsening suggests mild pulmonary edema . 2. Trace pleural effusions with subsegmental bibasilar densities favor atelectasis. The above report was generated using voice recognition software. It may contain grammatical, syntax or spelling errors. Electronically signed by: Sina Simmons M.D. 04/26/2018 4:10 PM Laboratory Results 04/26/18 15:40 Red Blood Count 2.71, Mean Corpuscular Volume 99.3, Mean Corpuscular Hemoglobin 31.4, Mean Corpuscular Hemoglobin Concent 31.6, Mean Platelet Volume 9.6, Neutrophils (%) (Auto) 81.6, Lymphocytes (%) (Auto) 8.8, Monocytes (%) (Auto) 8.9, Eosinophils (%) (Auto) 0.1, Basophils (%) (Auto) 0.2, Neutrophils # (Auto) 11.00, Lymphocytes # (Auto) 1.19, Monocytes # (Auto) 1.20, Eosinophils # (Auto) 0.02, Basophils # (Auto) 0.03 04/26/18 15:40 Test 04/26/18 15:40 04/26/18 16:13 White Blood Count 13.49 K/uL (4.8-10.8) Red Blood Count 2.71 M/uL (4.2-5.4) Hemoglobin 8.5 g/dL (12.0-16.0) Hematocrit 26.9 % (37-47) Mean Corpuscular Volume 99.3 fL (80-100) Mean Corpuscular Hemoglobin 31.4 pg (25-34) Mean Corpuscular Hemoglobin Concent 31.6 g/dl (32-36) Platelet Count 362 K/uL (130-400) Mean Platelet Volume 9.6 fL (7.4-10.4) Neutrophils (%) (Auto) 81.6 % Lymphocytes (%) (Auto) 8.8 % Monocytes (%) (Auto) 8.9 % Eosinophils (%) (Auto) 0.1 % Basophils (%) (Auto) 0.2 % Neutrophils # (Auto) 11.00 K/uL (1.4-6.5) Lymphocytes # (Auto) 1.19 K/uL (1.2-3.4) Monocytes # (Auto) 1.20 K/uL (0.11-0.59) Eosinophils # (Auto) 0.02 K/uL (0-0.5) Basophils # (Auto) 0.03 K/uL (0-0.2) RDW Standard Deviation 52.8 fL (36.4-46.3) RDW Coefficient of Variation 15.0 % (11.5-14.5) Immature Granulocyte % (Auto) 0.4 % Immature Granulocyte # (Auto) 0.05 K/uL (0.00-0.02) Anisocytosis PRESENT Anion Gap 9.0 mmol/L (3-11) Est Creatinine Clear Calc Drug Dose 31.2 ml/min Estimated GFR () 57.2 Estimated GFR (Non- 49.3 BUN/Creatinine Ratio 21.9 (10-20) Calcium Level 8.6 mg/dl (8.5-10.1) Total Bilirubin 0.3 mg/dl (0.2-1) Direct Bilirubin < 0.1 mg/dl (0-0.2) Aspartate Amino Transf (AST/SGOT) 59 U/L (15-37) Alanine Aminotransferase (ALT/SGPT) 23 U/L (12-78) Alkaline Phosphatase 47 U/L (45-117) Troponin I 5.250 ng/ml (0-0.045) Total Protein 6.4 gm/dl (6.4-8.2) Albumin 2.7 gm/dl (3.4-5.0) Lipase 163 U/L (73-393) Prothrombin Time 10.3 SECONDS (9.0-12.0) Prothromb Time International Ratio 1.0 (0.9-1.1) Laboratory results per my review. Medications Administered Medications (Trade) Dose Ordered Sig/Giorgi Route Start Time Stop Time Status Last Admin Dose Admin Nitroglycerin (Nitrostat Tab) 0.4 mg Q5M PRN SL 04/26/18 15:30 04/26/18 19:38 DC 04/26/18 15:47 0.4 MG Aspirin (Aspirin Chew) 324 mg NOW STAT PO 04/26/18 15:28 04/26/18 15:29 DC 04/26/18 15:45 324 MG Sodium Chloride 500 ml @ 999 mls/hr Q31M STAT IV 04/26/18 15:43 04/26/18 16:13 DC 04/26/18 15:47 999 MLS/HR Fentanyl Citrate (Fentanyl Inj) 25 mcg NOW ONCE IV 04/26/18 17:15 04/26/18 17:16 DC 04/26/18 17:25 25 MCG ECG Per My Interpretation Indication: chest pain Rate (beats per minute): 82 Rhythm: sinus rhythm Findings: ST depression (Anterior, lateral and hilateral. ), ST elevation (AVR) Comparison ECG Date: January 26, 2018 Change: ST depressions are worsened in the lateral and hilateral leads, and are new in the anterior leads. Repeat ECG shows a sinus rhythm with a rate of [address] depressions present in the hilateral, lateral and anterior leads. ST elevations present in AVR. ST depressions are slightly improved compared to previous ECG. ED Course ED COURSE: Vital signs were reviewed and appeared normal. The patients medical record was reviewed The above diagnostic studies were performed and reviewed. ED treatments and interventions as stated above. 1516: The patient was evaluated in room A4B. A complete history and physical examination was performed. 1528: Ordered Aspirin Chew 324 mg PO. 1530: Ordered Nitrostat Tab 0.4 mg SL. 1543: Ordered Sodium Chloride 500 ml @ 999 mls/hr IV. 1650: Upon reevaluation, the patient is resting comfortably. I discussed my findings with the patient and she understands and agrees with the treatment plan. Based on the patients age, coexisting illnesses, exam and lab findings the decision to treat as an inpatient was made. The patient remained stable while under my care. The patient will be evaluated for further management. 1715: Ordered Fentanyl Inj 25 mcg IV. 1830: I updated the patient. Her shortness of breath has resolved. We are restarting the transfusion now. Medical Decision Differential diagnoses includes but is not limited to acute coronary syndrome, myocardial infarction, pericarditis, pulmonary embolus, aortic dissection, pneumonia, pneumothorax, musculoskeletal, shingles, esophageal. Patient is an 87 year female who presents the ER for chest pressure. EMR reviewed. 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 Poor surgical candidate, medical management preferred. 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 Moderate aortic stenosis which is stable. She is not a surgical or stent candidate. EKG today shows diffuse worsening ST depressions in elevation in aVR suggesting left main disease which is known and noninterventional. Labs results that showed a hemoglobin of 8.5 down from 10.5. Rectally heme positive. Troponin was elevated at 5. BMP was unremarkable along with LFTs and bilirubin. Patient had a repeat EKG which did show improvement. Discussed with cardiology. Patient is clearly having an end STEMI. Cannot place on anticoagulation with a GI bleed. Do favor with a low hemoglobin that this is likely related to her anemia. Patient was given 2 units PRBCs while in the ER. She was admitted to internal medicine with an NSTEMI. She also got aspirin and nitroglycerin initially. The nitroglycerin did drop her pressures to the 80s we held any additional treatment. She was also given IV fentanyl for her pain. Medication Reconcilliation Current Medication List: was personally reviewed by me Blood Pressure Screening Patient's blood pressure: Normal blood pressure Blood pressure disposition: Did not require urgent referral Consults Time Called: [id number] Consulting Physician: Dr. Vickers - Cardiology Returned Call: [phone] I reviewed the patient's case with Dr. Vickers. He agrees with the current management. Additional Consults: Time Called: [id number] Consulted Physician: Dr. Viramontes - [facility] Hospitalist Returned Call: [phone] Additional Comments: I reviewed the patient's case with Dr. Viramontes. LISA will evaluate the patient for further management. Impression Primary Impression: NSTEMI (non-ST elevated myocardial infarction) Additional Impressions: Symptomatic anemia GI bleed Critical Care I have personally spent 35 minutes of critical care time in the direct management of this patient. This includes bedside care, interpretation of diagnostic studies, and testing, discussion with consultants, patient, and family members, and other required patient management activities. This 35 minutes is in excess of all separately billable procedures. Scribe Attestation The scribe's documentation has been prepared under my direction and personally reviewed by me in its entirety. I confirm that the note above accurately reflects all work, treatment, procedures, and medical decision making performed by me. Departure Information Dispostion Being Evaluated By Hospitalist Referrals Brittanie Moran, [email or web address] (PCP) Patient Instructions My [facility] Problem Qualifiers Additional Impressions: GI bleed GI bleed type/associated pathology: unspecified gastrointestinal hemorrhage type Qualified Codes: K92.2 - Gastrointestinal hemorrhage, unspecified
[2018-04-26] MEDS: RANITIDINE HCL 150 MG TAB PO SCH (20:54)
[2018-04-26] MEDS: LEVETIRACETAM 500 MG TAB PO SCH (20:54)
[2018-04-26] MEDS: RIVASTIGMINE TARTRATE (EXELON) 1.5 MG CAP PO SCH (20:54)
[2018-04-26] MEDS: MoRPHine SULFATE 4 MG/ML 1 ML CARP\\VIAL IV PRN (23:00)
[2018-04-27] VITALS (15 sets, daily range): BP systolic 101–123; BP diastolic 50–84; PULSE 58–92; TEMP 36.5–37.5; O2SAT 91–96
[2018-04-27 02:14] LABS: CALCIUM 8.7 mg/dl (8.5-10.1); CREATININE 0.95 mg/dl (0.60-1.20); POTASSIUM 4.1 mmol/L (3.5-5.1)
[2018-04-27 06:05] LABS: HEMATOCRIT 35.3 % (37-47); HEMOGLOBIN 11.8 g/dL (12.0-16.0); MEAN CELL VOLUME 92.4 fL (80-100); MEAN CORPUSCULAR HEMOGLOBIN 30.9 pg (25-34); MEAN CORPUSCULAR HGB CONC 33.4 g/dl (32-36); MEAN PLATELET VOLUME 10.7 fL (7.4-10.4); PLATELET COUNT 313 K/uL (130-400); RED CELL DISTRIBUTION WIDTH SD 57.2 fL (36.4-46.3); WHITE BLOOD COUNT 17.85 K/uL (4.8-10.8)
[2018-04-27 06:21] LABS: CALCIUM 8.6 mg/dl (8.5-10.1); CREATININE 0.98 mg/dl (0.60-1.20); POTASSIUM 4.1 mmol/L (3.5-5.1)
[2018-04-27] MEDS: MAGNESIUM SULFATE 1GM / D5W 100 ML IV SCH ×2 (08:59→09:31)
[2018-04-27] MEDS ORDERED: ATORVASTATIN 40 MG TAB PO SCH (09:00)
[2018-04-27] MEDS ORDERED: DILTIAZEM HCL (TIAzac) 180 MG CAPCR PO SCH (09:00)
[2018-04-27] MEDS ORDERED: ISOSORBIDE MONONITRATE 30 MG TABCR PO SCH (09:00)
[2018-04-27] MEDS ORDERED: NEPHROCAPS PO SCH (09:00)
--- NOTE | 2018-04-27 09:19 | Clinical Documentation Query ---
EDITA Servin : CLINICAL DOCUMENTATION QUERY Patient is an 87 year old female admitted for evaluation and management of NSTEMI. CXR demonstrated "Pulmonary vascular congestion with interstitial coarsening suggests mild pulmonary edema". Attending documentation includes "CHF - c/o of SOB - XR and exam are consistent with volume overload. She will receive IV Lasix before and during transfusion". As appropriate, consider explicit documentation of the type and acuity of CHF in your patient as this impacts accurate DRG assignment. Thank you. In your clinical opinion is this patient being managed for: ( ) Acute on chronic diastolic CHF (x ) Not Agree - although her cxr says CHF, clinically no evidence of acute CHF. Sob is due to the acute HI. ( ) Other explanation of clinical findings (No explanation is considered a No Response) ( ) Unable to determine ( ) Need to Discuss (Phone CDS or qliq) (No discussion is considered a No Response) The medical record reflects the following clinical findings, treatment, and risk factors. Clinical Indicators: Treatment: Telemetry, I/O, daily weights, IV Lasix Risk Factors: Age, NSTEMI, history of diastolic CHF Please clarify and document your clinical opinion in the progress notes and discharge summary. Terms such as "probable", "suspected", "likely", "questionable", "possible", or "still to be ruled out" are acceptable. IF IN AGREEMENT, YOU MUST DOCUMENT ABOVE DIAGNOSTIC STATEMENT IN DAILY PROGRESS NOTES AND DISCHARGE SUMMARY. This document is not part of the patient's record. Thank You, Adrián Wick, HOLLIS [phone]
[2018-04-27] MEDS: ASPIRIN 81 MG ECTAB PO SCH (09:28)
[2018-04-27] MEDS: RIVASTIGMINE TARTRATE (EXELON) 1.5 MG CAP PO SCH ×2 (09:28→21:14)
[2018-04-27] MEDS: SACCHAROMYCES BOUL (FLORASTOR) 250 MG CAP PO SCH (09:29)
[2018-04-27] MEDS: LEVETIRACETAM 500 MG TAB PO SCH ×2 (09:29→21:14)
[2018-04-27] MEDS: NEPHROCAPS PO SCH (09:30)
[2018-04-27] MEDS: PANTOprazole SOD 40 MG TAB PO SCH (09:30)
[2018-04-27] MEDS: RANITIDINE HCL 150 MG TAB PO SCH ×2 (09:31→21:14)
[2018-04-27] MEDS: DOCUSATE SODIUM 100 MG CAP PO SCH (09:32)
[2018-04-27] MEDS ORDERED: AMIODARONE IV BOLUS / DRIP IV STA (09:48)
[2018-04-27] MEDS ORDERED: NITROGLYCERIN/D5W 100 MCG/ML 250 ML IV STA (09:48)
--- NOTE | 2018-04-27 09:48 | Cardiology Consultation ---
Cardiology Consultation Date of Consultation: Apr 27, 2018. Requesting Physician: Dr. Gaston Reason for Consultation: Chest pain, shortness of breath Pt evaluation today including: conversation w/ patient, physical exam, lab review, review of studies, review of inpatient medication list History of Present Illness This is a very pleasant 87-year-old woman who has a history of coronary artery disease (including a non-ST segment elevation myocardial infarction at the end of August 2016 in association with rapid heart rate and severe coronary disease at catheterization in January 2018) as well as valvular heart disease including moderate aortic stenosis and mild to moderate mitral regurgitation. 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 She was identified as having anemia at the time and had a small enzyme rise. She has been treated medically for the arrhythmia. She was maintained on metoprolol tartrate for the arrhythmia. Echocardiography showed normal left ventricular function but she had moderate to severe aortic stenosis. She presented January 19, 2018 with diarrhea and abdominal discomfort, however she was observed to have periods of SVT at a rapid heart rate as well as some electrocardiographic abnormalities. Her symptoms were a little bit vague, she did admit to having intermittent palpitations but was not very precise about it. She had frequent episodes during that hospital stay and I cannot tell if she actually had much in the way of symptoms related to them. She did not have chest discomfort or shortness of breath. She evidently does not have lightheadedness or dizziness and denied syncope or presyncope. Her rhythm appeared to be very well controlled on intravenous diltiazem therefore she was discharged January 22, 2018 on diltiazem CD 180 mg daily. She returned to January 26, 2018 with continued diarrhea as well as some chest discomfort and was noted to be in atrial fibrillation at her primary care physician's office. She was therefore sent to the emergency room where she was also identified as having atrial fibrillation, but that converted to sinus rhythm shortly thereafter. She seemed unaware of the rhythm specifically but had intermittent chest discomfort lasting several minutes. She was pain-free and remained in sinus rhythm following conversion in the emergency room, however with ambulation that evening she had anginal type chest discomfort with no rhythm disturbance and also some electrocardiographic changes which appear to be a little bit different than before. The episode was relieved with rest and nitroglycerin. She has had anemia for some time with no clear source of bleeding, although she did have heme positive stools. Although we were confident that she had coronary disease we did not know the extent, therefore we did perform cardiac catheterization on January 28, 2018. Not surprisingly she had severe multivessel coronary artery disease including a 50-60% ostial left main, 95% mid LAD, chronic ostial circumflex occlusion with right to left collaterals and a 50-60% ostial right coronary artery stenosis as well as a 67% mid RCA stenosis. It was felt that intervention was at very high risk and therefore we plan to maximize her medical therapy, including maintaining her hemoglobin. Palliative care was considered, but was not instituted. She returns now having ongoing intermittent chest discomfort and more recently shortness of breath. She is once again vague about her history, it sounds as though she has had chest discomfort for a month or perhaps longer, and it evidently is intermittent although it has been much more pronounced recently. It is difficult to get a time course from her history. More recently she was short of breath, but that appears to be only in the last several days. She does not plan to palpitations. Past Medical/Surgical History Coronary artery disease Moderate to severe aortic stenosis Paroxysmal atrial fibrillation and SVT GI bleed of unknown origin Social History Smoking Status: Never Smoker History of Alcohol Use: No Review of Systems Constitutional: No fever, No weight loss, No weakness Respiratory: + see HPI, + cough, + shortness of breath, + dyspnea on exertion, No wheezing Cardiac: + see HPI, + chest pain, No orthopnea, No PND, No edema, No palpitations Abdomen: No pain, No nausea, No vomiting, No diarrhea, No GI bleeding Female : No problem reported Neurologic: No paralysis, No weakness, No numbness/tingling, No balance problems Heme: No abnormal bleeding/bruising, No clotting problems Endo: No fatigue Skin: No problem reported All Other Systems: Reviewed and Negative Allergies Coded Allergies: Hydrocodone (Unverified Allergy, Intermediate, possibly a rash, 01/19/18) Medications Current Inpatient Medications Medications (Trade) Dose Ordered Sig/Giorgi Route Start Time Stop Time Status Last Admin Dose Admin Acetaminophen (Tylenol Tab) 650 mg Q4H PRN PO 04/26/18 18:00 05/26/18 17:59 Al Hydrox/Mg Hydrox/Simethicone (Maalox Max Susp) 15 ml Q4H PRN PO 04/26/18 18:00 05/26/18 17:59 Magnesium Hydroxide (Milk Of Magnesia Susp) 30 ml Q12H PRN PO 04/26/18 18:00 05/26/18 17:59 Ondansetron HCl (Zofran Inj) 4 mg Q6H PRN IV 04/26/18 18:00 05/26/18 17:59 Nitroglycerin (Nitrostat Tab) 0.4 mg UD PRN SL 04/26/18 18:00 05/26/18 17:59 Morphine Sulfate (MoRPHine SULFATE INJ) 2 mg Q30M PRN IV 04/26/18 18:00 05/10/18 17:59 04/26/18 23:00 2 MG Polyethylene (Miralax Powder Packet) 17 gm DAILY PRN PO 04/26/18 18:00 05/26/18 17:59 Aspirin (Ecotrin Tab) 81 mg DAILY PO 04/27/18 09:00 05/27/18 08:59 Atorvastatin Calcium (Lipitor Tab) 80 mg DAILY PO 04/27/18 09:00 05/27/18 08:59 Vitamin B Complex/ Vit C/Folic Acid (Nephrocaps) 1 cap QAM PO 04/27/18 09:00 05/27/18 08:59 Diltiazem HCl (TIAzac CAP) 180 mg QAM PO 04/27/18 09:00 05/27/18 08:59 Docusate Sodium (coLACE CAP) 100 mg Q2D@0900 PO 04/28/18 09:00 05/28/18 08:59 Isosorbide Mononitrate (Imdur Ext Rel Tab) 30 mg QAM PO 04/27/18 09:00 05/27/18 08:59 Levetiracetam (Keppra Tab) 500 mg BID PO 04/26/18 21:00 05/26/18 20:59 04/26/18 20:54 500 MG Pantoprazole Sodium (Protonix Tab) 40 mg DAILY PO 04/27/18 09:00 05/27/18 08:59 Ranitidine HCl (zANTac TAB) 150 mg BID PO 04/26/18 21:00 05/26/18 20:59 04/26/18 20:54 150 MG Saccharomyces Boulardii (Florastor Cap) 250 mg DAILY PO 04/27/18 09:00 05/27/18 08:59 Rivastigmine Tartrate (Exelon Cap) 6 mg BID PO 04/26/18 21:00 05/26/18 20:59 04/26/18 20:54 6 MG Magnesium Sulfate 100 ml @ 100 mls/hr TODAY@0830,0930 IV 04/27/18 08:30 04/27/18 11:30 04/27/18 08:59 100 MLS/HR Physical Exam Vital Signs Past 12 Hours Date Time Temp Pulse Resp B/P (MAP) Pulse Ox O2 Delivery O2 Flow Rate FiO2 04/27/18 08:00 93 Nasal Cannula 2.0 04/27/18 07:03 36.7 92 18 123/84 (97) 93 2.0 04/27/18 04:00 37.5 92 18 119/71 (87) 91 Nasal Cannula 2.0 04/26/18 23:55 36.8 98 18 121/76 (91) 94 4.0 04/26/18 22:30 36.6 93 24 148/89 91 4.0 04/26/18 22:00 36.6 89 22 132/69 94 2.0 04/26/18 21:30 36.4 79 18 127/61 93 2.0 Constitutional: Level of Distress: mild distress Psychiatric: Mental Status: active & alert Memory: recent memory abnormal Head: normocephalic Eyes: EOM: EOMI ENMT: normal ENT inspection, hearing grossly normal Neck: supple, no masses Lungs: Auscultation: no wheezing, deminished air movement, decreased breath sounds , rales/crackles on the left, rales/crackles on the right Cardiovascular: Heart Auscultation: no rubs, no gallops, II/ BARBARA, irregular rate rhythm Peripheral Pulses: Bruits: none appreciated Abdomen: Bowel Sounds: normal Inspection & Palpation: soft, no tenderness, guarding & rebound, no masses Musculoskeletal: normal strength (5/5 throughout) Extremities: no edema Neurologic: Cranial Nerves: grossly intact Sensation: grossly intact Data Laboratory Results: Last 24 Hours Test 04/26/18 15:40 04/26/18 16:13 04/26/18 22:52 04/27/18 01:37 White Blood Count 13.49 K/uL Red Blood Count 2.71 M/uL Hemoglobin 8.5 g/dL Hematocrit 26.9 % Mean Corpuscular Volume 99.3 fL Mean Corpuscular Hemoglobin 31.4 pg Mean Corpuscular Hemoglobin Concent 31.6 g/dl Platelet Count 362 K/uL Mean Platelet Volume 9.6 fL Neutrophils (%) (Auto) 81.6 % Lymphocytes (%) (Auto) 8.8 % Monocytes (%) (Auto) 8.9 % Eosinophils (%) (Auto) 0.1 % Basophils (%) (Auto) 0.2 % Neutrophils # (Auto) 11.00 K/uL Lymphocytes # (Auto) 1.19 K/uL Monocytes # (Auto) 1.20 K/uL Eosinophils # (Auto) 0.02 K/uL Basophils # (Auto) 0.03 K/uL RDW Standard Deviation 52.8 fL RDW Coefficient of Variation 15.0 % Immature Granulocyte % (Auto) 0.4 % Immature Granulocyte # (Auto) 0.05 K/uL Anisocytosis PRESENT Sodium Level 134 mmol/L 134 mmol/L Potassium Level 4.4 mmol/L 4.1 mmol/L Chloride Level 103 mmol/L 103 mmol/L Carbon Dioxide Level 22 mmol/L 22 mmol/L Anion Gap 9.0 mmol/L 9.0 mmol/L Blood Urea Nitrogen 22 mg/dl 22 mg/dl Creatinine 1.01 mg/dl 0.95 mg/dl Est Creatinine Clear Calc Drug Dose 31.2 ml/min 33.2 ml/min Estimated GFR () 57.2 61.5 Estimated GFR (Non- 49.3 53.1 BUN/Creatinine Ratio 21.9 23.5 Random Glucose 150 mg/dl 152 mg/dl Calcium Level 8.6 mg/dl 8.7 mg/dl Total Bilirubin 0.3 mg/dl Direct Bilirubin < 0.1 mg/dl Aspartate Amino Transf (AST/SGOT) 59 U/L Alanine Aminotransferase (ALT/SGPT) 23 U/L Alkaline Phosphatase 47 U/L Troponin I 5.250 ng/ml 13.700 ng/ml Total Protein 6.4 gm/dl Albumin 2.7 gm/dl Lipase 163 U/L Prothrombin Time 10.3 SECONDS Prothromb Time International Ratio 1.0 Test 04/27/18 05:14 White Blood Count 17.85 K/uL Red Blood Count 3.82 M/uL Hemoglobin 11.8 g/dL Hematocrit 35.3 % Mean Corpuscular Volume 92.4 fL Mean Corpuscular Hemoglobin 30.9 pg Mean Corpuscular Hemoglobin Concent 33.4 g/dl RDW Standard Deviation 57.2 fL RDW Coefficient of Variation 17.0 % Platelet Count 313 K/uL Mean Platelet Volume 10.7 fL Sodium Level 135 mmol/L Potassium Level 4.1 mmol/L Chloride Level 103 mmol/L Carbon Dioxide Level 22 mmol/L Anion Gap 10.0 mmol/L Blood Urea Nitrogen 23 mg/dl Creatinine 0.98 mg/dl Est Creatinine Clear Calc Drug Dose 32.2 ml/min Estimated GFR () 59.3 Estimated GFR (Non- 51.1 BUN/Creatinine Ratio 23.8 Random Glucose 163 mg/dl Calcium Level 8.6 mg/dl Magnesium Level 1.5 mg/dl Troponin I 23.700 ng/ml Imaging: Chest x-ray on admission suggests mild congestive heart failure EKG: On presentation her electrocardiogram shows sinus rhythm at 80 bpm, her QRS is somewhat wide (probably LVH with QRS widening versus a nonspecific IVCD) and she does have anterolateral ST depression and T-wave abnormalities. These findings have remained, she did have one electrocardiogram showing sinus rhythm with frequent premature atrial beats. Telemetry reviewed: Initially she was in sinus rhythm, subsequently she has developed an irregular rhythm which is not appear to be atrial fibrillation. She has periods of a rapid regular rhythm at 150 bpm which appears to be some type of SVT, she also has periods of very frequent premature atrial beats including atrial bigeminy. I believe this is consistent with her known atrial arrhythmia, probably not atrial fibrillation. Overall the heart rate is well controlled but highly irregular. Echocardiogram: I briefly reviewed her echocardiogram, she now has severe left ventricular dysfunction. Formal report pending. Assessment & Plan 1. Chest discomfort: This is almost certainly due to myocardial ischemia and injury. She does not have an ST elevation myocardial infarction, at least now although perhaps she had one in the recent past but her enzyme pattern would suggest a more acute onset of ischemia and injury. It is very concerning that she also has left ventricular dysfunction. Based on her last catheterization there is probably little that can be done other than high risk intervention or bypass surgery, neither of which we would probably be able to do here. We could potentially send her to [facility] or [place], but given all of her other difficulties (aortic stenosis, anemia from a GI bleed) I suspect her outcome would not be good. For the moment I am going to try intravenous nitroglycerin. 2. Left ventricular dysfunction: In the past despite her aortic stenosis and her severe coronary disease her left ventricular ejection fraction has been maintained. Her current decrease in function is likely due to stunning from ischemia, unless she has had a large infarction in the relatively recent past but she does not have specific symptoms suggesting that (she did not have sudden heart failure or severe chest pain until recently). Prep she has been gradually damaging her heart for some time, but her enzymes suggest a more recent event. Part of the decreased left ventricular function might be the rate. I will try to control the rate with intravenous amiodarone. 3. Aortic stenosis: Carotid stenosis has been moderate to severe but I do not believe that is a cause of her left ventricular dysfunction, this appears to be due to recent. 4. Congestive heart failure: She does not appear to be fluid overloaded, I believe her congestive heart failure is due to recent development of severe left ventricular dysfunction. The tachycardia may be contributory as well, however she presented in sinus rhythm but it is intermittent and fairly frequent. Her daughters will likely be in today, she does not know when. We need to discuss with them what their wishes are. I am also going to try to get hold of Dr. Lopez to see whether he thinks there is any role for tension here, although I doubt it. Thank you for allowing me to participate in her care.
[2018-04-27] MEDS ORDERED: NITROGLYCERIN/D5W 100 MCG/ML BTL ONE (10:06)
[2018-04-27] MEDS ORDERED: 0.2 MICRON FILTER SET 1 EA IV SCH (10:15)
[2018-04-27] MEDS ORDERED: AMIODARONE / D5W 100 ML IV ONE (10:15)
[2018-04-27] MEDS ORDERED: AMIODARONE / D5W 200 ML IV SCH (10:25)
[2018-04-27] MEDS ORDERED: NITROGLYCERIN/D5W 100 MCG/ML 250 ML IV PRN (12:15)
--- NOTE | 2018-04-27 12:32 | ECHOCARDIOGRAM REPORT ---
*NOTICE TO RECEIVING [employer] This information is strictly Confidential and protected under [place] law. [place] law prohibits you from making any further disclosure of this information unless further disclosure is expressly permitted by the written consent of the person to whom it pertains or is authorized by law. A general authorization for the release of medical or other information is not sufficient for this purpose. Hospital accepts no responsibility if the information is made available to any other person, INCLUDING THE PATIENT. Interpretation Summary * Name: SARAH CONCEPCION Study Date: 04/27/2018 06:35 AM BP: 119/71 mmHg * Patient Location: C.2E\S\E204\S\1 HR: 108 * : 1930 (M/d/yyy) Gender: Female Height: 63 in * Age: 87 yrs Ethnicity: CA Weight: 125 lb * Ordering Physician: Ben Viramontes * Referring Physician: Brittanie Moran * Performed By: France Spears RCS * * Reason For Study: CHF / WALL MOTION ABNORM AND CHANGE IN EF * BSA: 1.6 m2 * -- Conclusions -- * 1. Normal left ventricular size with severely reduced systolic function. EF 20-25%. Akinesis of the inferior wall and mid to distal septum. Otherwise, severe global hypokinesis. No left ventricular hypertrophy. * 2. The left atrium is mildly dilated. * 3. Sclerotic aortic valve. Spectral Doppler studies were not performed across the aortic valve. Reduced excursion during systole, suggesting aortic stenosis. * 4. There is moderate mitral annular calcification. * 5. There is mild mitral regurgitation. * 6. 2D imaging with limited color Doppler. * 7. Technically difficult study, enhanced with IV Definity. * 8. Compared to prior study on 01/20/2018, LV systolic function is now severely reduced with wall motion abnormalities as described. Procedure Details * Limited views were obtained. * A contrast injection of Definity was performed to improve assessment of LV function. * Contrast was injected into an intravenous site in the left arm. * One vial of Definity ultrasound contrast was diluted in normal saline to a total volume of 10 ml. A total of '2' ml of solution was administered during imaging. * Lot # [id number] of Definity utilized for procedure. * Expiration date MARCH 05. * The attending nurse who injected the contrast agent was ANASTACIA SIDDIQUI RN. Left Ventricle * Normal left ventricular size with severely reduced systolic function. EF 20-25%. Akinesis of the inferior wall and mid to distal septum. Otherwise, severe global hypokinesis. No left ventricular hypertrophy. Right Ventricle * The right ventricle is grossly normal size. * The right ventricular systolic function is normal. Atria * The left atrium is mildly dilated. * Right atrial size is normal. Mitral Valve * There is moderate mitral annular calcification. * There is mild mitral regurgitation. Tricuspid Valve * The tricuspid valve is not well visualized. Aortic Valve * Sclerotic aortic valve. Spectral Doppler studies were not performed across the aortic valve. Reduced excursion during systole, suggesting aortic stenosis. Pulmonic Valve * The pulmonic valve is not well visualized. Great Vessels * The aortic root is normal size. Pericardium/Pleural * There is no pericardial effusion. Great Vessels * Normal inferior vena cava size and collapsability with sniff indicates a normal right atrial pressure of 3 mmHg MMode 2D Measurements and Calculations IVSd 1.1 cm IVSs 1.2 cm LVIDd 3.8 cm LVIDs 3.3 cm LVPWd 0.98 cm LVPWs 1.4 cm IVS/LVPW 1.1 FS 13.0 % EDV(Teich) 63.3 ml ESV(Teich) 45.3 ml EF(Teich) 28.4 % EDV(cubed) 56.4 ml ESV(cubed) 37.2 ml EF(cubed) 34.1 % % IVS thick 8.4 % % LVPW thick 44.8 % LV mass(C)d 127.3 grams LV mass(C)dI 80.4 grams/m\S\2 LV mass(C)s 146.6 grams LV mass(C)sI 92.6 grams/m\S\2 SV(Teich) 18.0 ml SI(Teich) 11.3 ml/m\S\2 SV(cubed) 19.2 ml SI(cubed) 12.1 ml/m\S\2 Ao root diam 3.3 cm Ao root area 8.6 cm\S\2 LVAd ap4 32.5 cm\S\2 LVLd ap4 8.1 cm EDV(MOD-sp4) 105.9 ml EDV(sp4-el) 110.2 ml LVAs ap4 27.4 cm\S\2 LVLs ap4 7.5 cm ESV(MOD-sp4) 81.7 ml ESV(sp4-el) 84.5 ml EF(MOD-sp4) 22.8 % EF(sp4-el) 23.3 % SV(MOD-sp4) 24.2 ml SI(MOD-sp4) 15.3 ml/m\S\2 SV(sp4-el) 25.7 ml SI(sp4-el) 16.2 ml/m\S\2 Doppler Measurements and Calculations RAP systole 3.0 mmHg
[2018-04-27] MEDS: AMIODARONE / D5W 200 ML IV SCH (16:01)
--- NOTE | 2018-04-27 19:18 | Critical Care Consultation ---
Critical Care Consultation Date of Consultation: Apr 27, 2018. Attending Physician: Ruben Benson MD Reason for Consultation: Acute pulmonary edema. History of Present Illness Dear Dr. Benson: Thank you for the kind referral of Mrs. Alcala to critical care service. This is 87-year-old female with known history of cardiomyopathy with ejection fraction of 20%, severe aortic stenosis, recurrent supraventricular tachycardia with RVR, multiple admissions to the hospital and most recently was last month where she presented with pulmonary edema, the patient presented to the hospital with increasing shortness of breath, noted that she was unable even to ambulate to the door. 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 Lockwood from cardiology, and was started on amiodarone. The patient also was positive for troponin and was admitted to the hospital with diagnosis of non-ST elevation IA as well as worsening pulmonary edema. The patient also claims having chest heaviness occasionally and currently she is not in chest pain after starting nitroglycerin drip. The patient did not have any orthopnea, no nausea or vomiting was reported, no abdominal pain, no change in bowel movements or urine habits. After starting the patient on amiodarone and nitroglycerin she appeared to be asymptomatic from cardiac standpoint. She has no shortness of breath but she has been in the bed. She did have increased swelling in her ankles. The patient apparently has been seen in the past by palliative. Social History Smoking Status: Never Smoker Drug Use: none Marital Status: Housing Status: lives alone Occupation Status: retired Allergies Coded Allergies: Hydrocodone (Unverified Allergy, Intermediate, possibly a rash, 01/19/18) Home Medications Scheduled Aspirin (Aspirin Ec), 81 MG PO DAILY Atorvastatin (Lipitor), 80 MG PO DAILY B-Complex W/ C & Folic Acid ([place] Caps), 1 CAP PO QAM Cholecalciferol (Vitamin D 1000 Unit), 2,000 INTER.UNIT PO DAILY Diclofenac Sodium (Topical) (Voltaren 1% Top Gel), 1 APPLN TOP QAM &HS Diltiazem Hcl Ext Rel (Tiazac), 180 MG PO QAM Docusate Sodium (Colace), 1 CAP PO Q2D Ferrous Sulfate (Ferrous Sulfate), 325 MG PO BID Xmqyogmhjab-Hynqfxuxqyc-Cxc C- (Glucosamine Chondroitin 1), 1 CAP PO BID Isosorbide Mononitrate (Isosorbide Mononitrate ER), 30 MG PO QAM Levetiracetam (Keppra), 500 MG PO BID Nitroglycerin (Nitrostat), 0.4 MG UT PRN Nystatin (Nystop), 1 APPLN EXT TID Pantoprazole (Protonix), 40 MG PO DAILY Hggekkyhi-Hvxlhmvkmnsbs-Vrsocx (Preparation H), 1 APPLN TOP PRN UD Probiotic Product (Probiotic), 2 TABS PO QAM Ranitidine (Zantac), 150 MG PO BID Rivastigmine Tartrate (Rivastigmine Tartrate), 6 MG PO BID Saccharomyces Boulardii (Florastor), 250 MG PO DAILY Vitamin B Cmplx/Vitc/Folic Ac (Nephrocaps), 1 CAP PO DAILY Scheduled PRN Acetaminophen Tab (Tylenol), 325 MG PO Q6H PRN for Pain or Fever Aluminum Hydroxide-Mag Carb (Gaviscon Extra Strength), 1 TAB PO TID PRN for Dyspepsia [Calmoseptine], 1 APPLN TOP QID PRN for SKIN BREAKDOWN Current Inpatient Medications Current Inpatient Medications Medications (Trade) Dose Ordered Sig/Giorgi Route Start Time Stop Time Status Last Admin Dose Admin Acetaminophen (Tylenol Tab) 650 mg Q4H PRN PO 04/26/18 18:00 05/26/18 17:59 Al Hydrox/Mg Hydrox/Simethicone (Maalox Max Susp) 15 ml Q4H PRN PO 04/26/18 18:00 05/26/18 17:59 Magnesium Hydroxide (Milk Of Magnesia Susp) 30 ml Q12H PRN PO 04/26/18 18:00 05/26/18 17:59 Ondansetron HCl (Zofran Inj) 4 mg Q6H PRN IV 04/26/18 18:00 05/26/18 17:59 Nitroglycerin (Nitrostat Tab) 0.4 mg UD PRN SL 04/26/18 18:00 05/26/18 17:59 Morphine Sulfate (MoRPHine SULFATE INJ) 2 mg Q30M PRN IV 04/26/18 18:00 05/10/18 17:59 04/26/18 23:00 2 MG Polyethylene (Miralax Powder Packet) 17 gm DAILY PRN PO 04/26/18 18:00 05/26/18 17:59 Aspirin (Ecotrin Tab) 81 mg DAILY PO 04/27/18 09:00 05/27/18 08:59 04/27/18 09:28 81 MG Vitamin B Complex/ Vit C/Folic Acid (Nephrocaps) 1 cap QAM PO 04/27/18 09:00 05/27/18 08:59 04/27/18 09:30 1 CAP Docusate Sodium (coLACE CAP) 100 mg Q2D@0900 PO 04/28/18 09:00 05/28/18 08:59 04/27/18 09:32 100 MG Levetiracetam (Keppra Tab) 500 mg BID PO 04/26/18 21:00 05/26/18 20:59 04/27/18 09:29 500 MG Pantoprazole Sodium (Protonix Tab) 40 mg DAILY PO 04/27/18 09:00 05/27/18 08:59 04/27/18 09:30 40 MG Ranitidine HCl (zANTac TAB) 150 mg BID PO 04/26/18 21:00 05/26/18 20:59 04/27/18 09:31 150 MG Saccharomyces Boulardii (Florastor Cap) 250 mg DAILY PO 04/27/18 09:00 05/27/18 08:59 04/27/18 09:29 250 MG Rivastigmine Tartrate (Exelon Cap) 6 mg BID PO 04/26/18 21:00 05/26/18 20:59 04/27/18 09:28 6 MG Amiodarone HCL/ Dextrose 200 ml @ 16.7 mls/hr [id number] IV 04/27/18 16:26 05/27/18 16:25 04/27/18 16:01 16.7 MLS/HR Nitroglycerin/ Dextrose 250 ml @ 0 mls/hr Q0M PRN IV 04/27/18 12:15 05/27/18 12:14 Review of Systems Constitutional: No fever, No chills, No sweats, No weight loss, No weakness, No fatigue, No problem reported Eyes: No worsening of vision, No eye pain, No redness, No discharge, No diplopia, No problem reported ENT: No hearing loss, No unusual epistaxis, No nasal symptoms, No sore throat, No tinnitus, No dental problems, No trouble swallowing, No problem reported Respiratory: + shortness of breath Cardiovascular: + chest pain, + orthopnea, + PND Abdomen: No pain, No nausea, No vomiting, No diarrhea, No constipation, No GI bleeding, No problem reported Musculoskeletal: + swelling Genitourinary - Female: No dysuria, No urinary frequency, No urinary urgency, No urinary incontinence, No urinary retention, No hematuria, No dysmenorrhea, No menorrhagia, No metrorrhagia, No rash, No vaginal bleeding, No vaginal discharge, No vaginal itching, No vulvodynia, No , No problem reported Neurologic: No memory loss, No paralysis, No weakness, No numbness/tingling, No vertigo, No balance problems, No problem reported Integumentary: No rash, No itch, No new/changing skin lesions, No color change , No bleeding, No problem reported Physical Exam Date Time Temp Pulse Resp B/P (MAP) Pulse Ox O2 Delivery O2 Flow Rate FiO2 04/27/18 18:00 65 24 105/61 (76) 93 Nasal Cannula 3.0 04/27/18 17:00 62 24 103/50 (67) 91 Nasal Cannula 3.0 04/27/18 16:00 37.0 65 20 108/63 (78) 94 Nasal Cannula 3.0 04/27/18 16:00 94 3.0 04/27/18 13:01 62 20 121/71 (88) 95 Nasal Cannula 3.0 04/27/18 12:01 80 28 106/58 (74) 94 Nasal Cannula 3.0 04/27/18 12:00 94 3.0 04/27/18 10:30 37.0 65 20 94 3.0 04/27/18 10:30 36.9 82 25 103/65 (78) 95 Nasal Cannula 3.0 04/27/18 08:00 93 Nasal Cannula 2.0 04/27/18 07:03 36.7 92 18 123/84 (97) 93 2.0 04/27/18 04:00 37.5 92 18 119/71 (87) 91 Nasal Cannula 2.0 04/26/18 23:55 36.8 98 18 121/76 (91) 94 4.0 04/26/18 22:30 36.6 93 24 148/89 91 4.0 04/26/18 22:00 36.6 89 22 132/69 94 2.0 04/26/18 21:30 36.4 79 18 127/61 93 2.0 04/26/18 20:41 36.8 76 20 108/74 95 2.0 04/26/18 20:24 36.3 77 22 124/67 96 2.0 04/26/18 20:00 36.6 73 24 131/63 95 2.0 04/26/18 19:40 36.6 73 24 131/63 Nasal Cannula 2.0 04/26/18 19:16 73 21 150/65 95 04/26/18 18:58 36.7 72 24 120/57 97 2.0 General Appearance: no apparent distress Eyes: sclerae normal ENT: normal throat exam Neck: trachea midline, no stridor Cardiovasular: normal S1S2, no M/G/R, systolic murmur Abdomen: non tender, no masses, no guarding Upper Extremities: no edema Lower Extremities: edema Neuro: alert, oriented x 3, normal motor exam Psychiatric: normal affect Laboratory Results Last 24 Hours Test 04/26/18 22:52 04/27/18 01:37 04/27/18 05:14 04/27/18 11:26 Troponin I 13.700 ng/ml 23.700 ng/ml Sodium Level 134 mmol/L 135 mmol/L Potassium Level 4.1 mmol/L 4.1 mmol/L Chloride Level 103 mmol/L 103 mmol/L Carbon Dioxide Level 22 mmol/L 22 mmol/L Anion Gap 9.0 mmol/L 10.0 mmol/L Blood Urea Nitrogen 22 mg/dl 23 mg/dl Creatinine 0.95 mg/dl 0.98 mg/dl Est Creatinine Clear Calc Drug Dose 33.2 ml/min 32.2 ml/min Estimated GFR () 61.5 59.3 Estimated GFR (Non- 53.1 51.1 BUN/Creatinine Ratio 23.5 23.8 Random Glucose 152 mg/dl 163 mg/dl Calcium Level 8.7 mg/dl 8.6 mg/dl White Blood Count 17.85 K/uL Red Blood Count 3.82 M/uL Hemoglobin 11.8 g/dL Hematocrit 35.3 % Mean Corpuscular Volume 92.4 fL Mean Corpuscular Hemoglobin 30.9 pg Mean Corpuscular Hemoglobin Concent 33.4 g/dl RDW Standard Deviation 57.2 fL RDW Coefficient of Variation 17.0 % Platelet Count 313 K/uL Mean Platelet Volume 10.7 fL Magnesium Level 1.5 mg/dl Bedside Glucose 196 mg/dl Test 04/27/18 12:09 Magnesium Level 2.5 mg/dl Troponin I 24.800 ng/ml Diagnostic Results Her imaging was reviewed, her chest x-ray is consistent with pulmonary edema. Labs also were consistent with non-ST elevation IA. EKG with AVNRT and currently rate controlled on amiodarone. Assessment & Plan 1. Acute pulmonary edema secondary to non-ST elevation IA and decompensated cardiomyopathy. 2. Advanced congestive heart failure with ejection fraction of 20%. 3. Moderately severe aortic stenosis. 4. Coronary artery disease, status post PCI in the past. Patient not a candidate for surgical intervention. 5. Chronic kidney disease. Plan: 1. Continue with amiodarone and nitroglycerin. 2. Gentle diuresis if tolerable. 3. Appreciate cardiology consult. 4. Echocardiogram was reviewed. 5. Repeat chest x-ray in the morning. 6. GI and DVT prophylaxis. 7. Discussed with Dr. Benson, appreciate his input. 8. Palliative care consult. 9. The patient has very limited options of treatment. 10. Appreciate all the consults involved in the case. Case discussed with the staff as well. Critical care time spent with the patient was 35 minutes.
--- NOTE | 2018-04-27 20:19 | Progress Note ---
Subjective Date of Service: Apr 27, 2018. Subjective Pt evaluation today including: conversation w/ patient, physical exam, chart review, lab review, review of studies (echo), conversation w/ organization development consultant ( cardiology, critical care), review of inpatient medication list Pain: chest pain resolved; no shoulder pain PO Intake: no appetite today patient states "I'm so weak" and she reports no appetite and no energy denies dyspnea at rest denies ongoing chest pain denies abd pain, nausea, emesis confirms she had been having exertional angina for 2 weeks and worsening fatigue prior to coming to the hospital Problem List Medical Problems: (1) Anemia Status: Acute (2) Anemia Status: Acute (3) Elevated troponin Status: Acute (4) Fall Status: Acute (5) Gastrointestinal bleeding Status: Acute (6) GI bleed Status: Acute (7) New onset a-fib Status: Acute (8) Right rib fracture Status: Acute (9) Symptomatic anemia Status: Acute (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 (11) UTI (urinary tract infection) Status: Acute Review of Systems Constitutional: No fever Respiratory: No cough Cardiac: No chest pain, No orthopnea, No PND, No edema Abdomen: No pain Objective Vital Signs Date Time Temp Pulse Resp B/P (MAP) Pulse Ox O2 Delivery O2 Flow Rate FiO2 04/27/18 20:01 36.5 58 21 104/62 (76) 94 Nasal Cannula 3.0 04/27/18 19:01 60 24 101/52 (68) 93 Nasal Cannula 3.0 04/27/18 18:00 65 24 105/61 (76) 93 Nasal Cannula 3.0 04/27/18 17:00 62 24 103/50 (67) 91 Nasal Cannula 3.0 04/27/18 16:00 37.0 65 20 108/63 (78) 94 Nasal Cannula 3.0 04/27/18 16:00 94 3.0 04/27/18 13:01 62 20 121/71 (88) 95 Nasal Cannula 3.0 04/27/18 12:01 80 28 106/58 (74) 94 Nasal Cannula 3.0 04/27/18 12:00 94 3.0 04/27/18 10:30 37.0 65 20 94 3.0 04/27/18 10:30 36.9 82 25 103/65 (78) 95 Nasal Cannula 3.0 04/27/18 08:00 93 Nasal Cannula 2.0 04/27/18 07:03 36.7 92 18 123/84 (97) 93 2.0 04/27/18 04:00 37.5 92 18 119/71 (87) 91 Nasal Cannula 2.0 04/26/18 23:55 36.8 98 18 121/76 (91) 94 4.0 04/26/18 22:30 36.6 93 24 148/89 91 4.0 04/26/18 22:00 36.6 89 22 132/69 94 2.0 04/26/18 21:30 36.4 79 18 127/61 93 2.0 04/26/18 20:41 36.8 76 20 108/74 95 2.0 04/26/18 20:24 36.3 77 22 124/67 96 2.0 Physical Exam General Appearance: no apparent distress, + pertinent finding (weak appearing) ENT: pharynx normal Neck: no JVD Respiratory/Chest: lungs clear, no respiratory distress, no accessory muscle use Cardiovascular: regular rate, rhythm, no gallop, + systolic murmur (2/6 RUSB) Abdomen: normal bowel sounds, non tender, soft, no organomegaly Extremities: no pedal edema Neurologic/Psychiatric: alert Laboratory Results Last 24 Hours Test 04/26/18 22:52 04/27/18 01:37 04/27/18 05:14 04/27/18 11:26 Troponin I 13.700 ng/ml 23.700 ng/ml Sodium Level 134 mmol/L 135 mmol/L Potassium Level 4.1 mmol/L 4.1 mmol/L Chloride Level 103 mmol/L 103 mmol/L Carbon Dioxide Level 22 mmol/L 22 mmol/L Anion Gap 9.0 mmol/L 10.0 mmol/L Blood Urea Nitrogen 22 mg/dl 23 mg/dl Creatinine 0.95 mg/dl 0.98 mg/dl Est Creatinine Clear Calc Drug Dose 33.2 ml/min 32.2 ml/min Estimated GFR () 61.5 59.3 Estimated GFR (Non- 53.1 51.1 BUN/Creatinine Ratio 23.5 23.8 Random Glucose 152 mg/dl 163 mg/dl Calcium Level 8.7 mg/dl 8.6 mg/dl White Blood Count 17.85 K/uL Red Blood Count 3.82 M/uL Hemoglobin 11.8 g/dL Hematocrit 35.3 % Mean Corpuscular Volume 92.4 fL Mean Corpuscular Hemoglobin 30.9 pg Mean Corpuscular Hemoglobin Concent 33.4 g/dl RDW Standard Deviation 57.2 fL RDW Coefficient of Variation 17.0 % Platelet Count 313 K/uL Mean Platelet Volume 10.7 fL Magnesium Level 1.5 mg/dl Bedside Glucose 196 mg/dl Test 04/27/18 12:09 Magnesium Level 2.5 mg/dl Troponin I 24.800 ng/ml Assessment and Plan 87yo female - 1. NSTEMI in patient with known, severe, CAD - cardiology spoke with pt & her family today. I also spoke with the patient individually. 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 During her previous admission in January she had the same feelings. Continue conservative medical management. Defer on heparin drip due to acute/chronic anemia and occult GI bleeding. Placed on nitroglycerin drip by cardiology today for symptomatic control. Cont asa. Ideally needs BB, statin, EMMA, and long-acting nitrate. Check troponins serially until peak is seen. 2. acute systolic/diastolic CHF - echo c/w ischemic cardiomyopathy. Her LV dysfunction is severe and likely acute (could have some chronic component given the her symptoms she had been having for several weeks at home). Remains compensated at this time. Again ideally needs low-dose BB and EMMA. 3. hypomagnesemia - replace w/ IV mag; repeat level later today. 4. CKD stage 3 - creatinine is at baseline; repeat BMP am. 5. leukocytosis - likely 2nd to NSTEMI. Follow. 6. prior history of PAF, now with tachycardia - unclear if episodes of tachycardia here are due to PAF or PAT. Either way Dr. Vickers is recommending amiodarone infusion. 7. acute/chronic anemia - s/p 2 units PRBCs; H/H improved. Chronic anemia 2nd to iron deficiency from occult GI bleeding. 8. aortic stenosis - doubt contributing to acute CHF. 9. DVT proph - chemical means relatively contraindicated due to #7. SCDs. consider palliative care consultation given her poor prognosis Continued [facility] stay due to: multiple IV medications needed Discharge planning: uncertain
[2018-04-28] VITALS (26 sets, daily range): BP systolic 106–140; BP diastolic 52–88; PULSE 62–86; TEMP 36.3–36.9; O2SAT 92–98
[2018-04-28] MEDS: AMIODARONE / D5W 200 ML IV SCH ×2 (03:45→15:17)
[2018-04-28 04:48] LABS: HEMATOCRIT 30.3 % (37-47); HEMOGLOBIN 10.2 g/dL (12.0-16.0); MEAN CELL VOLUME 92.4 fL (80-100); MEAN CORPUSCULAR HEMOGLOBIN 31.1 pg (25-34); MEAN CORPUSCULAR HGB CONC 33.7 g/dl (32-36); PLATELET COUNT 254 K/uL (130-400); RED CELL DISTRIBUTION WIDTH CV 16.5 % (11.5-14.5); RED CELL DISTRIBUTION WIDTH SD 55.2 fL (36.4-46.3); WHITE BLOOD COUNT 10.35 K/uL (4.8-10.8)
[2018-04-28 05:13] LABS: CREATININE 1.19 mg/dl (0.60-1.20); POTASSIUM 3.7 mmol/L (3.5-5.1)
[2018-04-28] MEDS: RIVASTIGMINE TARTRATE (EXELON) 1.5 MG CAP PO SCH ×2 (08:40→20:33)
[2018-04-28] MEDS: ASPIRIN 81 MG ECTAB PO SCH (08:41)
[2018-04-28] MEDS: NEPHROCAPS PO SCH (08:41)
[2018-04-28] MEDS: PANTOprazole SOD 40 MG TAB PO SCH (08:42)
[2018-04-28] MEDS: RANITIDINE HCL 150 MG TAB PO SCH ×2 (08:42→20:31)
[2018-04-28] MEDS: SACCHAROMYCES BOUL (FLORASTOR) 250 MG CAP PO SCH (08:43)
[2018-04-28] MEDS: LEVETIRACETAM 500 MG TAB PO SCH ×2 (08:43→20:30)
[2018-04-28] MEDS: ACETAMINOPHEN 325 MG TAB PO PRN ×2 (09:34→21:55)
--- NOTE | 2018-04-28 11:15 | Palliative Care Consultation ---
Consultation Date of Consultation: Apr 28, 2018. Requesting Physician: Dr. Rosado Attending Physician: Dr. Benson Reason for Consultation: Goals of care History of Present Illness This 87 year old female patient with PMH CAD, NSTEMP 2015, anemia due to chronic blood loss, moderate aortic stenosis, and NSTEMI January 2018, presented to the hospital two days ago with chest and right shoulder pain. Found to be having NSTEMI with troponin peaking at 24.8. Patient has chronic GI blood loss and recently received transfusions. She comes to us from [facility]. She was seen by palliative care during previous admission at which time she stated she wanted to be DNR and receive only conservative management. Now, patient c/o increased weakness and says she is ready "to go." Palliative care is reconsulted to establish goals of care. I met with the patient in room 109. She is very pleasant, awake, alert and oriented x4. She has some pain in her right rib where she has an old fracture. She takes Tylenol for this and it works well for her. Granddaughter Gina is also at bedside. Patient states she is ready to and is at peace. She has had a good life and enjoys her family very much, but states she has many loved ones waiting for her on the other side. After this hospitalization, patient does not want to return to the hospital and is interested in pursuing hospice care. Case management is following. Past Medical/Surgical History Medical History: Atrial fibrillation Type I diastolic dysfunction - echo 01/20/2018 NSTEMI August 2016 Moderate per echo 01/20/2018 Diabetes - diet controlled Anemia - due to chronic GI blood loss - no source of bleeding identified - she requires transfusions occasionally. Baseline Hb 9-10 Diverticulitis CAD - cath 01/31 - medical management only is recommended Severe multivessel coronary artery disease 50-60% ostial left main 95% mid LAD Chronic total occlusion of ostial circumflex with right to left distal collaterals 50-60% ostial RCA, 60-70% mid RCA Social History Smoking Status: Never Smoker History of Alcohol Use: No Drug Use: none Marital Status: Housing Status: lives alone Occupation Status: retired Review of Systems Constitutional: + weakness ENT: No trouble swallowing Respiratory: + dyspnea on exertion, No cough, No shortness of breath Cardiac: No chest pain, No edema Abdomen: No pain, No nausea, No vomiting Female : No problem reported Psychiatric: No depression symptoms, No anxiety Allergies Coded Allergies: Hydrocodone (Unverified Allergy, Intermediate, possibly a rash, 01/19/18) Medications Current Inpatient Medications Medications (Trade) Dose Ordered Sig/Giorgi Route Start Time Stop Time Status Last Admin Dose Admin Acetaminophen (Tylenol Tab) 650 mg Q4H PRN PO 04/26/18 18:00 05/26/18 17:59 04/28/18 09:34 650 MG Al Hydrox/Mg Hydrox/Simethicone (Maalox Max Susp) 15 ml Q4H PRN PO 04/26/18 18:00 05/26/18 17:59 Magnesium Hydroxide (Milk Of Magnesia Susp) 30 ml Q12H PRN PO 04/26/18 18:00 05/26/18 17:59 Ondansetron HCl (Zofran Inj) 4 mg Q6H PRN IV 04/26/18 18:00 05/26/18 17:59 Nitroglycerin (Nitrostat Tab) 0.4 mg UD PRN SL 04/26/18 18:00 05/26/18 17:59 Morphine Sulfate (MoRPHine SULFATE INJ) 2 mg Q30M PRN IV 04/26/18 18:00 05/10/18 17:59 04/26/18 23:00 2 MG Polyethylene (Miralax Powder Packet) 17 gm DAILY PRN PO 04/26/18 18:00 05/26/18 17:59 Aspirin (Ecotrin Tab) 81 mg DAILY PO 04/27/18 09:00 05/27/18 08:59 04/28/18 08:41 81 MG Vitamin B Complex/ Vit C/Folic Acid (Nephrocaps) 1 cap QAM PO 04/27/18 09:00 05/27/18 08:59 04/28/18 08:41 1 CAP Docusate Sodium (coLACE CAP) 100 mg Q2D@0900 PO 04/28/18 09:00 05/28/18 08:59 04/27/18 09:32 100 MG Levetiracetam (Keppra Tab) 500 mg BID PO 04/26/18 21:00 05/26/18 20:59 04/28/18 08:43 500 MG Pantoprazole Sodium (Protonix Tab) 40 mg DAILY PO 04/27/18 09:00 05/27/18 08:59 04/28/18 08:42 40 MG Ranitidine HCl (zANTac TAB) 150 mg BID PO 04/26/18 21:00 05/26/18 20:59 04/28/18 08:42 150 MG Saccharomyces Boulardii (Florastor Cap) 250 mg DAILY PO 04/27/18 09:00 05/27/18 08:59 04/28/18 08:43 250 MG Rivastigmine Tartrate (Exelon Cap) 6 mg BID PO 04/26/18 21:00 05/26/18 20:59 04/28/18 08:40 6 MG Amiodarone HCL/ Dextrose 200 ml @ 16.7 mls/hr [id number] IV 04/27/18 16:26 05/27/18 16:25 04/28/18 03:45 16.7 MLS/HR Physical Exam Date Time Temp Pulse Resp B/P (MAP) Pulse Ox O2 Delivery O2 Flow Rate FiO2 04/28/18 09:01 74 18 117/62 (80) 94 Nasal Cannula 3.0 04/28/18 09:00 70 17 04/28/18 08:20 94 Nasal Cannula 3.0 04/28/18 08:01 36.5 85 23 109/60 (76) 96 04/28/18 08:00 86 24 96 04/28/18 07:01 63 19 118/61 (80) 96 04/28/18 07:00 72 19 96 04/28/18 06:01 62 21 112/57 (75) 98 Nasal Cannula 3.0 04/28/18 05:01 73 29 121/62 (81) 94 Nasal Cannula 3.0 04/28/18 04:01 65 17 111/61 (78) 95 Nasal Cannula 3.0 04/28/18 03:01 36.3 77 22 110/88 (95) 96 Nasal Cannula 3.0 04/28/18 02:01 65 20 108/56 (73) 93 Nasal Cannula 3.0 04/28/18 01:01 69 25 106/67 (80) 95 Nasal Cannula 3.0 04/28/18 00:01 36.3 66 22 116/59 (78) 96 Nasal Cannula 3.0 04/27/18 23:01 66 22 109/54 (72) 95 Nasal Cannula 3.0 04/27/18 22:01 74 27 118/60 (79) 94 Nasal Cannula 3.0 04/27/18 21:01 66 24 106/59 (75) 96 Nasal Cannula 3.0 04/27/18 20:01 36.5 58 21 104/62 (76) 94 Nasal Cannula 3.0 04/27/18 20:00 Nasal Cannula 3.0 04/27/18 19:01 60 24 101/52 (68) 93 Nasal Cannula 3.0 04/27/18 18:00 65 24 105/61 (76) 93 Nasal Cannula 3.0 04/27/18 17:00 62 24 103/50 (67) 91 Nasal Cannula 3.0 04/27/18 16:00 37.0 65 20 108/63 (78) 94 Nasal Cannula 3.0 04/27/18 16:00 94 3.0 04/27/18 13:01 62 20 121/71 (88) 95 Nasal Cannula 3.0 04/27/18 12:01 80 28 106/58 (74) 94 Nasal Cannula 3.0 04/27/18 12:00 94 3.0 General Appearance: no apparent distress, + thin ENT: hearing grossly normal Neck: supple, no JVD Respiratory: lungs clear, no respiratory distress, no accessory muscle use Cardiovascular: regular rate, rhythm, no edema, + normal peripheral pulses Abdomen: normal bowel sounds, non tender, soft Neurologic/Psychiatric: alert, normal mood/affect, oriented x 3 Skin: normal color Laboratory Results Last 24 Hours Test 04/27/18 11:26 04/27/18 12:09 04/27/18 21:11 04/28/18 04:31 Bedside Glucose 196 mg/dl 138 mg/dl Magnesium Level 2.5 mg/dl Troponin I 24.800 ng/ml 16.000 ng/ml White Blood Count 10.35 K/uL Red Blood Count 3.28 M/uL Hemoglobin 10.2 g/dL Hematocrit 30.3 % Mean Corpuscular Volume 92.4 fL Mean Corpuscular Hemoglobin 31.1 pg Mean Corpuscular Hemoglobin Concent 33.7 g/dl RDW Standard Deviation 55.2 fL RDW Coefficient of Variation 16.5 % Platelet Count 254 K/uL Mean Platelet Volume 10.0 fL Sodium Level 134 mmol/L Potassium Level 3.7 mmol/L Chloride Level 103 mmol/L Carbon Dioxide Level 22 mmol/L Anion Gap 9.0 mmol/L Blood Urea Nitrogen 33 mg/dl Creatinine 1.19 mg/dl Est Creatinine Clear Calc Drug Dose 26.5 ml/min Estimated GFR () 46.9 Estimated GFR (Non- 40.4 BUN/Creatinine Ratio 28.1 Random Glucose 133 mg/dl Calcium Level 8.0 mg/dl Assessment & Plan Problem list: Musculoskeletal chest pain related to rib fracture Weakness, generalized NSTEMI End-stage heart failure with EF 20% 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 -Tylenol is sufficient for patient's pain currently. -If cardiac chest pain occurs, use nitro and morphine. -Patient is okay with continuing current medical management and getting "tuned up" while here in hospital. Dr. Rosado states medications will be switched to PO from IV. -Upon discharge, plan is to pursue hospice care. Uncertain if her personal fdc is able to accommodate, case management is following. May need SNF if [facility] unable to take her back. -Will continue to follow as needed. Thank you kindly for this consult. Total time spent 70 minutes with >50% spent at bedside counseling and discussing goals of care as well as collaborating with physician and piano case maker to coordinate care.
--- NOTE | 2018-04-28 13:12 | Critical Care Progress Note ---
Critical Care Progress Note Date of Service Apr 28, 2018. Attending Dr. Rosado Subjective The patient denies any chest pain overnight, no shortness of breath, she has been on minimal dose of nitroglycerin drip at 6 mics per minute which was stopped without any events, tolerating oral intake without difficulties. Objective Physical exam on the 04/28/2018 showed stable vital signs, O2 saturation is 95% on room air, systolic ejection murmur, crackles mainly at the bases, abdomen is benign, trace edema in the periphery. Labs were reviewed as well. Assessment & Plan 1. Non-ST elevation MS. 2. AVNRT with RVR currently well controlled in the past 24 hours without recurrence of arrhythmia. Remains in sinus rhythm. 3. Moderately severe aortic stenosis. 4. Cardiomyopathy with EF of 20%. 5. Acute respiratory failure secondary to above. Plan: 1. I will change her amiodarone to 200 mg p.o. daily starting now. 2. Discontinue the amiodarone drip in 2 hours. 3. Discontinue nitroglycerin drip as the dose is too small and the patient is asymptomatic. 4. Palliative care consult appreciated, and discussion with the family and the patient, she does not want any heroic measures and she does not want to pursue any aggressive treatment. At this point she is seeking more of symptoms relief and she wished to go back to the long-term with hospice. 5. Continue current medications with oral intake. 6. Discussed with the patient and the granddaughter and details at the bedside. 7. Discussed with Dr. Patel. Appreciate his input. Discussed with the staff on rounds. Critical care time spent with the patient was 35 minutes. Data Medications: Current Inpatient Medications Medications (Trade) Dose Ordered Sig/Giorgi Route Start Time Stop Time Status Last Admin Dose Admin Acetaminophen (Tylenol Tab) 650 mg Q4H PRN PO 04/26/18 18:00 05/26/18 17:59 04/28/18 09:34 650 MG Al Hydrox/Mg Hydrox/Simethicone (Maalox Max Susp) 15 ml Q4H PRN PO 04/26/18 18:00 05/26/18 17:59 Magnesium Hydroxide (Milk Of Magnesia Susp) 30 ml Q12H PRN PO 04/26/18 18:00 05/26/18 17:59 Ondansetron HCl (Zofran Inj) 4 mg Q6H PRN IV 04/26/18 18:00 05/26/18 17:59 Nitroglycerin (Nitrostat Tab) 0.4 mg UD PRN SL 04/26/18 18:00 05/26/18 17:59 Morphine Sulfate (MoRPHine SULFATE INJ) 2 mg Q30M PRN IV 04/26/18 18:00 05/10/18 17:59 04/26/18 23:00 2 MG Polyethylene (Miralax Powder Packet) 17 gm DAILY PRN PO 04/26/18 18:00 05/26/18 17:59 Aspirin (Ecotrin Tab) 81 mg DAILY PO 04/27/18 09:00 05/27/18 08:59 04/28/18 08:41 81 MG Vitamin B Complex/ Vit C/Folic Acid (Nephrocaps) 1 cap QAM PO 04/27/18 09:00 05/27/18 08:59 04/28/18 08:41 1 CAP Docusate Sodium (coLACE CAP) 100 mg Q2D@0900 PO 04/28/18 09:00 05/28/18 08:59 04/27/18 09:32 100 MG Levetiracetam (Keppra Tab) 500 mg BID PO 04/26/18 21:00 05/26/18 20:59 04/28/18 08:43 500 MG Pantoprazole Sodium (Protonix Tab) 40 mg DAILY PO 04/27/18 09:00 05/27/18 08:59 04/28/18 08:42 40 MG Ranitidine HCl (zANTac TAB) 150 mg BID PO 04/26/18 21:00 05/26/18 20:59 04/28/18 08:42 150 MG Saccharomyces Boulardii (Florastor Cap) 250 mg DAILY PO 04/27/18 09:00 05/27/18 08:59 04/28/18 08:43 250 MG Rivastigmine Tartrate (Exelon Cap) 6 mg BID PO 04/26/18 21:00 05/26/18 20:59 04/28/18 08:40 6 MG Amiodarone HCL/ Dextrose 200 ml @ 16.7 mls/hr [id number] IV 04/27/18 16:26 05/27/18 16:25 04/28/18 03:45 16.7 MLS/HR Vital Signs: Date Time Temp Pulse Resp B/P (MAP) Pulse Ox O2 Delivery O2 Flow Rate FiO2 04/28/18 09:01 74 18 117/62 (80) 94 Nasal Cannula 3.0 04/28/18 09:00 70 17 04/28/18 08:20 94 Nasal Cannula 3.0 04/28/18 08:01 36.5 85 23 109/60 (76) 96 04/28/18 08:00 86 24 96 04/28/18 07:01 63 19 118/61 (80) 96 04/28/18 07:00 72 19 96 04/28/18 06:01 62 21 112/57 (75) 98 Nasal Cannula 3.0 04/28/18 05:01 73 29 121/62 (81) 94 Nasal Cannula 3.0 04/28/18 04:01 65 17 111/61 (78) 95 Nasal Cannula 3.0 04/28/18 03:01 36.3 77 22 110/88 (95) 96 Nasal Cannula 3.0 04/28/18 02:01 65 20 108/56 (73) 93 Nasal Cannula 3.0 04/28/18 01:01 69 25 106/67 (80) 95 Nasal Cannula 3.0 04/28/18 00:01 36.3 66 22 116/59 (78) 96 Nasal Cannula 3.0 04/27/18 23:01 66 22 109/54 (72) 95 Nasal Cannula 3.0 04/27/18 22:01 74 27 118/60 (79) 94 Nasal Cannula 3.0 04/27/18 21:01 66 24 106/59 (75) 96 Nasal Cannula 3.0 04/27/18 20:01 36.5 58 21 104/62 (76) 94 Nasal Cannula 3.0 04/27/18 20:00 Nasal Cannula 3.0 04/27/18 19:01 60 24 101/52 (68) 93 Nasal Cannula 3.0 04/27/18 18:00 65 24 105/61 (76) 93 Nasal Cannula 3.0 04/27/18 17:00 62 24 103/50 (67) 91 Nasal Cannula 3.0 04/27/18 16:00 37.0 65 20 108/63 (78) 94 Nasal Cannula 3.0 04/27/18 16:00 94 3.0 Laboratory Results: Last 24 Hours Test 04/27/18 21:11 04/28/18 04:31 Bedside Glucose 138 mg/dl White Blood Count 10.35 K/uL Red Blood Count 3.28 M/uL Hemoglobin 10.2 g/dL Hematocrit 30.3 % Mean Corpuscular Volume 92.4 fL Mean Corpuscular Hemoglobin 31.1 pg Mean Corpuscular Hemoglobin Concent 33.7 g/dl RDW Standard Deviation 55.2 fL RDW Coefficient of Variation 16.5 % Platelet Count 254 K/uL Mean Platelet Volume 10.0 fL Sodium Level 134 mmol/L Potassium Level 3.7 mmol/L Chloride Level 103 mmol/L Carbon Dioxide Level 22 mmol/L Anion Gap 9.0 mmol/L Blood Urea Nitrogen 33 mg/dl Creatinine 1.19 mg/dl Est Creatinine Clear Calc Drug Dose 26.5 ml/min Estimated GFR () 46.9 Estimated GFR (Non- 40.4 BUN/Creatinine Ratio 28.1 Random Glucose 133 mg/dl Calcium Level 8.0 mg/dl Troponin I 16.000 ng/ml
[2018-04-28] MEDS ORDERED: AMIODARONE 200 MG TAB PO SCH (14:30)
[2018-04-28] MEDS ORDERED: NURSING VERBAL MED ORDER ONE (15:30)
[2018-04-28] MEDS ORDERED: [UNRECOGNIZED DRUG - REMARK] ONE (16:30)
[2018-04-28] MEDS: CARVEDILOL 3.125 MG TAB PO SCH (20:30)
--- NOTE | 2018-04-29 00:10 | Progress Note ---
Subjective Date of Service: Apr 28, 2018. Subjective Pt evaluation today including: conversation w/ patient, conversation w/ family (2 daughters at bedside), physical exam, chart review, lab review, conversation w/ senior erp consultant (palliative care), review of inpatient medication list Pain: no chest pain today PO Intake: modestly improved today Voiding: no voiding problems tele stable overnight she reports overall feeling a bit better today with that said she said at least twice during the encounter "I'm ready to go" she was tearful at times she realizes she is likely too weak to return to [facility] but might be willing to go back to [facility] denies any chest pain but had mild dyspnea earlier today Problem List Medical Problems: (1) Anemia Status: Acute (2) Anemia Status: Acute (3) Elevated troponin Status: Acute (4) Fall Status: Acute (5) Gastrointestinal bleeding Status: Acute (6) GI bleed Status: Acute (7) New onset a-fib Status: Acute (8) Right rib fracture Status: Acute (9) Symptomatic anemia Status: Acute (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 (11) UTI (urinary tract infection) Status: Acute Review of Systems Constitutional: No fever Respiratory: No cough Cardiac: No chest pain, No orthopnea Abdomen: No pain, No nausea, No vomiting Objective Vital Signs Date Time Temp Pulse Resp B/P (MAP) Pulse Ox O2 Delivery O2 Flow Rate FiO2 04/28/18 19:11 36.8 79 16 131/73 (92) 92 Room Air 04/28/18 19:00 Room Air 04/28/18 18:51 36.7 78 16 132/65 (87) 92 Room Air 04/28/18 17:00 36.9 76 16 123/61 (81) 96 Room Air 04/28/18 16:00 72 16 122/62 (82) 96 Room Air 04/28/18 16:00 93 Room Air 04/28/18 15:00 36.9 73 16 117/52 (73) 96 Room Air 04/28/18 13:00 68 20 04/28/18 12:01 75 23 140/70 (93) 04/28/18 12:00 74 19 96 Nasal Cannula 3.0 04/28/18 11:05 72 15 118/62 (80) 04/28/18 10:01 72 18 117/64 (81) 94 04/28/18 10:00 73 19 04/28/18 09:01 74 18 117/62 (80) 94 Nasal Cannula 3.0 04/28/18 09:00 70 17 04/28/18 08:20 94 Nasal Cannula 3.0 04/28/18 08:01 36.5 85 23 109/60 (76) 96 04/28/18 08:00 86 24 96 04/28/18 07:01 63 19 118/61 (80) 96 04/28/18 07:00 72 19 96 04/28/18 06:01 62 21 112/57 (75) 98 Nasal Cannula 3.0 04/28/18 05:01 73 29 121/62 (81) 94 Nasal Cannula 3.0 04/28/18 04:01 65 17 111/61 (78) 95 Nasal Cannula 3.0 04/28/18 03:01 36.3 77 22 110/88 (95) 96 Nasal Cannula 3.0 04/28/18 02:01 65 20 108/56 (73) 93 Nasal Cannula 3.0 04/28/18 01:01 69 25 106/67 (80) 95 Nasal Cannula 3.0 04/28/18 00:01 36.3 66 22 116/59 (78) 96 Nasal Cannula 3.0 04/27/18 23:01 66 22 109/54 (72) 95 Nasal Cannula 3.0 04/27/18 22:01 74 27 118/60 (79) 94 Nasal Cannula 3.0 04/27/18 21:01 66 24 106/59 (75) 96 Nasal Cannula 3.0 04/27/18 20:01 36.5 58 21 104/62 (76) 94 Nasal Cannula 3.0 04/27/18 20:00 Nasal Cannula 3.0 Physical Exam General Appearance: no apparent distress ENT: pharynx normal Neck: + JVD (mild, with hepatojugular reflex) Respiratory/Chest: no respiratory distress, no accessory muscle use, + decreased breath sounds (bases) Cardiovascular: regular rate, rhythm, no gallop, + systolic murmur (2/6 RUSB/ apex) Abdomen: normal bowel sounds, non tender, soft, no organomegaly Extremities: + pedal edema (trace b/l ) Neurologic/Psychiatric: + depressed affect Laboratory Results Last 24 Hours Test 04/27/18 21:11 04/28/18 04:31 Bedside Glucose 138 mg/dl White Blood Count 10.35 K/uL Red Blood Count 3.28 M/uL Hemoglobin 10.2 g/dL Hematocrit 30.3 % Mean Corpuscular Volume 92.4 fL Mean Corpuscular Hemoglobin 31.1 pg Mean Corpuscular Hemoglobin Concent 33.7 g/dl RDW Standard Deviation 55.2 fL RDW Coefficient of Variation 16.5 % Platelet Count 254 K/uL Mean Platelet Volume 10.0 fL Sodium Level 134 mmol/L Potassium Level 3.7 mmol/L Chloride Level 103 mmol/L Carbon Dioxide Level 22 mmol/L Anion Gap 9.0 mmol/L Blood Urea Nitrogen 33 mg/dl Creatinine 1.19 mg/dl Est Creatinine Clear Calc Drug Dose 26.5 ml/min Estimated GFR () 46.9 Estimated GFR (Non- 40.4 BUN/Creatinine Ratio 28.1 Random Glucose 133 mg/dl Calcium Level 8.0 mg/dl Troponin I 16.000 ng/ml Assessment and Plan 87yo female - 1. NSTEMI in patient with known, severe, CAD - Patient does NOT want transfer to tertiary care and again declines surgical intervention/laboratory courier intervention. During her previous admission in January she had the same feelings. Continue conservative medical management. Cont asa. Troponin peaked yesterday and fell overnight. Start coreg 3.125mg BID. Ideally add low-dose EMMA and low-dose imdur if BP could allow. 2. acute systolic/diastolic CHF - echo c/w ischemic cardiomyopathy. Her LV dysfunction is severe and likely acute (could have some chronic component given the her symptoms she had been having for several weeks at home). Remains compensated at this time but JVD slightly worse today. Start low-dose coreg. Probably will need low-dose lasix 20mg daily or something similar. 3. hypomagnesemia - resolved. 4. CKD stage 3 - creatinine slightly above baseline but overall stable; repeat BMP am. 5. leukocytosis - likely 2nd to NSTEMI. Improved. 6. acute/chronic anemia - s/p 2 units PRBCs; H/H improved. Chronic anemia 2nd to iron deficiency from occult GI bleeding. Repeat Hb in am for stability. 7. aortic stenosis - doubt contributing to acute CHF. 8. DVT proph - chemical means relatively contraindicated. transfer to telemetry appreciate palliative care consultation family updated at bedside today Continued [facility] stay due to: ambulation difficulties, multiple IV medications needed Discharge planning: uncertain
[2018-04-29 03:00] VITALS: BP 111/72; PULSE 68; TEMP 36.6; O2SAT 92
[2018-04-29] MEDS: ACETAMINOPHEN 325 MG TAB PO PRN (05:29)
--- NOTE | 2018-04-29 06:14 | Cardiology Follow-Up ---
Subjective Date of Service: Apr 28, 2018. Pt evaluation today including: conversation w/ patient, physical exam, lab review, review of studies, review of inpatient medication list, conversation w/ attending History of Present Illness This is a very pleasant 87-year-old woman who has a history of coronary artery disease (including a non-ST segment elevation myocardial infarction at the end of August 2016 in association with rapid heart rate and severe coronary disease at catheterization in January 2018) as well as valvular heart disease including moderate aortic stenosis and mild to moderate mitral regurgitation. 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 She was identified as having anemia at the time and had a small enzyme rise. She has been treated medically for the arrhythmia. She was maintained on metoprolol tartrate for the arrhythmia. Echocardiography showed normal left ventricular function but she had moderate to severe aortic stenosis. She presented January 19, 2018 with diarrhea and abdominal discomfort, however she was observed to have periods of SVT at a rapid heart rate as well as some electrocardiographic abnormalities. Her symptoms were a little bit vague, she did admit to having intermittent palpitations but was not very precise about it. She had frequent episodes during that hospital stay and I cannot tell if she actually had much in the way of symptoms related to them. She did not have chest discomfort or shortness of breath. She evidently does not have lightheadedness or dizziness and denied syncope or presyncope. Her rhythm appeared to be very well controlled on intravenous diltiazem therefore she was discharged January 22, 2018 on diltiazem CD 180 mg daily. She returned to January 26, 2018 with continued diarrhea as well as some chest discomfort and was noted to be in atrial fibrillation at her primary care physician's office. She was therefore sent to the emergency room where she was also identified as having atrial fibrillation, but that converted to sinus rhythm shortly thereafter. She seemed unaware of the rhythm specifically but had intermittent chest discomfort lasting several minutes. She was pain-free and remained in sinus rhythm following conversion in the emergency room, however with ambulation that evening she had anginal type chest discomfort with no rhythm disturbance and also some electrocardiographic changes which appear to be a little bit different than before. The episode was relieved with rest and nitroglycerin. She has had anemia for some time with no clear source of bleeding, although she did have heme positive stools. Although we were confident that she had coronary disease we did not know the extent, therefore we did perform cardiac catheterization on January 28, 2018. Not surprisingly she had severe multivessel coronary artery disease including a 50-60% ostial left main, 95% mid LAD, chronic ostial circumflex occlusion with right to left collaterals and a 50-60% ostial right coronary artery stenosis as well as a 67% mid RCA stenosis. It was felt that intervention was at very high risk and therefore we plan to maximize her medical therapy, including maintaining her hemoglobin. Palliative care was considered, but was not instituted. She returns now having ongoing intermittent chest discomfort and more recently shortness of breath. She is once again vague about her history, it sounds as though she has had chest discomfort for a month or perhaps longer, and it evidently is intermittent although it has been much more pronounced recently. It is difficult to get a time course from her history. More recently she was short of breath, but that appears to be only in the last several days. On evaluation here her left ventricular function had diminished substantially, her troponin elevated to about 24. With ongoing chest discomfort presumably due to coronary artery disease I added intravenous nitroglycerin yesterday, and I also added intravenous amiodarone to help control her atrial ectopy. This seems to have helped, today she has been pain-free for the most part and her rhythm has been under good control. On review of her coronary anatomy with Dr. Lopez it appears that any intervention would be very high risk, we did offer her transfer to another institution although I am not sure anybody would be anxious to do any type of intervention or surgery. She would prefer not to do that, therefore she has remained here. Social History Smoking Status: Never Smoker History of Alcohol Use: No Review of Systems Respiratory: + dyspnea on exertion, No cough, No shortness of breath Cardiac: No chest pain, No edema Objective Vital Signs Past 12 Hours Date Time Temp Pulse Resp B/P (MAP) Pulse Ox O2 Delivery O2 Flow Rate FiO2 04/28/18 17:00 36.9 76 16 123/61 (81) 96 Room Air 04/28/18 16:00 72 16 122/62 (82) 96 Room Air 04/28/18 16:00 93 Room Air 04/28/18 15:00 36.9 73 16 117/52 (73) 96 Room Air 04/28/18 13:00 68 20 04/28/18 12:01 75 23 140/70 (93) 04/28/18 12:00 74 19 96 Nasal Cannula 3.0 04/28/18 11:05 72 15 118/62 (80) 04/28/18 10:01 72 18 117/64 (81) 94 04/28/18 10:00 73 19 04/28/18 09:01 74 18 117/62 (80) 94 Nasal Cannula 3.0 04/28/18 09:00 70 17 04/28/18 08:20 94 Nasal Cannula 3.0 04/28/18 08:01 36.5 85 23 109/60 (76) 96 04/28/18 08:00 86 24 96 04/28/18 07:01 63 19 118/61 (80) 96 04/28/18 07:00 72 19 96 04/28/18 06:01 62 21 112/57 (75) 98 Nasal Cannula 3.0 Last Recorded Weight-Kilograms: 56.900 Intake & Output 8-Hour Column 04/28/18 04/29/18 04/29/18 16:00 00:00 08:00 Intake Total 441 ml Balance 441 ml 24-Hour Column 04/29/18 08:00 Intake Total 441 ml Balance 441 ml Physical Exam Constitutional: Level of Distress: mild distress Lungs: Auscultation: no wheezing, deminished air movement, decreased breath sounds , rales/crackles on the left, rales/crackles on the right Cardiovascular: Heart Auscultation: no rubs, no gallops, II/ BARBARA, irregular rate rhythm Peripheral Pulses: Bruits: none appreciated Extremities: no edema Data Laboratory Results: Last 24 Hours Test 04/27/18 21:11 04/28/18 04:31 Bedside Glucose 138 mg/dl White Blood Count 10.35 K/uL Red Blood Count 3.28 M/uL Hemoglobin 10.2 g/dL Hematocrit 30.3 % Mean Corpuscular Volume 92.4 fL Mean Corpuscular Hemoglobin 31.1 pg Mean Corpuscular Hemoglobin Concent 33.7 g/dl RDW Standard Deviation 55.2 fL RDW Coefficient of Variation 16.5 % Platelet Count 254 K/uL Mean Platelet Volume 10.0 fL Sodium Level 134 mmol/L Potassium Level 3.7 mmol/L Chloride Level 103 mmol/L Carbon Dioxide Level 22 mmol/L Anion Gap 9.0 mmol/L Blood Urea Nitrogen 33 mg/dl Creatinine 1.19 mg/dl Est Creatinine Clear Calc Drug Dose 26.5 ml/min Estimated GFR () 46.9 Estimated GFR (Non- 40.4 BUN/Creatinine Ratio 28.1 Random Glucose 133 mg/dl Calcium Level 8.0 mg/dl Troponin I 16.000 ng/ml Telemetry reviewed: Sinus rhythm with infrequent atrial and ventricular ectopy Assessment and Plan 1. Chest discomfort: This has improved substantially, despite removal of nitroglycerine. If it recurs I would try topical nitrates. 2. Left ventricular dysfunction: In the past despite her aortic stenosis and her severe coronary disease her left ventricular ejection fraction has been maintained. Her current decrease in function is likely due to stunning from ischemia, unless she has had a large infarction in the relatively recent past but she does not have specific symptoms suggesting that (she did not have sudden heart failure or severe chest pain until recently). Perhaps she has been gradually damaging her heart for some time, but her enzymes suggest a more recent event. Part of the decreased left ventricular function might be the rate. That has improved with amiodarone. 3. Aortic stenosis: Aortic stenosis has been moderate to severe but I do not believe that is a cause of her left ventricular dysfunction, this appears to be due to recent ischemia. 4. Congestive heart failure: She does not appear to be fluid overloaded, I believe her congestive heart failure is due to recent development of severe left ventricular dysfunction. I did discuss her wishes with her, she prefers no aggressive intervention and I do not disagree. Thank you for allowing me to participate in her care.
[2018-04-29 06:50] VITALS: BP 160/72; PULSE 74; TEMP 36.4; O2SAT 96
[2018-04-29 07:23] LABS: CALCIUM 8.5 mg/dl (8.5-10.1); CREATININE 0.9 mg/dl (0.60-1.20)
[2018-04-29] MEDS: RIVASTIGMINE TARTRATE (EXELON) 1.5 MG CAP PO SCH ×2 (07:42→21:10)
[2018-04-29] MEDS: LEVETIRACETAM 500 MG TAB PO SCH ×2 (07:42→20:34)
[2018-04-29] MEDS: NEPHROCAPS PO SCH (07:42)
[2018-04-29] MEDS: RANITIDINE HCL 150 MG TAB PO SCH ×2 (07:43→20:34)
[2018-04-29] MEDS: PANTOprazole SOD 40 MG TAB PO SCH (07:43)
[2018-04-29] MEDS: SACCHAROMYCES BOUL (FLORASTOR) 250 MG CAP PO SCH (07:43)
[2018-04-29] MEDS: ASPIRIN 81 MG ECTAB PO SCH (07:43)
[2018-04-29] MEDS: CARVEDILOL 3.125 MG TAB PO SCH ×2 (07:43→20:34)
[2018-04-29 11:22] VITALS: BP 138/72; PULSE 70; TEMP 36.6; O2SAT 95
--- NOTE | 2018-04-29 12:36 | Palliative Care Progress Note ---
Palliative Care Progress Note Date of Service Apr 29, 2018. Subjective Pt evaluation today including: conversation w/ patient, conversation w/ family (daughter, Ghazal Stapleton), physical exam, chart review, conversation w/ business risk consultant Pain: mild neck pain from lying in bed PO Intake: tolerating diet Patient is awake, alert and oriented x4. She feels better today. Was able to get up and walk to the bathroom this morning. Had lengthy discussion with patient and her daughter, Ghazal, about hospice vs. rehab vs. personal care with home health. We discussed POLST form and filled it out. Review of Systems Constitutional: + weakness (but improved) ENT: No trouble swallowing Respiratory: + dyspnea on exertion, No cough, No wheezing, No shortness of breath Cardiac: No chest pain, No edema Abdomen: No pain, No nausea, No vomiting Female : No problem reported Psychiatric: No depression symptoms, No anxiety Objective Vital Signs Date Time Temp Pulse Resp B/P (MAP) Pulse Ox O2 Delivery O2 Flow Rate FiO2 04/29/18 11:22 36.6 70 18 138/72 (94) 95 Room Air 04/29/18 08:00 Room Air 04/29/18 08:00 Room Air 04/29/18 06:50 36.4 74 18 160/72 (101) 96 Room Air 04/29/18 03:00 36.6 68 18 111/72 (85) 92 Room Air 04/29/18 00:03 Room Air 04/28/18 22:50 36.7 72 16 129/77 (94) 95 Room Air 04/28/18 19:11 36.8 79 16 131/73 (92) 92 Room Air 04/28/18 19:00 Room Air 04/28/18 18:51 36.7 78 16 132/65 (87) 92 Room Air 04/28/18 17:00 36.9 76 16 123/61 (81) 96 Room Air 04/28/18 16:00 72 16 122/62 (82) 96 Room Air 04/28/18 16:00 93 Room Air 04/28/18 15:00 36.9 73 16 117/52 (73) 96 Room Air 04/28/18 13:00 68 20 Physical Exam General Appearance: no apparent distress, + thin ENT: hearing grossly normal Neck: supple, no JVD Respiratory/Chest: lungs clear, no respiratory distress, no accessory muscle use, + decreased breath sounds Cardiovascular: regular rate, rhythm, no edema, + normal peripheral pulses Abdomen: normal bowel sounds, non tender, soft Neurologic/Psychiatric: alert, normal mood/affect, oriented x 3 Laboratory Results Last 24 Hours Test 04/29/18 06:25 Hemoglobin 11.7 g/dL Sodium Level 136 mmol/L Potassium Level 4.0 mmol/L Chloride Level 104 mmol/L Carbon Dioxide Level 24 mmol/L Anion Gap 8.0 mmol/L Blood Urea Nitrogen 28 mg/dl Creatinine 0.90 mg/dl Est Creatinine Clear Calc Drug Dose 35.0 ml/min Estimated GFR () 65.7 Estimated GFR (Non- 56.7 BUN/Creatinine Ratio 31.4 Random Glucose 126 mg/dl Calcium Level 8.5 mg/dl Assessment and Plan Problem list: Musculoskeletal chest pain related to rib fracture Weakness, generalized NSTEMI 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 -Okay with getting tuned up as well as possible while here in hospital. -Plan is uncertain at this point. No matter what, patient wants to transition to hospice care and DOES NOT want to return to the hospital if anything happens to her. She wants to be kept comfortable for the remainder of her life. -Case management is following closely. Patient will either go to personal assisted with home health with eventual transition to hospice or will go to SNF skilled initially with a transition to hospice. -POLST form explained in detail and filled out as follows: DNR, comfort measures only, abx with comfort as the goal, and no artificial hydration/ nutrition. Daughters Ghazal and Allyssa Stapleton are listed as patient's surrogates. Thank you again for this consult. Please contact us with any further palliative care needs. Total time spent 35 minutes with >50% of time spent at bedside with patient and family counseling and discussing goals of care as well as completing POLST form. Palliative Performance Scale: 40 % Discharge planning: uncertain
--- NOTE | 2018-04-29 13:54 | Cardiology Follow-Up ---
Subjective Date of Service: Apr 29, 2018. Pt evaluation today including: conversation w/ patient, physical exam, lab review, review of studies, review of inpatient medication list History of Present Illness This is a very pleasant 87-year-old woman who has a history of coronary artery disease (including a non-ST segment elevation myocardial infarction at the end of August 2016 in association with rapid heart rate and severe coronary disease at catheterization in January 2018) as well as valvular heart disease including moderate aortic stenosis and mild to moderate mitral regurgitation. 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 She was identified as having anemia at the time and had a small enzyme rise. She has been treated medically for the arrhythmia. She was maintained on metoprolol tartrate for the arrhythmia. Echocardiography showed normal left ventricular function but she had moderate to severe aortic stenosis. She presented January 19, 2018 with diarrhea and abdominal discomfort, however she was observed to have periods of SVT at a rapid heart rate as well as some electrocardiographic abnormalities. Her symptoms were a little bit vague, she did admit to having intermittent palpitations but was not very precise about it. She had frequent episodes during that hospital stay and I cannot tell if she actually had much in the way of symptoms related to them. She did not have chest discomfort or shortness of breath. She evidently does not have lightheadedness or dizziness and denied syncope or presyncope. Her rhythm appeared to be very well controlled on intravenous diltiazem therefore she was discharged January 22, 2018 on diltiazem CD 180 mg daily. She returned to January 26, 2018 with continued diarrhea as well as some chest discomfort and was noted to be in atrial fibrillation at her primary care physician's office. She was therefore sent to the emergency room where she was also identified as having atrial fibrillation, but that converted to sinus rhythm shortly thereafter. She seemed unaware of the rhythm specifically but had intermittent chest discomfort lasting several minutes. She was pain-free and remained in sinus rhythm following conversion in the emergency room, however with ambulation that evening she had anginal type chest discomfort with no rhythm disturbance and also some electrocardiographic changes which appear to be a little bit different than before. The episode was relieved with rest and nitroglycerin. She has had anemia for some time with no clear source of bleeding, although she did have heme positive stools. Although we were confident that she had coronary disease we did not know the extent, therefore we did perform cardiac catheterization on January 28, 2018. Not surprisingly she had severe multivessel coronary artery disease including a 50-60% ostial left main, 95% mid LAD, chronic ostial circumflex occlusion with right to left collaterals and a 50-60% ostial right coronary artery stenosis as well as a 67% mid RCA stenosis. It was felt that intervention was at very high risk and therefore we plan to maximize her medical therapy, including maintaining her hemoglobin. Palliative care was considered, but was not instituted. She returns now having ongoing intermittent chest discomfort and more recently shortness of breath. She is once again vague about her history, it sounds as though she has had chest discomfort for a month or perhaps longer, and it evidently is intermittent although it has been much more pronounced recently. It is difficult to get a time course from her history. More recently she was short of breath, but that appears to be only in the last several days. On evaluation here her left ventricular function had diminished substantially, her troponin elevated to about 25. With ongoing chest discomfort presumably due to coronary artery disease I added intravenous nitroglycerin, and I also added intravenous amiodarone to help control her atrial ectopy. This seems to have helped, she has been pain-free for the most part and her rhythm has been under good control. On review of her coronary anatomy with Dr. Lopez it appears that any intervention would be very high risk, we did offer her transfer to another institution although I am not sure anybody would be anxious to do any type of intervention or surgery. She would prefer not to do that, therefore she has remained here. Today she feels quite well, she is not having any anginal type chest discomfort she does not have palpitations. She has been seen by palliative care and is interested in going that route. Social History Smoking Status: Never Smoker History of Alcohol Use: No Review of Systems Respiratory: + dyspnea on exertion, No cough, No wheezing, No shortness of breath Cardiac: No chest pain, No edema Medications Cardiovascular: Item Value Date Time Carvedilol 3.125 mg 04/28/18 2100 (Coreg Tab) BID/PO 04/29/18 0743 Aspirin 81 mg 04/27/18 0900 (Ecotrin Tab) DAILY/PO 04/29/18 0743 Objective Vital Signs Past 12 Hours Date Time Temp Pulse Resp B/P (MAP) Pulse Ox O2 Delivery O2 Flow Rate FiO2 04/29/18 11:22 36.6 70 18 138/72 (94) 95 Room Air 04/29/18 08:00 Room Air 04/29/18 08:00 Room Air 04/29/18 06:50 36.4 74 18 160/72 (101) 96 Room Air 04/29/18 03:00 36.6 68 18 111/72 (85) 92 Room Air Last Recorded Weight-Kilograms: 56.900 Intake & Output 8-Hour Column 04/29/18 04/30/18 04/30/18 16:00 00:00 08:00 Intake Total 290 ml Balance 290 ml 24-Hour Column 04/30/18 08:00 Intake Total 290 ml Balance 290 ml Physical Exam Constitutional: Level of Distress: mild distress Lungs: Auscultation: no wheezing, no rales/crackles, deminished air movement, decreased breath sounds Cardiovascular: Heart Auscultation: no rubs, no gallops, II/ BARBARA, irregular rate rhythm Peripheral Pulses: Bruits: none appreciated Extremities: no edema Data Laboratory Results: Last 24 Hours Test 04/29/18 06:25 Hemoglobin 11.7 g/dL Sodium Level 136 mmol/L Potassium Level 4.0 mmol/L Chloride Level 104 mmol/L Carbon Dioxide Level 24 mmol/L Anion Gap 8.0 mmol/L Blood Urea Nitrogen 28 mg/dl Creatinine 0.90 mg/dl Est Creatinine Clear Calc Drug Dose 35.0 ml/min Estimated GFR () 65.7 Estimated GFR (Non- 56.7 BUN/Creatinine Ratio 31.4 Random Glucose 126 mg/dl Calcium Level 8.5 mg/dl Telemetry reviewed: Sinus rhythm, very little atrial or ventricular ectopy Assessment and Plan 1. Chest discomfort: This has improved substantially, despite removal of nitroglycerine. If it recurs I would try topical nitrates. Perhaps it was due to infarction rather than angina as it has not recurred with discontinuation of the nitrates. 2. Left ventricular dysfunction: In the past despite her aortic stenosis and her severe coronary disease her left ventricular ejection fraction has been maintained. Her current decrease in function is likely due to stunning from ischemia, unless she has had a large infarction in the relatively recent past but she does not have specific symptoms suggesting that (she did not have sudden heart failure or severe chest pain until recently). Perhaps she has been gradually damaging her heart for some time, but her enzymes suggest a more recent event. Part of the decreased left ventricular function might be the rate. That has improved with amiodarone. 3. Aortic stenosis: Aortic stenosis has been moderate to severe but I do not believe that is a cause of her left ventricular dysfunction, this appears to be due to recent ischemia. 4. Congestive heart failure: She does not appear to be fluid overloaded, I believe her congestive heart failure is due to recent development of severe left ventricular dysfunction. We will continue conservative treatment. Thank you for allowing me to participate in her care.
[2018-04-29 15:07] VITALS: BP 137/77; PULSE 79; TEMP 36.6; O2SAT 93
[2018-04-29 18:41] VITALS: BP 129/72; PULSE 79; TEMP 36.8; O2SAT 95
--- NOTE | 2018-04-29 20:45 | Progress Note ---
Subjective Date of Service: Apr 29, 2018. Subjective Pt evaluation today including: conversation w/ patient, physical exam, chart review, lab review Pain: no chest pain or abd pain PO Intake: improving tele stable overnight feels better no complaints she again, much like other days, stated "I'm ready to go - I'm praying the good Lord takes me soon" she then breaks down in tears Problem List Medical Problems: (1) Anemia Status: Acute (2) Anemia Status: Acute (3) Elevated troponin Status: Acute (4) Fall Status: Acute (5) Gastrointestinal bleeding Status: Acute (6) GI bleed Status: Acute (7) New onset a-fib Status: Acute (8) Right rib fracture Status: Acute (9) Symptomatic anemia Status: Acute (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 (11) UTI (urinary tract infection) Status: Acute Review of Systems Constitutional: No fever Respiratory: No dyspnea at rest Cardiac: No chest pain, No orthopnea, No PND, No edema Abdomen: No pain Objective Vital Signs Date Time Temp Pulse Resp B/P (MAP) Pulse Ox O2 Delivery O2 Flow Rate FiO2 04/29/18 18:41 36.8 79 17 129/72 (91) 95 Room Air 04/29/18 15:07 36.6 79 19 137/77 (97) 93 Room Air 04/29/18 11:22 36.6 70 18 138/72 (94) 95 Room Air 04/29/18 08:00 Room Air 04/29/18 08:00 Room Air 04/29/18 06:50 36.4 74 18 160/72 (101) 96 Room Air 04/29/18 03:00 36.6 68 18 111/72 (85) 92 Room Air 04/29/18 00:03 Room Air 04/28/18 22:50 36.7 72 16 129/77 (94) 95 Room Air Physical Exam General Appearance: no apparent distress ENT: pharynx normal Neck: no JVD Respiratory/Chest: lungs clear, no respiratory distress, no accessory muscle use Cardiovascular: regular rate, rhythm, no gallop, + systolic murmur (2/6 RUSB) Abdomen: normal bowel sounds, non tender, soft, no organomegaly Extremities: no pedal edema Neurologic/Psychiatric: alert, oriented x 3, + depressed affect Laboratory Results Last 24 Hours Test 04/29/18 06:25 Hemoglobin 11.7 g/dL Sodium Level 136 mmol/L Potassium Level 4.0 mmol/L Chloride Level 104 mmol/L Carbon Dioxide Level 24 mmol/L Anion Gap 8.0 mmol/L Blood Urea Nitrogen 28 mg/dl Creatinine 0.90 mg/dl Est Creatinine Clear Calc Drug Dose 35.0 ml/min Estimated GFR () 65.7 Estimated GFR (Non- 56.7 BUN/Creatinine Ratio 31.4 Random Glucose 126 mg/dl Calcium Level 8.5 mg/dl Assessment and Plan 87yo female - 1. NSTEMI in patient with known, severe, CAD - Patient does NOT want transfer to tertiary care and again has declined surgical intervention/lab tech intervention. During her previous admission in January she had the same feelings. Continue conservative medical management. Cont asa. Cont low-dose coreg. Ideally add low-dose EMMA and low-dose imdur if BP could allow. is not severe thus afterload reduction likely ok in this situation. 2. acute systolic/diastolic CHF - echo c/w ischemic cardiomyopathy. Her LV dysfunction is severe and likely acute (could have some chronic component given the her symptoms she had been having for several weeks at home). Appears compensated. Cont BB 3. hypomagnesemia - resolved. 4. CKD stage 3 - creatinine stable today. 5. leukocytosis - likely 2nd to NSTEMI. Resolved. 6. acute/chronic anemia - s/p 2 units PRBCs; H/H improved and stable. Chronic anemia is due to iron def anemia. 7. aortic stenosis - doubt contributing to acute CHF. 8. DVT proph - chemical means relatively contraindicated due to #6. dispo - SNF vs personal assisted - with hospice consider antidepressant Discharge planning: uncertain
[2018-04-29 23:07] VITALS: BP 153/88; PULSE 94; TEMP 36.5; O2SAT 98
[2018-04-30] MEDS: ACETAMINOPHEN 325 MG TAB PO PRN (00:59)
[2018-04-30 02:48] VITALS: BP 143/72; PULSE 97; TEMP 37.2; O2SAT 95
[2018-04-30 07:05] VITALS: BP 133/80; PULSE 75; TEMP 36.3; O2SAT 97
[2018-04-30] MEDS: DOCUSATE SODIUM 100 MG CAP PO SCH (07:41)
[2018-04-30] MEDS: SACCHAROMYCES BOUL (FLORASTOR) 250 MG CAP PO SCH (07:41)
[2018-04-30] MEDS: PANTOprazole SOD 40 MG TAB PO SCH (07:41)
[2018-04-30] MEDS: RANITIDINE HCL 150 MG TAB PO SCH ×2 (07:41→20:00)
[2018-04-30] MEDS: ASPIRIN 81 MG ECTAB PO SCH (07:41)
[2018-04-30] MEDS: NEPHROCAPS PO SCH (07:41)
[2018-04-30] MEDS: LEVETIRACETAM 500 MG TAB PO SCH ×2 (07:42→19:59)
[2018-04-30] MEDS: CARVEDILOL 3.125 MG TAB PO SCH (07:42)
[2018-04-30] MEDS: RIVASTIGMINE TARTRATE (EXELON) 1.5 MG CAP PO SCH ×2 (07:47→19:59)
[2018-04-30] MEDS: ALUMINUM/MAGNESIUM/SIMETH (MAALOX MAX) 30 ML UDC PO PRN (09:13)
[2018-04-30] MEDS ORDERED: CARVEDILOL 3.125 MG TAB PO ONE (11:00)
[2018-04-30] MEDS ORDERED: ISOSORBIDE MONONITRATE 30 MG TABCR PO ONE (11:00)
[2018-04-30 11:06] VITALS: BP 114/69; PULSE 92; TEMP 36.5; O2SAT 95
[2018-04-30 11:46] LABS: CALCIUM 8.4 mg/dl (8.5-10.1); CREATININE 0.78 mg/dl (0.60-1.20); POTASSIUM 4.1 mmol/L (3.5-5.1)
[2018-04-30] MEDS: MoRPHine SULFATE 4 MG/ML 1 ML CARP\\VIAL IV PRN ×2 (12:08→21:21)
[2018-04-30] MEDS: MAGNESIUM SULFATE 1GM / D5W 100 ML IV SCH ×2 (14:11→15:04)
[2018-04-30 16:02] VITALS: BP 130/72; PULSE 70; TEMP 36.5; O2SAT 97
[2018-04-30 19:02] VITALS: BP 106/58; PULSE 95; TEMP 36.6; O2SAT 95
[2018-04-30] MEDS: CARVEDILOL 6.25 MG TAB PO SCH (20:00)
[2018-04-30 23:00] VITALS: BP 130/73; PULSE 71; TEMP 36.5; O2SAT 93
[2018-05-01] VITALS (9 sets, daily range): BP systolic 115–145; BP diastolic 66–88; PULSE 68–96; TEMP 36.4–37; O2SAT 94–98
[2018-05-01] MEDS: ACETAMINOPHEN 325 MG TAB PO PRN ×3 (00:47→20:46)
[2018-05-01] MEDS: MoRPHine SULFATE 4 MG/ML 1 ML CARP\\VIAL IV PRN (05:48)
[2018-05-01 06:28] LABS: HEMATOCRIT 34.2 % (37-47); HEMOGLOBIN 11.3 g/dL (12.0-16.0); MEAN CELL VOLUME 93.2 fL (80-100); MEAN CORPUSCULAR HEMOGLOBIN 30.8 pg (25-34); MEAN PLATELET VOLUME 10.2 fL (7.4-10.4); PLATELET COUNT 297 K/uL (130-400); RED CELL DISTRIBUTION WIDTH CV 15.2 % (11.5-14.5); RED CELL DISTRIBUTION WIDTH SD 51.6 fL (36.4-46.3); WHITE BLOOD COUNT 6.51 K/uL (4.8-10.8)
[2018-05-01] MEDS: RANITIDINE HCL 150 MG TAB PO SCH ×2 (08:29→20:46)
[2018-05-01] MEDS: NEPHROCAPS PO SCH (08:29)
[2018-05-01] MEDS: CARVEDILOL 6.25 MG TAB PO SCH ×2 (08:29→20:46)
[2018-05-01] MEDS: ASPIRIN 81 MG ECTAB PO SCH (08:30)
[2018-05-01] MEDS: SACCHAROMYCES BOUL (FLORASTOR) 250 MG CAP PO SCH (08:30)
[2018-05-01] MEDS: PANTOprazole SOD 40 MG TAB PO SCH (08:30)
[2018-05-01] MEDS: LEVETIRACETAM 500 MG TAB PO SCH ×2 (08:31→20:47)
[2018-05-01] MEDS: RIVASTIGMINE TARTRATE (EXELON) 1.5 MG CAP PO SCH (08:31)
[2018-05-01] MEDS: ALUMINUM/MAGNESIUM/SIMETH (MAALOX MAX) 30 ML UDC PO PRN (08:38)
--- NOTE | 2018-05-01 08:40 | Progress Note ---
Subjective Date of Service: Apr 30, 2018. Subjective Pt evaluation today including: conversation w/ patient, physical exam, chart review, lab review, review of inpatient medication list Pain: 20-minute chest pain episode this AM, associated with rapid heart rhythm PO Intake: poor today tele overnight was normal, then developed rapid rhythm with HR of about 150 ( rapid a. flutter?) this am during the rapid rhythm she had 20 min of substernal chest pain the pain ultimately resolved and she converted back to NSR when I saw her a few hours later she said "I just don't feel good" denies any dyspnea denies nausea or emesis or abd pain Problem List Medical Problems: (1) Anemia Status: Acute (2) Anemia Status: Acute (3) Elevated troponin Status: Acute (4) Fall Status: Acute (5) Gastrointestinal bleeding Status: Acute (6) GI bleed Status: Acute (7) New onset a-fib Status: Acute (8) Right rib fracture Status: Acute (9) Symptomatic anemia Status: Acute (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 (11) UTI (urinary tract infection) Status: Acute Review of Systems Constitutional: No fever Respiratory: No cough Cardiac: + see HPI, + chest pain, No orthopnea, No PND, No edema Abdomen: No pain Objective Vital Signs Date Time Temp Pulse Resp B/P (MAP) Pulse Ox O2 Delivery O2 Flow Rate FiO2 04/30/18 19:02 36.6 95 19 106/58 (74) 95 Room Air 04/30/18 16:02 36.5 70 22 130/72 (91) 97 Room Air 04/30/18 11:06 36.5 92 19 114/69 (84) 95 Room Air 04/30/18 08:00 Room Air 04/30/18 07:05 36.3 75 18 133/80 (97) 97 Room Air 04/30/18 02:48 37.2 97 20 143/72 (95) 95 Room Air 04/30/18 00:00 Room Air 04/29/18 23:07 36.5 94 16 153/88 (109) 98 Room Air Physical Exam General Appearance: no apparent distress, + pertinent finding (but looks poorly today) ENT: pharynx normal Neck: no JVD Respiratory/Chest: lungs clear, no respiratory distress, no accessory muscle use Cardiovascular: regular rate, rhythm, no gallop, + systolic murmur (2/6 RUSB) Abdomen: normal bowel sounds, non tender, soft, no organomegaly Extremities: no pedal edema Neurologic/Psychiatric: alert, oriented x 3 Laboratory Results Last 24 Hours Test 04/30/18 10:50 Sodium Level 135 mmol/L Potassium Level 4.1 mmol/L Chloride Level 104 mmol/L Carbon Dioxide Level 23 mmol/L Anion Gap 8.0 mmol/L Blood Urea Nitrogen 26 mg/dl Creatinine 0.78 mg/dl Est Creatinine Clear Calc Drug Dose 40.4 ml/min Estimated GFR () 78.1 Estimated GFR (Non- 67.4 BUN/Creatinine Ratio 33.1 Random Glucose 151 mg/dl Calcium Level 8.4 mg/dl Magnesium Level 1.6 mg/dl Troponin I 3.820 ng/ml Assessment and Plan 87yo female - 1. 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 During her previous admission in January she had the same feelings. Continue conservative medical management. Cont asa. Cont low-dose coreg but will increase to 6.25mg BID. Add low-dose imdur 15mg daily and titrate for symptoms. 2. acute systolic/diastolic CHF - echo c/w ischemic cardiomyopathy. Her LV dysfunction is severe and likely acute (could have some chronic component given the her symptoms she had been having for several weeks at home). Remains compensated. Cont BB. Ideally needs low-dose EMMA. 3. hypomagnesemia - 2 grams mag sulfate IV x 1. Repeat mag level am. 4. CKD stage 3 - creatinine stable. 5. leukocytosis - likely 2nd to NSTEMI. Resolved. 6. acute/chronic anemia - s/p 2 units PRBCs; H/H improved and stable. Chronic anemia is due to iron def anemia. Repeat CBC in am for stability. 7. aortic stenosis - doubt contributing to acute CHF. 8. DVT proph - chemical means relatively contraindicated due to #6. 9. ?a. flutter - paroxysmal - has had this during previous hospital stays. Resolved. low mag may have contributed to it. increase beta barak. dispo - SNF vs personal shelter - with hospice consider antidepressant Continued [facility] stay due to: other (chest pain, titration of meds) Discharge planning: uncertain
[2018-05-01] MEDS ORDERED: ISOSORBIDE MONONITRATE 30 MG TABCR PO SCH (09:00)
[2018-05-01] MEDS: ISOSORBIDE MONONITRATE 30 MG TABCR PO SCH (09:16)
[2018-05-01] MEDS ORDERED: RIVASTIGMINE TARTRATE (EXELON) 1.5 MG CAP PO SCH (21:00)
--- NOTE | 2018-05-01 21:32 | Progress Note ---
Subjective Date of Service: May 01, 2018. Subjective Pt evaluation today including: conversation w/ patient, conversation w/ family , physical exam, chart review, lab review Pain: had brief chest pain about 0600 this AM, associated w/ dyspnea PO Intake: somewhat improved today Voiding: incontinence tele with occasional run of paroxysmal a. fib felt poorly overnight and somewhat this AM but by late AM/early afternoon was doing a bit better had chest pain, substernal, with dyspnea about 0545/0600 this AM - resolved quickly today feels weak/tired/fatigued; prefers to stay in bed reports she has been stressed about her house but has decided that her grandson will get the house in the near future Problem List Medical Problems: (1) Anemia Status: Acute (2) Anemia Status: Acute (3) Elevated troponin Status: Acute (4) Fall Status: Acute (5) Gastrointestinal bleeding Status: Acute (6) GI bleed Status: Acute (7) New onset a-fib Status: Acute (8) Right rib fracture Status: Acute (9) Symptomatic anemia Status: Acute (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 (11) UTI (urinary tract infection) Status: Acute Review of Systems Constitutional: No fever Respiratory: No cough Cardiac: No orthopnea, No PND, No edema Abdomen: No pain, No diarrhea, No constipation Objective Vital Signs Date Time Temp Pulse Resp B/P (MAP) Pulse Ox O2 Delivery O2 Flow Rate FiO2 05/01/18 18:46 36.6 74 17 132/68 (89) 97 Room Air 05/01/18 15:17 36.6 71 19 127/70 (89) 97 Room Air 05/01/18 11:42 36.5 68 20 122/70 (87) 98 Room Air 05/01/18 08:20 Room Air 05/01/18 07:00 36.4 70 18 127/71 (89) 95 Room Air 05/01/18 06:44 36.5 71 18 115/66 (82) 94 Room Air 05/01/18 06:38 70 115/66 (82) 05/01/18 06:24 77 127/70 (89) 05/01/18 04:02 36.4 96 18 145/88 (107) 95 Room Air 04/30/18 23:00 36.5 71 16 130/73 (92) 93 Room Air Physical Exam General Appearance: no apparent distress ENT: pharynx normal Neck: no JVD Respiratory/Chest: lungs clear, no respiratory distress, no accessory muscle use Cardiovascular: regular rate, rhythm, no gallop, + systolic murmur (2/6 RUSB) Abdomen: normal bowel sounds, non tender, soft, no organomegaly Extremities: no pedal edema Neurologic/Psychiatric: alert, oriented x 3, + pertinent finding (anxious) Laboratory Results Last 24 Hours Test 05/01/18 06:10 05/01/18 08:50 White Blood Count 6.51 K/uL Red Blood Count 3.67 M/uL Hemoglobin 11.3 g/dL Hematocrit 34.2 % Mean Corpuscular Volume 93.2 fL Mean Corpuscular Hemoglobin 30.8 pg Mean Corpuscular Hemoglobin Concent 33.0 g/dl RDW Standard Deviation 51.6 fL RDW Coefficient of Variation 15.2 % Platelet Count 297 K/uL Mean Platelet Volume 10.2 fL Magnesium Level 2.0 mg/dl Urine Color YELLOW Urine Appearance CLEAR Urine pH 5.0 Urine Specific [place] 1.019 Urine Protein NEG Urine Glucose (UA) NEG Urine Ketones NEG Urine Occult Blood NEG Urine Nitrite NEG Urine Bilirubin NEG Urine Urobilinogen NEG Urine Leukocyte Esterase NEG Assessment and Plan 87yo female - 1. NSTEMI in patient with known, severe, nonoperable CAD - Patient has declined surgical intervention/engineering lab technician intervention. During her previous admission in January 2018 she had the same feelings. Continue conservative medical management. Cont asa. Cont low-dose coreg but have increased this to 6.25mg BID. Increase imdur to 30mg daily due to recurrent chest pain. Could consider morphine prn and/or calcium channel barak for refractory angina. 2. acute systolic/diastolic CHF - echo c/w ischemic cardiomyopathy. Her LV dysfunction is severe. Remains compensated from volume standpoint, however. Cont BB. Ideally needs low-dose EMMA but BP may not allow. 3. hypomagnesemia - resolved. 4. CKD stage 3 - creatinine stable. 5. acute/chronic anemia - s/p 2 units PRBCs earlier this stay with H/H stable since then. Chronic anemia is due to iron def anemia and recurrent, occult GI bleeding. 6. aortic stenosis - doubt contributing to acute CHF. Stable. 7. DVT proph - chemical means relatively contraindicated due to #5. 8. paroxysmal a fib/flutter - has had this during previous hospital stays. Cont beta barak. Keep K/mag wnl. dispo - SNF vs personal nursing home - with hospice consider antidepressant daughter updated at bedside 05/02/18 very poor prognosis given her recurrent chest pain symptoms as they are now occurring at rest I recommended to the patient to take it easy as much as possible Continued [facility] stay due to: other (chest pain, titration of meds) Discharge planning: uncertain (likely SNF)
[2018-05-02] VITALS (8 sets, daily range): BP systolic 100–135; BP diastolic 56–78; PULSE 67–75; TEMP 36.3–36.8; O2SAT 94–96
[2018-05-02] MEDS: ACETAMINOPHEN 325 MG TAB PO PRN ×2 (02:43→23:53)
[2018-05-02] MEDS: DOCUSATE SODIUM 100 MG CAP PO SCH (07:50)
[2018-05-02] MEDS: SACCHAROMYCES BOUL (FLORASTOR) 250 MG CAP PO SCH (07:50)
[2018-05-02] MEDS: ASPIRIN 81 MG ECTAB PO SCH (07:50)
[2018-05-02] MEDS: CARVEDILOL 6.25 MG TAB PO SCH ×2 (07:51→20:33)
[2018-05-02] MEDS: LEVETIRACETAM 500 MG TAB PO SCH ×2 (07:51→20:34)
[2018-05-02] MEDS: NEPHROCAPS PO SCH (07:51)
[2018-05-02] MEDS: RANITIDINE HCL 150 MG TAB PO SCH ×2 (07:51→20:33)
[2018-05-02] MEDS: ISOSORBIDE MONONITRATE 30 MG TABCR PO SCH (07:51)
[2018-05-02] MEDS: PANTOprazole SOD 40 MG TAB PO SCH (07:51)
[2018-05-02] MEDS: ALUMINUM/MAGNESIUM/SIMETH (MAALOX MAX) 30 ML UDC PO PRN (09:51)
[2018-05-02] MEDS: MoRPHine SULFATE 4 MG/ML 1 ML CARP\\VIAL IV PRN (10:45)
[2018-05-02] MEDS: RIVASTIGMINE TARTRATE (EXELON) 1.5 MG CAP PO SCH ×2 (10:46→20:33)
--- NOTE | 2018-05-02 14:36 | Cardiology Follow-Up ---
Subjective Date of Service: May 02, 2018. Pt evaluation today including: conversation w/ patient, physical exam, lab review, review of studies, review of inpatient medication list History of Present Illness This is a very pleasant 87-year-old woman who has a history of coronary artery disease (including a non-ST segment elevation myocardial infarction at the end of August 2016 in association with rapid heart rate and severe coronary disease at catheterization in January 2018) as well as valvular heart disease including moderate aortic stenosis and mild to moderate mitral regurgitation. 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 She was identified as having anemia at the time and had a small enzyme rise. She has been treated medically for the arrhythmia. She was maintained on metoprolol tartrate for the arrhythmia. Echocardiography showed normal left ventricular function but she had moderate to severe aortic stenosis. She presented January 19, 2018 with diarrhea and abdominal discomfort, however she was observed to have periods of SVT at a rapid heart rate as well as some electrocardiographic abnormalities. Her symptoms were a little bit vague, she did admit to having intermittent palpitations but was not very precise about it. She had frequent episodes during that hospital stay and I cannot tell if she actually had much in the way of symptoms related to them. She did not have chest discomfort or shortness of breath. She evidently does not have lightheadedness or dizziness and denied syncope or presyncope. Her rhythm appeared to be very well controlled on intravenous diltiazem therefore she was discharged January 22, 2018 on diltiazem CD 180 mg daily. She returned to January 26, 2018 with continued diarrhea as well as some chest discomfort and was noted to be in atrial fibrillation at her primary care physician's office. She was therefore sent to the emergency room where she was also identified as having atrial fibrillation, but that converted to sinus rhythm shortly thereafter. She seemed unaware of the rhythm specifically but had intermittent chest discomfort lasting several minutes. She was pain-free and remained in sinus rhythm following conversion in the emergency room, however with ambulation that evening she had anginal type chest discomfort with no rhythm disturbance and also some electrocardiographic changes which appear to be a little bit different than before. The episode was relieved with rest and nitroglycerin. She has had anemia for some time with no clear source of bleeding, although she did have heme positive stools. Although we were confident that she had coronary disease we did not know the extent, therefore we did perform cardiac catheterization on January 28, 2018. Not surprisingly she had severe multivessel coronary artery disease including a 50-60% ostial left main, 95% mid LAD, chronic ostial circumflex occlusion with right to left collaterals and a 50-60% ostial right coronary artery stenosis as well as a 67% mid RCA stenosis. It was felt that intervention was at very high risk and therefore we plan to maximize her medical therapy, including maintaining her hemoglobin. Palliative care was considered, but was not instituted. She returns now having ongoing intermittent chest discomfort and more recently shortness of breath. She is once again vague about her history, it sounds as though she has had chest discomfort for a month or perhaps longer, and it evidently is intermittent although it has been much more pronounced recently. It is difficult to get a time course from her history. More recently she was short of breath, but that appears to be only in the last several days. On evaluation here her left ventricular function had diminished substantially, her troponin elevated to about 25. With ongoing chest discomfort presumably due to coronary artery disease I added intravenous nitroglycerin, and I also added intravenous amiodarone to help control her atrial ectopy. This seems to have helped, she has been pain-free for the most part and her rhythm has been under good control. On review of her coronary anatomy with Dr. Lopez it appears that any intervention would be very high risk, we did offer her transfer to another institution although I am not sure anybody would be anxious to do any type of intervention or surgery. She would prefer not to do that, therefore she has remained here. Today she is not feeling well at all. He is complaining of GI upset, although it is not clear exactly what is causing it. She is also had some chest discomfort and reports that she has had some episodes of tachycardia, although not necessarily associated with the chest discomfort. At the moment she is not having cardiac symptoms. Social History Smoking Status: Never Smoker History of Alcohol Use: No Review of Systems Respiratory: No cough, No shortness of breath Cardiac: + see HPI, No chest pain, No edema Medications Cardiovascular: Item Value Date Time Isosorbide 30 mg 05/01/18 0900 Mononitrate QAM/PO 05/02/18 0751 (Imdur Ext Rel Tab) Carvedilol 6.25 mg 04/30/18 2100 (Coreg Tab) BID/PO 05/02/18 0751 Aspirin 81 mg 04/27/18 0900 (Ecotrin Tab) DAILY/PO 05/02/18 0750 Objective Vital Signs Past 12 Hours Date Time Temp Pulse Resp B/P (MAP) Pulse Ox O2 Delivery O2 Flow Rate FiO2 05/02/18 10:56 36.6 67 18 100/56 (71) 94 Room Air 05/02/18 10:34 74 16 113/66 (82) 94 Room Air 05/02/18 08:00 Room Air 05/02/18 07:45 36.4 75 16 135/70 (91) 96 Room Air 05/02/18 04:07 36.4 72 20 129/78 (95) 95 Last Recorded Weight-Kilograms: 57.800 Physical Exam Constitutional: Level of Distress: mild distress Lungs: Auscultation: no wheezing, no rales/crackles, deminished air movement, decreased breath sounds Cardiovascular: Heart Auscultation: no rubs, no gallops, II/ BARBARA, irregular rate rhythm Peripheral Pulses: Bruits: none appreciated Extremities: no edema Data Telemetry reviewed: Sinus rhythm, occasional episodes of SVT, some quite rapid but relatively brief. Assessment and Plan 1. Chest discomfort: This has seemingly recurred, she is quite vague about when or how severe the episodes are. She is on a nitrate now and I am not sure if she has had any since starting that. We can continue to observe. 2. Left ventricular dysfunction: In the past despite her aortic stenosis and her severe coronary disease her left ventricular ejection fraction has been maintained. Her current decrease in function is likely due to stunning from ischemia, unless she has had a large infarction in the relatively recent past but she does not have specific symptoms suggesting that (she did not have sudden heart failure or severe chest pain until recently). Perhaps she has been gradually damaging her heart for some time, but her enzymes suggest a more recent event. Part of the decreased left ventricular function might be the rate. Since she is still here in the hospital I am going to get a limited echo to see whether there was some stunning and if her ejection fraction has improved. 3. Aortic stenosis: Aortic stenosis has been moderate to severe but I do not believe that is a cause of her left ventricular dysfunction, this appears to be due to recent ischemia. We will continue conservative treatment. Thank you for allowing me to participate in her care.
--- NOTE | 2018-05-02 15:32 | Palliative Care Progress Note ---
Palliative Care Progress Note Date of Service May 02, 2018. Subjective Pt evaluation today including: conversation w/ patient, physical exam, chart review, conversation w/ furniture sales consultant Patient awake, alert and oriented. States she is "miserable," but not having pain. She is tired of being in hospital, wants to leave. Review of Systems Constitutional: + weakness ENT: No trouble swallowing Respiratory: No shortness of breath, No dyspnea on exertion Cardiac: No chest pain, No edema Abdomen: No pain, No nausea, No vomiting Female : No problem reported Psychiatric: No depression symptoms, No anxiety Objective Vital Signs Date Time Temp Pulse Resp B/P (MAP) Pulse Ox O2 Delivery O2 Flow Rate FiO2 05/02/18 10:56 36.6 67 18 100/56 (71) 94 Room Air 05/02/18 10:34 74 16 113/66 (82) 94 Room Air 05/02/18 08:00 Room Air 05/02/18 07:45 36.4 75 16 135/70 (91) 96 Room Air 05/02/18 04:07 36.4 72 20 129/78 (95) 95 05/01/18 23:00 37.0 80 17 142/75 (97) 97 Room Air 05/01/18 20:00 Room Air 05/01/18 18:46 36.6 74 17 132/68 (89) 97 Room Air Physical Exam General Appearance: no apparent distress ENT: hearing grossly normal Neck: supple, no JVD Respiratory/Chest: no respiratory distress, no accessory muscle use Cardiovascular: regular rate, rhythm, no edema, + normal peripheral pulses Abdomen: normal bowel sounds, non tender, soft Neurologic/Psychiatric: alert, normal mood/affect, oriented x 3 Assessment and Plan Problem list: Musculoskeletal chest pain related to rib fracture Weakness, generalized NSTEMI 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 -Okay with getting tuned up as well as possible while here in hospital. -Plan is uncertain at this point. No matter what, patient wants to transition to hospice care and DOES NOT want to return to the hospital if anything happens to her. She wants to be kept comfortable for the remainder of her life. -Case management is following closely. Patient will either go to personal fdc with hospice or will go to SNF skilled initially with a transition to hospice. -POLST form explained in detail and filled out on Wednesday as follows: DNR, comfort measures only, abx with comfort as the goal, and no artificial hydration /nutrition. Daughters Ghazal and Allyssa Stapleton are listed as patient's surrogates. Thank you again for this consult. Will sign off for now. Total time spent 25 minutes with >50% of time spent at bedside with patient and family counseling and discussing goals of care. Palliative Performance Scale: 40 % Continued [facility] stay due to: other (chest pain, titration of meds) Discharge planning: uncertain (likely SNF)
[2018-05-02] MEDS ORDERED: PERFLUTREN LIPID MICROSPHERE (DEFINITY) IV ONE (16:02)
--- NOTE | 2018-05-02 17:16 | ECHOCARDIOGRAM REPORT ---
*NOTICE TO RECEIVING LIBERTARIAN AGENCY This information is strictly Confidential and protected under [place] law. [place] law prohibits you from making any further disclosure of this information unless further disclosure is expressly permitted by the written consent of the person to whom it pertains or is authorized by law. A general authorization for the release of medical or other information is not sufficient for this purpose. Hospital accepts no responsibility if the information is made available to any other person, INCLUDING THE PATIENT. Interpretation Summary * Name: SARAH CONCEPCION Study Date: 05/02/2018 03:49 PM BP: 100/56 mmHg * Patient Location: [facility] HR: 73 * : 1930 (M/d/yyyy) Gender: Female Height: 62 in * Age: 87 yrs Ethnicity: [place] Weight: 127 lb * Ordering Physician: Aubrey Vickers MD * Performed By: Magda Michel RDCS * * Reason For Study: Follow up of severe left ventricular function * BSA: 1.6 m2 * -- Conclusions -- * Limited study to re-evaluate LV function * Overall LV function appears mildly improved * Estimated ejection fraction about 30- 35% * Persistent akinesis of the septum and inferior wall with severe hypokinesis of the posterior wall. * Anterior and lateral wall motion appear normal. Procedure Details * Limited views were obtained. * There were technical limitations due to patient'spoor positioning * A contrast injection of Definity was performed to improve assessment of LV function. * Contrast was injected into an intravenous site in the left arm. * One vial of Definity ultrasound contrast was diluted in normal saline to a total volume of 10 ml. A total of '2' ml of solution was administered during imaging. * Lot # [id number] of Definity utilized for procedure. * Expiration date 1MAY19. * The attending nurse who injected the contrast agent was Lizy Ruiz RN. Left Ventricle * Ejection Fraction = 45-50%. MMode 2D Measurements and Calculations IVSd 1.0 cm IVSs 1.5 cm LVIDd 4.1 cm LVIDs 3.0 cm LVPWd 0.88 cm LVPWs 10 cm IVS/LVPW 1.2 FS 26.6 % EDV(Teich) 73.4 ml ESV(Teich) 34.9 ml EF(Teich) 52.5 % EDV(cubed) 68.0 ml ESV(cubed) 26.9 ml EF(cubed) 60.5 % % IVS thick 43.9 % % LVPW thick 12.8 % LV mass(C)d 125.1 grams LV mass(C)dI 79.4 grams/m\S\2 LV mass(C)s 116.8 grams LV mass(C)sI 74.1 grams/m\S\2 SV(Teich) 38.6 ml SI(Teich) 24.5 ml/m\S\2 SV(cubed) 41.1 ml SI(cubed) 26.1 ml/m\S\2 LVAd ap4 35.5 cm\S\2 LVLd ap4 8.1 cm EDV(MOD-sp4) 127.3 ml EDV(sp4-el) 132.2 ml LVAs ap4 24.6 cm\S\2 LVLs ap4 7.8 cm ESV(MOD-sp4) 67.9 ml ESV(sp4-el) 66.2 ml EF(MOD-sp4) 46.7 % EF(sp4-el) 49.9 % LVAd ap2 34.7 cm\S\2 LVLd ap2 9.3 cm EDV(MOD-sp2) 108.1 ml EDV(sp2-el) 110.3 ml LVAs ap2 22.7 cm\S\2 LVLs ap2 8.0 cm ESV(MOD-sp2) 53.8 ml ESV(sp2-el) 55.0 ml EF(MOD-sp2) 50.2 % EF(sp2-el) 50.1 % LVLd %diff 12.6 % EDV(MOD-bp) 125.6 ml LVLs %diff 2.6 % ESV(MOD-bp) 61.0 ml EF(MOD-bp) 51.5 % SV(MOD-sp4) 59.4 ml SI(MOD-sp4) 37.7 ml/m\S\2 SV(MOD-sp2) 54.3 ml SI(MOD-sp2) 34.5 ml/m\S\2 SV(MOD-bp) 64.6 ml SI(MOD-bp) 41.0 ml/m\S\2 SV(sp4-el) 65.9 ml SI(sp4-el) 41.8 ml/m\S\2 SV(sp2-el) 55.3 ml SI(sp2-el) 35.1 ml/m\S\2
--- NOTE | 2018-05-02 21:59 | Progress Note ---
Subjective Date of Service: May 02, 2018. Subjective Pt evaluation today including: conversation w/ patient, physical exam Patient reports no new symptoms today. She still has intermittent episodes of chest pain. Patient is vague with her description. Problem List Medical Problems: (1) Anemia Status: Acute (2) Anemia Status: Acute (3) Elevated troponin Status: Acute (4) Fall Status: Acute (5) Gastrointestinal bleeding Status: Acute (6) GI bleed Status: Acute (7) New onset a-fib Status: Acute (8) Right rib fracture Status: Acute (9) Symptomatic anemia Status: Acute (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 (11) UTI (urinary tract infection) Status: Acute Review of Systems Constitutional: No fever Eyes: No worsening of vision ENT: No unusual epistaxis Respiratory: No cough Cardiac: + chest pain Abdomen: No pain Musculoskeletal: No swelling Psychiatric: No anhedonism Heme: No abnormal bleeding/bruising Endo: + fatigue Skin: No rash All Other Systems: Reviewed and Negative Objective Vital Signs Date Time Temp Pulse Resp B/P (MAP) Pulse Ox O2 Delivery O2 Flow Rate FiO2 05/02/18 19:49 36.3 72 16 118/65 (82) 96 Room Air 05/02/18 15:57 95 Room Air 05/02/18 15:38 36.8 73 16 127/65 (85) 95 Room Air 05/02/18 10:56 36.6 67 18 100/56 (71) 94 Room Air 05/02/18 10:34 74 16 113/66 (82) 94 Room Air 05/02/18 08:00 Room Air 05/02/18 07:45 36.4 75 16 135/70 (91) 96 Room Air 05/02/18 04:07 36.4 72 20 129/78 (95) 95 05/01/18 23:00 37.0 80 17 142/75 (97) 97 Room Air Physical Exam Comments: General Appearance: no apparent distress ENT: pharynx normal Neck: no JVD Respiratory/Chest: lungs clear, no respiratory distress, no accessory muscle use Cardiovascular: regular rate, rhythm, no gallop, + systolic murmur (2/6 RUSB) Abdomen: normal bowel sounds, non tender, soft, no organomegaly Extremities: no pedal edema Neurologic/Psychiatric: alert, oriented x 3 Assessment and Plan 87yo female - 1. NSTEMI in patient with known, severe, nonoperable CAD - Patient has declined surgical intervention/optical laboratory technician intervention. During her previous admission in January 2018 she had the same feelings. Continue conservative medical management. Cont asa. Cont low-dose coreg but have increased this to 6.25mg BID. Increase imdur to 30mg daily due to recurrent chest pain. Could consider morphine prn and/or calcium channel barak for refractory angina. 2. acute systolic/diastolic CHF - echo c/w ischemic cardiomyopathy. Her LV dysfunction is severe. Remains compensated from volume standpoint, however. Cont BB. Ideally needs low-dose EMMA but BP may not allow. 3. hypomagnesemia - resolved. 4. CKD stage 3 - creatinine stable. 5. acute/chronic anemia - s/p 2 units PRBCs earlier this stay with H/H stable since then. Chronic anemia is due to iron def anemia and recurrent, occult GI bleeding. 6. aortic stenosis - doubt contributing to acute CHF. Stable. 7. DVT proph - chemical means relatively contraindicated due to #5. 8. paroxysmal a fib/flutter - has had this during previous hospital stays. Cont beta barak. Keep K/mag wnl. dispo - SNF vs personal assisted - with hospice daughter updated at bedside 05/02/18 Family is discussing between personal care options and SNF. Continued [facility] stay due to: other (chest pain, titration of meds) Discharge planning: uncertain (likely SNF)
[2018-05-03 04:56] VITALS: BP 124/74; PULSE 99; TEMP 36.5; O2SAT 94
[2018-05-03] MEDS: ACETAMINOPHEN 325 MG TAB PO PRN (05:49)
[2018-05-03 06:47] VITALS: BP 130/68; PULSE 66; TEMP 36.3; O2SAT 95
[2018-05-03] MEDS: CARVEDILOL 6.25 MG TAB PO SCH (07:51)
[2018-05-03] MEDS: ASPIRIN 81 MG ECTAB PO SCH (07:51)
[2018-05-03] MEDS: LEVETIRACETAM 500 MG TAB PO SCH (07:51)
[2018-05-03] MEDS: SACCHAROMYCES BOUL (FLORASTOR) 250 MG CAP PO SCH (07:51)
[2018-05-03] MEDS: PANTOprazole SOD 40 MG TAB PO SCH (07:52)
[2018-05-03] MEDS: ISOSORBIDE MONONITRATE 30 MG TABCR PO SCH (07:52)
[2018-05-03] MEDS: RANITIDINE HCL 150 MG TAB PO SCH (07:52)
[2018-05-03] MEDS: NEPHROCAPS PO SCH (07:52)
[2018-05-03] MEDS: MoRPHine SULFATE 4 MG/ML 1 ML CARP\\VIAL IV PRN (07:54)
[2018-05-03 08:00] VITALS: PULSE 75; O2SAT 95
--- NOTE | 2018-05-03 09:23 | Cardiology Follow-Up ---
Subjective Date of Service: May 03, 2018. Pt evaluation today including: conversation w/ patient, physical exam, lab review, review of studies, review of inpatient medication list History of Present Illness This is a very pleasant 87-year-old woman who has a history of coronary artery disease (including a non-ST segment elevation myocardial infarction at the end of August 2016 in association with rapid heart rate and severe coronary disease at catheterization in January 2018) as well as valvular heart disease including moderate aortic stenosis and mild to moderate mitral regurgitation. 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 She was identified as having anemia at the time and had a small enzyme rise. She has been treated medically for the arrhythmia. She was maintained on metoprolol tartrate for the arrhythmia. Echocardiography showed normal left ventricular function but she had moderate to severe aortic stenosis. She presented January 19, 2018 with diarrhea and abdominal discomfort, however she was observed to have periods of SVT at a rapid heart rate as well as some electrocardiographic abnormalities. Her symptoms were a little bit vague, she did admit to having intermittent palpitations but was not very precise about it. She had frequent episodes during that hospital stay and I cannot tell if she actually had much in the way of symptoms related to them. She did not have chest discomfort or shortness of breath. She evidently does not have lightheadedness or dizziness and denied syncope or presyncope. Her rhythm appeared to be very well controlled on intravenous diltiazem therefore she was discharged January 22, 2018 on diltiazem CD 180 mg daily. She returned to January 26, 2018 with continued diarrhea as well as some chest discomfort and was noted to be in atrial fibrillation at her primary care physician's office. She was therefore sent to the emergency room where she was also identified as having atrial fibrillation, but that converted to sinus rhythm shortly thereafter. She seemed unaware of the rhythm specifically but had intermittent chest discomfort lasting several minutes. She was pain-free and remained in sinus rhythm following conversion in the emergency room, however with ambulation that evening she had anginal type chest discomfort with no rhythm disturbance and also some electrocardiographic changes which appear to be a little bit different than before. The episode was relieved with rest and nitroglycerin. She has had anemia for some time with no clear source of bleeding, although she did have heme positive stools. Although we were confident that she had coronary disease we did not know the extent, therefore we did perform cardiac catheterization on January 28, 2018. Not surprisingly she had severe multivessel coronary artery disease including a 50-60% ostial left main, 95% mid LAD, chronic ostial circumflex occlusion with right to left collaterals and a 50-60% ostial right coronary artery stenosis as well as a 67% mid RCA stenosis. It was felt that intervention was at very high risk and therefore we plan to maximize her medical therapy, including maintaining her hemoglobin. Palliative care was considered, but was not instituted. She returns now having ongoing intermittent chest discomfort and more recently shortness of breath. She is once again vague about her history, it sounds as though she has had chest discomfort for a month or perhaps longer, and it evidently is intermittent although it has been much more pronounced recently. It is difficult to get a time course from her history. More recently she was short of breath, but that appears to be only in the last several days. On evaluation here her left ventricular function had diminished substantially, her troponin elevated to about 25. With ongoing chest discomfort presumably due to coronary artery disease I added intravenous nitroglycerin, and I also added intravenous amiodarone to help control her atrial ectopy. This seems to have helped, she has been pain-free for the most part and her rhythm had been under good control. On review of her coronary anatomy with Dr. Lopez it appears that any intervention would be very high risk, we did offer her transfer to another institution although I am not sure anybody would be anxious to do any type of intervention or surgery. She would prefer not to do that, therefore she has remained here. Her amiodarone was discontinued by Dr. Rosado when a decision was made to consider palliative care, and therefore her arrhythmia has returned. Today she is not feeling well, she is vague about her symptoms but her stomach evidently is better, she did have some chest heaviness she believes this morning before she got her medications and she believe she has been having palpitations at times. At the time of my visit she was not having symptoms. Social History Smoking Status: Never Smoker History of Alcohol Use: No Review of Systems Respiratory: No shortness of breath, No dyspnea on exertion Cardiac: + see HPI, + chest pain, + palpitations Medications Cardiovascular: Item Value Date Time Isosorbide 30 mg 05/01/18 0900 Mononitrate QAM/PO 05/03/18 0752 (Imdur Ext Rel Tab) Carvedilol 6.25 mg 04/30/18 2100 (Coreg Tab) BID/PO 05/03/18 0751 Aspirin 81 mg 04/27/18 0900 (Ecotrin Tab) DAILY/PO 05/03/18 0751 Objective Vital Signs Past 12 Hours Date Time Temp Pulse Resp B/P (MAP) Pulse Ox O2 Delivery O2 Flow Rate FiO2 05/03/18 06:47 36.3 66 24 130/68 (88) 95 Room Air 05/03/18 04:56 36.5 99 24 124/74 (91) 94 Room Air 05/03/18 00:01 Room Air 05/02/18 23:20 36.5 72 22 115/64 (81) 95 Room Air Last Recorded Weight-Kilograms: 57.200 Physical Exam Constitutional: Level of Distress: mild distress Lungs: Auscultation: no wheezing, no rales/crackles, deminished air movement, decreased breath sounds Cardiovascular: Heart Auscultation: no rubs, no gallops, II/ BARBARA, irregular rate rhythm Peripheral Pulses: Bruits: none appreciated Extremities: no edema Data Imaging: Repeat echocardiography suggests slight improvement in her left ventricular function, ejection fraction 30-35%. EKG: Telemetry reviewed: She continues to have her SVT, it appears to be becoming more frequent. The mechanism wearing remains unclear. There are 2 heart rates , the more, and is just under 100 bpm, the less common is around 140 bpm. Both are sustained at times. Assessment and Plan 1. Chest discomfort: This has seemingly recurred, she is quite vague about when or how severe the episodes are. I cannot tell if there so she with exertion (moving around her room or bed). She is on an oral nitrate, it is possible that she has discomfort as that wears off. She is also on carvedilol. Her blood pressure is good therefore think we should increase her antianginals. With her low ejection fraction perhaps going up on the beta- barak would be beneficial and may also help with her SVT so I will make that change. 2. Left ventricular dysfunction: In the past despite her aortic stenosis and her severe coronary disease her left ventricular ejection fraction had been maintained. Her current decrease in function is likely due to ischemia. Perhaps she has been gradually damaging her heart for some time, but her enzymes suggest a more recent event. Part of the decreased left ventricular function on admission was likely stunning, she has had some improvement now on repeat echocardiography. Ejection fraction however remains reduced. 3. Aortic stenosis: Aortic stenosis has been moderate to severe but I do not believe that is a cause of her left ventricular dysfunction. We will continue conservative treatment. 4. SVT: She has had recurrence of her SVT with discontinuation of the amiodarone, it certainly could be contributing to her chest discomfort. I am not sure why amiodarone was discontinued rather than converted to oral, if we are going to treat her arrhythmia we should consider restarting amiodarone. I will discuss with the primary service. Thank you for allowing me to participate in her care.
[2018-05-03] MEDS ORDERED: CARVEDILOL 6.25 MG TAB PO ONE (09:30)
[2018-05-03] MEDS ORDERED: AMIODARONE 200 MG TAB PO ONE (10:15)
[2018-05-03] MEDS: RIVASTIGMINE TARTRATE (EXELON) 1.5 MG CAP PO SCH (10:32)
[2018-05-03 12:00] VITALS: BP 136/72; PULSE 85; TEMP 36.3; O2SAT 96
[2018-05-03] MEDS ORDERED: CRD200 PO (14:45)
[2018-05-03] MEDS ORDERED: IMDSR30 PO (14:45)
[2018-05-03] MEDS ORDERED: NTRGSL/4 UT (14:45)
[2018-05-03] MEDS ORDERED: CRG125 PO (14:45)
[2018-05-03] MEDS ORDERED: OXYC10SO OR (14:45)
[2018-05-03] MEDS ORDERED: LEVE500T13 PO (14:45)
--- NOTE | 2018-05-03 14:47 | Discharge Instructions ---
Discharge Instructions Date of Service May 03, 2018. Admission Reason for Admission: Chest Pain, Nstemi Discharge Discharge Diagnosis / Problem: chest pain, NSTEMI Discharge Goals Goal(s): Decrease discomfort Activity Recommendations Activity Limitations: as noted below Lifting Limitations: gradually increase as tolerated . Instructions / Follow-Up Instructions / Follow-Up Going to personal half-way on hospice. Nitro and morphine for pain. Current Hospital Diet Patient's current hospital diet: AHA Diet (Heart Healthy) Discharge Diet Recommended Diet: AHA Diet (Heart Healthy) Pending Studies Studies pending at discharge: no Medical Emergencies . Who to Call and When: Medical Emergencies: If at any time you feel your situation is an emergency, please call 911 immediately. . Non-Emergent Contact Non-Emergency issues call your: Primary Care Provider Call Non-Emergent contact if: you have any medication questions . . "Provider Documentation" section prepared by Teodoro Dasilva. .
[2018-05-03 15:02] VITALS: BP 136/72; PULSE 85; TEMP 36.3; O2SAT 96
--- NOTE | 2018-05-03 18:11 | Pharmacy Progress Note ---
ED Pharmacist Progress Note Date of Service: May 03, 2018. Received call from [facility] regarding discharge prescription written by Dr. Dasilva for oxycodone. The qty to dispense was written in doses, pharmacist wanted to clarify this. Called doctor Vidya, and clarified he wanted 60 doses (up to 6 doses per day for 10 days) which would be #300 mL. Called [facility] back and clarified with Laury.
[2018-05-03] MEDS ORDERED: AMIODARONE 200 MG TAB PO SCH (21:00)
[2018-05-03] MEDS ORDERED: CARVEDILOL 12.5 MG TAB PO SCH (21:00)
--- NOTE | 2018-05-04 22:17 | Discharge Summary ---
Discharge Summary Date of Service May 03, 2018. Discharge Summary Admission Date: Apr 26, 2018 at 18:02 Discharge Date: May 03, 2018 Discharge Disposition: Home with services (Hospice) Principal Diagnosis: NSTEMI in patient with known, severe, nonoperable CAD - Immunizations: Have You Had Influenza Vaccine: Unknown History of Tetanus Vaccine?: Unknown History of Pneumococcal: Unknown History of Hepatitis B Vaccine: Unknown Medication Reconciliation New Medications: Oxycodone Oral Soln (Roxicodone Oral Soln) 5 Mg/5 Ml Soln 5 MG OR Q4H PRN for Pain for 10 Days, #60 DOSE 0 Refills Amiodarone HCl (Amiodarone HCl) 200 Mg Tab 200 MG PO UD for 30 Days, #37 TAB Take 1 tab PO twice a day, followed by one tablet by mouth daily Carvedilol (Carvedilol) 12.5 Mg Tab 12.5 MG PO BID for 30 Days, #60 TAB Isosorbide Mononitrate (Isosorbide Mononitrate ER) 30 Mg Tabcr 30 MG PO QAM for 30 Days, #30 TAB Continued Medications: Acetaminophen Tab (Tylenol) 325 Mg Tab 325 MG PO Q6H PRN for Pain or Fever for 30 Days, #120 TAB Aluminum Hydroxide-Mag Carb (Gaviscon Extra Strength) 1 Chw Chw 1 TAB PO TID PRN for Dyspepsia Aspirin (Aspirin Ec) 81 Mg Tab 81 MG PO DAILY Docusate Sodium (Colace) 100 Mg Cap 1 CAP PO Q2D for 30 Days, CAP Ferrous Sulfate (Ferrous Sulfate) 325 Mg Tab 325 MG PO BID Isosorbide Mononitrate (Isosorbide Mononitrate ER) 30 Mg Tabcr 30 MG PO QAM for 30 Days Levetiracetam (Keppra) 500 Mg Tab 500 MG PO BID for 30 Days, #60 TAB (This prescription has been renewed) Nitroglycerin (Nitrostat) 0.4 Mg Tab 0.4 MG UT PRN for 30 Days, #10 BTL (This prescription has been renewed) Pantoprazole (Protonix) 40 Mg Tab 40 MG PO DAILY Probiotic Product (Probiotic) 1 Tab Tab 2 TABS PO QAM Ranitidine (Zantac) 150 Mg Tab 150 MG PO BID, TAB Rivastigmine Tartrate (Rivastigmine Tartrate) 6 Mg Cap 6 MG PO BID Saccharomyces Boulardii (Florastor) 250 Mg Cap 250 MG PO DAILY for 30 Days, CAP Discontinued Medications: Atorvastatin (Lipitor) 40 Mg Tab 80 MG PO DAILY for 30 Days, TAB B-Complex W/ C & Folic Acid (Steven Caps) 1 Cap Cap 1 CAP PO QAM Cholecalciferol (Vitamin D 1000 Unit) 1,000 Unit Cap 2000 INTER.UNIT PO DAILY, CAP Diclofenac Sodium (Topical) (Voltaren 1% Top Gel) 1 % Gel 1 APPLN TOP QAM &HS Diltiazem Hcl Ext Rel (Tiazac) 180 Mg Capcr 180 MG PO QAM Jaepntmwhkc-Gcaovdnmizn-Hbu C- (Glucosamine Chondroitin 1) 1 Cap Cap 1 CAP PO BID Nystatin (Nystop) 45 Appln/15 Gm Powd 1 APPLN EXT TID for 14 Days apply to lower abdominal and groin skin folds, vulvar region Edlwjksbe-Dsajqjylzpvnq-Hugdhq (Preparation H) 1 Cre Cre 1 APPLN TOP PRN UD Vitamin B Cmplx/Vitc/Folic Ac (Nephrocaps) Cap 1 CAP PO DAILY [Calmoseptine] () 1 APPLN TOP QID PRN for SKIN BREAKDOWN Discharge Exam Review of Systems Constitutional: No fever Eyes: No worsening of vision ENT: No unusual epistaxis Respiratory: No cough Cardiac: + chest pain Abdomen: No pain Musculoskeletal: No swelling Psychiatric: No anhedonism Heme: No abnormal bleeding/bruising Endo: + fatigue Skin: No rash All Other Systems: Reviewed and Negative Physical Exam Comments: General Appearance: no apparent distress ENT: pharynx normal Neck: no JVD Respiratory/Chest: lungs clear, no respiratory distress, no accessory muscle use Cardiovascular: regular rate, rhythm, no gallop, + systolic murmur (2/6 RUSB) Abdomen: normal bowel sounds, non tender, soft, no organomegaly Extremities: no pedal edema Neurologic/Psychiatric: alert, oriented x 3 Hospital Course 87yo female - 1. 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 During her previous admission in January 2018 she had the same feelings. Continue conservative medical management. Cont asa. Cont low-dose coreg but have increased this to 6.25mg BID. Increased imdur to 30mg daily due to recurrent chest pain. 2. acute systolic/diastolic CHF - echo c/w ischemic cardiomyopathy. Her LV dysfunction is severe. Remains compensated from volume standpoint, however. Cont BB. Ideally needs low-dose EMMA but BP may not allow. 3. hypomagnesemia - resolved. 4. CKD stage 3 - creatinine stable. 5. acute/chronic anemia - s/p 2 units PRBCs earlier this stay with H/H stable since then. Chronic anemia is due to iron def anemia and recurrent, occult GI bleeding. 6. aortic stenosis - doubt contributing to acute CHF. Stable. 7. DVT proph - chemical means relatively contraindicated due to #5. 8. paroxysmal a fib/flutter - has had this during previous hospital stays. Cont beta barak. Keep K/mag wnl. Family decided on [facility]. Total Time Spent: Greater than 30 minutes This includes examination of the patient, discharge planning, medication reconciliation, and communication with other providers. Discharge Instructions Please refer to the electronic Patient Visit Report (Discharge Instructions) for additional information. Follow-Up Patient is discharged to personal care hospice Additional Copies To Brittanie Moran C.R.N.P
== END 2018-05-03 16:38 | DRG 280 ==
LOC: C.EDB 15:01 → C.2E 18:02 → ENRESERV 18:22 → C.MSICU 04-27 10:45 → ENRESERV 04-28 18:09 → C.2T 04-28 18:38
PROVIDERS: ADMIT Internal Medicine; ATTEND Internal Medicine Sports Medicine
DX: I21.4 Non-ST elevation (NSTEMI) myocardial infarction (principal); I50.33 Acute on chronic diastolic (congestive) heart failure; I48.92 Unspecified atrial flutter; I25.10 Atherosclerotic heart disease of native coronary artery without angina pectoris; I25.2 Old myocardial infarction; D64.9 Anemia, unspecified; Z51.5 Encounter for palliative care; Z66 Do not resuscitate; E83.42 Hypomagnesemia; N18.3 Chronic kidney disease, stage 3 (moderate); I35.0 Nonrheumatic aortic (valve) stenosis; I48.0 Paroxysmal atrial fibrillation